=== PATIENT | male | born 1955 | race Caucasian/White ===

== ENCOUNTER 2019-10-06 06:00 | Outpatient (RCR) | payer MEDICARE, SELFPAY | END 2019-11-05 23:59 | disposition home or self-care (01) | LOC: GPT 06:00 | PROVIDERS: Family Provider Nurse Practitioner Family; PCP Nurse Practitioner Family; Visit Provider Orthopaedic Surgery | DX: Z47.1 Aftercare following joint replacement surgery (principal); Z96.652 Presence of left artificial knee joint | CPT/HCPCS: 97110; 97112; 97116; 97161; 97530 ==

== ENCOUNTER → 2019-10-25 14:04 | Outpatient (BNVA) | payer MEDICARE, SELFPAY | PROVIDERS: Family Provider Nurse Practitioner Family; PCP Nurse Practitioner Family; Visit Provider Orthopaedic Surgery | DX: Z48.89 Encounter for other specified surgical aftercare (principal); Z96.652 Presence of left artificial knee joint; M25.462 Effusion, left knee | CPT/HCPCS: 73560; 73565 ==

== ENCOUNTER → 2019-11-05 13:43 | Outpatient (BNVA) | payer MEDICARE, SELFPAY | PROVIDERS: Family Provider Nurse Practitioner Family; PCP Nurse Practitioner Family; Visit Provider Anesthesiology | DX: M54.5 Low back pain (principal); Z79.891 Long term (current) use of opiate analgesic | CPT/HCPCS: 99213; 99214 ==

== ENCOUNTER → 2019-11-15 08:01 | Outpatient (BNVA) | payer MEDICARE, SELFPAY | PROVIDERS: Family Provider Nurse Practitioner Family; PCP Nurse Practitioner Family; Visit Provider Specialist | DX: G25.0 Essential tremor (principal); Z79.891 Long term (current) use of opiate analgesic | CPT/HCPCS: 99214 ==

== ENCOUNTER 2019-11-16 06:00 | Outpatient (RCR) | payer MEDICARE, SELFPAY | END 2019-12-04 23:59 | disposition home or self-care (01) | LOC: GPT 06:00 | PROVIDERS: Family Provider Nurse Practitioner Family; PCP Nurse Practitioner Family; Visit Provider Orthopaedic Surgery | DX: Z47.1 Aftercare following joint replacement surgery (principal); Z96.652 Presence of left artificial knee joint | CPT/HCPCS: 97110; 97112; 97164; 97530 ==

== ENCOUNTER 2019-12-05 06:00 | Outpatient (RCR) | payer MEDICARE, SELFPAY | END 2020-01-04 23:59 | disposition home or self-care (01) | LOC: GPT 06:00 | PROVIDERS: Family Provider Nurse Practitioner Family; PCP Nurse Practitioner Family; Visit Provider Orthopaedic Surgery | DX: Z47.1 Aftercare following joint replacement surgery (principal); Z96.652 Presence of left artificial knee joint | CPT/HCPCS: 97530 ==

== ENCOUNTER → 2019-12-30 14:17 | Outpatient (BNVA) | payer MEDICARE, SELFPAY | PROVIDERS: Family Provider Nurse Practitioner Family; PCP Nurse Practitioner Family; Visit Provider Anesthesiology | DX: Z76.89 Persons encountering health services in other specified circumstances (principal) | CPT/HCPCS: 99213 ==

== ENCOUNTER → 2020-01-10 12:14 | Outpatient (BNVA) | payer MEDICARE, SELFPAY | PROVIDERS: Family Provider Nurse Practitioner Family; PCP Nurse Practitioner Family; Visit Provider Family Medicine | DX: R05 Cough (principal); J43.9 Emphysema, unspecified; I51.7 Cardiomegaly | CPT/HCPCS: 71046; 85025; 87400 ==

== ENCOUNTER → 2020-02-09 09:16 | Outpatient (BNVA) | payer MEDICARE, SELFPAY | PROVIDERS: Family Provider Nurse Practitioner Family; PCP Nurse Practitioner Family; Visit Provider Family Medicine | DX: E11.9 Type 2 diabetes mellitus without complications (principal); R05 Cough; I25.10 Atherosclerotic heart disease of native coronary artery without angina pectoris | CPT/HCPCS: 80053; 83036 ==

== ENCOUNTER → 2020-02-17 11:51 | Outpatient (BNVA) | payer MEDICARE, SELFPAY | PROVIDERS: Family Provider Nurse Practitioner Family; PCP Nurse Practitioner Family; Visit Provider Orthopaedic Surgery | DX: Z48.89 Encounter for other specified surgical aftercare (principal); Z98.890 Other specified postprocedural states; Z96.652 Presence of left artificial knee joint | CPT/HCPCS: 73562 ==

== ENCOUNTER → 2020-03-08 15:07 | Outpatient (BNVA) | payer MEDICARE, SELFPAY | PROVIDERS: Family Provider Nurse Practitioner Family; PCP Nurse Practitioner Family; Visit Provider Anesthesiology | DX: M54.41 Lumbago with sciatica, right side (principal); M54.42 Lumbago with sciatica, left side; M47.22 Other spondylosis with radiculopathy, cervical region; Z79.891 Long term (current) use of opiate analgesic | CPT/HCPCS: 99213; 99214 ==

== ENCOUNTER → 2020-04-21 09:00 | Outpatient (BNVA) | payer MEDICARE, SELFPAY | PROVIDERS: Family Provider Nurse Practitioner Family; PCP Nurse Practitioner Family; Visit Provider Nurse Practitioner Family | DX: R53.83 Other fatigue (principal); E55.9 Vitamin D deficiency, unspecified; R42 Dizziness and giddiness | CPT/HCPCS: 82306; 85025 ==

== ENCOUNTER → 2020-05-09 13:59 | Outpatient (BNVA) | payer MEDICARE, SELFPAY | PROVIDERS: Family Provider Nurse Practitioner Family; PCP Nurse Practitioner Family; Visit Provider Anesthesiology | DX: M54.5 Low back pain (principal); M47.22 Other spondylosis with radiculopathy, cervical region; Z79.891 Long term (current) use of opiate analgesic | CPT/HCPCS: 99213; 99214 ==

== ENCOUNTER → 2020-05-11 13:46 | Outpatient (BNVA) | payer MEDICARE, SELFPAY | PROVIDERS: Family Provider Nurse Practitioner Family; PCP Nurse Practitioner Family; Visit Provider Nurse Practitioner Family | DX: E11.9 Type 2 diabetes mellitus without complications (principal); E78.2 Mixed hyperlipidemia; I10 Essential (primary) hypertension; Z68.30 Body mass index [BMI] 30.0-30.9, adult | CPT/HCPCS: 83036 ==

== ENCOUNTER → 2020-05-18 09:04 | Outpatient (BNVA) | payer MEDICARE, SELFPAY | PROVIDERS: Family Provider Nurse Practitioner Family; PCP Nurse Practitioner Family; Visit Provider Nurse Practitioner Family | DX: E78.2 Mixed hyperlipidemia (principal); I10 Essential (primary) hypertension | CPT/HCPCS: 36415; 80053; 80061; 84439; 84443 ==

== ENCOUNTER → 2020-07-06 12:24 | Outpatient (BNVA) | payer MEDICARE, SELFPAY | PROVIDERS: Family Provider Nurse Practitioner Family; PCP Nurse Practitioner Family; Visit Provider Anesthesiology | DX: M54.42 Lumbago with sciatica, left side (principal); M54.41 Lumbago with sciatica, right side; M47.22 Other spondylosis with radiculopathy, cervical region; Z79.891 Long term (current) use of opiate analgesic | CPT/HCPCS: 99213; 99214 ==

== ENCOUNTER → 2020-09-05 12:31 | Outpatient (BNVA) | payer MEDICARE, SELFPAY | PROVIDERS: Family Provider Nurse Practitioner Family; PCP Nurse Practitioner Family; Visit Provider Anesthesiology | DX: M54.5 Low back pain (principal); M47.22 Other spondylosis with radiculopathy, cervical region; Z79.891 Long term (current) use of opiate analgesic | CPT/HCPCS: 99213; 99214 ==

== ENCOUNTER → 2020-09-13 10:04 | Outpatient (BNVA) | payer MEDICARE, SELFPAY | PROVIDERS: Family Provider Nurse Practitioner Family; PCP Nurse Practitioner Family; Visit Provider Nurse Practitioner Family | DX: R53.83 Other fatigue (principal); Z11.59 Encounter for screening for other viral diseases | CPT/HCPCS: 87635 ==

== ENCOUNTER → 2020-11-02 13:16 | Outpatient (BNVA) | payer MEDICARE, SELFPAY | PROVIDERS: Family Provider Nurse Practitioner Family; PCP Nurse Practitioner Family; Visit Provider Anesthesiology | DX: M54.5 Low back pain (principal); M47.22 Other spondylosis with radiculopathy, cervical region; Z79.891 Long term (current) use of opiate analgesic | CPT/HCPCS: 99213 ==

== ENCOUNTER → 2020-12-05 09:57 | Outpatient (BNVA) | payer MEDICARE, SELFPAY | PROVIDERS: Family Provider Nurse Practitioner Family; PCP Nurse Practitioner Family; Visit Provider Nurse Practitioner Family | DX: B35.1 Tinea unguium (principal) | CPT/HCPCS: 84450; 84460 ==

== ENCOUNTER → 2021-02-26 11:21 | Outpatient (BNVA) | payer MEDICARE, SELFPAY | PROVIDERS: Family Provider Nurse Practitioner Family; PCP Nurse Practitioner Family; Visit Provider Family Medicine | DX: R53.83 Other fatigue (principal); E11.9 Type 2 diabetes mellitus without complications; Z68.32 Body mass index [BMI] 32.0-32.9, adult; G47.00 Insomnia, unspecified | CPT/HCPCS: 83036 ==

== ENCOUNTER 2021-03-14 16:30 | Emergency (ER) | payer MEDICARE, SELFPAY ==
[2021-03-14 16:46] VITALS: BP 152/87; PULSE 72; RESP 16; TEMP 36.3; O2SAT 98; BMI 31.5
[2021-03-14 17:20] VITALS: BP 136/83; PULSE 67; O2SAT 96
--- NOTE | 2021-03-14 17:26 | ED_ITS ---
HPI - Dizziness General: Chief Complaint: Dizziness Stated Complaint: dizzy Time Seen by Provider: 03/14/21 17:20 History of Present Illness: HPI Narrative: This patient presents to the emergency department complaint of dizziness. Patient states he was out working in the heat today and even try to going to cool off because he started getting dizzy. Patient states he still having issues with dizziness. Patient does have a history of Parkinson's disease and does take medications for the same but otherwise denies any neurological symptoms other than his chronic tremor check. Patient states he thinks he got too hot. MD elicited complaint: dizziness Timing: gradual onset Severity: mild Description: lightheadedness Associated symptoms: Denies chest pain, chills, headache(s), nausea, palpitations or vomiting Associated neuro symptoms: Deny numbness in extremities Review of Systems General: Reports: 10 or more systems reviewed and unremarkable except in HPI and below Const: Denies: fever(s), chills, body aches or fatigue Eyes: Denies: change in vision or blurry vision ENMT: Denies: throat pain, hoarseness or mouth pain Card: Denies: chest pain, palpitations, irregular heart rhythm, edema, swelling of feet/ankles or lightheadedness Resp: Denies: dyspnea, productive cough, non-productive cough, wheezing or pain on inspiration GI: Denies: abdominal pain, nausea or vomiting : Denies: flank pain, dysuria, urinary frequency, urinary urgency or urinary hesitancy Musc: Denies: neck pain, back pain, extremity pain, extremity swelling, joint pain, joint swelling, joint redness, joint warmth or limited range of motion Skin/Breast: Denies: rash, pruritus, erythema or skin tenderness Neuro: Reports: dizziness; Denies: headache(s), numbness in extremities or weakness in extremities Psych: Denies: anxiety or depression PFSH ED PFSH: Medical History Accelerated essential hypertension Aortic stenosis CAD (coronary artery disease) Encounter for long-term use of opiate analgesic Enrolled in chronic care management Hyperlipidemia, mixed Low back pain Parkinson disease Type 2 diabetes mellitus Surgical History H/O aortic valve replacement H/O aortic valve replacement History of arthroplasty of knee History of total left hip arthroplasty Status post total left knee replacement Family History Mother Diabetes Hypertension Stroke Father CAD (coronary artery disease) Brother Hypertension Sister Hypertension Social History Smoking and tobacco status: never smoked Second hand smoke exposure: Yes Alcohol intake: former Year of sobriety/quit date alcohol: 30 Substance/Drug Use: current Substance/Drug use frequency: daily Substance/Drug use type: Marijuana History of recent travel: No Physical Exam Const: COMMON NORMALS: no acute distress, average body habitus, patient oriented x3, no limitations, healthy appearing, alert and well nourished HENMT: COMMON NORMALS: normocephalic, atraumatic, hearing grossly normal bilaterally, external ears normal, EAC's normal, TM's normal bilaterally, Normal external nose present, Normal nasal mucous membranes and turbinates present, moist oral mucous membranes, oropharynx normal, dentition normal and gingiva normal HEAD & SCALP: normocephalic and atraumatic NOSE: Normal external nose present and Normal nasal mucous membranes and turbinates present EXTERNAL EAR: Yes external ears normal EXTERNAL AUDITORY CANAL: EAC's normal TYMPANIC MEMBRANE: TM's normal bilaterally Neck/C-Spine: COMMON NORMALS: full ROM, no lymphadenopathy, supple, no meningeal signs, no JVD, Thyroid normal and No carotid bruits THYROID: Thyroid normal Chest: COMMONS NORMALS: normal inspection of the chest, normal palpation of entire chest wall, normal inspection of the breasts and normal palpation of the breasts Breast/axilla inspection: Yes normal inspection of the breasts BREAST/AXILLA PALPATION: Yes normal palpation of the breasts Resp: COMMON NORMALS: normal respiratory effort, No retractions, No use of accessory muscles, clear to auscultation bilaterally and percussion normal AUSCULTATION: clear to auscultation bilaterally PERCUSSION: percussion normal Cardio: COMMON NORMALS: no JVD, regular rate, regular rhythm, S1 normal heart sound present, S2 normal heart sound present, No gallops present (Cardio), No clicks present (Cardio), No murmurs present (Cardio), No rub (Cardio) and Peripheral pulses 2+ throughout RATE: regular rate RHYTHM: regular rhythm HEART SOUNDS: S1 normal heart sound present and S2 normal heart sound present PERIPHERAL PULSES: Peripheral pulses 2+ throughout GI: COMMON NORMALS: Normal to inspection, nondistended, normoactive bowel sounds present, Soft to palpation, non-tender, No hepatosplenomegaly present, no masses and no bruits PALPATION: Yes Soft to palpation and Yes No hepato splenomegaly present : COMMON NORMALS: Yes no CVA tenderness BLADDER/KIDNEY EXAM: Yes no CVA tenderness Back/Pelvis: COMMON NORMALS: no CVA tenderness, thoracic and lumbar spine normal to inspection, no thoracic nor lumbar tenderness, thoraco-lumbar ROM normal and straight leg raise negative bilaterally Extremity: COMMON NORMALS: normal to inspection, full ROM, capillary refill normal, no joint enlargement, no clubbing, cyanosis or edema, no calf tenderness and no pedal edema Neuro: COMMON NORMALS: patient oriented x3 SENSORIUM/ORIENTATION: Yes alert MENINGEAL SIGNS: Yes no meningeal signs Course Reevaluation(s): Reevaluation #1: Dizziness resolved. Patient doing much better. Patient be discharged home. Patient encourage p.o. fluids continue all home medications. Avoid long stretches in the hot sun. Time: 19:11 Vital Signs: Vital signs: Vital Signs Temperature 97.3 F L 03/14/21 16:46 Pulse Rate 79 03/14/21 19:05 Respiratory Rate 16 03/14/21 16:46 Blood Pressure 148/64 03/14/21 19:05 Pulse Oximetry 92 03/14/21 19:05 MDM - Dizziness MDM Narrative: Medical decision making narrative: This patient presents to the emergency department complaint of dizziness. Patient states he was out working in the heat today and even try to going to cool off because he started getting dizzy. Patient states he still having issues with dizziness. Patient does have a history of Parkinson's disease and does take medications for the same but otherwise denies any neurological symptoms other than his chronic tremor check. Patient states he thinks he got too hot. Dizziness resolved. Patient doing much better. Patient be discharged home. Patient encourage p.o. fluids continue all home medications. Avoid long stretches in the hot sun. Lab Data: Labs: Lab Results 03/14/21 03/14/21 03/14/21 Range/Units 17:44 17:44 18:28 WBC 7.1 (4.0-10.0) 10^3/ uL RBC 3.98 L (4.1-5.3) 10^6/u L Hgb 11.6 L (11.7-16.6) g/dL Hct 35.2 L (42.0-52.0) % MCV 88.4 (80-94) fL MCH 29.1 (28.0-34.0) pg MCHC 33.0 (30.0-36.0) g/dL RDW 14.0 (12.1-15.1) % Plt Count 172 (130-400) 10^3/c mm MPV 11.2 H (7.4-10.4) fL Neut % (Auto) 59.6 % Lymph % (Auto) 29.2 % Osborne % (Auto) 10.2 % Eos % (Auto) 0.4 % Baso % (Auto) 0.3 % Neut # (Auto) 4.23 (1.8-7.7) 10^3/u L Lymph # (Auto) 2.1 (0.8-4.8) 10^3/u L Osborne # (Auto) 0.7 (0.2-0.9) 10^3/u L Eos # (Auto) 0.0 (0.0-0.8) 10^3/u L Baso # (Auto) 0.0 (0.0-0.1) 10^3/u L Nucleated RBC % (a uto) 0 % Nucleated RBCs # 0.0 /100WBC Sodium 139 (136-145) mmol/L Potassium 3.9 (3.5-5.1) mmol/L Chloride 104 (98-107) mmol/L Carbon Dioxide 24 (22-29) mmol/L Anion Gap 14.9 (5-19) BUN 15 (8-23) mg/dL Creatinine 0.8 (0.7-1.2) mg/dL GFR Calculation 97.3 (90-130) mL/min Glucose 132 H (65-115) mg/dL Calculated Osmolal ity 291 (285-295) mOsm/k g Calcium 8.6 (8.5-10.5) mg/dL Urine Color Yellow (Yellow) Urine Appearance Clear (CLEAR) Urine pH 6 (5-7) Ur Specific Gravit y 1.005 (1.005-1.030) Urine Protein Neg (Negative) Urine Glucose (UA) Norm (Normal) Urine Ketones Negative (Negative) Urine Blood Neg (Negative) Urine Nitrate Negative (Negative) Urine Bilirubin Neg (Negative) Urine Urobilinogen Norm (Negative) mg/dL Ur Leukocyte Luly ase Negative (Negative) EKG Data^: EKG 1: Attestation: I personally reviewed and interpreted this EKG as follows: EKG interpretation date: 03/14/21 EKG interpretation time: 18:12 Prior EKG tracings: not available for review Interpretation: Sinus rhythm with a heart rate of 65 interventricular conduction delay nondiagnostic EKG Discharge Plan Discharge Patient Disposition: Home Clinical Impression: Dizziness, Parkinson disease Condition: Stable Prescriptions: No Action sildenafil [Viagra] 50 mg tablet 50 mg PO QDAY PRNRF: 0 albuterol sulfate 2.5 mg /3 mL (0.083 %) solution for nebulization 2.5 mg INHALATION Q6H PRNRF: 0 diclofenac sodium [Voltaren] 1 % gel 2 gm TOPICAL QID Qty: 100 RF: 1 zinc 50 mg tablet 50 mg PO DAILY RF: 0 cholecalciferol (vitamin D3) 50 mcg (2,000 unit) capsule 50 mcg PO DAILY RF: 0 carbidopa-levodopa 25-100 mg tablet 1 tab PO TID RF: 0 tramadol 50 mg tablet 100 mg PO TID 30 Days Qty: 180 RF: 1 albuterol sulfate [Ventolin HFA] 90 mcg/actuation HFA aerosol inhaler 1 inh INHALATION ONCE Qty: 8.5 RF: 0 cetirizine [Zyrtec] 10 mg tablet 10 mg PO DAILY Qty: 30 RF: 11 fluticasone propionate [Children's Flonase Allergy Rlf] 50 mcg/actuation spray,suspension 1 spray INTRANASAL QDAY Qty: 16 RF: 11 trazodone 50 mg tablet See Rx Instructions .ROUTE .COMPLEX Qty: 45 RF: 3 magnesium oxide 500 mg capsule 500 mg PO DAILY RF: 0 multivitamin Tablet 1 tab PO DAILY RF: 0 garlic 500 mg capsule 500 mg PO DAILY RF: 0 entacapone 200 mg tablet 200 mg PO TID RF: 0 medical marijuana PO RF: 0 bupivacaine (PF) 0.25 % (2.5 mg/mL) solution 5 ml epidural ONCE Qty: 1 RF: 0 (DME) Accu-Chek SmartView Test Strip Strip See Rx Instructions .ROUTE .MEDSUPPLY Qty: 100 RF: 3 (DME) lancets [Comfort EZ Lancets] 28 gauge misc See Rx Instructions .ROUTE .MEDSUPPLY Qty: 100 RF: 3 amlodipine 5 mg tablet See Rx Instructions .ROUTE .COMPLEX Qty: 90 RF: 3 atorvastatin 20 mg tablet See Rx Instructions .ROUTE .COMPLEX Qty: 90 RF: 3 glipizide 5 mg tablet See Rx Instructions .ROUTE .COMPLEX Qty: 90 RF: 3 propranolol 40 mg tablet See Rx Instructions .ROUTE .COMPLEX Qty: 60 RF: 3 metformin 850 mg tablet See Rx Instructions .ROUTE .COMPLEX Qty: 60 RF: 3 Discharge Orders: Discharge ED (Routine); Ordered 03/14/21 Ordered By: Roverto Escamilla Referrals: Kellie Post, PEDIATRICIAN [Primary Care Provider] - Discharge Diet: Advance as tolerated Discharge Activity: Resume usual activity and Increase activity as tolerated Patient Instructions: Opioid Safety Activity Restrictions/Additional Instructions: Encourage p.o. fluids. Take medications as instructed. Avoid long stretches out of the heat. Follow-up with PCP in 2 to 3 days. Coding Level of Care Code ED Anaesthetic Technician for Fredis Fwd Exam Comprehensive
--- NOTE | 2021-03-14 17:26 | ECG_ITS ---
[facility] Test Date: 2021-03-14 Pat Name: Jose Hairston Department: Room: Gender: Male Jtac: : 1955 Requested By: Roverto Escamilla Order Number: [id number] Recio MD: Sheba Rene M.D. Measurements Intervals Mobile Rate: 65 P: 41 SC: 169 QRS: 72 QRSD: 139 T: 95 QT: 419 QTc: 438 Interpretive Statements SINUS RHYTHM INTRAVENTRICULAR CONDUCTION DELAY [130+ ms QRS DURATION] SEPTAL MYOCARDIAL INFARCTION [40+ ms Q WAVE IN V1/V2], OF INDETERMINATE AGE Compared to ECG 09/03/2019 11:13:05 Intraventricular conduction delay now present T-wave abnormality no longer present Possible ischemia no longer present Myocardial infarct finding still present Electronically Signed On 03-14-2021 22:00:47 CDT by Sheba Rene M.D. [id number]
[2021-03-14 17:56] LABS: Basophils % 0.3 %; Eosinophils % 0.4 %; Hematocrit 35.2 % (42.0-52.0); Hemoglobin 11.6 g/dL (11.7-16.6); Lymphocytes # 2.1 10^3/uL (0.8-4.8); Lymphocytes % 29.2 %; Mean Corpuscular Hemoglobin 29.1 pg (28.0-34.0); Mean Corpuscular Volume 88.4 fL (80-94); Mean Platelet Volume 11.2 fL (7.4-10.4); Monocytes # 0.7 10^3/uL (0.2-0.9); Monocytes % 10.2 %; Neutrophils # 4.23 10^3/uL (1.8-7.7); Neutrophils % 59.6 %; Nucleated Red Blood Cells % 0 %; Platelet Count 172 10^3/cmm (130-400); Red Blood Count 3.98 10^6/uL (4.1-5.3); White Blood Count 7.1 10^3/uL (4.0-10.0)
[2021-03-14 18:19] LABS: Anion Gap 14.9 (5-19); Blood Urea Nitrogen 15 mg/dL (8-23); Calcium 8.6 mg/dL (8.5-10.5); Carbon Dioxide 24 mmol/L (22-29); Chloride 104 mmol/L (98-107); Glomerular Filtration Rate 97.3 mL/min (90-130); Glucose 132 mg/dL (65-115); Osmolality Calculated 291 mOsm/kg (285-295); Potassium 3.9 mmol/L (3.5-5.1); Sodium 139 mmol/L (136-145)
[2021-03-14] MEDS: sodium chloride 0.9% 1,000 ML 999 ML IV (18:35)
[2021-03-14] MEDS: meclizine 25 mg tablet PO (18:35)
[2021-03-14 18:43] LABS: Add Urine Microscopic? NO; Charge for UA Resulting for Rev
[2021-03-14 18:53] LABS: Bilirubin Urine Neg (Negative); Blood Urine Neg (Negative); Glucose Urine UA Norm (Normal); Ketones Urine Negative (Negative); Leukocyte Esterase Urine Negative (Negative); Nitrate Urine Negative (Negative); Protein Urine Neg (Negative); Specific Gravity, Urine 1.005 (1.005-1.030); Urine Appearance Clear (CLEAR); Urine Color Yellow (Yellow); Urobilinogen Urine Norm (Negative); pH Urine 6 (5-7)
[2021-03-14 19:05] VITALS: BP 148/64; PULSE 79; O2SAT 92
[2021-03-14 19:50] VITALS: BP 143/92; PULSE 65; RESP 18; O2SAT 99
== END 2021-03-14 19:53 | disposition home or self-care (01) ==
PROVIDERS: Emergency Provider Emergency Medicine; PCP Nurse Practitioner Family
DX: R42 Dizziness and giddiness (principal); G20 Parkinson's disease; Z79.84 Long term (current) use of oral hypoglycemic drugs; I10 Essential (primary) hypertension; I25.10 Atherosclerotic heart disease of native coronary artery without angina pectoris; E78.2 Mixed hyperlipidemia; E11.9 Type 2 diabetes mellitus without complications; Z77.22 Contact with and (suspected) exposure to environmental tobacco smoke (acute) (chronic)
CPT/HCPCS: 80048; 81003; 85025; 93005; 96360; 99283; J7030; J8597

== ENCOUNTER → 2021-06-07 15:28 | Outpatient (BNVA) | payer MEDICARE, SELFPAY | PROVIDERS: PCP Nurse Practitioner Family; Visit Provider Nurse Practitioner Family | DX: Z20.822 Contact with and (suspected) exposure to COVID-19 (principal) | CPT/HCPCS: 87635 ==

== ENCOUNTER → 2021-06-19 09:11 | Outpatient (BNVA) | payer MEDICARE, SELFPAY | PROVIDERS: PCP Nurse Practitioner Family; Visit Provider Nurse Practitioner Family | DX: E11.9 Type 2 diabetes mellitus without complications (principal); E55.9 Vitamin D deficiency, unspecified; E78.2 Mixed hyperlipidemia; E83.42 Hypomagnesemia | CPT/HCPCS: 80053; 80061; 82043; 82306; 83036; 83735; 84439; 84443; 85025 ==

== ENCOUNTER → 2021-07-04 09:40 | Outpatient (BNVA) | payer MEDICARE, SELFPAY | PROVIDERS: PCP Nurse Practitioner Family; Visit Provider Nurse Practitioner Family | DX: N52.9 Male erectile dysfunction, unspecified (principal); Z68.31 Body mass index [BMI] 31.0-31.9, adult | CPT/HCPCS: 84402; G0103 ==

== ENCOUNTER → 2021-10-08 14:29 | Outpatient (BNVA) | payer MEDICARE, SELFPAY | PROVIDERS: PCP Nurse Practitioner Family; Visit Provider Urology | DX: M54.50 Low back pain, unspecified (principal) | CPT/HCPCS: 81003 ==

== ENCOUNTER → 2021-12-21 10:29 | Outpatient (BNVA) | payer MEDICARE, MEDICAID, SELFPAY | PROVIDERS: PCP Nurse Practitioner Family; Visit Provider Internal Medicine Cardiovascular Disease | DX: I25.10 Atherosclerotic heart disease of native coronary artery without angina pectoris (principal); E11.9 Type 2 diabetes mellitus without complications; E78.2 Mixed hyperlipidemia; I10 Essential (primary) hypertension | CPT/HCPCS: 99214 ==

== ENCOUNTER → 2022-03-20 08:39 | Outpatient (BNVA) | payer MEDICARE, MEDICAID, SELFPAY | PROVIDERS: PCP Nurse Practitioner Family; Visit Provider Nurse Practitioner Family | DX: E55.9 Vitamin D deficiency, unspecified (principal); E11.9 Type 2 diabetes mellitus without complications; E78.2 Mixed hyperlipidemia | CPT/HCPCS: 80053; 80061; 82306; 83036 ==

== ENCOUNTER → 2022-04-22 15:40 | Outpatient (BNVA) | payer MEDICARE, MEDICAID, SELFPAY | PROVIDERS: PCP Nurse Practitioner Family; Visit Provider Urology | DX: R79.89 Other specified abnormal findings of blood chemistry (principal); N52.9 Male erectile dysfunction, unspecified | CPT/HCPCS: 81003; 84403; 99213 ==

== ENCOUNTER → 2022-06-25 09:11 | Outpatient (BNVA) | payer MEDICARE, MEDICAID, SELFPAY | PROVIDERS: PCP Nurse Practitioner Family; Visit Provider Nurse Practitioner Family | DX: E11.9 Type 2 diabetes mellitus without complications (principal) | CPT/HCPCS: 83036 ==

== ENCOUNTER 2022-08-09 11:45 | Outpatient (CLI) | payer MEDICARE, MEDICAID, SELFPAY ==
--- NOTE | 2022-08-09 12:15 | USCV_ITS ---
Jose Hairston Age: 66 Gender: M : 1955 Exam Date: 08/09/2022 12:33 Ordering Phys: Sheba Rene MD ([email or web address]) Technologist: Maryam Arguelles Exam Location: [facility] – [place] Indication: AOV replacement, CAD BP: 128 / 88 HR: 62 Rhythm: Sinus Technical Quality: Fair MEASUREMENTS (Male / Female) Normal Values 2D ECHO LV Diastolic Diameter PLAX 3.1 cm 4.2 - 5.9 / 3.9 - 5.3 cm LV Systolic Diameter PLAX 1.8 cm IVS Diastolic Thickness 2.6 cm 0.6 - 1.0 / 0.6 - 0.9 cm IVS Systolic Thickness 3.2 cm LVPW Diastolic Thickness 2.3 cm 0.6 - 1.0 / 0.6 - 0.9 cm LVPW Systolic Thickness 1.7 cm LVOT Diameter 2.1 cm LV Ejection Fraction 2D Teich 74.0 % LV Ejection Fraction MOD 2C 45.1 % LV Ejection Fraction 2C AL 44.5 % LA Diameter 4.1 cm LA Width 3.4 cm LA Height 5.0 cm RA Width 3.4 cm RA Height 4.6 cm Aorta at Sinotubular Diameter 3.5 cm IVC Diameter 1.9 cm M-MODE MV E Point Septal Separation 0.9 cm DOPPLER AV Peak Velocity 220.0 cm/s LVOT Peak Velocity 91.0 cm/s AV Area Cont Eq vti 1.8 cm squared AV Area Cont Eq pk 1.4 cm squared MV Peak Velocity 141.0 cm/s MV Area PHT 2.2 cm squared Mitral E to A Ratio 0.6 MV E' Velocity 43.5 cm/s Mitral E to MV E' Ratio 9.3 Mitral E to LV E' Lateral Ratio 8.7 Mitral E to LV E' Septal Ratio 10.2 TR Peak Velocity 72.0 cm/s TR Peak Gradient 2.1 mmHg Right Atrial Pressure 3.0 mmHg Pulmonary Artery Systolic Pressu 5.1 mmHg PV Peak Velocity 94.0 cm/s RV Acceleration Time 0.1 s RV Ejection Time 0.3 s RV AcT/ET 0.3 FINDINGS Left Ventricle Normal left ventricular size, systolic function and wall thickness, with no regional wall motion abnormalities. Left ventricular ejection fraction is estimated at 60 %. Grade I diastolic dysfunction (abnormal relaxation filling pattern), normal to mildly elevated filling pressures. Right Ventricle Normal right ventricular size and systolic function. RVSP could not be calculated due to incomplete tricuspid regurgitation velocity profile. Right Atrium Normal right atrial size. Left Atrium Normal left atrial size. Mitral Valve Structurally normal mitral valve. No mitral valve stenosis. No significant mitral valve regurgitation. Aortic Valve Normal bioprosthetic aortic valve well seated and normally functioning. Peak velocity 2.1 m/sec, peak gradient 18 mm Hg and mean gradient 10 mm Hg. No significant valvular or binh-valvular regurgitation. Tricuspid Valve Structurally normal tricuspid valve. Trace tricuspid valve regurgitation. Pulmonic Valve Structurally normal pulmonic valve. No pulmonary valve stenosis. Trace pulmonary valve regurgitation. Pericardium No pericardial effusion. Aorta Normal size aortic root and proximal ascending aorta. IVC Normal sized IVC. CONCLUSIONS 1. Normal left ventricular size, systolic function and wall thickness, with no regional wall motion abnormalities. Left ventricular ejection fraction is estimated at 60 %. Grade I diastolic dysfunction (abnormal relaxation filling pattern), normal to mildly elevated filling pressures. 2. Normal bioprosthetic aortic valve well seated and normally functioning. Peak velocity 2.1 m/sec, peak gradient 18 mm Hg and mean gradient 10 mm Hg. 3. No significant change when compared to study dated 05/27/2016. Sheba Rene MD (Electronically Signed) Final Date: 21 August 2022 21:16 S
== END 2022-08-09 11:46 | disposition home or self-care (01) ==
LOC: RAD 11:45
PROVIDERS: PCP Nurse Practitioner Family; Visit Provider Internal Medicine Cardiovascular Disease
DX: I25.10 Atherosclerotic heart disease of native coronary artery without angina pectoris (principal); I10 Essential (primary) hypertension; Z95.2 Presence of prosthetic heart valve
CPT/HCPCS: 93306

== ENCOUNTER → 2022-10-14 15:10 | Outpatient (BNVA) | payer MEDICARE, MEDICAID, SELFPAY | PROVIDERS: PCP Nurse Practitioner Family; Visit Provider Internal Medicine Cardiovascular Disease | DX: Z95.2 Presence of prosthetic heart valve (principal); I10 Essential (primary) hypertension; E11.9 Type 2 diabetes mellitus without complications; Z79.84 Long term (current) use of oral hypoglycemic drugs; E78.2 Mixed hyperlipidemia | CPT/HCPCS: 93005; 99214 ==

== ENCOUNTER → 2023-02-13 14:56 | Outpatient (BNVA) | payer MEDICARE, MEDICAID, SELFPAY | PROVIDERS: PCP Nurse Practitioner Family; Visit Provider Nurse Practitioner Family | DX: E78.2 Mixed hyperlipidemia (principal); E11.9 Type 2 diabetes mellitus without complications | CPT/HCPCS: 80053; 80061; 83036; 85025 ==

== ENCOUNTER → 2023-04-23 15:18 | Outpatient (BNVA) | payer MEDICARE, MEDICAID, SELFPAY | PROVIDERS: PCP Nurse Practitioner Family; Visit Provider Internal Medicine Cardiovascular Disease | DX: I95.9 Hypotension, unspecified (principal); Z95.2 Presence of prosthetic heart valve; E11.9 Type 2 diabetes mellitus without complications; G25.0 Essential tremor; E78.2 Mixed hyperlipidemia; I25.10 Atherosclerotic heart disease of native coronary artery without angina pectoris; Z79.84 Long term (current) use of oral hypoglycemic drugs | CPT/HCPCS: 99214 ==

== ENCOUNTER → 2023-08-14 10:07 | Outpatient (BNVA) | payer MEDICARE, SELFPAY | PROVIDERS: PCP Nurse Practitioner Family; Visit Provider Nurse Practitioner Family | DX: L57.0 Actinic keratosis (principal); L82.1 Other seborrheic keratosis; D22.62 Melanocytic nevi of left upper limb, including shoulder; L81.4 Other melanin hyperpigmentation; L57.8 Other skin changes due to chronic exposure to nonionizing radiation | CPT/HCPCS: 17000; 99213 ==

== ENCOUNTER → 2023-08-19 09:16 | Outpatient (BNVA) | payer MEDICARE, SELFPAY | PROVIDERS: PCP Nurse Practitioner Family; Visit Provider Nurse Practitioner Family | DX: E11.9 Type 2 diabetes mellitus without complications (principal); I10 Essential (primary) hypertension; N52.9 Male erectile dysfunction, unspecified; E55.9 Vitamin D deficiency, unspecified | CPT/HCPCS: 80053; 80061; 82306; 83036 ==

== ENCOUNTER 2023-09-15 09:00 | Outpatient (CLI) | payer MEDICARE, SELFPAY ==
--- NOTE | 2023-09-15 09:30 | USCV_ITS ---
Jose Hairston Age: 68 Gender: M : 1955 Exam Date: 09/15/2023 09:19 Ordering Phys: Blair Stout MD ([email or web address]) Technologist: Shay Benito Exam Location: [facility] – [place] Indication: AVR BP: 124 / 72 HR: 50 Rhythm: Sinus Technical Quality: Adequate MEASUREMENTS (Male / Female) Normal Values 2D ECHO LV Diastolic Diameter PLAX 5.4 cm 4.2 - 5.9 / 3.9 - 5.3 cm LV Systolic Diameter PLAX 3.4 cm IVS Diastolic Thickness 1.5 cm 0.6 - 1.0 / 0.6 - 0.9 cm IVS Systolic Thickness 2.1 cm LVPW Diastolic Thickness 1.3 cm 0.6 - 1.0 / 0.6 - 0.9 cm LVPW Systolic Thickness 1.8 cm LVOT Diameter 2.0 cm LV Ejection Fraction 2D Teich 66.7 % LV Ejection Fraction MOD 2C 51.2 % LV Ejection Fraction 2C AL 48.5 % LA Diameter 4.5 cm IVC Diameter 1.4 cm M-MODE Aortic Annulus Diameter 4.2 cm LA Ao Ratio MM 1.2 MV E Point Septal Separation 1.1 cm DOPPLER AV Peak Velocity 202.0 cm/s LVOT Peak Velocity 103.0 cm/s AV Area Cont Eq vti 1.8 cm squared AV Area Cont Eq pk 1.7 cm squared MV Area PHT 3.2 cm squared Mitral E to A Ratio 0.9 MV E' Velocity 56.5 cm/s Mitral E to MV E' Ratio 18.3 Mitral E to LV E' Lateral Ratio 19.6 Mitral E to LV E' Septal Ratio 17.4 TR Peak Velocity 202.0 cm/s TR Peak Gradient 16.3 mmHg TV Peak E Velocity 94.0 cm/s Right Atrial Pressure 3.0 mmHg Pulmonary Artery Systolic Pressu 19.3 mmHg RV Acceleration Time 0.1 s FINDINGS Left Ventricle Normal left ventricular size and systolic function, EF 56 %. Moderate left ventricular hypertrophy. No regional wall motion abnormalities. Grade I/IV diastolic dysfunction (abnormal relaxation filling pattern), normal to mildly elevated filling pressures. Right Ventricle The right ventricle is normal in size and function. Right Atrium The right atrium is normal in size. Left Atrium Mildly increased left atrial size. Mitral Valve Thickened mitral valve. Aortic Valve The bioprosthesis at the aortic valve position appears to be well-seated. The peak velocity across the aortic valve was 2.25 m/s with a peak gradient of 20 mmHg Tricuspid Valve Trace tricuspid valve regurgitation. Pulmonic Valve No gross abnormalities noted Pericardium Normal pericardium without effusion. Aorta Normal ascending aorta dimension. IVC Inferior vena cava not visualized. CONCLUSIONS Normal left ventricular size and systolic function, EF 56 %. Moderate left ventricular hypertrophy. No regional wall motion abnormalities. Grade I/IV diastolic dysfunction (abnormal relaxation filling pattern), normal to mildly elevated filling pressures. Mildly increased left atrial size. Thickened mitral valve. The bioprosthesis at the aortic valve position appears to be well-seated. The peak velocity across the aortic valve was 2.25 m/s with a peak gradient of 20 mmHg. Trace tricuspid valve regurgitation. Estimated pulmonary artery peak systolic pressure 19 mmHg There is no pericardial effusion. There are no intracardiac masses. Compared to the previous study from 08/09/2022, there may not be a significant change Dr Blair Stout MD FAC (Electronically Signed) Final Date: 19 September 2023 08:41 S
== END 2023-09-15 09:01 | disposition home or self-care (01) ==
LOC: RAD 09:00
PROVIDERS: PCP Nurse Practitioner Family; Visit Provider Internal Medicine Cardiovascular Disease
DX: R06.09 Other forms of dyspnea (principal); Z95.2 Presence of prosthetic heart valve; I05.9 Rheumatic mitral valve disease, unspecified
CPT/HCPCS: 93306; 99214

== ENCOUNTER → 2023-10-30 14:40 | Outpatient (BNVA) | payer MEDICARE, MEDICAID, SELFPAY | PROVIDERS: PCP Nurse Practitioner Family; Visit Provider Nurse Practitioner Family | DX: J02.9 Acute pharyngitis, unspecified (principal) | CPT/HCPCS: 87880 ==

== ENCOUNTER → 2023-11-03 14:54 | Outpatient (BNVA) | payer MEDICARE, MEDICAID, SELFPAY | PROVIDERS: PCP Nurse Practitioner Family; Visit Provider Internal Medicine Cardiovascular Disease | DX: I25.10 Atherosclerotic heart disease of native coronary artery without angina pectoris (principal); Z95.2 Presence of prosthetic heart valve; E78.2 Mixed hyperlipidemia | CPT/HCPCS: 99214 ==

== ENCOUNTER 2023-12-28 17:10 | Emergency (ER) | payer MEDICARE, MEDICAID, SELFPAY ==
[2023-12-28 17:12] VITALS: BP 106/84; PULSE 65; RESP 18; TEMP 36.8; O2SAT 99; BMI 28.0
[2023-12-28 17:23] VITALS: BP 106/54; BP 118/59; BP 118/84; PULSE 63; PULSE 70; PULSE 72
--- NOTE | 2023-12-28 17:23 | CTR_ITS ---
PROCEDURE INFORMATION: Exam: CT Head Without Contrast Exam date and time: 12/28/2023 5:35 PM Age: 68 years old Clinical indication: Dizziness TECHNIQUE: Imaging protocol: Computed tomography of the head without contrast. Radiation optimization: All CT scans at this facility use at least one of these dose optimization techniques: automated exposure control; mA and/or kV adjustment per patient size (includes targeted exams where dose is matched to clinical indication); or iterative reconstruction. COMPARISON: CT head wo con* [id number] 09/27/2017 12:37 AM RADIATION DOSE METRICS: Total DLP (mGy-cm): 1093.04 FINDINGS: Brain: Normal. No hemorrhage. Unremarkable white matter. No mass effect. Cerebral ventricles: No ventriculomegaly. Paranasal sinuses: Visualized sinuses are unremarkable. No fluid levels. Mastoid air cells: Visualized mastoid air cells are well aerated. Bones/joints: Unremarkable. No acute fracture. Soft tissues: Unremarkable. CT/CT head wo con* [id number] IMPRESSION: No acute intracranial abnormality.
--- NOTE | 2023-12-28 17:24 | ED_ITS ---
HPI - Dizziness 2 General: Chief Complaint: Dizziness Stated Complaint: dizzy Time Seen by Provider: 12/28/23 17:22 History of Present Illness: HPI Narrative: 68-year-old male patient comes in today with dizziness starting about 2 hours prior to arrival to the ER. Patient had reportedly had become upset with his 11-year-old daughter because she was not paying attention and confucianism. Patient had aortic valve replacement in 2013 and history of angina. Patient has Parkinson's disease. Patient has had his left knee replaced, and lumbar and cervical fusion of the spine. Patient is also had his gallbladder and appendix removed. Patient recently had a cervical nerve ablation for recurrent headaches. Patient takes medications for his blood pressure and Parkinson's. Patient endorses the use of Viagra last night. Patient appears nontoxic. Review of Systems 2 General: Reports: 10 or more systems reviewed and unremarkable except in HPI and below Neuro: Reports: dizziness PFSH ED 2 PFSH: Medical History Parkinson disease Aortic stenosis Accelerated essential hypertension CAD (coronary artery disease) Enrolled in chronic care management Hyperlipidemia, mixed Type 2 diabetes mellitus Low back pain Encounter for long-term use of opiate analgesic Surgical History History of back surgery H/O aortic valve replacement H/O aortic valve replacement History of arthroplasty of knee Status post total left knee replacement Family History Mother , at age 80 Diabetes Hypertension Stroke Father , at age 65 CAD (coronary artery disease) Rheumatic fever CHF (congestive heart failure) Brother Hypertension CAD (coronary artery disease) CABG x 4 Diabetes Sister Hypertension CAD (coronary artery disease) stents Brother CAD (coronary artery disease) stents Diabetes Denies family history of Clotting disorder Dementia Chronic kidney disease (CKD) Suicide Anesthesia complication Bleeding disorder Lung disease Cancer Social History Smoking and tobacco/nicotine status: never used tobacco/nicotine Second hand smoke exposure: Yes Alcohol intake: never Substance/Drug Use: current Substance/Drug use frequency: few times a week Marital status: Current occupational status: disabled Physical Exam 2 Const: COMMON NORMALS: alert HENMT: COMMON NORMALS: normocephalic HEAD & SCALP: normocephalic Neck/C-Spine: COMMON NORMALS: full ROM Chest: COMMONS NORMALS: normal inspection of the chest Resp: COMMON NORMALS: normal respiratory effort and clear to auscultation bilaterally AUSCULTATION: clear to auscultation bilaterally Cardio: COMMON NORMALS: regular rate RATE: regular rate GI: COMMON NORMALS: non-tender Back/Pelvis: COMMON NORMALS: thoracic and lumbar spine normal to inspection Extremity: COMMON NORMALS: full ROM Neuro: SENSORIUM/ORIENTATION: Yes alert and Yes other (No focal neurodeficits) Skin: COMMON NORMALS: turgor normal GENERAL SKIN EXAM: turgor normal Course 2 Vital Signs: Vital signs: Vital Signs Temperature 98.3 F 12/28/23 17:12 Pulse Rate 58 L 12/28/23 18:45 Respiratory Rate 18 12/28/23 19:00 Blood Pressure 106/54 12/28/23 17:23 Pulse Oximetry 97 12/28/23 18:45 Oxygen Delivery Me thod Room Air 12/28/23 18:45 [facility] - Dizziness Medical Decision Making Patient presents with dizziness. Patient denies any nausea or vomiting. Patient appears nontoxic. On exam patient has no focal neurodeficits. Patient does have involuntary movements secondary to Parkinson's disease. Patient appears nontoxic. Vital signs are normal. Differential diagnosis includes but not limited to CVA, BPV, Parkinson's disease, orthostatic hypotension, dehydration. 1840, patient continues to complain of dizziness. We will go ahead and order a CTA of the head and neck for further evaluation of occlusive stroke. CT of the head was normal. Orthostatic pressures were normal. Patient reported a history of iodine allergy with hives. Patient was premedicated with 40 mg of methylprednisolone and 50 mg of diphenhydramine. 1943, CT of the head and neck angiogram noted no large vessel stenosis or occlusions. Patient reported some improvement of symptoms after meclizine and medications. Believe patient probably has some positional vertigo. Recommend follow-up with primary care. Lab Data 12/28/23 18:03 12/28/23 18:[address] 12/28/23 17:23 IMPRESSION: No acute intracranial abnormality. Head/Neck CTA 12/28/23 18:33 IMPRESSION: No large vessel stenosis or occlusion. IMPRESSION: No stenosis or occlusion. REFERENCES: NASCET CRITERIA. The degree of stenosis in the cervical segment of the internal carotid artery is based on NASCET criteria. Normal is no stenosis. Mild is less than 50% stenosis. Moderate is 50-69% stenosis. Severe is 70% to 99% stenosis. Total occlusion is no detectable patent lumen. Laboratory Results WBC 8.21 10^3/uL (3.29-11.43) 12/28/23 18:03 RBC 3.97 10^6/uL (3.85-5.65) 12/28/23 18:03 Hgb 12.60 g/dL (11.27-16.99) 12/28/23 18:03 Hct 39.9 % (37-53) 12/28/23 18:03 MCV 100.5 fl (82-101) 12/28/23 18:03 MCH 31.7 pg (27-33) 12/28/23 18:03 MCHC 31.6 g/dL (30-55) 12/28/23 18:03 RDW 14.8 % (12.1-15.1) 12/28/23 18:03 Plt Count 134 10^3/cmm (157-399) L 12/28/23 18:03 MPV 11.4 fL (7.4-10.4) H 12/28/23 18:03 Neut % (Auto) 65.8 % 12/28/23 18:03 Lymph % (Auto) 22.3 % 12/28/23 18:03 Mcpherson % (Auto) 11.3 % 12/28/23 18:03 Eos % (Auto) 0.1 % 12/28/23 18:03 Baso % (Auto) 0.1 % 12/28/23 18:03 Neut # (Auto) 5.40 10^3/uL (1.8-7.7) 12/28/23 18:03 Lymph # (Auto) 1.8 10^3/uL (0.8-4.8) 12/28/23 18:03 Mcpherson # (Auto) 0.9 10^3/uL (0.2-0.9) 12/28/23 18:03 Eos # (Auto) 0.0 10^3/uL (0.0-0.8) 12/28/23 18:03 Baso # (Auto) 0.0 10^3/uL (0.0-0.1) 12/28/23 18:03 Nucleated RBC % (auto) 0 % 12/28/23 18:03 Nucleated RBCs # 0.0 /100WBC 12/28/23 18:03 Sodium 134 mmol/L (136-145) L 12/28/23 18:03 Potassium 4.9 mmol/L (3.5-5.1) 12/28/23 18:03 Chloride 103 mmol/L (98-107) 12/28/23 18:03 Carbon Dioxide 18 mmol/L (22-29) L 12/28/23 18:03 Anion Gap 17.9 (5-19) 12/28/23 18:03 BUN 17 mg/dL (8-23) 12/28/23 18:03 Creatinine 1.0 mg/dL (0.7-1.2) 12/28/23 18:03 GFR Calculation 74.5 mL/min (90-130) L 12/28/23 18:03 Glucose 116 mg/dL (65-115) H 12/28/23 18:03 Calculated Osmolality 281 mOsm/kg (285-295) L 12/28/23 18:03 Calcium 9.7 mg/dL (8.5-10.5) 12/28/23 18:03 Total Bilirubin 0.7 mg/dL (0.15-1.2) 12/28/23 18:03 AST 32 U/L (0-40) 12/28/23 18:03 ALT 6 U/L (0-41) 12/28/23 18:03 Alkaline Phosphatase 76 U/L (40-130) 12/28/23 18:03 Troponin T Baseline 27 ng/L (0-15) H 12/28/23 18:03 Total Protein 6.9 g/dL (6.6-8.7) 12/28/23 18:03 Albumin 4.1 g/dL (3.5-5.2) 12/28/23 18:03 Globulin 2.8 g/dL (1.3-4.6) 12/28/23 18:03 All radiology interpretation(s) finalized by discharge EKG Data EKG 1: EKG interpretation date: 12/28/23 EKG interpretation time: 17:35 Prior EKG tracings: not available for review Interpretation: EKG shows sinus bradycardia with a regular rate at [address] elevation is noted. Wide QRS complex noted. No prior exam was available for comparison. Computer generated interpretation: Sinus bradycardia, left bundle branch block, abnormal EKG, unconfirmed report. Discharge Plan Discharge Patient Disposition: Home Clinical Impression: Dizziness Condition: Stable Prescriptions: New meclizine 25 mg tablet 25 mg PO TID PRN (Reason: dizziness) Qty: 14 0RF No Action albuterol sulfate 2.5 mg /3 mL (0.083 %) solution for nebulization 2.5 mg INHALATION Q6H PRN zinc 50 mg tablet 50 mg PO DAILY cholecalciferol (vitamin D3) 50 mcg (2,000 unit) capsule 50 mcg PO DAILY carbidopa-levodopa 25-250 mg tablet 1 tab PO QID magnesium oxide 500 mg capsule 500 mg PO DAILY multivitamin Tablet 1 tab PO DAILY medical marijuana PO cyanocobalamin (vitamin B-12) 1,000 mcg capsule 1,000 mcg PO DAILY ascorbic acid (vitamin C) 1,000 mg tablet 1 g PO DAILY albuterol sulfate [Ventolin HFA] 90 mcg/actuation HFA aerosol inhaler 1 inh INHALATION ONCE Qty: 8.5 1RF atorvastatin 40 mg tablet 40 mg PO DAILY Qty: 90 3RF sildenafil 100 mg tablet 100 mg PO DAILY PRN (Reason: sexual activity) Qty: 20 6RF Rx Instructions: Take 1 hour before intercourse, on empty stomach, max dose 100 mg, NO NITROGLYCERIN thiamine HCl (vitamin B1) 100 mg tablet 100 mg PO DAILY propranolol 40 mg tablet See Rx Instructions .ROUTE .COMPLEX Qty: 60 5RF Dose Instruction: TAKE ONE TABLET BY MOUTH TWICE A DAY Rx Instructions: TAKE ONE TABLET BY MOUTH TWICE A DAY cyclobenzaprine 10 mg tablet 10 mg PO TID PRN (Reason: muscle spasm) Qty: 20 0RF cetirizine [Zyrtec] 10 mg tablet 10 mg PO DAILY Qty: 90 3RF fluticasone propionate [Flonase Allergy Relief] 50 mcg/actuation spray,suspension 2 spray intranasal DAILY Qty: 16 11RF Rx Instructions: administer into each nostril bupivacaine (PF) 0.25 % (2.5 mg/mL) solution 5 ml epidural ONCE Qty: 1 0RF (DME) lancets [BD Ultra Fine Lancets] 33 gauge misc See Rx Instructions .Route Qty: 300 3RF Rx Instructions: As directed to test blood sugar TID entacapone 200 mg tablet See Rx Instructions .ROUTE .COMPLEX Qty: 90 1RF Dose Instruction: TAKE ONE TABLET BY MOUTH 4 TIMES DAILY AT THE SAME TIME THE CARBIDOPA/LEVODOPA DOSE Rx Instructions: TAKE ONE TABLET BY MOUTH 4 TIMES DAILY AT THE SAME TIME THE CARBIDOPA/LEVODOPA DOSE (DME) blood-glucose meter [Accu-Chek Guide Glucose Meter] [facility] [place] See Rx Instructions .ROUTE .COMPLEX Qty: 1 0RF Dose Instruction: USE DIRECTED 3 TIMES A DAY Rx Instructions: USE DIRECTED 3 TIMES A DAY glipizide 5 mg tablet See Rx Instructions .ROUTE .COMPLEX Qty: 90 3RF Dose Instruction: TAKE 1 TABLET DAILY Rx Instructions: TAKE 1 TABLET DAILY (DME) lancets [Accu-Chek Softclix Lancets] [facility] [place] See Rx Instructions .ROUTE .COMPLEX Qty: 300 3RF Dose Instruction: TEST 3 TIMES A DAY Rx Instructions: TEST 3 TIMES A DAY (DME) Accu-Chek Guide test strips Strip See Rx Instructions .ROUTE .COMPLEX Qty: 300 3RF Dose Instruction: USE DIRECTED TO TEST 3 TIMES A DAY Rx Instructions: USE DIRECTED TO TEST 3 TIMES A DAY trazodone 50 mg tablet See Rx Instructions .ROUTE .COMPLEX Qty: 90 1RF Dose Instruction: TAKE 1 TABLET DAILY NEEDED FOR SLEEP Rx Instructions: TAKE 1 TABLET DAILY NEEDED FOR SLEEP metformin 500 mg tablet See Rx Instructions .ROUTE .COMPLEX Qty: 180 1RF Dose Instruction: TAKE ONE TABLET BY MOUTH TWICE DAILY Rx Instructions: TAKE ONE TABLET BY MOUTH TWICE DAILY diclofenac sodium 1 % gel See Rx Instructions .ROUTE .COMPLEX Qty: 100 1RF Dose Instruction: APPLY TWO GRAMS TOPICALLY TO SINGLE ELBOW, WRIST OR HAND INCLUDES PALM/FINGERS/BACK OF HAND Rx Instructions: APPLY TWO GRAMS TOPICALLY TO SINGLE ELBOW, WRIST OR HAND INCLUDES PALM/FINGERS/BACK OF HAND ibuprofen 800 mg tablet See Rx Instructions .ROUTE .COMPLEX Qty: 30 0RF Dose Instruction: TAKE ONE TABLET BY MOUTH EVERY 8 HOURS NEEDED FOR PAIN Rx Instructions: TAKE ONE TABLET BY MOUTH EVERY 8 HOURS NEEDED FOR PAIN Discharge Orders: Discharge ED (Routine); Ordered 12/28/23 Ordered By: Ramírez Littlejohn Referrals: Kellie Post NP [Primary Care Provider] - Discharge Diet: Usual diet Discharge Activity: Increase activity as tolerated Patient Instructions: Dizziness (ED) Activity Restrictions/Additional Instructions: Change positions slowly. Use a cane or walker to assist with ambulation. Use meclizine as needed for dizziness. Drink plenty of water with medications. Follow-up with primary care for further instructions. Return to ED for worsening symptoms or new concerns. Coding Level of Care Code ED Veneer Jointer for Fredis Canchola
--- NOTE | 2023-12-28 17:24 | ECG_ITS ---
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 Measurements Intervals [place] Rate: 57 P: 24 TN: 181 QRS: -18 QRSD: 153 T: 104 QT: 461 QTc: 449 Interpretive Statements SINUS BRADYCARDIA LEFT BUNDLE BRANCH BLOCK [120+ ms QRS DURATION, 80+ ms Q/S IN V1/V2, 85+ ms R IN I/aVL/V5/V6] Compared to ECG 03/14/2021 18:11:47 Left bundle-branch block now present Sinus rhythm no longer present Intraventricular conduction delay no longer present Myocardial infarct finding no longer present Electronically Signed On 12-28-2023 23:51:58 CDT by Quinn Castanon M.D. [id number]
[2023-12-28 18:14] LABS: Basophils % 0.1 %; Eosinophils % 0.1 %; Hematocrit 39.9 % (37-53); Lymphocytes # 1.8 10^3/uL (0.8-4.8); Lymphocytes % 22.3 %; Mean Corpuscular HGB Conc 31.6 g/dL (30-55); Mean Corpuscular Hemoglobin 31.7 pg (27-33); Mean Corpuscular Volume 100.5 fl (82-101); Mean Platelet Volume 11.4 fL (7.4-10.4); Monocytes # 0.9 10^3/uL (0.2-0.9); Monocytes % 11.3 %; Neutrophils % 65.8 %; Nucleated Red Blood Cells % 0 %; Platelet Count 134 10^3/cmm (157-399); Red Blood Count 3.97 10^6/uL (3.85-5.65); Red Cell Distribution Width 14.8 % (12.1-15.1); White Blood Count 8.21 10^3/uL (3.29-11.43)
[2023-12-28] MEDS: meclizine 25 mg tablet PO (18:17)
--- NOTE | 2023-12-28 18:33 | CTR_ITS ---
PROCEDURE INFORMATION: Exam: CTA Head With Contrast, Arteriography Exam date and time: 12/28/2023 7:02 PM Age: 68 years old Clinical indication: Dizziness and giddiness; Prior surgery; Surgery date: 6+ months; Surgery type: Aortic valve replacement. Cervical fusion. Cervical nerve ablation; Patient HX: C/O dizziness TECHNIQUE: Imaging protocol: Computed tomographic angiography of the head with contrast. Exam focused on the arteries. 3D rendering (Not supervised by radiologist): MIP and/or 3D reconstructed images were created by the technologist. Radiation optimization: All CT scans at this facility use at least one of these dose optimization techniques: automated exposure control; mA and/or kV adjustment per patient size (includes targeted exams where dose is matched to clinical indication); or iterative reconstruction. Contrast material: OMNI 350; Contrast volume: 100 ml; Contrast route: INTRAVENOUS (IV); COMPARISON: CT head wo con* [id number] 12/28/2023 5:35 PM RADIATION DOSE METRICS: Total DLP (mGy-cm): 520.52 FINDINGS: ANTERIOR CIRCULATION: Right internal carotid artery: Intracranial segment is patent with no significant stenosis. No aneurysm. Right middle cerebral artery: No occlusion or significant stenosis. No aneurysm. Right anterior cerebral artery: No occlusion or significant stenosis. No aneurysm. Left internal carotid artery: Intracranial segment is patent with no significant stenosis. No aneurysm. Left middle cerebral artery: No occlusion or significant stenosis. No aneurysm. Left anterior cerebral artery: No occlusion or significant stenosis. No aneurysm. POSTERIOR CIRCULATION: Right vertebral artery: No occlusion or significant stenosis. No aneurysm. Left vertebral artery: No occlusion or significant stenosis. No aneurysm. Basilar artery: No occlusion or significant stenosis. No aneurysm. Right posterior cerebral artery: No occlusion or significant stenosis. No aneurysm. Left posterior cerebral artery: No occlusion or significant stenosis. No aneurysm. Brain: No definite mass, mass effect, or midline shift. Cerebral ventricles: No ventriculomegaly. Bones/joints: Unremarkable. No acute fracture. Soft tissues: Unremarkable. PROCEDURE INFORMATION: Exam: CTA Neck With Contrast Exam date and time: 12/28/2023 7:02 PM Age: 68 years old Clinical indication: Dizziness and giddiness; Prior surgery; Surgery date: 6+ months; Surgery type: Aortic valve replacement. Cervical fusion. Cervical nerve ablation; Patient HX: C/O dizziness TECHNIQUE: Imaging protocol: Computed tomographic angiography of the neck with contrast. Exam focused on the cervical segments of the vasculature. 3D rendering (Not supervised by radiologist): MIP and/or 3D reconstructed images were created by the technologist. Radiation optimization: All CT scans at this facility use at least one of these dose optimization techniques: automated exposure control; mA and/or kV adjustment per patient size (includes targeted exams where dose is matched to clinical indication); or iterative reconstruction. Contrast material: OMNI 350; Contrast volume: 100 ml; Contrast route: INTRAVENOUS (IV); COMPARISON: CT head wo [facility]* [id number] 12/28/2023 5:35 PM RADIATION DOSE METRICS: Total DLP (mGy-cm): 520.52 FINDINGS: Right common carotid artery: No stenosis. No dissection or occlusion. Right internal carotid artery: No stenosis of the extracranial segment. No dissection or occlusion. Right external carotid artery: No occlusion or stenosis of the origin. Left common carotid artery: No stenosis. No dissection or occlusion. Left internal carotid artery: No stenosis of the extracranial segment. No dissection or occlusion. Left external carotid artery: No occlusion or stenosis of the origin. Right vertebral artery: No stenosis. No dissection or occlusion. Left vertebral artery: No stenosis. No dissection or occlusion. Soft tissues: Normal. No significant soft tissue swelling. Bones/joints: No acute fracture. CT/CT angio headneck* [id number] IMPRESSION: No large vessel stenosis or occlusion. IMPRESSION: No stenosis or occlusion. REFERENCES: NASCET CRITERIA. The degree of stenosis in the cervical segment of the internal carotid artery is based on NASCET criteria. Normal is no stenosis. Mild is less than 50% stenosis. Moderate is 50-69% stenosis. Severe is 70% to 99% stenosis. Total occlusion is no detectable patent lumen.
[2023-12-28 18:35] LABS: Troponin(5th) Baseline 27 ng/L (0-15)
[2023-12-28 18:41] LABS: Alanine Aminotransferase 6 U/L (0-41); Albumin Level 4.1 g/dL (3.5-5.2); Alkaline Phosphatase 76 U/L (40-130); Blood Urea Nitrogen 17 mg/dL (8-23); Calcium 9.7 mg/dL (8.5-10.5); Carbon Dioxide 18 mmol/L (22-29); Chloride 103 mmol/L (98-107); Creatinine Clr Calc Pharmacy 82.7828; Globulin 2.8 g/dL (1.3-4.6); Glomerular Filtration Rate 74.5 mL/min (90-130); Glucose 116 mg/dL (65-115); Osmolality Calculated 281 mOsm/kg (285-295); Sodium 134 mmol/L (136-145); Total Bilirubin 0.7 mg/dL (0.15-1.2); Total Protein 6.9 g/dL (6.6-8.7)
[2023-12-28 18:42] LABS: Anion Gap 17.9 (5-19); Aspartate Amino Transferase 32 U/L (0-40); Potassium 4.9 mmol/L (3.5-5.1)
[2023-12-28 18:45] VITALS: PULSE 58; RESP 18; O2SAT 97
--- NOTE | 2023-12-28 18:47 | PC.NURSE ---
assumed care of the pt at this time
[2023-12-28] MEDS: diphenhydrAMINE 50 mg/mL SDV 1mL IVP (18:52)
[2023-12-28] MEDS: methylPREDNISolone sod succ 40 mg/mL INJ IVP (18:52)
[2023-12-28 19:00] VITALS: RESP 18
[2023-12-28] MEDS: iohexol 350 mg/mL 500 mL Btl (per mL) IV (19:07)
[2023-12-28 19:50] VITALS: BP 112/95; PULSE 62; RESP 18; O2SAT 98
== END 2023-12-28 19:55 | disposition home or self-care (01) ==
PROVIDERS: Emergency Provider Nurse Practitioner Family; PCP Nurse Practitioner Family
DX: R42 Dizziness and giddiness (principal); Z79.84 Long term (current) use of oral hypoglycemic drugs; Z77.22 Contact with and (suspected) exposure to environmental tobacco smoke (acute) (chronic); G20.A1 Parkinson's disease without dyskinesia, without mention of fluctuations; I25.10 Atherosclerotic heart disease of native coronary artery without angina pectoris; I10 Essential (primary) hypertension; E78.2 Mixed hyperlipidemia; E11.9 Type 2 diabetes mellitus without complications
CPT/HCPCS: 36415; 70450; 70496; 70498; 80053; 84484; 85025; 93005; 96374; 96375; 99285; J1200; J2920; J8597; Q9967

== ENCOUNTER → 2024-03-05 08:52 | Outpatient (BNVA) | payer MEDICARE, MEDICAID, SELFPAY | PROVIDERS: PCP Nurse Practitioner Family; Visit Provider Physician Assistant | DX: G56.01 Carpal tunnel syndrome, right upper limb (principal); G56.21 Lesion of ulnar nerve, right upper limb | CPT/HCPCS: 73130; 99204 ==

== ENCOUNTER 2024-04-14 08:02 | Day surgery (SDC) | payer MEDICARE, MEDICAID, SELFPAY ==
[2024-04-14] VITALS (10 sets, daily range): BP systolic 117–161; BP diastolic 63–92; PULSE 65–69; RESP 14–19; TEMP 36.1–36.2; O2SAT 94–100; BMI 26.6
[2024-04-14] MEDS: sodium chloride 0.9% 1,000 ML 30 ML IV (08:37)
[2024-04-14] MEDS: acetaminophen 1,000 MG/100 ML PIGGYBACK 400 MG IV (08:38)
[2024-04-14] MEDS: scopolamine 1.5 Patch 1 PATCH TRANSDERMA (08:38)
[2024-04-14 08:39] LABS: Glucose Point of Care 133 mg/dL (70-110)
--- NOTE | 2024-04-14 09:28 | W.PM.OPSFHP ---
Same Day Surgery H&P Indication for Procedure/HPI DATE OF PROCEDURE: April 14, 2024 CHIEF COMPLAINT/INDICATIONFOR SURGICAL PROCEDURE: Right carpal tunnel syndrome, right cubital tunnel syndrome PREOP DIAGNOSIS: Right carpal tunnel syndrome, right cubital tunnel syndrome PLANNED PROCEDURE: Operation Date: 04/14/24 09:50 Proposed Procedures p Carpal Tunnel Release(Right) - Marquez Samayoa, DO s Cubital Tunnel Release(Right) - Marquez Samayoa DO s Possible Ulnar Nerve Transposition(Right) - Marquez Lunaatt, DO Medications/Allergies* Home Medications Medication Instructions Recorded Confirmed Type albuterol sulfate 2.5 mg/3 mL 2.5 mg inhalation Q6H PRN Wheezing 04/10/20 04/14/24 History (0.083 %) solution for nebulization multivitamin 1 tab PO DAILY 04/10/20 04/13/24 History cholecalciferol (vitamin D3) 50 50 mcg PO DAILY 11/02/20 04/13/24 History mcg (2,000 unit) capsule medical marijuana 1 gummy PO PRN PRN Pain 01/09/21 04/14/24 History ascorbic acid (vitamin C) 1,000 mg 1 g PO DAILY 10/08/21 04/14/24 History tablet cyanocobalamin (vitamin B-12) 1,000 mcg PO DAILY 10/08/21 04/13/24 History 1,000 mcg capsule carbidopa 25 mg-levodopa 250 mg 1.5 tab PO QID 12/21/21 04/13/24 History tablet thiamine HCl (vitamin B1) 100 mg 100 mg PO DAILY 04/23/23 04/13/24 History tablet glipizide 5 mg tablet 5 mg PO DAILY 04/13/24 04/13/24 History propranolol 40 mg tablet 40 mg PO BID 04/13/24 04/13/24 History rosuvastatin 40 mg tablet 40 mg PO DAILY 04/13/24 04/13/24 History sitagliptin phosphate 100 mg 100 mg PO DAILY 04/13/24 04/13/24 History tablet (Januvia) Allergies/Adverse Reactions Allergy/AdvReac Type Severity Reaction Status Date / Time Iodinated Contrast Media Allergy hives Verified 04/14/24 08:37 primidone Allergy unknown Verified 04/14/24 08:37 Current Medications: Generic Name Dose Route Start Last Admin Trade Name Freq PRN Reason Stop Dose Admin Sodium Chloride 1,000 mls @ 30 mls/hr 04/14/24 08:15 04/14/24 08:37 Sodium Chloride 0.9% IV 04/15/24 08:14 30 mls/hr .Q24H RUSTY Administration Pertinent History/Comorbid Conditions* Medical History (Updated 03/05/24 @ 09:38 by TRACIE Blanc) Parkinson disease Aortic stenosis Accelerated essential hypertension CAD (coronary artery disease) Enrolled in chronic care management Hyperlipidemia, mixed Type 2 diabetes mellitus Low back pain Encounter for long-term use of opiate analgesic Surgical History (Updated 10/14/22 @ 15:48 by Blair Stout MD) History of back surgery H/O aortic valve replacement H/O aortic valve replacement History of arthroplasty of knee Status post total left knee replacement Family History (Updated 10/14/22 @ 15:25 by Gabriela Spence RN) Father, at age 65 Mother, at age 80 Diabetes Mother Brother Brother CAD (coronary artery disease) Father Rheumatic fever Brother CABG x 4 Sister stents Brother stents Congestive heart failure (CHF) Father Hypertension Mother Brother Sister Stroke Mother Denies family history of Clotting disorder Dementia Chronic kidney disease (CKD) Suicide Anesthesia complication Bleeding disorder Lung disease Cancer Social History Smoking and tobacco/nicotine status: never used tobacco/nicotine Second hand smoke exposure: Yes Alcohol intake: never Substance/Drug Use: current Substance/Drug use frequency: few times a week Marital status: Current occupational status: disabled Pertinent Exam Findings alert, oriented x 3, operative site marked and procedure specific exam findings Please refer to detailed orthopedic examination on 03/05/2024 Right Hand exam-positive Tinel's and positive Phalen's test. He has some thenar atrophy and thenar muscle weakness. Full range of motion in fingers and wrist and fingers are warm and well-perfused with normal cap refill under 2 seconds. Radial pulse 2+, intrinsic muscle weakness noted. Elbow exam-Positive Tinel's test and Positive elbow flexion test. Recommendations Surgery/Procedure today Other Plans: Plan to proceed to the OR today for right carpal tunnel release and right cubital tunnel release with possible nerve transposition. Patient understands incidence procedure the risk benefits complication alternatives of surgery and through shared decision make elects proceed with surgical intervention all questions have been answered at this time. Coding Level of Care Code Acute Code for Chg Fwd
[2024-04-14] MEDS: ceFAZolin 2,000 MG in sodium chloride 0.9% (plus) 50 ML 100 MG IV (10:01)
--- NOTE | 2024-04-14 10:15 | P.ANESASSM_ITS ---
Pre-Anesthetic Assessment Height/Weight: Height 1.8 m Weight 86.636 kg Temp Pulse Resp BP Pulse Ox O2 Del Method 97.0 F L 68 18 161/91 95 Room Air 04/14/24 08:24 04/14/24 08:24 04/14/24 08:24 04/14/24 08:24 04/14/24 08:24 04/14/24 08:25 Preop Diagnosis: Right carpal tunnel syndrome, right cubital tunnel syndrome Operation Date: 04/14/24 09:50 Proposed Procedures p Carpal Tunnel Release(Right) - Marquez [facility] James, DO s Cubital Tunnel Release(Right) - Marquez [facility]. James, DO s Possible Ulnar Nerve Transposition(Right) - Marquez St. James, DO Familial anesthetic complications: None Was Beta Oziel taken within 24 hours: N/A Was Clonidine taken within 24 hours: N/A Last intake: > 8 hrs Social No alcohol and No tobacco Exam alert, oriented x 3, clear to auscultation bilaterally and regular rate & rhythm Airway Mallampati: Class III Dentition: other (no teeth) CV/HEM Coronary Artery Disease and Hypertension AVR - bioprosthetic Metabolic Diabetes Mellitus Neuropsych parkinson's Anesthetic Plan ASA status: 3 Anesthesia: General and Regional (specify below) Risk of > 500 ml blood loss (7ml/kg in children): No Medications/Allergies Home Medications Medication Instructions Recorded Confirmed Last Taken Type albuterol sulfate 2.5 mg/3 mL 2.5 mg inhalation Q6H PRN Wheezing 04/10/20 04/14/24 Unknown History (0.083 %) solution for nebulization multivitamin 1 tab PO DAILY 04/10/20 04/13/24 04/13/24 History cholecalciferol (vitamin D3) 50 50 mcg PO DAILY 11/02/20 04/13/24 04/13/24 History mcg (2,000 unit) capsule medical marijuana 1 gummy PO PRN PRN Pain 01/09/21 04/14/24 04/12/24 History ascorbic acid (vitamin C) 1,000 mg 1 g PO DAILY 10/08/21 04/14/24 Unknown History tablet cyanocobalamin (vitamin B-12) 1,000 mcg PO DAILY 10/08/21 04/13/24 04/11/24 History 1,000 mcg capsule carbidopa 25 mg-levodopa 250 mg 1.5 tab PO QID 12/21/21 04/13/24 04/14/24 History tablet lancets 33 gauge (BD Ultra Fine #300 ea 03/21/22 03/05/24 Unknown Rx Lancets) blood-glucose meter (Accu-Chek #1 kit 08/20/22 03/05/24 Unknown Rx Guide Glucose Meter) lancets (Accu-Chek Softclix ##300 04/04/23 03/05/24 Unknown Rx Lancets) thiamine HCl (vitamin B1) 100 mg 100 mg PO DAILY 04/23/23 04/13/24 04/13/24 History tablet blood sugar diagnostic (Accu-Chek #300 strips 07/16/23 03/05/24 Unknown Rx Guide test strips) sildenafil 100 mg tablet 100 mg PO DAILY PRN sexual 07/25/23 04/14/24 Unknown Rx activity #20 tabs diclofenac sodium 1 % topical gel See Rx Instructions .Route 12/01/23 04/14/24 Unknown Rx .COMPLEX #100 grams glipizide 5 mg tablet 5 mg PO DAILY 04/13/24 04/13/24 04/13/24 History propranolol 40 mg tablet 40 mg PO BID 04/13/24 04/13/24 04/14/24 History rosuvastatin 40 mg tablet 40 mg PO DAILY 04/13/24 04/13/24 04/13/24 History sitagliptin phosphate 100 mg 100 mg PO DAILY 04/13/24 04/13/24 04/13/24 History tablet (Januvia) hydrocodone 5 mg-acetaminophen 325 1 tab PO Q6H PRN pain 5 days #20 04/14/24 Unknown Rx mg tablet tabs Allergies Allergy/AdvReac Type Severity Reaction Status Date / Time Iodinated Contrast Media Allergy hives Verified 04/14/24 08:37 primidone Allergy unknown Verified 04/14/24 08:37 Current Medications Generic Name Dose Route Start Last Admin Trade Name Freq PRN Reason Stop Dose Admin Sodium Chloride 1,000 mls @ 30 mls/hr 04/14/24 08:15 04/14/24 08:37 Sodium Chloride 0.9% IV 04/15/24 08:14 30 mls/hr .Q24H RUSTY Administration PFSH Anesthesia Medical History Parkinson disease Aortic stenosis Accelerated essential hypertension CAD (coronary artery disease) Enrolled in chronic care management Hyperlipidemia, mixed Type 2 diabetes mellitus Low back pain Encounter for long-term use of opiate analgesic Surgical History History of back surgery H/O aortic valve replacement H/O aortic valve replacement History of arthroplasty of knee Status post total left knee replacement Family History Mother , at age 80 Diabetes Hypertension Stroke Father , at age 65 CAD (coronary artery disease) Rheumatic fever Congestive heart failure (CHF) Brother Hypertension CAD (coronary artery disease) CABG x 4 Diabetes Sister Hypertension CAD (coronary artery disease) stents Brother CAD (coronary artery disease) stents Diabetes Denies family history of Clotting disorder Dementia Chronic kidney disease (CKD) Suicide Anesthesia complication Bleeding disorder Lung disease Cancer Social History Smoking and tobacco/nicotine status: never used tobacco/nicotine Second hand smoke exposure: Yes Alcohol intake: never Substance/Drug Use: current Substance/Drug use frequency: few times a week Marital status: Current occupational status: disabled Data Anesthesia Cardiac Studies: Echocardiogram 09/15/23
--- NOTE | 2024-04-14 10:17 | ANES.PROC ---
Anesthesia Procedures Procedure/Date: 04/14/24 Nerve Block ^: Nerve Block 1: Main Anesthesia: general anesthesia Time Out Performed: Yes Consent: requested by attending/covering physician, from patient, from other, risks and benefits reviewed, patient agrees to proceed and emergency procedure Nerve block location: axillary (r) Anesthesia monitors applied: pulse oximetry, EKG, BP cuff and oxygen Nerve block position: supine Anesthetic Used: ropivicaine 0.5% (30 ml) and with decadron (4 mg) Ultrasound used to: recognize landmarks and visualize and ID brachial plexus Nerve Stimulator Used?: No Interscalene/Femoral BLK: 2 stimuplex 22 g needle used for position and inplane approach, visualize local anesthetic spread and no vascular puncture identified Injection: neg aspiration of heme Patient Tolerated Procedure: well and no complications Complications: none
--- NOTE | 2024-04-14 10:52 | P.OP_ITS ---
Operative Report Date of procedure: April 14, 2024 Surgeon: Marquez Samayoa DO Cupola Patcher Helper: Daniel Samayoa PA-C: PA was necessary for assistance in this case with hand positioning to execute the procedure, retraction and protection of neurovascular structures as well as to assist with wound closure and dressing application. Procedure: Preoperative diagnosis: Right carpal tunnel syndrome Right cubital tunnel syndrome Postop Diagnosis: Same Procedure done: Right carpal tunnel release Right?cubital tunnel tunnel release (ulnar nerve decompression at elbow) Surgeon: Marquez Samayoa DO Estimated blood loss: 5 mL Tourniquet? 17 minutes IV fluids: 600 mL Complications: None Findings: See operative report narrative Condition: stable Disposition: same day Brief History: Patient's been seen and worked up in the outpatient setting and findings consistent with preoperative diagnosis.? Patient has right carpal tunnel syndrome as well as right?cubital tunnel syndrome which has been worked up in the outpatient setting has physical exam findings consistent with this as well as confirmatory nerve conduction/EMG nerve conduction study consistent with di agnosis.? Patient's failed conservative treatment.? As result through shared decision making agreed to proceed with? right carpal tunnel and right?cubital tunnel release and possible ulnar nerve transposition. We talked about treatment options as far as nonoperative and operative intervention.? Understands risk benefits complication alternatives surgical nonsurgical treatment options.? Understanding his risks he agrees to proceed with surgical intervention. Understanding these risks he agrees to proceed with surgery.? Consent obtained in office. Procedure: Patient seen evaluate in the preoperative holding area.? Consent was reviewed and signed with patient.? Correct extremity marked.? Patient seen evaluated by anesthesia department once cleared for surgery was then taken back to the operative suite placed in supine position all bony prominences well-padded patient properly secured to bed.? right upper extremity placed onto armboard.? Nonsterile tourniquet applied right upper arm.? Patient then underwent anesthesia per the anesthesia department.? Patient's right upper extremity was then prepped and draped in standard orthopedic fashion.? Final timeout performed.? Patient received appropriate preoperative antibiotics. Esmarch was used exsanguinate the right upper extremity.? Tourniquet was insufflated to 250 mmHg. I started with the carpal tunnel release first.? I made a standard open carpal tunnel release starting with the distal most extent in the palm at the Mercer's cardinal line and the incision line was made in line with the fourth ray and ended just distal to the wrist crease.? Sharp scalpel incision was made through skin and subcutaneous tissue I then utilizing self retainer then began to dissect with dissection scissors split longitudinally the palmar fascia.? Next I then utilizing my account assistant Terence retractors subsequently utilizing scalpel feathered through the palmaris brevis as well as through the transverse carpal ligament distally.? Once I encountered the floor of the transverse carpal ligament and entered into the carpal tunnel I then switched to dissection scissors.? Carefully released the distal extent of the transverse carpal ligamen t to the palmar fat.? Care was to protect the recurrent branch and not injured this during this part of the case.? Next I then placed a Holy Cross underneath the transverse carpal ligament proximally to protect the nerve in the carpal tunnel contents.? And then I subsequently under loupe magnification utilize my dissection scissors to release the transverse carpal ligament into the antebrachial fascia under direct visualization with care to keep my scissors with a curved ulnarly away from the palmar cutaneous branch.? The transverse carpal was then completely decompressed proximally and a Holy Cross was then placed both distally and proximally throughout the carpal tunnel and had complete decompression of the nerve.? The nerve did appear to have hourglass shape as it went through the carpal tunnel.? With significant irritation noted around the nerve.? No masses were noted within the contents of the carpal tunnel.? This completed the carpal tunnel release and then I subsequently irrigated the wound bed and placed a wet Ray-Tram into the incision for later closure. Next marked out the landmarks of the right elbow of the medial epicondyle and olecranon and made a curvilinear incision following the course of the ulnar nerve at the medial aspect of the elbow.? Sharp scalpel incision was made through skin and subcutaneous tissue.? Next I switched to Littler dissection scissors and spread in plane of the medial antebrachial cutaneous nerve branching which was protected throughout this part of the dissection.? Then I directly came down over the fascia and identified the 2 heads of the FCU fascia and split this right in the middle and subsequently identified my ulnar nerve distally.? This was then completely released distally under direct visualization and loupe magnification.? Once the nerve was then identified I then subsequently tracked this proximally and released this through Shah's ligament as well as complete decompression of the nerve proximally all the way past the interm uscular septum.? The nerve was completely released and decompressed both proximally and distally.? Ulnar nerve neurolysis performed and completed both proximally and distally with dissection scissors.? I then took the elbow through range of motion and there was no instability or subluxating of the ulnar nerve.? This completed?cubital tunnel release.? ?Next the wound bed was thoroughly irrigated.? Tourniquet was deflated.? Hemostasis was satisfactory at the?cubital tunnel release surgery site. I then inspected the carpal tunnel incision and this was found to have satisfactory hemostasis and all this was maintained through bipolar electrocautery.? At this point time I sequentially closed?cubital tunnel site with 3-0 Vicryl suture in a running horizontal mattress nylon stitch.? ? The carpal tunnel release surgery was then closed in standard interrupted mattress fashion.? Dressing was Xeroform 4 x 4's ABD Curlex soft roll and an Billy wrap has a bulky soft dressing. Patient was then awakened from anesthesia and taken to PACU in stable condition. Disposition: Patient taken to PACU in stable condition recovering well.? Patient will receive appropriate discharge instructions as well as pain medication postoperatively.? We will follow-up with me in the office in 2 weeks.? Patient understands agrees with current plan.? All questions answered.? He understands if any questions or concerns and contact the office for follow-up appointment..
--- NOTE | 2024-04-14 11:08 | P.BOP_ITS ---
Date of Procedure: [April 14, 2024] Surgeon: [Dr. Samayoa DO] Electric Arc Furnace Operator(s): [Daniel Samayoa PA-C] Procedure(s) performed: [Right carpal tunnel release and right cubital tunnel release] Findings of the procedure(s): [Right carpal tunnel syndrome and right cubital tunnel syndrome] Estimated blood loss: [5 ml] Specimen(s) removed: [N/A] Post-operative diagnosis: [Right carpal tunnel syndrome right cubital tunnel syndrome]
--- NOTE | 2024-04-14 11:14 | PM.PACU ---
PACU note Narrative: Patient is a 68-year-old male with just underwent a right carpal tunnel release right cubital tunnel release. Patient transferred to PACU in stable condition. Pain is well controlled. Dressing on hand is dry and in place. Patient's fingers are warm and well-perfused. Patient can wiggle fingers. normal cap refill under 2 seconds. Patient has normal elbow range of motion. Unable to assess sensation due to residual localized anesthetic. Exam: awake Disposition: discharged
--- NOTE | 2024-04-14 12:10 | ANE.PACU2 ---
Inpatient post-anesthesia follow up: Airway intact: Yes Vital signs: Temperature 97.1 F Pulse Rate 65 Respiratory Rate 18 Blood Pressure 138/76 Pulse Oximetry 96 Oxygen Delivery Me thod Room Air Oxygen Flow Rate Fraction of Inspir ed Oxygen Hydration adequate: Yes Nausea and vomiting: No Pain level: 1 Mental status: Baseline
== END 2024-04-14 12:10 | disposition home or self-care (01) ==
PROVIDERS: PCP Nurse Practitioner; Visit Provider Student in an Organized Health Care Education/Training Program
PROC: (CPT 64721; principal; 2024-04-14 09:50)
PROC: (CPT 64718; 2024-04-14 09:50)
DX: G56.01 Carpal tunnel syndrome, right upper limb (principal); G56.21 Lesion of ulnar nerve, right upper limb; I25.10 Atherosclerotic heart disease of native coronary artery without angina pectoris; I10 Essential (primary) hypertension; E11.9 Type 2 diabetes mellitus without complications; G20.A1 Parkinson's disease without dyskinesia, without mention of fluctuations; E78.2 Mixed hyperlipidemia
CPT/HCPCS: 64719; 64721; 36416; 82962; J0131; J0690; J1100; J2704; J2795; J3010; J7030

== ENCOUNTER 2024-04-14 16:48 | Emergency (ER) | payer MEDICARE, MEDICAID, SELFPAY ==
[2024-04-14 16:56] VITALS: BP 182/94; PULSE 75; RESP 15; TEMP 36.6; O2SAT 95
--- NOTE | 2024-04-14 17:19 | PC.NURSE ---
sling applied per Ramírez guzman.
--- NOTE | 2024-04-14 17:21 | W.ED.EXTPRO ---
HPI - Extremity Problem General: Chief complaint: Extremity Problem,Nontraumatic Stated complaint: right arm numbness, (had a nerve salena for surge Time Seen by Provider: 04/14/24 17:03 History of Present Illness: 68-year-old male patient comes in today for persistent numbness and decreased range of motion of his right arm after a surgical nerve block done for carpal tunnel syndrome. Patient had the surgery today. Patient reports that prior to discharge he was able to move his hand but he had numbness at that time. Patient reports continued numbness but has been unable to move his hand as well for his arm. Patient on arrival to the ER was able to talk with his surgeon who felt that it was most likely due to the peripheral nerve block. Since patient was still here he wished to be evaluated further to make sure nothing else was abnormal. Patient appears nontoxic. Patient appears in no pain. NIH score is 3 due to inability to move the right extremity. Review of Systems General: Reports: 10 or more systems reviewed and unremarkable except in HPI and below Neuro: Denies: headache(s) PFSH ED PFSH: Medical History Parkinson disease Aortic stenosis Accelerated essential hypertension CAD (coronary artery disease) Enrolled in chronic care management Hyperlipidemia, mixed Type 2 diabetes mellitus Low back pain Encounter for long-term use of opiate analgesic Surgical History History of back surgery H/O aortic valve replacement H/O aortic valve replacement History of arthroplasty of knee Status post total left knee replacement Family History Mother , at age 80 Diabetes Hypertension Stroke Father , at age 65 CAD (coronary artery disease) Rheumatic fever Congestive heart failure (CHF) Brother Hypertension CAD (coronary artery disease) CABG x 4 Diabetes Sister Hypertension CAD (coronary artery disease) stents Brother CAD (coronary artery disease) stents Diabetes Denies family history of Clotting disorder Dementia Chronic kidney disease (CKD) Suicide Anesthesia complication Bleeding disorder Lung disease Cancer Social History Smoking and tobacco/nicotine status: never used tobacco/nicotine Second hand smoke exposure: Yes Alcohol intake: never Substance/Drug Use: current Substance/Drug use frequency: few times a week Marital status: Current occupational status: disabled Physical Exam Const: COMMON NORMALS: alert HENMT: COMMON NORMALS: normocephalic HEAD & SCALP: normocephalic Neck/C-Spine: COMMON NORMALS: full ROM Chest: COMMONS NORMALS: normal inspection of the chest Resp: COMMON NORMALS: normal respiratory effort and clear to auscultation bilaterally AUSCULTATION: clear to auscultation bilaterally Cardio: COMMON NORMALS: regular rate and regular rhythm RATE: regular rate RHYTHM: regular rhythm Back/Pelvis: COMMON NORMALS: thoracic and lumbar spine normal to inspection Extremity: NARRATIVE EXTREMITY EXAM: Numbness to the right distal upper extremity, decreased range of motion due to weakness. Neuro: SENSORIUM/ORIENTATION: Yes alert Skin: COMMON NORMALS: turgor normal GENERAL SKIN EXAM: turgor normal Course Vital Signs: Vital signs: Vital Signs Temperature 97.9 F 04/14/24 16:56 Pulse Rate 75 04/14/24 16:56 Respiratory Rate 18 04/14/24 17:25 Blood Pressure 182/94 04/14/24 16:56 Pulse Oximetry 95 04/14/24 16:56 Oxygen Delivery Me thod Room Air 04/14/24 16:56 MDM - Extremity (Nontraumatic) Medical Decision Making 68-year-old male patient comes in today for complaints of numbness and decreased range of motion of the right upper extremity. Patient had a peripheral nerve block done in the arm this morning for a carpal tunnel and cubital release surgery. On exam patient has cap refill and warmth to the fingers. Patient states that he is unable to flex or extend his fingers and has no range of motion at the elbow. The remainder of the exam is unremarkable. No other signs of stroke syndrome is noted. Differential diagnosis adverse drug effect for peripheral nerve block, anxiety, conversion disorder, stroke syndrome unlikely. Most likely patient has had a adverse effect to his peripheral nerve block. Reassured patient that most often he should have return of sensation and movement within 24 to 48 hours. Recommend follow-up with surgeons office tomorrow for persistent symptoms. Recommend elevation of the arm as much as possible. Patient reported understanding and agreed to plan. Recommended return to ER for severe headache, increased difficulty speaking or swallowing, or weakness to the right lower leg. No radiology studies performed this visit Discharge Plan Discharge Patient Disposition: Home Clinical Impression: Adverse effect of peripheral nerve- and plexus-blocking anesthetics Qualifiers: Encounter type: initial encounter Qualified Code(s): T41.3X5A - Adverse effect of local anesthetics, initial encounter Condition: Stable Prescriptions: No Action albuterol sulfate 2.5 mg /3 mL (0.083 %) solution for nebulization 2.5 mg INHALATION Q6H PRN (Reason: Wheezing) cholecalciferol (vitamin D3) 50 mcg (2,000 unit) capsule 50 mcg PO DAILY carbidopa-levodopa 25-250 mg tablet 1.5 tab PO QID multivitamin Tablet 1 tab PO DAILY medical marijuana 1 gummy PO PRN PRN (Reason: Pain) cyanocobalamin (vitamin B-12) 1,000 mcg capsule 1,000 mcg PO DAILY ascorbic acid (vitamin C) 1,000 mg tablet 1 g PO DAILY sildenafil 100 mg tablet 100 mg PO DAILY PRN (Reason: sexual activity) Qty: 20 6RF Rx Instructions: Take 1 hour before intercourse, on empty stomach, max dose 100 mg, NO NITROGLYCERIN thiamine HCl (vitamin B1) 100 mg tablet 100 mg PO DAILY bupivacaine (PF) 0.25 % (2.5 mg/mL) solution 5 ml epidural ONCE Qty: 1 0RF (DME) lancets [BD Ultra Fine Lancets] 33 gauge misc See Rx Instructions .Route Qty: 300 3RF Rx Instructions: As directed to test blood sugar TID (DME) blood-glucose meter [Accu-Chek Guide Glucose Meter] Misc See Rx Instructions .ROUTE .COMPLEX Qty: 1 0RF Dose Instruction: USE DIRECTED 3 TIMES A DAY Rx Instructions: USE DIRECTED 3 TIMES A DAY (DME) lancets [Accu-Chek Softclix Lancets] Misc See Rx Instructions .ROUTE .COMPLEX Qty: 300 3RF Dose Instruction: TEST 3 TIMES A DAY Rx Instructions: TEST 3 TIMES A DAY (DME) Accu-Chek Guide test strips Strip See Rx Instructions .ROUTE .COMPLEX Qty: 300 3RF Dose Instruction: USE DIRECTED TO TEST 3 TIMES A DAY Rx Instructions: USE DIRECTED TO TEST 3 TIMES A DAY diclofenac sodium 1 % gel See Rx Instructions .ROUTE .COMPLEX Qty: 100 1RF Dose Instruction: APPLY TWO GRAMS TOPICALLY TO SINGLE ELBOW, WRIST OR HAND INCLUDES PALM/FINGERS/BACK OF HAND Rx Instructions: APPLY TWO GRAMS TOPICALLY TO SINGLE ELBOW, WRIST OR HAND INCLUDES PALM/FINGERS/BACK OF HAND rosuvastatin 40 mg tablet 40 mg PO DAILY propranolol 40 mg tablet 40 mg PO BID Rx Instructions: TAKE ONE TABLET BY MOUTH TWICE DAILY glipizide 5 mg tablet 5 mg PO DAILY Rx Instructions: TAKE 1 TABLET DAILY Januvia 100 mg tablet 100 mg PO DAILY ondansetron 4 mg tablet,disintegrating 4 mg PO Q8H PRN (Reason: nausea and vomiting) 3 Days Qty: 9 0RF hydrocodone-acetaminophen 5-325 mg tablet 1 tab PO Q6H PRN (Reason: pain) 5 Days Qty: 20 0RF Discharge Orders: Discharge ED (Routine); Ordered 04/14/24 Ordered By: Ramírez Littlejohn Referrals: Thony Bermudez FNP [Primary Care Provider] - Discharge Diet: Usual diet Discharge Activity: Increase activity as tolerated Patient Instructions: Peripheral Nerve Block (DC) Activity Restrictions/Additional Instructions: Follow-up with surgeons's office in the next 24 to 48 hours. Return to ER for weakness in the leg, increased difficulty of talking, severe headache. Coding Level of Care Code ED Change Coordinator for Fredis Canchola
[2024-04-14 17:25] VITALS: RESP 18
== END 2024-04-14 17:27 | disposition home or self-care (01) ==
PROVIDERS: Emergency Provider Nurse Practitioner Family; PCP Nurse Practitioner
DX: T88.59XA Other complications of anesthesia, initial encounter (principal); R20.0 Anesthesia of skin; T41.3X5A Adverse effect of local anesthetics, initial encounter
CPT/HCPCS: 99282

== ENCOUNTER 2024-05-01 12:02 | Emergency (ER) | payer MEDICARE, MEDICAID, SELFPAY ==
[2024-05-01 12:11] VITALS: BP 106/69; PULSE 63; RESP 16; TEMP 36.6; O2SAT 100
--- NOTE | 2024-05-01 14:05 | W.ED.WOUNDLC ---
HPI - Wound/Laceration General: Chief Complaint: Wound/Laceration Stated Complaint: surgery cut had reopened Time Seen by Provider: 05/01/24 13:02 Source: patient and family Mode of arrival: ambulatory Limitations: no limitations History of Present Illness: Patient is a 68-year-old male presents to ED today for evaluation of a surgical wound dehiscence near his right elbow. He is status post carpal tunnel release and decompression of ulnar nerve at elbow by Dr. Samayoa. Date of service was 04/14. He states his sutures were removed by orthoptist on 04/27-evaluated by Daniel Samayoa PA-C during that visit. He states later that evening the wound dehisced. He states he has been dressing at home. He has not noticed any odorous or purulent drainage. No fevers. No redness or warmth. He is having some trigger finger issues involving his fourth and fifth digits. Onset (ago): day(s) Extremity Location: Right: elbow Place: home Patient tetanus UTD: Yes Context: other (surgical incision) Associated symptoms: Reports no associated symptoms; Denies chills or fever(s) Treatments prior to arrival: bandage Review of Systems Const: Denies: fever(s), chills, body aches, fatigue or malaise Musc: Reports: other ( trigger finger like movements to R 4-5 digits); Denies: extremity pain or joint pain Skin/Breast: Reports: other (surgical wound dehiscence) [facility] ED PFSH: Medical History Parkinson disease Aortic stenosis Accelerated essential hypertension CAD (coronary artery disease) Enrolled in chronic care management Hyperlipidemia, mixed Type 2 diabetes mellitus Low back pain Encounter for long-term use of opiate analgesic Surgical History History of back surgery H/O aortic valve replacement H/O aortic valve replacement History of arthroplasty of knee Status post total left knee replacement Family History Mother , at age 80 Diabetes Hypertension Stroke Father , at age 65 CAD (coronary artery disease) Rheumatic fever Congestive heart failure (CHF) Brother Hypertension CAD (coronary artery disease) CABG x 4 Diabetes Sister Hypertension CAD (coronary artery disease) stents Brother CAD (coronary artery disease) stents Diabetes Denies family history of Clotting disorder Dementia Chronic kidney disease (CKD) Suicide Anesthesia complication Bleeding disorder Lung disease Cancer Social History Smoking and tobacco/nicotine status: never used tobacco/nicotine Second hand smoke exposure: Yes Alcohol intake: never Substance/Drug Use: current Substance/Drug use frequency: few times a week Marital status: Current occupational status: disabled Physical Exam Const: COMMON NORMALS: no acute distress, average body habitus, patient oriented x3, no limitations, healthy appearing, alert and well nourished Extremity: COMMON NORMALS: full ROM and capillary refill normal GENERAL: Yes normal exam except as noted RIGHT UPPER EXTREMITY: Yes elbow joint (surgical incision with wound dehiscence; no redness/drainage) Right elbow: Yes ROM (normal) and Yes neurovascular exam (normal), Yes wrist (normal healing surgical incision) Right wrist: Yes neurovascular exam (normal) and Yes hand & digits (jerky flexion like movements of R 4-5 fingers) Neuro: COMMON NORMALS: patient oriented x3, moves all extremities, no focal motor deficits and no sensory deficits noted SENSORIUM/ORIENTATION: Yes alert Course Vital Signs: Vital signs: Vital Signs Temperature 97.8 F 05/01/24 12:11 Pulse Rate 63 05/01/24 12:11 Respiratory Rate 16 05/01/24 12:11 Blood Pressure 106/69 05/01/24 12:11 Pulse Oximetry 100 05/01/24 12:11 Oxygen Delivery Me thod Room Air 05/01/24 12:11 MDM - Wound/Laceration Medical Decision Making Spoke to Daniel Samayoa PA-C who recommended irrigation, steri-strip approximation, antibiotics and he can follow-up with primary care next week as he and Dr. Samayoa are out of the office next week. They would be willing to see him the week they are back in office. Return to ED precautions discussed. No radiology studies performed this visit Discharge Plan Discharge Patient Disposition: Home Clinical Impression: Dehiscence of wound of skin Condition: Stable Prescriptions: New Bactrim DS 800-160 mg tablet 1 tab PO BID 7 Days Qty: 14 0RF No Action albuterol sulfate 2.5 mg /3 mL (0.083 %) solution for nebulization 2.5 mg INHALATION Q6H PRN (Reason: Wheezing) cholecalciferol (vitamin D3) 50 mcg (2,000 unit) capsule 50 mcg PO DAILY carbidopa-levodopa 25-250 mg tablet 1.5 tab PO QID multivitamin Tablet 1 tab PO DAILY medical marijuana 1 gummy PO PRN PRN (Reason: Pain) cyanocobalamin (vitamin B-12) 1,000 mcg capsule 1,000 mcg PO DAILY ascorbic acid (vitamin C) 1,000 mg tablet 1 g PO DAILY sildenafil 100 mg tablet 100 mg PO DAILY PRN (Reason: sexual activity) Qty: 20 6RF Rx Instructions: Take 1 hour before intercourse, on empty stomach, max dose 100 mg, NO NITROGLYCERIN thiamine HCl (vitamin B1) 100 mg tablet 100 mg PO DAILY bupivacaine (PF) 0.25 % (2.5 mg/mL) solution 5 ml epidural ONCE Qty: 1 0RF (DME) lancets [BD Ultra Fine Lancets] 33 gauge misc See Rx Instructions .Route Qty: 300 3RF Rx Instructions: As directed to test blood sugar TID (DME) blood-glucose meter [Accu-Chek Guide Glucose Meter] Misc See Rx Instructions .ROUTE .COMPLEX Qty: 1 0RF Dose Instruction: USE DIRECTED 3 TIMES A DAY Rx Instructions: USE DIRECTED 3 TIMES A DAY (DME) lancets [Accu-Chek Softclix Lancets] [facility] See Rx Instructions .ROUTE .COMPLEX Qty: 300 3RF Dose Instruction: TEST 3 TIMES A DAY Rx Instructions: TEST 3 TIMES A DAY (DME) Accu-Chek Guide test strips Strip See Rx Instructions .ROUTE .COMPLEX Qty: 300 3RF Dose Instruction: USE DIRECTED TO TEST 3 TIMES A DAY Rx Instructions: USE DIRECTED TO TEST 3 TIMES A DAY diclofenac sodium 1 % gel See Rx Instructions .ROUTE .COMPLEX Qty: 100 1RF Dose Instruction: APPLY TWO GRAMS TOPICALLY TO SINGLE ELBOW, WRIST OR HAND INCLUDES PALM/FINGERS/BACK OF HAND Rx Instructions: APPLY TWO GRAMS TOPICALLY TO SINGLE ELBOW, WRIST OR HAND INCLUDES PALM/FINGERS/BACK OF HAND rosuvastatin 40 mg tablet 40 mg PO DAILY propranolol 40 mg tablet 40 mg PO BID Rx Instructions: TAKE ONE TABLET BY MOUTH TWICE DAILY glipizide 5 mg tablet 5 mg PO DAILY Rx Instructions: TAKE 1 TABLET DAILY Januvia 100 mg tablet 100 mg PO DAILY Discharge Orders: Discharge ED (Routine); Ordered 05/01/24 Ordered By: Ree Hicks Referrals: Thony Bermudez FNP [Primary Care Provider] - Activity Restrictions/Additional Instructions: Keep area clean/dry and monitor for signs of infection such as redness, swelling, pus like or odorous drainage. Fill your antibiotics today and start them. You may follow-up with primary care next week to check surgical site and then case management should schedule you a follow-up appointment with orthopedics the following week to discuss any other issues. Coding Level of Care Code ED Service Electrician for Fredis Canchola
[2024-05-01 14:54] VITALS: BP 147/73; PULSE 89; RESP 18; O2SAT 95
--- NOTE | 2024-05-03 07:42 | DCPLANNER ---
messaged ortho for er f/u
== END 2024-05-01 14:51 | disposition home or self-care (01) ==
PROVIDERS: Emergency Provider Physician Assistant; PCP Nurse Practitioner
DX: T81.31XA Disruption of external operation (surgical) wound, not elsewhere classified, initial encounter (principal); Z79.84 Long term (current) use of oral hypoglycemic drugs; Z77.22 Contact with and (suspected) exposure to environmental tobacco smoke (acute) (chronic); G20.A1 Parkinson's disease without dyskinesia, without mention of fluctuations; I25.10 Atherosclerotic heart disease of native coronary artery without angina pectoris; E78.2 Mixed hyperlipidemia; I10 Essential (primary) hypertension; E11.9 Type 2 diabetes mellitus without complications
CPT/HCPCS: 99283

== ENCOUNTER → 2024-05-04 14:12 | Outpatient (BNVA) | payer MEDICARE, MEDICAID, SELFPAY | PROVIDERS: PCP Nurse Practitioner; Visit Provider Internal Medicine Cardiovascular Disease | DX: Z95.2 Presence of prosthetic heart valve (principal); E78.2 Mixed hyperlipidemia; I10 Essential (primary) hypertension; I25.10 Atherosclerotic heart disease of native coronary artery without angina pectoris; Z87.891 Personal history of nicotine dependence | CPT/HCPCS: 99214 ==

== ENCOUNTER → 2024-05-10 09:45 | Outpatient (BNVA) | payer MEDICARE, MEDICAID, SELFPAY | PROVIDERS: PCP Nurse Practitioner; Visit Provider Physician Assistant | DX: T81.31XA Disruption of external operation (surgical) wound, not elsewhere classified, initial encounter (principal); Z98.890 Other specified postprocedural states; Y83.8 Other surgical procedures as the cause of abnormal reaction of the patient, or of later complication, without mention of misadventure at the time of the procedure | CPT/HCPCS: 99024 ==

== ENCOUNTER 2024-05-12 12:19 | Day surgery (SDC) | payer MEDICARE, MEDICAID, SELFPAY ==
[2024-05-12] VITALS (11 sets, daily range): BP systolic 125–167; BP diastolic 74–94; PULSE 67–78; RESP 14–18; TEMP 36.4–37.3; O2SAT 95–100; BMI 26.4
--- NOTE | 2024-05-12 13:13 | P.ANESASSM_ITS ---
Pre-Anesthetic Assessment Height/Weight: Height 1.8 m Temp Pulse Resp BP Pulse Ox O2 Del Method 97.7 F 77 18 126/84 97 Room Air 05/12/24 13:10 05/12/24 13:10 05/12/24 13:10 05/12/24 13:10 05/12/24 13:10 05/12/24 13:10 Operation Date: 05/12/24 14:15 Proposed Procedures p Debridement Upper Extremity and irrigation(Right) - Marquez Yao, DO Familial anesthetic complications: None Was Beta Oziel taken within 24 hours: Yes Was Clonidine taken within 24 hours: N/A Last intake: > 8 hrs Social No alcohol and No tobacco Exam alert, oriented x 3, clear to auscultation bilaterally and regular rate & rhythm Airway Mallampati: Class II Dentition: other (none) CV/HEM bioprosthetic AVR Metabolic Diabetes Mellitus Neuropsych parkinson's Anesthetic Plan ASA status: 3 Anesthesia: MAC Risk of > 500 ml blood loss (7ml/kg in children): No Medications/Allergies Home Medications Medication Instructions Recorded Confirmed Last Taken Type albuterol sulfate 2.5 mg/3 mL 2.5 mg inhalation Q6H PRN Wheezing 04/10/20 05/11/24 Unknown History (0.083 %) solution for nebulization multivitamin 1 tab PO DAILY 04/10/20 05/11/24 04/13/24 History cholecalciferol (vitamin D3) 50 50 mcg PO DAILY 11/02/20 05/11/24 05/09/24 History mcg (2,000 unit) capsule medical marijuana 1 gummy PO PRN PRN Pain 01/09/21 05/10/24 04/12/24 History ascorbic acid (vitamin C) 1,000 mg 1 g PO DAILY 10/08/21 05/11/24 04/11/24 History tablet cyanocobalamin (vitamin B-12) 1,000 mcg PO DAILY 10/08/21 05/11/24 04/11/24 H istory 1,000 mcg capsule carbidopa 25 mg-levodopa 250 mg 1.5 tab PO QID 12/21/21 05/11/24 05/11/24 History tablet lancets 33 gauge (BD Ultra Fine #300 ea 03/21/22 05/11/24 Unknown Rx Lancets) blood-glucose meter (Accu-Chek #1 kit 08/20/22 05/11/24 Unknown Rx Guide Glucose Meter) lancets (Accu-Chek Softclix ##300 04/04/23 05/11/24 Unknown Rx Lancets) thiamine HCl (vitamin B1) 100 mg 100 mg PO DAILY 04/23/23 05/11/24 05/11/24 History tablet blood sugar diagnostic (Accu-Chek #300 strips 07/16/23 05/11/24 Unknown Rx Guide test strips) sildenafil 100 mg tablet 100 mg PO DAILY PRN sexual 07/25/23 05/11/24 Unknown Rx activity #20 tabs glipizide 5 mg tablet 5 mg PO DAILY 04/13/24 05/11/24 05/11/24 History propranolol 40 mg tablet 40 mg PO BID 04/13/24 05/11/24 05/11/24 History rosuvastatin 40 mg tablet 40 mg PO DAILY 04/13/24 05/11/24 05/11/24 History sitagliptin phosphate 100 mg 100 mg PO DAILY 04/13/24 05/11/24 05/10/24 History tablet (Januvia) diclofenac sodium 50 mg 50 mg PO BID 05/04/24 05/11/24 05/10/24 History tablet,delayed release cephalexin 500 mg capsule 500 mg PO TID 7 days #21 caps 05/10/24 05/11/24 Unknown Rx hydrocodone 5 mg-acetaminophen 325 1 tab PO Q6H PRN pain 5 days #20 05/12/24 Unknown Rx mg tablet tabs ondansetron 4 mg disintegrating 4 mg PO Q8H PRN nausea and 05/12/24 Unknown Rx tablet vomiting 3 days #9 tabs Allergies Allergy/AdvReac Type Severity Reaction Status Date / Time Iodinated Contrast Media Allergy hives Verified 05/10/24 10:17 primidone Allergy unknown Verified 05/10/24 10:17 [facility] Anesthesia Medical History Parkinson disease Aortic stenosis Accelerated essential hypertension CAD (coronary artery disease) Enrolled in chronic care management Hyperlipidemia, mixed Type 2 diabetes mellitus Low back pain Encounter for long-term use of opiate analgesic Surgical History History of back surgery H/O aortic valve replacement H/O aortic valve replacement History of arthroplasty of knee Status post total left knee replacement Family History Mother , at age 80 Diabetes Hypertension Stroke Father , at age 65 CAD (coronary artery disease) Rheumatic fever Congestive heart failure (CHF) Brother Hypertension CAD (coronary artery disease) CABG x 4 Diabetes Sister Hypertension CAD (coronary artery disease) stents Brother CAD (coronary artery disease) stents Diabetes Denies family history of Clotting disorder Dementia Chronic kidney disease (CKD) Suicide Anesthesia complication Bleeding disorder Lung disease Cancer Social History Smoking and tobacco/nicotine status: former use of tobacco/nicotine Second hand smoke exposure: Yes Alcohol intake: never Substance/Drug Use: current Substance/Drug use frequency: few times a week Marital status: Current occupational status: disabled Data Anesthesia Cardiac Studies: Echocardiogram 09/15/23
[2024-05-12] MEDS: ketorolac 30 mg/mL INJ IVP (13:33)
[2024-05-12] MEDS: scopolamine 1.5 Patch 1 PATCH TRANSDERMA (13:33)
[2024-05-12] MEDS: acetaminophen 1,000 MG/100 ML PIGGYBACK 400 MG IV (13:33)
[2024-05-12] MEDS: sodium chloride 0.9% 1,000 ML 30 ML IV (13:34)
[2024-05-12 13:35] LABS: Glucose Point of Care 113 mg/dL (70-110)
--- NOTE | 2024-05-12 13:37 | W.PM.OPSUD ---
Surgery/Procedure H&P Update DATE OF PROCEDURE: May 12, 2024 DATE H&P PERFORMED: 05/10/24 H&P UPDATE INFORMATION: I have reviewed H&P completed within last 30 days, I have examined patient prior to procedure and No changes to prior documentation PREOP DIAGNOSIS: Right elbow wound dehiscence PRIMARY INDICATION FOR PROCEDURE: Right elbow wound dehiscence PLANNED PROCEDURE: Operation Date: 05/12/24 14:15 Proposed Procedures p Debridement Upper Extremity and irrigation(Right) - Marquez Samayoa DO
[2024-05-12] MEDS: ceFAZolin 2,000 MG in sodium chloride 0.9% (plus) 50 ML 100 MG IV (13:46)
[2024-05-12] MEDS: ROPivacaine 0.5% SDV 30 mL 25 MG INJECTION (14:25)
[2024-05-12] MEDS: lidocaine 2% INJ 20 mL 5 ML INJECTION (14:25)
--- NOTE | 2024-05-12 16:20 | ANE.PACU2 ---
Inpatient post-anesthesia follow up: Airway intact: Yes Vital signs: Temperature 98.9 F Pulse Rate 67 Respiratory Rate 18 Blood Pressure 125/74 Pulse Oximetry 96 Oxygen Delivery Me thod Room Air Oxygen Flow Rate 6 Fraction of Inspir ed Oxygen Hydration adequate: Yes Nausea and vomiting: No Pain level: 1 Mental status: Baseline
--- NOTE | 2024-05-12 23:11 | P.OP_ITS ---
Operative Report Date of procedure: May 12, 2024 Pre-op diagnosis: Right elbow wound dehiscence Post-op diagnosis: Same Procedure done: Right elbow irrigation and debridement (4 cm x 3 cm x 1 cm) Right elbow primary closure Specimens removed/disposition: None, no purulent drainage noted Surgeon: Marquez Samayoa DO Anesthesia: General (LMA) Estimated blood loss: 5 mL 28 minutes IV fluids: 700 mL Complications: None Findings: See operative report narrative Condition: stable Disposition: same day Brief History: Patient is a pleasant 68-year-old gentleman who had previously undergone a right carpal tunnel release and right cubital tunnel release surgery had been doing well in the postoperative period however unfortunately after his sutures removed on the elbow incision he had some increased activity and the wound opened up. Seen emergency department started on antibiotics sent to our office for outpatient follow-up. Was seen in our office just on Friday was placed with a wet-to-dry dressing and added on for surgery today as he has open wound does not appear to be infected but is put empirically on antibiotics. He is here today for right elbow irrigation debridement and primary wound closure. Patient understands anxiety procedure was benefits complication alternatives to surgery through shared decision-making elected proceed with surgical intervention all questions answered at this time. Procedure: Patient seen evaluated in the preoperative holding area. Consent was reviewed and signed with patient. Correct extremities and subsequently marked. Patient was then seen evaluated by anesthesia once cleared by anesthesia patient was taken back to the operative suite kept in supine position on a hospital gurney and armboard applied to the right upper extremity. Patient then underwent anesthesia per the AC department's prep anesthetized patient's right upper extremities then prepped and draped in standard orthopedic fashion. Prior to prepping and draping a nonsterile tourniquet was applied to the right upper arm. Final timeout performed. Patient received appropriate preoperative antibiotics. Esmarch tourniquet was used exsanguinate the right upper extremity tourniquet insufflated to 250 mmHg. I then subsequently identified the wound which had dehiscence of near entirety of the cubital tunnel release incision. The wound edges were very dormant and rounded off with no signs of the skin edges healing. At this point time I subsequently utilized sharp scalpel excision and ellipticized the entire incision to freshen up the skin edges for edge to edge healing once again. Once this was performed I then thoroughly inspected the floor of the wound there is n o purulence no palpable fluctuance or pockets of abscess noted. This all had normal scar tissue noted at the floor of the incision I was able to dissect and visualize the decompression of the ulnar nerve which was staying within the groove. No evidence of instability noted. This point in time I excised some of the subcutaneous tissue entirety of the wound bed and I&D was performed of 4 cm x 3 cm x 1 cm. This was debrided of skin and subcutaneous tissue and fascia. Once debrided healthy bleeding tissue I then thoroughly irrigated with 2 L of normal saline. At this point in time tourniquet deflated hemostasis satisfactory I then subsequently closed the incision with 3-0 Vicryl suture interrupted as well as then interrupted fashion 3-0 nylon stitch in a horizontal interrupted fashion for satisfactory closure. This point in time the incision was then subsequently cleaned and dried and then placed with Xeroform 4 x 4's ABD Curlex soft roll and a long-arm posterior splint was placed to the right elbow. Patient was then awake from anesthesia and taken to PACU in stable condition. Disposition: Patient taken back in stable condition recovering well. Will place patient on appropriate discharge instruction as well as pain medication and postoperative antibiotics for infection prophylaxis as he is just going to be finishing up his work from the emergency department we will continue the 1 we prescribed in the office just on Friday. We will keep him in the splint until follow-up at 2 weeks. Given his poor wound edges worried of his ability of healing in order to help decrease any stress or tension on the incision site we will keep him in this long-arm posterior arm splint until his follow-up in 2 weeks. Patient family understand agree with current plan. Questions answered.
== END 2024-05-12 16:20 | disposition home or self-care (01) ==
PROVIDERS: PCP Nurse Practitioner; Visit Provider Student in an Organized Health Care Education/Training Program
PROC: (CPT 13160; principal; 2024-05-12 14:15)
DX: T81.30XA Disruption of wound, unspecified, initial encounter (principal); Y84.9 Medical procedure, unspecified as the cause of abnormal reaction of the patient, or of later complication, without mention of misadventure at the time of the procedure; E11.9 Type 2 diabetes mellitus without complications; G20.A1 Parkinson's disease without dyskinesia, without mention of fluctuations; I25.10 Atherosclerotic heart disease of native coronary artery without angina pectoris; E78.2 Mixed hyperlipidemia; Z79.891 Long term (current) use of opiate analgesic; Z87.891 Personal history of nicotine dependence
CPT/HCPCS: 13160; 36416; 82962; J0131; J0690; J1885; J2704; J2795; J3010; J7030

== ENCOUNTER → 2024-05-25 13:31 | Outpatient (BNVA) | payer MEDICARE, MEDICAID, SELFPAY | PROVIDERS: PCP Nurse Practitioner; Visit Provider Physician Assistant | DX: T81.31XA Disruption of external operation (surgical) wound, not elsewhere classified, initial encounter (principal); Z98.890 Other specified postprocedural states; Y83.8 Other surgical procedures as the cause of abnormal reaction of the patient, or of later complication, without mention of misadventure at the time of the procedure | CPT/HCPCS: 99024 ==

== ENCOUNTER → 2024-06-01 13:15 | Outpatient (BNVA) | payer MEDICARE, MEDICAID, SELFPAY | PROVIDERS: PCP Nurse Practitioner; Visit Provider Physician Assistant | DX: T81.31XA Disruption of external operation (surgical) wound, not elsewhere classified, initial encounter (principal); Z98.890 Other specified postprocedural states; Y83.8 Other surgical procedures as the cause of abnormal reaction of the patient, or of later complication, without mention of misadventure at the time of the procedure | CPT/HCPCS: 99024 ==

== ENCOUNTER → 2024-06-22 09:24 | Outpatient (BNVA) | payer MEDICARE, MEDICAID, SELFPAY | PROVIDERS: PCP Nurse Practitioner; Visit Provider Physician Assistant | DX: M65.351 Trigger finger, right little finger (principal); M65.342 Trigger finger, left ring finger; M65.352 Trigger finger, left little finger; Z98.890 Other specified postprocedural states | CPT/HCPCS: 20600; 99213; J3301; J3490 ==

== ENCOUNTER → 2024-06-30 09:20 | Outpatient (BNVA) | payer MEDICARE, MEDICAID, SELFPAY | PROVIDERS: PCP Nurse Practitioner; Referring Provider Family Medicine; Visit Provider Surgery | DX: Z12.11 Encounter for screening for malignant neoplasm of colon (principal) | CPT/HCPCS: 99024; 99204 ==

== ENCOUNTER 2024-07-15 07:43 | Day surgery (SDC) | payer MEDICARE, MEDICAID, SELFPAY ==
[2024-07-15 07:53] VITALS: BP 130/74; PULSE 64; RESP 18; TEMP 36.4; O2SAT 99; BMI 27.3
--- NOTE | 2024-07-15 08:01 | ANES.PREANE2 ---
Pre-Anesthetic Assessment Height/Weight: Height 1.8 m Operation Date: 07/15/24 09:00 Proposed Procedures p Colonoscopy 95250, G0121,z12.11(Not Applicable) - Harjinder Cates MD Familial anesthetic complications: None Was Beta Oziel taken within 24 hours: N/A Was Clonidine taken within 24 hours: N/A Last intake: > 8hrs Social No alcohol and No tobacco Exam alert, oriented x 3, clear to auscultation bilaterally and regular rate & rhythm Airway Mallampati: Class II Dentition: other (no teeth) CV/HEM Coronary Artery Disease and Hypertension bioprosthetic avr Metabolic Diabetes Mellitus Neuropsych parkinsons Anesthetic Plan ASA status: 3 Anesthesia: MAC Risk of > 500 ml blood loss (7ml/kg in children): No Medications/Allergies Home Medications Medication Instructions Recorded Confirmed Last Taken Type albuterol sulfate 2.5 mg/3 mL 2.5 mg inhalation Q6H PRN Wheezing 04/10/20 07/13/24 01/05/24 History (0.083 %) solution for nebulization cholecalciferol (vitamin D3) 50 50 mcg PO DAILY 11/02/20 07/13/24 2 Months Ago History mcg (2,000 unit) capsule ~05/13/24 medical marijuana 1 gummy PO PRN PRN Pain 01/09/21 07/13/24 07/09/24 History ascorbic acid (vitamin C) 1,000 mg 1 g PO DAILY 10/08/21 07/13/24 04/14/24 History tablet cyanocobalamin (vitamin B-12) 1,000 mcg PO DAILY 10/08/21 07/13/24 07/13/24 History 1,000 mcg capsule carbidopa 25 mg-levodopa 250 mg 1.5 tab PO QID 12/21/21 07/13/24 07/13/24 History tablet lancets 33 gauge (BD Ultra Fine #300 ea 03/21/22 06/30/24 Unknown Rx Lancets) blood-glucose meter (Accu-Chek #1 kit 08/20/22 06/30/24 Unknown Rx Guide Glucose Meter) lancets (Accu-Chek Softclix ##300 04/04/23 06/30/24 Unknown Rx Lancets) thiamine HCl (vitamin B1) 100 mg 200 mg PO BID 04/23/23 07/13/24 07/13/24 History tablet sildenafil 100 mg tablet 100 mg PO DAILY PRN sexual 07/25/23 06/30/24 3 Months Ago Rx activity #20 tabs ~04/12/24 glipizide 5 mg tablet 5 mg PO DAILY 04/13/24 07/13/24 07/13/24 History propranolol 40 mg tablet 40 mg PO BID 04/13/24 07/13/24 07/13/24 History rosuvastatin 40 mg tablet 40 mg PO DAILY 04/13/24 07/13/24 07/13/24 History sitagliptin phosphate 100 mg 100 mg PO DAILY 04/13/24 07/13/24 07/13/24 History tablet (Januvia) blood sugar diagnostic (Accu-Chek #300 strips 05/25/24 06/30/24 Unknown Rx Guide test strips) diclofenac sodium 50 mg 50 mg PO BID 07/13/24 07/13/24 07/13/24 History tablet,delayed release Allergies Allergy/AdvReac Type Severity Reaction Status Date / Time Iodinated Contrast Media Allergy hives Verified 07/13/24 13:31 primidone Allergy unknown Verified 07/13/24 13:31 [facility] Anesthesia Medical History Parkinson disease Aortic stenosis Accelerated essential hypertension CAD (coronary artery disease) Enrolled in chronic care management Hyperlipidemia, mixed Type 2 diabetes mellitus Low back pain Encounter for long-term use of opiate analgesic Surgical History History of back surgery H/O aortic valve replacement H/O aortic valve replacement History of arthroplasty of knee Status post total left knee replacement Family History Mother , at age 80 Diabetes Hypertension Stroke Father , at age 65 CAD (coronary artery disease) Rheumatic fever Congestive heart failure (CHF) Brother Hypertension CAD (coronary artery disease) CABG x 4 Diabetes Sister Hypertension CAD (coronary artery disease) stents Brother CAD (coronary artery disease) stents Diabetes Denies family history of Clotting disorder Dementia Chronic kidney disease (CKD) Suicide Anesthesia complication Bleeding disorder Lung disease Cancer Social History Smoking and tobacco/nicotine status: never used tobacco/nicotine Second hand smoke exposure: Yes Alcohol intake: never Substance/Drug Use: current Substance/Drug use frequency: few times a week Marital status: Current occupational status: disabled Data Anesthesia Cardiac Studies: Echocardiogram 09/15/23
--- NOTE | 2024-07-15 08:05 | P.HPUD_ITS ---
Surgery/Procedure H&P Update DATE OF PROCEDURE: July 15, 2024 DATE H&P PERFORMED: 06/30/24 H&P UPDATE INFORMATION: I have reviewed H&P completed within last 30 days, I have examined patient prior to procedure, No changes to prior documentation and H&P is in [facility] EMR on date indicated PLANNED PROCEDURE: Operation Date: 07/15/24 09:00 Proposed Procedures p Colonoscopy 34330, G0121,z12.11(Not Applicable) - Harjinder Cates MD
[2024-07-15 08:21] LABS: Glucose Point of Care 143 mg/dL (70-110)
[2024-07-15] MEDS: sodium chloride 0.9% 1,000 ML 30 ML IV (08:21)
[2024-07-15 08:53] VITALS: BP 109/67; PULSE 61; RESP 12; TEMP 36.1; O2SAT 100
[2024-07-15 09:00] VITALS: BP 106/73; PULSE 60; RESP 16; O2SAT 98
[2024-07-15 09:10] VITALS: BP 128/77; PULSE 54; RESP 18; O2SAT 97
--- NOTE | 2024-07-15 09:30 | ANE.PACU2 ---
Inpatient post-anesthesia follow up: Airway intact: Yes Vital signs: Temperature 97.0 F Pulse Rate 54 Respiratory Rate 18 Blood Pressure 128/77 Pulse Oximetry 97 Oxygen Delivery Me thod Room Air Oxygen Flow Rate Fraction of Inspir ed Oxygen Hydration adequate: Yes Nausea and vomiting: No Pain level: 1 Mental status: Baseline
== END 2024-07-15 09:30 | disposition home or self-care (01) ==
PROVIDERS: PCP Nurse Practitioner; Visit Provider Surgery
PROC: 0DJD8ZZ Inspection of Lower Intestinal Tract, Via Natural or Artificial Opening Endoscopic (ICD-10-PCS; CPT 45378; principal; 2024-07-15 09:00)
DX: Z12.11 Encounter for screening for malignant neoplasm of colon (principal); I10 Essential (primary) hypertension; I25.10 Atherosclerotic heart disease of native coronary artery without angina pectoris; E11.9 Type 2 diabetes mellitus without complications; G20.A1 Parkinson's disease without dyskinesia, without mention of fluctuations; E78.2 Mixed hyperlipidemia
CPT/HCPCS: 36416; 82962; G0121; J2704; J7030

== ENCOUNTER → 2024-08-13 08:50 | Outpatient (BNVA) | payer MEDICARE, MEDICAID, SELFPAY | PROVIDERS: PCP Nurse Practitioner; Visit Provider Physician Assistant | DX: M65.352 Trigger finger, left little finger (principal); M65.342 Trigger finger, left ring finger; M65.351 Trigger finger, right little finger; Z98.890 Other specified postprocedural states | CPT/HCPCS: 99213 ==

== ENCOUNTER → 2024-08-16 10:52 | Outpatient (BNVA) | payer MEDICARE, MEDICAID, SELFPAY | PROVIDERS: PCP Nurse Practitioner; Visit Provider Nurse Practitioner Family | DX: L82.1 Other seborrheic keratosis (principal); D22.62 Melanocytic nevi of left upper limb, including shoulder; L81.4 Other melanin hyperpigmentation; L57.8 Other skin changes due to chronic exposure to nonionizing radiation; F42.4 Excoriation (skin-picking) disorder; L57.0 Actinic keratosis | CPT/HCPCS: 17000; 99214 ==

== ENCOUNTER → 2024-09-15 09:40 | Outpatient (BNVA) | payer MEDICARE, MEDICAID, SELFPAY | PROVIDERS: PCP Nurse Practitioner; Visit Provider Nurse Practitioner Family | DX: Z01.810 Encounter for preprocedural cardiovascular examination (principal); H26.9 Unspecified cataract; I25.10 Atherosclerotic heart disease of native coronary artery without angina pectoris; I10 Essential (primary) hypertension; Z95.2 Presence of prosthetic heart valve; E78.5 Hyperlipidemia, unspecified | CPT/HCPCS: 99214 ==

== ENCOUNTER → 2025-03-17 14:06 | Outpatient (BNVA) | payer MEDICARE, MEDICAID, SELFPAY | PROVIDERS: PCP Family Medicine; Visit Provider Internal Medicine Cardiovascular Disease | DX: I25.10 Atherosclerotic heart disease of native coronary artery without angina pectoris (principal); Z95.2 Presence of prosthetic heart valve; E78.2 Mixed hyperlipidemia; I10 Essential (primary) hypertension; G25.0 Essential tremor | CPT/HCPCS: 99214 ==

== ENCOUNTER 2025-03-31 20:17 | Emergency (ER) | payer OTHER, MEDICARE, MEDICAID, SELFPAY ==
[2025-03-31 20:20] VITALS: BP 175/85; PULSE 69; TEMP 36.4; O2SAT 98
--- OUTSIDE RECORDS SUMMARY | 2025-03-31 20:43 | XMS_ITS | Encounter Summary ---
Author Organization [facility] Address [address] [place] [address] Care Team Providers Care Water Well Driller Name Role Phone Unavailable Primary Care Provider Unavailabl e Encounter Details Date Type Department Care Team (Late st Contact Info) Description 02/04/2025 Refill [facility] Neurology - [place] [address] [place] [address] Abisai Hsieh MD [address] [place] [address] Social History Tobacco Use Types Packs/Day Years Used Date Smoking Tobacco: Never Smokeless Tobacco: Never Alcohol Use Standard Drinks/Week Comments No 0 (1 standard drink = 0.6 oz pur e alcohol) Feeling Safe Answer Date Recorded Are you in a relationship wi th someone who hurts you emotionally and/or physically? 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 Gender Identity Not on file Sexual Orientation Not on file documented as of this encounter Plan of Treatment Upcoming Encounters Date Type Department Care Team (Late st Contact Info) Description 04/29/2025 9:30 AM CDT Office Visit [facility] Neurology - [place] [address] [place] [address] Norma Dhaliwal MD [address] [place] [address] 06/13/2025 1:00 PM CDT Office Visit [facility] Spine Neurosurgery [address] [place] [address] Kina Navarro, TRACIE [address] [place] [address] documented as of this encounter Visit Diagnoses Not on filedocumented in this encounter
--- OUTSIDE RECORDS SUMMARY | 2025-03-31 20:43 | XMS_ITS | Clinical Summary ---
Author Organization [facility] Address [address] [facility] Attn: [place] [address] Care Team Providers Care Index Editor Name Role Phone Unavailable Primary Care Provider Unavailabl e Allergies Active Allergy Reactions Criticality Noted Date Comments Iodinated Contrast Media Hives,Rash High 04/22/2022 Iodine Hives,Rash High 12/18/2018 iodine Primidone Unknown 04/22/2022 Medications metFORMIN (GLUCOPHAGE) 500 mg tablet Take 500 mg by mouth 2 times daily. 09/11/20 22 Active propranoloL (INDERAL) 40 mg tablet Take 40 mg by mouth 2 times daily. 10/04/20 22 Active tiZANidine (ZANAFLEX) 2 mg Tablet TAKE ONE TABLET BY MOUTH ONCE DAILY NEEDED FOR SPASM 30 Tablet 2 10/07/19 24 Active azelastine (ASTELIN) 137 mcg/actuation nasal spray USE 2 SPRAYS IN EACH NOSTRIL TWICE DAILY Active Januvia 100 mg Tablet Take 100 mg by mouth daily. Active rosuvastatin (CRESTOR) 40 mg tablet Take 1 Tablet by mouth daily. Active sildenafiL (VIAGRA) 100 mg tablet Take 1 tablet every day by oral route as needed. Active magnesium oxide 400 mg magnesium Tablet 400mg daily Active ascorbic acid, vitamin C, (Vitamin C) 1,000 mg Tablet daily. Active thiamine HCl (VITAMIN B-1 ORAL) daily. Active cyanocobalamin (Vitamin B-12) 1,000 mcg Tablet daily. Active rOPINIRole (REQUIP) 0.5 mg tablet Take 1 Tablet (0.5 mg) by mouth daily at bedtime. 90 Tablet 3 03/28/20 25 Active carbidopa-levo dopa (SINEMET) 25-250 mg tablet Take 2 Tablets by mouth see administration instructions. 2 tabs 6:00 am, 1 tab 10: 0 am, 1 tab 2:00 pm , 2 tabs 6:00 p.m. 540 Tablet 7 01/01/20 25 Active oxyCODONE (ROXICODONE) 5 mg tabletIndicati ons:Stenosis of cervical spine Take 1 Tablet (5 mg) by mouth every 8 hours as needed for Pain. Max Daily Amount: 15 mg 30 Tablet 03/30/20 25 Active oxyCODONE (ROXICODONE) 5 mg tabletIndicati ons:Stenosis of cervical spine Take 1 Tablet (5 mg) by mouth every 4 hours as needed for Pain. Max Daily Amount: 30 mg 42 Tablet 02/05/20 25 025 Discontin ued(Reord er) oxyCODONE (ROXICODONE) 5 mg tabletIndicati ons:Stenosis of cervical spine Take 1 Tablet (5 mg) by mouth every 4 hours as needed for Pain. Max Daily Amount: 30 mg 42 Tablet 03/02/20 25 025 Discontin ued(Reord er) Active Problems Problem Noted Date Diagnosed Date Stenosis of cervical spine 12/30/2024 Preoperative general physical examination 2024 GERD without esophagitis 12/30/2024 Thrombocytopenia 12/30/2024 Anemia 12/30/2024 Primary hypertension 08/05/2023 Actinic keratosis 08/05/2023 Allergies 08/05/2023 CAD (coronary artery disease) 08/05/2023 Cracked skin on feet 08/05/2023 Skin lesions 08/05/2023 Diabetic foot 08/05/2023 Encounter for long-term use of opiate analgesic 08/05/2023 Enrolled in chronic care management 08/05/2023 Erectile dysfunction 08/05/2023 Essential tremor 08/05/2023 Fatigue 08/05/2023 H/O aortic valve replacement 08/05/2023 History of skin cancer in adulthood 08/05/2023 Hyperlipidemia, mixed 08/05/2023 Insomnia 08/05/2023 Low back pain 08/05/2023 Low testosterone in male 08/05/2023 Nail thickening 08/05/2023 Parkinson disease 08/05/2023 Post-nasal drip 08/05/2023 Shoulder strain 08/05/2023 Onychomycosis 08/05/2023 Toenail fungus 08/05/2023 Type 2 diabetes mellitus wit hout complication, without long-term current use of insulin 08/05/2023 Vitamin D deficiency 08/05/2023 Dental caries 12/26/2018 Resolved Problems Problem Noted Date Diagnosed Date Resolved Date Bronchitis 08/05/2023 12/30/2024 Conjunctivitis 08/05/2023 12/30/2024 Dizziness 08/05/2023 12/30/2024 Viral upper respiratory illness 08/05/2023 12/30/2024 Encounters Date Type Department Care Team Description 03/29/2025 Refill [facility] Spine Neurosurgery [address] [address] [address] [place] [address] Georges Mccord MD Stenosis of cervical spine 03/23/2025 External Device Data STL ABSTRACTION Provider, Abstract 03/23/2025 External Device Data STL ABSTRACTION Provider, Abstract 03/22/2025 External Device Data STL ABSTRACTION Provider, Abstract 03/09/2025 11:40 AM CDT Office Visit [facility] Spine Neurosurgery [address] [address] [place] [phone] Kina Navarro PA Status post cervical spinal fusion (Primary Dx) 03/09/2025 11:35 AM CDT Ancillary Procedure [facility] Spine and Pain Radiology [address] [place] [address] Kina Navarro PA S/P cervical spinal fusion 03/08/2025 External Device Data STL ABSTRACTION Provider, Abstract 03/02/2025 Refill [facility] Spine Neurosurgery [address] [place] [phone] Abisai Hsieh MD Stenosis of cervical spine 03/01/2025 Orders Only [facility] Spine Neurosurgery [address] [place] [phone] Kina Navarro PA S/P cervical spinal fusion (Primary Dx) 02/24/2025 External Device Data STL ABSTRACTION Provider, Abstract 02/24/2025 External Device Data STL ABSTRACTION Provider, Abstract 02/23/2025 External Device Data STL ABSTRACTION Provider, Abstract 02/15/2025 External Device Data STL ABSTRACTION Provider, Abstract 02/15/2025 External Device Data STL ABSTRACTION Provider, Abstract 02/15/2025 External Device Data STL ABSTRACTION Provider, Abstract 02/09/2025 Orders Only [facility] Spine Neurosurgery [address] [place] [phone] Kina Navarro PA Stenosis of cervical spine (Primary Dx); Neck pain; Right arm pain; S/P cervical spinal fusion 02/04/2025 Refill [facility] Spine Neurosurgery [address] [place] [address] Amari Palumbo MD Stenosis of cervical spine 02/04/2025 Refill [facility] Neurology [place] [address] [place] [address] Abisai Hsieh MD 02/03/2025 10:15 AM CDT Ancillary Procedure [facility] Spine and Pain Radiology [address] [place] [address] Kina Navarro PA S/P cervical spinal fusion 02/03/2025 10:00 AM CDT Office Visit [facility] Spine Neurosurgery [address] [place] [phone] Kina Navarro PA Neck pain (Primary Dx); Right arm pain 01/27/2025 Orders Only [facility] Spine Neurosurgery [address] [place] [phone] Kina Navarro PA S/P cervical spinal fusion (Primary Dx) 01/19/2025 Refill [facility] Neurology [facility] [address] [place] [address] Abisai Hsieh MD Stenosis of cervical spine (Primary Dx) 01/18/2025 External Device Data STL ABSTRACTION Provider, Abstract 01/18/2025 External Device Data STL ABSTRACTION Provider, Abstract 01/18/2025 External Device Data STL ABSTRACTION Provider, Abstract 01/14/2025 8:59 AM CDT Anesthesia Event [facility] Operating Room [address] [place] [phone] Tacos Scott MD 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, 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 01/14/2025 8:52 AM CDT - 01/14/2025 2:50 PM CDT Surgery [facility] Operating Room [address] [place] [phone] Abisai Hsieh MD CERVICAL FUSION POSTERIOR - MULTILEVEL 01/14/2025 6:42 AM CDT - 01/18/2025 2:18 PM CDT Hospital Encounter [facility] 3C Ortho Neuro [address] [place] [address] Abisai Hsieh MD Primary hypertension Discharge Disposition: Home or Self Care 01/14/2025 Travel 01/07/2025 Telephone [facility] Spine Neurosurgery [address] [place] [phone] Abisai Hsieh MD Information 12/31/2024 1:00 PM CDT Office Visit [facility] Neurology - [address] [place] [phone] Norma Dhaliwal MD Parkinson's disease without dyskinesia or fluctuating manifestations (CMS/HCC) (Primary Dx); REM sleep behavior disorder 12/30/2024 8:45 AM CDT - 12/30/2024 11:59 PM CDT Hospital Encounter [facility] [address] [place] [phone] Roverto Enciso MD Discharge Disposition: Home or Self Care 12/30/2024 7:36 AM CDT - 12/30/2024 11:59 PM CDT Hospital Encounter [facility] Pre Admission [facility] [address] [place] [phone] Abisai Hsieh MD Discharge Disposition: Home or Self Care 12/30/2024 Travel from Last 3 Months Immunizations Immunization Administration Dates Next Due Influenza Seasonal Unspecified Formulation IM Family History Medical History Relation Name Comments Heart Disease Son Cardiac dysrth ymia Relation Name Status Comments Son Social History Tobacco Use Types Packs/Day Years Used Date Smoking Tobacco: Never Smokeless Tobacco: Never Tobacco Cessation:Counseling Given: Not Answered Alcohol Use Standard Drinks/Week Comments No 0 [...] on file Legal Sex Male 11:58 AM [employer] Gender Identity Not on file Sexual Orientation Not on file Last Filed Vital Signs Vital Sign Reading Time Taken Comments Blood Pressure 136/78 03/09/2025 11:45 AM CDT Pulse 70 02/03/2025 10:23 AM CDT Temperature 36.8 C (98.2 F) 01/18/2025 11:08 AM CDT Respiratory Rate 18 01/18/2025 11:08 AM CDT Oxygen Saturation 96% 02/03/2025 10:23 AM CDT Inhaled Oxygen Concentration - - Weight 97.5 kg (215 lb) 03/09/2025 11:45 AM CDT Height 180.3 cm (5' 11 ) 03/09/2025 11:45 AM CDT Body Mass Index 29.99 03/09/2025 11:45 AM CDT Plan of Treatment Upcoming Encounters Date Type Department Care Team (Late st Contact Info) Description 04/29/2025 9:30 AM CDT Office Visit [facility] Neurology [place] [address] [facility] [address] [place] [address] Norma Dhaliwal MD [address] [place] [address] 06/13/2025 1:00 PM CDT Office Visit [facility] Spine Neurosurgery [address] [address] [place] [address] Kina Navarro, TRACIE [address] [place] [address] Health Maintenance Due Date Last Done Comments DIABETES ANNUAL FOOT EXAM 1974 DIABETES ANNUAL RETINAL EXAM 1974 DIABETES MICROALBUMIN ANNUAL SCREEN 1974 LDL CHOLESTEROL ANNUAL 1974 DTAP/TDAP/TD VACCINES (1 - Tdap) 1975 PNEUMOCOCCAL VACCINE 50+ YEA RS (1 of 2 - PCV) 1975 FIT-DNA Q 3 years 2001 FIT/FOBT Q 1 year 2001 Flex Sig/CT Colonography Q 5 years 2001 ZOSTER VACCINE (1 of 2) 2006 RSV VACCINE (60+ or ) (1 - Risk 60-74 years 1-dose series) 2016 COVID-19 Vaccine (3 - 2023-2 5 season) 2024 02/06/2021, 01/09/2021 DIABETES HBA1C Q 6 MONTHS 07/02/2025 12/30/2024, 02/2024 COLORECTAL SCREENING 07/15/2034 07/15/2024 Colorectal Cancer Screening 07/15/2034 INFLUENZA VACCINE Completed 08/11/2024, , 08/02/2022, Additional history exists Medical Devices Implanted Type Area Bpm Developer Device Identifier Shelf Expiration Date Model / Serial / Lot Putty Mastergraft 9.0ml [id number] - [id number] Implanted:Qty : 1 on 01/14/2025 by Abisai Hsieh MD at [facility] Biological N/A: Spine Cervical Posterior [employer]ANEK 09/04/2028 [id number] / / [id number] Hemostatic Surgiflo 8ml W/ Thrombin 2994 - [id number] Implanted:Qty : 1 on 01/14/2025 by Abisai Hsieh MD at [facility] Hemostatic N/A: Spine Cervical Posterior [employer] [id number] 04/04/2026 2994 / / [id number] Hemostatic Surgiflo 8ml W/ Thrombin 2994 - [id number] Implanted:Qty : 1 on 01/14/2025 by Abisai Hsieh MD at [facility] Hemostatic N/A: Spine Cervical Posterior [employer] [id number] 04/04/2026 2994 / / [id number] Anjel Infinity 3.5x60mm Pre-Cut [id number] - [id number] Implanted:Qty : 1 on 01/14/2025 by Abisai Hsieh MD at [facility] Anjel N/A: Spine Cervical Posterior [employer] 01/14/2030 [id number] / / [id number] Anjel Infinity 3.5x60mm Pre-Cut [id number] - [id number] Implanted:Qty : 1 on 01/14/2025 by Abisai Hsieh MD at [facility] Anjel N/A: Spine Cervical Posterior [employer] 01/14/2030 [id number] / / [id number] Screw Infinity 3.5x14mm Mas [id number] - [id number] Implanted:Qty : 1 on 01/14/2025 by Abisai Hsieh MD at [facility] Screw N/A: Spine Cervical Posterior [employer] 01/14/2030 [id number] / / [id number] Screw Infinity 3.5x14mm Mas [id number] - [id number] Implanted:Qty : 1 on 01/14/2025 by Abisai Hsieh MD at [facility] Screw N/A: Spine Cervical Posterior [employer] 01/14/2030 [id number] / / [id number] Screw Infinity 3.5x14mm Mas [id number] - [id number] Implanted:Qty : 1 on 01/14/2025 by Abisai Hsieh MD at [facility] Screw N/A: Spine Cervical Posterior [employer] 01/14/2030 [id number] / / [id number] Set Screw Infinity Oc M6 [id number] - [id number] Implanted:Qty : 1 on 01/14/2025 by Abisai Hsieh MD at [facility] Screw N/A: Spine Cervical Posterior [employer] 01/14/2030 [id number] / / [id number] Set Screw Infinity Oc M6 [id number] - [id number] Implanted:Qty : 1 on 01/14/2025 by Abisai Hsieh MD at [facility] Screw N/A: Spine Cervical Posterior [employer] 01/14/2030 [id number] / / [id number] Set Screw Infinity Oc M6 3344506 - [id number] Implanted:Qty : 1 on 01/14/2025 by Abisai Hsieh MD at [facility] Screw N/A: Spine Cervical Posterior [employer] 01/14/2030 [id number] / / [id number] Set Screw Infinity Oc M6 [id number] - [id number] Implanted:Qty : 1 on 01/14/2025 by Abisai Hsieh MD at [facility] Screw N/A: Spine Cervical Posterior [employer] 01/14/2030 [id number] / / [id number] Set Screw Infinity Oc M6 [id number] - [id number] Implanted:Qty : 1 on 01/14/2025 by Abisai Hsieh MD at [facility] Screw N/A: Spine Cervical Posterior [employer] 01/14/2030 [id number] / / [id number] Set Screw Infinity Oc M6 [id number] - [id number] Implanted:Qty : 1 on 01/14/2025 by Abisai Hsieh MD at [facility] Screw N/A: Spine Cervical Posterior [employer] 01/14/2030 [id number] / / [id number] Set Screw Infinity Oc M6 [id number] - [id number] Implanted:Qty : 1 on 01/14/2025 by Abisai Hsieh MD at [facility] Screw N/A: Spine Cervical Posterior [employer] 01/14/2030 [id number] / / [id number] Set Screw Infinity Oc M6 [id number] - [id number] Implanted:Qty : 1 on 01/14/2025 by Abisai Hsieh MD at [facility] Screw N/A: Spine Cervical Posterior [employer] 01/14/2030 [id number] / / [id number] Screw Infinity 3.5x14mm Mas [id number] - [id number] Implanted:Qty : 1 on 01/14/2025 by Abisai Hsieh MD at [facility] Screw N/A: Spine Cervical Posterior [employer] 01/14/2030 [id number] / / [id number] Screw Infinity 3.5x14mm Mas [id number] - [id number] Implanted:Qty : 1 on 01/14/2025 by Abisai Hsieh MD at [facility] Screw N/A: Spine Cervical Posterior [employer] 01/14/2030 [id number] / / [id number] Screw Infinity 3.5x14mm Mas [id number] - [id number] Implanted:Qty : 1 on 01/14/2025 by Abisai Hsieh MD at [facility] Screw N/A: Spine Cervical Posterior [employer] 01/14/2030 [id number] / / [id number] Screw Infinity 3.5x14mm Mas [id number] - [id number] Implanted:Qty : 1 on 01/14/2025 by Abisai Hsieh MD at [facility] Screw N/A: Spine Cervical Posterior [employer] 01/14/2030 [id number] / / [id number] Screw Infinity 3.5x14mm Mas [id number] - [id number] Implanted:Qty : 1 on 01/14/2025 by Abisai Hsieh MD at [facility] Screw N/A: Spine Cervical Posterior [employer] 01/14/2030 [id number] / / [id number] Allograft Putty Influx Dbm 10ml Iflx-Pt-10 - [id number] Implanted:Qty : 1 on 01/14/2025 by Abisai Hsieh MD at [facility] Tissue N/A: Spine Cervical Posterior [employer] 10/26/2027 IFLX-PT- 10 / [id number] / Procedures Procedure Name Priority Date/Time Associated Diagnosis Comments XR CERVICAL SPINE 2 OR 3 VIEWS Routine 03/09/2025 11:44 AM CDT S/P cervical spinal fusion XR CERVICAL SPINE 2 OR 3 VIEWS Routine 02/03/2025 10:18 AM CDT S/P cervical spinal fusion TELEMETRY REPORT 01/19/2025 1:12 AM CDT POC GLUCOSE Routine 01/18/2025 11:25 AM CDT POC GLUCOSE Routine 01/18/2025 7:09 AM CDT POC GLUCOSE Routine 01/18/2025 2:00 AM CDT MRI CERVICAL W WO CONTRAST Pending Discharge 01/18/2025 1:13 AM CDT POC GLUCOSE Routine 01/17/2025 9:18 PM CDT BASIC METABOLIC PANEL Stat 01/17/2025 4:52 PM CDT POC GLUCOSE Routine 01/17/2025 11:03 AM CDT POC GLUCOSE Routine 01/17/2025 7:27 AM CDT POC GLUCOSE Routine 01/16/2025 9:25 PM CDT POC GLUCOSE Routine 01/16/2025 4:40 PM CDT POC GLUCOSE Routine 01/16/2025 11:50 AM CDT POC GLUCOSE Routine 01/16/2025 7:46 AM CDT POC GLUCOSE Routine 01/16/2025 5:42 AM CDT CBC WITHOUT DIFFERENTIAL Routine 01/16/2025 5:40 AM CDT POC GLUCOSE Routine 01/16/2025 2:10 AM CDT POC GLUCOSE Routine 01/15/2025 7:19 PM CDT POC GLUCOSE Routine 01/15/2025 6:19 PM CDT POC GLUCOSE Routine 01/15/2025 5:14 PM CDT POC GLUCOSE Routine 01/15/2025 4:10 PM CDT PT CUSTOM ORTHOTICS Routine 01/14/2025 1 :16 PM CDT PT EVAL AND TREAT Routine 01/14/2025 1:1 5 PM CDT POC GLUCOSE Routine 01/14/2025 11:39 AM CDT XR FLUORO LESS THAN 1 HOUR Routine 01/14/2025 11:09 AM CDT Spinal stenosis in cervical region DE ANES INSERT CATH, ART, PERCUT, SHORTTERM Routine 01/14/2025 10:10 AM CDT DE ANES INSERT ENDOTRACHEAL AIRWAY Routine 01/14/2025 9:29 AM CDT DE ARTHRD PST/PSTLAT TQ 1NTRSPC CRV BELW C2 SEGMENT 01/14/2025 8:52 AM CDT Spinal stenosis in cervical region Neck pain POC GLUCOSE Routine 01/14/2025 7:28 AM CDT INTRAOP NEUROPHYSIO MONITORING Routine 01/14/2025 6:49 AM CDT VERIFICATION BLOOD GROUP Stat 12/30/2024 9:11 AM CDT XR CHEST PA OR AP 1 VW Routine 12/30/2024 8:56 AM CDT Preoperative testing TYPE AND SCREEN Routine 12/30/2024 8:48 AM CDT COMPREHENSIVE METABOLIC PANEL Routine 12/30/2024 8:48 AM CDT CBC WITH DIFFERENTIAL Routine 12/30/2024 8:48 AM CDT HEMOGLOBIN A1C Routine 12/30/2024 8:48 AM CDT EKG 12-LEAD Routine 12/30/2024 8:41 AM CDT from Last 3 Months Results * XR CERVICAL SPINE 2 OR 3 VIEWS (03/09/2025 11:44 AM CDT) Only the most recent of2 resultswithin the time period is included. Anatomical Region Laterality Modality Spine Computed Radiogr aphy 03/09/2025 11:4 4 AM CDT Impressions 03/09/2025 1:12 PM CDT IMPRESSION: Please see below. EXAM: XR CERVICAL SPINE 2 OR 3 VIEWS DATE/TIME OF EXAM: 03/09/2025 11:44 AM REASON FOR STUDY: See Diagnosis DIAGNOSIS: S/P cervical spinal fusion COMPARISON: 02/03/2025 FINDINGS: Post-surgical Change: C3-C6 posterior fixation. C5-C7 ACDF. Bones: No evidence of an acute fracture. Mineralization: Demineralization. Alignment: Increased kyphosis C3-C4. Degenerative Changes: Multilevel intervertebral disc space narrowing, uncinate and facet arthropathy. Bulky anterior osteophytes. Soft Tissue: No acute abnormality. IMPRESSION: No acute bony finding. Narrative 03/09/2025 1:12 PM CDT Procedure Note Monse Harrison MD - 03/09/2025 IMPRESSION: Please see below. EXAM: XR CERVICAL SPINE 2 OR 3 VIEWS DATE/TIME OF EXAM: 03/09/2025 11:44 AM REASON FOR STUDY: See Diagnosis DIAGNOSIS: S/P cervical spinal fusion COMPARISON: 02/03/2025 FINDINGS: Post-surgical Change: C3-C6 posterior fixation. C5-C7 ACDF. Bones: No evidence of an acute fracture. Mineralization: Demineralization. Alignment: Increased kyphosis C3-C4. Degenerative Changes: Multilevel intervertebral disc space narrowing, uncinate and facet arthropathy. Bulky anterior osteophytes. Soft Tissue: No acute abnormality. IMPRESSION: No acute bony finding. [facility] ORDERABLES Final Result * TELEMETRY REPORT (01/19/2025 1:12 AM CDT) Provider Scanning ECG ORDERABLES Final Result * (ABNORMAL) POC GLUCOSE (01/18/2025 11:25 AM CDT) Only the most recent of18 resultswithin the time period is included. GLUCOSE POC 166(H) 74 - 99 mg/dL 01/18/2025 11:25 AM CDT [facility] SPECIMEN SOURCE, GLUCOSE POC Capillary 01/18/2025 11:25 AM CDT [facility] Blood, whole 01/18/2025 11:2 5 AM CDT 01/18/2025 11:33 AM CDT Abisai Hsieh MD POINT OF CARE TESTING Final Resu lt [facility] CLIA # [id number] [address] [place] [id number] * MRI CERVICAL W WO CONTRAST (01/18/2025 1:13 AM CDT) Anatomical Region Laterality Modality Spine Magnetic Resonan ce 01/18/2025 1:13 AM CDT Impressions 01/18/2025 9:42 AM CDT IMPRESSION: Please see below. Exam: MRI CERVICAL W WO CONTRAST Date/Time of Exam: 01/18/2025 1:13 AM Reason For Exam: post op weakness. Diagnosis: Stenosis of cervical spine; Spinal stenosis in cervical region. Technique: MRI of the cervical spine was performed prior to and following the administration of intravenous contrast. Contrast: GADOBENATE DIMEGLUMINE 529 MG/ML(0.1 MMOL/0.2 ML) INTRAVENOUS SOLUTION Given:15 mL Findings: Previous C3-C6 posterior fusion and C5-C7 anterior fusion. Posterior decompression at C3-4 and C4-5. There is fluid within the laminectomy space measuring 3.3 x 1.4 x 1.1 cm Moderate edema within the paraspinal musculature. Visualized intracranial structures demonstrate no acute abnormality. The cervical cord demonstrates normal signal intensity. Flow voids are intact. No prevertebral soft tissue swelling. No abnormal signal or enhancement within the cord. Flow voids are intact. No prevertebral soft tissue swelling. C2-3: Bilateral facet arthropathy with patent spinal canal and neural foramen. C3-4: Symmetric disc bulge and facet arthropathy. Mild bilateral neural foraminal narrowing. C4-5: Posterior osteophyte and facet arthropathy. Persistent mild neural foramina narrowing, right worse than left. C5-6: Patent spinal canal and neural foramen. C6-7: Patent spinal canal and neural foramen. C7-T1: Bilateral facet arthropathy with mild left neural foraminal narrowing. IMPRESSION: Status post C3-C6 posterior fusion. Small volume fluid collection at the laminectomy site measuring up to 3.3 cm without significant mass effect on the subjacent dura. Persistent degenerative change with mild neural foraminal narrowing, detailed above. Narrative Procedure Note Jd Han, DO - 01/18/2025 IMPRESSION: Please see below. Exam: MRI CERVICAL W WO CONTRAST Date/Time of Exam: 01/18/2025 1:13 AM Reason For Exam: post op weakness. Diagnosis: Stenosis of cervical spine; Spinal stenosis in cervical region. Technique: MRI of the cervical spine was performed prior to and following the administration of intravenous contrast. Contrast: GADOBENATE DIMEGLUMINE 529 MG/ML(0.1 MMOL/0.2 ML) INTRAVENOUS SOLUTION Given:15 mL Findings: Previous C3-C6 posterior fusion and C5-C7 anterior fusion. Posterior decompression at C3-4 and C4-5. There is fluid within the laminectomy space measuring 3.3 x 1.4 x 1.1 cm Moderate edema within the paraspinal musculature. Visualized intracranial structures demonstrate no acute abnormality. The cervical cord demonstrates normal signal intensity. Flow voids are intact. No prevertebral soft tissue swelling. No abnormal signal or enhancement within the cord. Flow voids are intact. No prevertebral soft tissue swelling. C2-3: Bilateral facet arthropathy with patent spinal canal and neural foramen. C3-4: Symmetric disc bulge and facet arthropathy. Mild bilateral neural foraminal narrowing. C4-5: Posterior osteophyte and facet arthropathy. Persistent mild neural foramina narrowing, right worse than left. C5-6: Patent spinal canal and neural foramen. C6-7: Patent spinal canal and neural foramen. C7-T1: Bilateral facet arthropathy with mild left neural foraminal narrowing. IMPRESSION: Status post C3-C6 posterior fusion. Small volume fluid collection at the laminectomy site measuring up to 3.3 cm without significant mass effect on the subjacent dura. Persistent degenerative change with mild neural foraminal narrowing, detailed above. Kina HODGES MR ORDERABLES Final Result * (ABNORMAL) BASIC METABOLIC PANEL (01/17/2025 4:52 PM CDT) SODIUM 137 136 - 145 mmol/L 01/17/2025 5:56 PM CDT [facility] POTASSIUM 4.4 3.5 - 5.1 mmol/L 01/17/2025 5:56 PM CDT [facility] CHLORIDE 100 98 - 107 mmol/L 01/17/2025 5:56 PM CDT [facility] CO2 23 22 - 29 mmol/L 01/17/2025 5:56 PM CDT [facility] CALCIUM 9.6 8.8 - 10.2 mg/dL 01/17/2025 5:56 PM CDT [facility] BUN 29(H) 8 - 23 mg/dL 01/17/2025 5:56 PM CDT [facility] CREATININE 0.94 0.67 - 1.17 mg/dL 01/17/2025 5:56 PM CDT [facility] GLUCOSE 189(H) 74 - 99 mg/dL 01/17/2025 5:56 PM CDT [facility] GFR >60 >=60 mL/min/1.7 3 sq meter 01/17/2025 5:56 PM CDT [facility] Comment:eGFR calculated with 2020 CKD-EPI equation. Vegetarian diet, extremely high or low muscle mass, and may affect results. Cystatin C with Glomerular Filtration Rate is a suitable alternative for these patients. ANION GAP 14 9 - 20 mmol/L 01/17/2025 5:56 PM CDT [facility] Blood Venipuncture / Unknown 01/17/2025 4:52 PM CDT 01/17/2025 5:21 PM CDT us Kina HODGES CHEMISTRY ORDERABLES Final Res ult [facility] CLIA # [id number] [address] [place] [address] * (ABNORMAL) CBC WITHOUT DIFFERENTIAL (01/16/2025 5:40 AM CDT) WBC 13.3(H) 4.8 - 10.8 K/uL 01/16/2025 6:24 AM CDT [facility] RBC 3.57(L) 4.60 - 6.20 M/uL 01/16/2025 6:24 AM T [facility] HEMOGLOBIN 12.0(L) 14.0 - 18.0 g/dL 01/16/2025 6:24 AM T [facility] HEMATOCRIT 35.4(L) 41.0 - 53.0 % 01/16/2025 6:24 AM CDT [facility] MCV 99.2 84.0 - 103.0 fL 01/16/2025 6:24 AM CDT [facility] MCH 33.6 27.0 - 34.0 pg 01/16/2025 6:24 AM CDT [facility] MCHC 33.9 30.0 - 35.0 g/dL 01/16/2025 6:24 AM CDT [facility] PLATELETS 113(L) 140 - 440 K/uL 01/16/2025 6:24 AM CDT [facility] MPV 11.7 8.9 - 12.8 fL 01/16/2025 6:24 AM CDT [facility] RDW 13.6 11.0 - 14.5 % 01/16/2025 6:24 AM CDT [facility] RDW-STDEV 49.4 37.0 - 54.0 fL 01/16/2025 6:24 AM CDT [facility] Blood Venipuncture / Unknown 01/16/2025 5:40 AM CDT 01/16/2025 6:13 AM CDT Abisai Hsieh MD HEMATOLOGY ORDERABLES Final Resu lt [facility] CLIA # [id number] [address] [place] [id number] * XR FLUORO LESS THAN 1 HOUR (01/14/2025 11:09 AM CDT) Narrative 01/14/2025 11:09 AM CDT Order information only. Exam was auto-finalized. Abisai Hsieh MD DIAGNOSTIC IMAGING ORDERABLES Fi nal Result * DE ANES INSERT CATH, ART, PERCUT, SHORTTERM (01/14/2025 10:10 AM CDT) Narrative Ayaz Lehman (Student), RN - 01/14/2025 10:10 AM CDT Ayaz Lehman (Student), RN 01/14/2025 10:12 AM Arterial Line Insertion Start Time: 01/14/2025 9:40 AM End Time: 01/14/2025 9:48 AM Patient location during procedure: OR Staffing Performed: Student NA/AA Authorized by: Tacos Scott MD Performed by: Ayaz Lehman (Student), RN Patient was prepped and draped in usual sterile fashion Indications: hemodynamic monitoring Sterile Barriers: gloves, cap, mask and sterile towels Preparation: skin prepped with 2% chlorhexidine Location: right radial Catheter type: arterial introducer Catheter size: 20 G Catheter Length (in.): 2Number of attempts: 1 Successful placement: yes Assessment: blood return through port Procedure uneventful Post-procedure: dressing applied and line secured Tacos Scott MD PROCEDURE/MINOR SURGICAL ORDERAB LES Edited Result - Final * DE ANES INSERT ENDOTRACHEAL AIRWAY (01/14/2025 9:29 AM CDT) Narrative Ayaz Lehman (Student), RN - 01/14/2025 9:29 AM CDT Ayaz Lehman (Student), RN 01/14/2025 10:07 AM Airway Date/Time: 01/14/2025 9:29 AM Location: OR Plan: elective intubation Patient Identity Confirmed by: Verbally with patient Airway: not difficult Staffing Performed: Student NA/AA Authorized by: Tacos Scott MD Performed by: Ayaz Lehman (Student), RN Shipwright Apprentice: Reinier Rose CRNA Indications and Patient Condition: Indications for Airway Management: Anesthesia and airway protection Sedation Level: general anesthesia Preoxygenated: yes Patient Position: Sniffing Mask Difficulty Assessment: 2 - vent by mask + OA or adjuvant +/- NMBA Oral Airway: 60mm Plan to extubate at end of case: Yes Final Airway Details: Final Airway Type: Endotracheal airway ETT Cuffed: Yes Technique Used for Successful ETT Placement: Video laryngoscopy Devices/Methods Used in Placement: Intubating stylet Reason for advanced technique: prior history Blade Size: 4 Insertion Site: Oral ETT Size (mm): 7.5 Video Laryngoscopy Devices: Concepcion Measured from: Teeth ETT to Teeth (cm): 21 Tube secured with: Tape Placement Verified by: auscultation, end tidal CO2 and chest rise Cormack-Lehane Classification: Grade I - full view of glottis Number of Attempts at Approach: 1 Additional Procedure Information: atraumatic and dentition unchanged Result [facility] us Tacos Scott MD PROCEDURE/MINOR SURGICAL ORDERAB LES Final Result * VERIFICATION BLOOD GROUP (12/30/2024 9:11 AM CDT) ABO GROUP A 12/30/2024 12:05 PM CDT [facility] [place] RH (D) TYPE Negative 12/30/2024 12:05 PM CDT [facility] Blood Venipuncture / Unknown 12/30/2024 9:11 AM CDT 12/30/2024 9:16 AM CDT us Roverto Enciso MD BLOOD BANK ORDERABLES Final Res ult [facility] [place] CLIA#[id number] [address] [place] [address], [place] [phone] * XR CHEST PA OR AP 1 VW (12/30/2024 8:56 AM CDT) Anatomical Region Laterality Modality Chest Computed Radiogr aphy 12/30/2024 8:56 AM CDT Impressions 12/30/2024 9:22 AM CDT IMPRESSION: No acute pulmonary process. Indeterminate nodular opacity overlying the right upper lung zone; CT could assess further in the absence of prior exams. Narrative 12/30/2024 9:22 AM CDT Exam: XR CHEST PA OR AP 1 VW Date/Time of Exam: 12/30/2024 8:56 AM Reason For Exam: See Diagnosis. Diagnosis: Preoperative testing. Comparison: None. Findings: The cardiac silhouette is on the upper limits of normal in size. There are postsurgical changes of prior valve replacement. There is no focal consolidation, pleural effusion or appreciable pneumothorax. There is a 1.0 cm nodular opacity overlying the peripheral aspect of the right upper lung zone making a pulmonary nodule difficult to exclude. The osseous structures appear grossly intact. Procedure Note Stevenson Toure, DO - 12/30/2024 Exam: XR CHEST PA OR AP 1 VW Date/Time of Exam: 12/30/2024 8:56 AM Reason For Exam: See Diagnosis. Diagnosis: Preoperative testing. Comparison: None. Findings: The cardiac silhouette is on the upper limits of normal in size. There are postsurgical changes of prior valve replacement. There is no focal consolidation, pleural effusion or appreciable pneumothorax. There is a 1.0 cm nodular opacity overlying the peripheral aspect of the right upper lung zone making a pulmonary nodule difficult to exclude. The osseous structures appear grossly intact. IMPRESSION: No acute pulmonary process. Indeterminate nodular opacity overlying the right upper lung zone; CT could assess further in the absence of prior exams. Roverto Enciso MD DIAGNOSTIC IMAGING ORDERABLES F inal Result * (ABNORMAL) CBC WITH DIFFERENTIAL (12/30/2024 8:48 AM CDT) WBC 7.7 4.8 - 10.8 K/uL 12/30/2024 9:01 AM [facility] RBC 3.83(L) 4.60 - 6.20 M/uL 12/30/2024 9:01 AM [facility] HEMOGLOBIN 12.6(L) 14.0 - 18.0 g/dL 12/30/2024 9:01 AM [facility] HEMATOCRIT 39.3(L) 41.0 - 53.0 % 12/30/2024 9:01 AM [facility] MCV 102.6 84.0 - 103.0 fL 12/30/2024 9:01 AM [facility] MCH 32.9 31.0 - 37.0 pg 12/30/2024 9:01 AM [facility] MCHC 32.1 30.0 - 35.0 g/dL 12/30/2024 9:01 AM [facility] RDW 13.6 11.0 - 14.5 % 12/30/2024 9:01 AM [facility] RDW-STDEV 51.3 37.0 - 54.0 fL 12/30/2024 9:01 AM [facility] PLATELETS 120(L) 140 - 440 K/uL 12/30/2024 9:01 AM [facility] MPV 10.7 8.9 - 12.8 fL 12/30/2024 9:01 AM CDT [employer] [facility] NEUTROPHILS 59 42 - 75 % 12/30/2024 9:01 AM T [employer] [facility] LYMPHOCYTES 24 24 - 44 % 12/30/2024 9:01 AM T [facility] MONOCYTES 16(H) 2 - 10 % 12/30/2024 9:01 AM CDT [facility] EOSINOPHILS 0 0 - 7 % 12/30/2024 9:01 AM CDT [facility] BASOPHILS 0 0 - 1 % 12/30/2024 9:01 AM CDT [facility] IMMATURE GRANULOCYTES 1 0 - 2 % 12/30/2024 9:01 AM CDT [facility] NEUTROPHIL ABSOLUTE 4.54 2.00 - 8.00 K/uL 12/30/2024 9:01 AM CDT [facility] LYMPHOCYTE ABSOLUTE 1.83 1.20 - 4.00 K/uL 12/30/2024 9:01 AM CDT [facility] MONOCYTE ABSOLUTE 1.25(H) 0.10 - 0.60 K/uL 12/30/2024 9:01 AM CDT [facility] EOSINOPHIL ABSOLUTE 0.02 0.00 - 0.70 K/uL 12/30/2024 9:01 AM CDT [facility] BASOPHILS ABSOLUTE 0.01 0.00 - 0.20 K/uL 12/30/2024 9:01 AM T [facility] IMMATURE GRANULOCYTES ABSOLUTE 0.05 0.00 - 0.10 K/uL 12/30/2024 9:01 AM [facility] Blood Venipuncture / Unknown 12/30/2024 8:48 AM CDT 12/30/2024 8:54 AM CDT us Roverto Enciso MD HEMATOLOGY ORDERABLES Final Res ult [facility] CLIA #[id number] [address] [address] * TYPE AND SCREEN (12/30/2024 8:48 AM CDT) ABO GROUP A 12/30/2024 1:19 PM CDT [facility] [place] RH (D) TYPE Negative 12/30/2024 1:19 PM CDT [facility] ANTIBODY SCREEN Negative 12/30/2024 1:19 PM CDT [facility] Blood Venipuncture / Unknown 12/30/2024 8:48 AM CDT 12/30/2024 8:54 AM CDT Roverto Enciso MD BLOOD BANK ORDERABLES Edited Re sult - Final Performing Organization Address City/[facility]/ZIP Co de Phone Number [facility] CLIA#[id number] [address] [place] [address], * (ABNORMAL) HEMOGLOBIN A1C (12/30/2024 8:48 AM CDT) HEMOGLOBIN A1C 6.0(H) <=5.6 % 12/30/2024 9:13 AM CDT [facility] EST. AVG GLUCOSE, A1C 126 mg/dL 12/30/2024 9:13 AM CDT [facility] Blood Venipuncture / Unknown 12/30/2024 8:48 AM CDT 12/30/2024 8:54 AM CDT Narrative [facility] - 12/30/2024 9:13 AM CDT HGB A1C INTERPRETATION NORMAL: <5.7% PRE-DIABETES: 5.7 - 6.4% DIABETES: 6.5% OR GREATER Roverto Enciso MD CHEMISTRY ORDERABLES Final Resu lt [facility] CLIA #[id number] [address] [place] [address] * (ABNORMAL) COMPREHENSIVE METABOLIC PANEL (12/30/2024 8:48 AM CDT) SODIUM 140 136 - 145 mmol/L 12/30/2024 9:35 AM T [employer] [facility] POTASSIUM 4.2 3.4 - 4.5 mmol/L 12/30/2024 9:35 AM T [employer] [facility] CHLORIDE 106 98 - 107 mmol/L 12/30/2024 9:35 AM T [employer] [facility] CO2 27 22 - 29 mmol/L 12/30/2024 9:35 AM T [facility] CALCIUM 9.1 8.6 - 10.0 mg/dL 12/30/2024 9:35 AM T [employer] [facility] BUN 18 8 - 23 mg/dL 12/30/2024 9:35 AM T [employer] [facility] CREATININE 0.86 0.67 - 1.17 mg/dL 12/30/2024 9:35 AM [facility] [employer] [facility] GLUCOSE 115(H) 74 - 99 mg/dL 12/30/2024 9:35 AM T [employer] [facility] Comment:Reference range appl ies to fasting patients only. TOTAL PROTEIN 7.2 6.6 - 8.7 g/dL 12/30/2024 9:35 AM T [employer] [facility] ALBUMIN 4.5 4.0 - 4.9 g/dL 12/30/2024 9:35 AM T [employer] [facility] BILIRUBIN TOTAL 0.4 0.0 - 1.0 mg/dL 12/30/2024 9:35 AM T [employer] [facility] ALKALINE PHOSPHATASE 96 40 - 129 U/L 12/30/2024 9:35 AM T [employer] [facility] AST 25 5 - 40 U/L 12/30/2024 9:35 AM T [employer] [facility] ALT <5(L) 5 - 41 U/L 12/30/2024 9:35 AM CDT [facility] GFR >60 >=60 mL/min/1.7 3 sq meter 12/30/2024 9:35 AM CDT [facility] Comment:eGFR calculated with 2020 CKD-EPI equation. Vegetarian diet, extremely high or low muscle mass, and may affect results. Cystatin C with Glomerular Filtration Rate is a suitable alternative for these patients. ANION GAP 7(L) 9 - 20 mmol/L 12/30/2024 9:35 AM CDT [facility] Blood Venipuncture / Unknown 12/30/2024 8:48 AM CDT 12/30/2024 8:54 AM CDT us Roverto Enciso MD CHEMISTRY ORDERABLES Final Resu lt [facility] CLIA #[id number] [facility] [address] [place] [address] * EKG 12-LEAD (12/30/2024 8:41 AM CDT) 12/30/2024 8:41 AM CDT Narrative INTERFACE SYSTEM - 12/30/2024 9:32 PM CDT [address] [place] [address] Test Date: 2024-12-30 Pat Name: [place] Department: Room: Gender: Male Risk Manager: moshe : 1955 Requested By: Order Number: [id number] Reading MD: Diamond Garner Measurements Intervals Kim Rate: 53 P: 26 DE: 194 QRS: -3 QRSD: 128 T: 102 QT: 480 QTc: 450 Interpretive Statements Sinus bradycardia Left bundle branch block Abnormal ECG Electronically Signed On 12-30-2024 21:32:54 CDT by Diamond Garner Procedure Note Diamond Garner MD - 12/30/2024 [address] [address] [place] [address] Test Date: 2024-12-30 Pat Name: [place] Department: 50 Room: Gender: Male Risk Manager: moshe : 1955 Requested By: Order Number: [id number] Hemal MD: Diamond Garner Measurements Intervals Kim Rate: 53 P: 26 DE: 194 QRS: -3 QRSD: 128 T: 102 QT: 480 QTc: 450 Interpretive Statements Sinus bradycardia Left bundle branch block Abnormal ECG Electronically Signed On 12-30-2024 21:32:54 CDT by Diamond Garner us Roverto Enciso MD ECG ORDERABLES Final Result Performing Organization Address City/State/[facility] Co de Phone Number INTERFACE SYSTEM Refer to clinic/hospital department from Last 3 Months Insurance [place]ICA[place] Advance Directives For more information, please contact: [phone] * Full Code (Latest Code Status on File) Date Activated Date Inactivated Comments 01/14/2025 1:15 PM 01/18/2025 4:28 PM * Full Code Date Activated Date Inactivated Comments 01/14/2025 8:17 AM 01/14/2025 1:15 PM
--- OUTSIDE RECORDS SUMMARY | 2025-03-31 20:43 | XMS_ITS | Encounter Summary ---
Author Organization [facility] Address [address] [place] [address] Care Team Providers Care Aquaculturist Name Role Phone Unavailable Primary Care Provider Unavailabl e Reason for Visit * Reason Onset Date Comments Medication Refill 03/29/2025 Encounter Details Date Type Department Care Team (Late st Contact Info) Description 03/29/2025 Refill [facility]ine Neuro[facility] [address] [place] [address] Georges Mccord MD [address] [place] [id number] Stenosis of cervical spine Social History Tobacco Use Types Packs/Day Years [...] on file 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 Gender Identity Not on file Sexual Orientation Not on file documented as of this encounter Plan of Treatment Upcoming Encounters Date Type Department Care Team (Late st Contact Info) Description 04/29/2025 9:30 AM CDT Office Visit [facility] Neurology [place] [address] [place] [address] Norma Dhaliwal MD [address] [place] [address] 06/13/2025 1:00 PM CDT Office Visit [facility] Spine Neurosurgery [address] [place] [address] Kina Navarro, TRACIE [address] [place] [address] documented as of this encounter Visit Diagnoses Diagnosis Stenosis of cervical spine Spinal stenosis in cervical region documented in this encounter
--- OUTSIDE RECORDS SUMMARY | 2025-03-31 20:43 | XMS_ITS | Encounter Summary ---
Author Organization [facility] Address 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 Gender Identity Not on file Sexual Orientation Not on file documented as of this encounter Plan of Treatment Upcoming Encounters Date Type Department Care Team (Late st Contact Info) Description 04/29/2025 9:30 AM CDT Office Visit [facility] Neurology - [place] [address] [place] [address] Norma Dhaliwal MD [address] [place] [address] 06/13/2025 1:00 PM CDT Office Visit [facility] Spine Neurosurgery [address] [place] [address] Kina Navarro, PA [address] [place] [address] documented as of this encounter Visit Diagnoses Not on filedocumented in this encounter
--- OUTSIDE RECORDS SUMMARY | 2025-03-31 20:43 | XMS_ITS | Encounter Summary ---
Author Organization [facility] Address 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 Gender Identity Not on file Sexual Orientation Not on file documented as of this encounter Plan of Treatment Upcoming Encounters Date Type Department Care Team (Late st Contact Info) Description 04/29/2025 9:30 AM CDT Office Visit [facility] Neurology - [place] [address] [place] [address] Norma Dhaliwal MD [address] [place] [address] 06/13/2025 1:00 PM CDT Office Visit [facility] Spine Neurosurgery [address] [place] [address] Kina Navarro, PA [address] [place] [address] documented as of this encounter Visit Diagnoses Not on filedocumented in this encounter
--- OUTSIDE RECORDS SUMMARY | 2025-03-31 20:43 | XMS_ITS | Data Portability ---
Author Organization [facility], [facility] Address [address] [facility] [address] [place] [address] Care Team Providers Care Featheredger And Reducer Machine Name Role Phone EFREN BILLY Primary Care Provider [phone] Assessment No assessment recorded. Plan of Treatment Reminders Order Date Submit Date Provider Last Modified By Organization Details Last Modified Time Details Appointments OFFICE VISIT 15 2024 08:15A M Efren Billy MD Not available Not available Not available Lab TSH, serum or plasma 2024 025 [facility], [address] [facility], [facility], [place], [address], 12/29/2024 10:35:31 vitamin B12, serum 2024 025 [facility], [address] [facility], [facility], [place], [address], 12/29/2024 10:35:31 Referral None recorded. Procedures None recorded. Surgeries None recorded. Imaging None recorded. Medication Orders cefdinir 300 mg capsule 2024 025 [facility], [address], [place], [address], 03/22/2025 10:59:33 amoxicill in 875 mg tablet 2024 025 [facility], [address], [place], [address], 03/30/2025 05:01:18 Kenalog 40 mg/mL suspensio n for injection 2024 025 [email or web address] Not available 02/09/2025 10:36:35 Patient TargetsNo targets recorded. Patient InstructionsNo instructions recorded. Reason for Referral None Reported. Problems Name Problem SNOMED Code Status Onset Date Resolution Date Notes Provider Name and Address Organization Details Recorded Time Parkinson's disease 75577383 Active 2023 TOMMY beal [facility] 4 08:33:39 Type 2 diabetes mellitus 31124661 Active 2023 TOMMY beal [facility] 4 08:33:48 Hypercholes terolemia 85968957 Active 2023 TOMMYSA BRISEIDA beal [facility] 4 09:52:27 Vitamin D deficiency 35799136 Active 2023 Efren Billy MD [address] [place] [address], [phone], [facility] 5 12:22:56 Posterior rhinorrhea 76128236 Active 2023 Efren Billy MD [address] [place] [address], [phone], [facility], L[facility]CD[facility]h 5 12:22:53 Lateral epicondylit is of left humerus 7501493580580 00 Active 2024 Efren Billy MD [address] [place] [address], [phone], [facility] 5 12:22:42 Mild recurrent major depression 52028934 Active 2024 Efren Billy MD [address] [place] [address], [phone], [facility], L.L.CDinesh 12:23:16 Fatigue 26741611 Active 2024 Harjinder beal [facility], Liliam 11:58:36 Trigger finger of left hand 5128226094559 9107 Active 2024 Efren Billy MD [address] [place] [address], [phone], [facility] 09:02:03 Problem Notes None recorded. Procedures Surgical History Date Name Laterality Status Provider Name and Address Organization Details Recorded Time 07/15/20 24 Colonoscopy [facility] 07/26/2024 10:25:49 10/06/19 24 decompression of ulnar nerve at elbow completed [facility]inder Ruff [facility] 12/01/2024 14:59:35 [facility]end[facility] 07/06/2024 09:35:33 [facility] 07/06/2024 09:35:40 Imaging Results None recorded. Procedure Notes None recorded. Medical Equipment None Reported. Allergies Allergen ID Allergen Name Allergen Category Reaction Reaction Severity Criticality Documentation Date Start Date Code Code System Note Provider Name and Address Organization Details Recorded Time 49737 iodine medicatio n Not available Not available Not available 07/06/2024 5933 RxNorm iodin ated contr ast dye Harjinder Ruffpeterson beal [facility] 15:00:29 Medications Name Sig Start Date Stop Date Status Note LastModified by Organization Details LastModified Time promethazin e-DM 6.25 mg-15 mg/5 mL oral syrup TAKE 5 ML BY MOUTH EVERY 4 HOURS NEEDED 12/01 completed Not Available Not Available Not Available doxycycline hyclate 100 mg capsule Take 1 capsule twice a day by oral route. 12/01 completed Not Available Not Available Not Available cetirizine 10 mg tablet TAKE 1 TABLET BY MOUTH EVERY DAY 12/01 completed Not Available Not Available Not Available One Touch Fine Point Lancets active Not Available Not Available Not Available benzonatate 200 mg capsule Take 1 capsule 3 times a day by oral route. 12/01 completed Not Available Not Available Not Available carbidopa 25 mg-levodopa 250 mg tablet TAKE 2 TABLETS BY MOUTH FOUR TIMES DAILY active Not Available Not Available No t Available prednisone 20 mg tablet Take 1 tablet every day by oral route. 12/22 completed Not Available Not Available Not Available sildenafil 100 mg tablet Take 1 tablet every day by oral route as needed. active Not Available Not Available No t Available Kenalog 40 mg/mL suspension for injection Take 20 mg by injection route. 02/09 completed Not Available Not Available Not Available propranolol 40 mg tablet TAKE 1 TABLET BY MOUTH TWICE DAILY active Not Available Not Available No t Available amoxicillin 875 mg tablet Take 1 tablet every 12 hours by oral route for 7 days. 03/30 completed Not Available Not Available Not Available losartan 25 mg tablet TAKE 1 TABLET BY MOUTH ONCE DAILY active Not Available Not Available No t Available One Touch Basic System kit check sugar 3 times a day active Not Available Not Available No t Available diclofenac sodium 50 mg tablet,acosta yed release TAKE 1 TABLET BY MOUTH TWICE DAILY active Not Available Not Available No t Available azelastine 137 mcg (0.1 %) nasal spray USE 2 SPRAYS IN EACH NOSTRIL TWICE DAILY active Not Available Not Available No t Available cefdinir 300 mg capsule TAKE 1 CAPSULE BY MOUTH EVERY 12 HOURS FOR 7 DAYS active Not Available Not Available No t Available fluticasone propionate 50 mcg/actuati on nasal spray,suspe nsion USE 2 SPRAYS IN EACH NOSTRIL ONCE DAILY active Not Available Not Available No t Available glipizide 5 mg tablet TAKE 1 TABLET BY MOUTH DAILY IN THE MORNING active Not Available Not Available No t Available Vitamin D2 25,000 unit capsule Take 2 capsules every week by oral route. 12/01 completed Not Available Not Available Not Available rosuvastati n 40 mg tablet TAKE 1 TABLET BY MOUTH EVERY DAY active Not Available Not Available No t Available magnesium 400mg daily active Not Available Not Available No t Available Vitamin C daily active Not Available Not Janet ilable Not Available oxycodone active Not Available Not Janet ilable Not Available Iron (ferrous sulfate) daily active Not Available Not Available Not Available Vitamin B1 daily active Not Available Not Av ailable Not Available Vitmain B-12 daily active Not Available Not Available Not Available Januvia 100 mg tablet TAKE 1 TABLET BY MOUTH EVERY DAY active Not Available Not Available No t Available diclofenac 1 % topical gel 07/06 completed Not Available Not Available Not Available OneTouch Verio test strips USE TO TEST THREE TIMES DAILY active Not Available Not Available No t Available OneTouch Verio Flex Meter USE TO TEST THREE TIMES DAILY active Not Available Not Available No t Available vitamin B12 2,500 mcg-folic acid 400 mcg disintegrat ing tablet Take every day by oral route. 12/01 completed Not Available Not Available Not Available Vitals Date Recorded Body height Body mass index (BMI) Body weight Body temperature Respiratory rate Oxygen saturation Oxygen saturation in Arterial blood by Pulse oximetry Heart rate Systolic blood pressure Diastolic blood pressure Provider Name and Address Organization Details Last Updated DateTime 5 180.34 cm 30 kg/m2 27221.3 6 g 97.3 [degF] 18 /min 98 % 98 % 66 /min 152 mm[Hg] 78 mm[Hg] Harjinder [facility] 5 15:14:14 Date Recorded Body height Body mass index (BMI) Body weight Body temperature Respiratory rate Oxygen saturation Oxygen saturation in Arterial blood by Pulse oximetry Heart rate Systolic blood pressure Diastolic blood pressure Provider Name and Address Organization Details Last Updated DateTime 5 180.34 cm 30 kg/m2 95078.3 6 g 97.4 [degF] 16 /min 98 % 98 % 65 /min 140 mm[Hg] 78 mm[Hg] Harjinder [facility] 5 10:54:46 Date Recorded Body height Body mass index (BMI) Body weight Oxygen saturation Oxygen saturation in Arterial blood by Pulse oximetry Heart rate Body temperature Systolic blood pressure Diastolic blood pressure Provider Name and Address Organization Details Last Updated DateTime 5 180.34 cm 29.7 kg/m2 85035.1 7 g 99 % 99 % 71 /min 97.8 [degF] 132 mm[Hg] 64 mm[Hg] Day Hernandez [facility] 5 10:41:07 Date Recorded Body height Body mass index (BMI) Body weight Oxygen saturation Oxygen saturation in Arterial blood by Pulse oximetry Heart rate Respiratory rate Body temperature Systolic blood pressure Diastolic blood pressure Provider Name and Address Organization Details Last Updated DateTime 5 180.34 cm 30.8 kg/m2 171416. 91 g 96 % 96 % 71 /min 17 /min 97.9 [degF] 130 mm[Hg] 70 mm[Hg] FLORES HUFFMAN [facility] 5 12:22:58 Date Recorded Body height Body mass index (BMI) Body weight Oxygen saturation Oxygen saturation in Arterial blood by Pulse oximetry Heart rate Respiratory rate Body temperature Systolic blood pressure Diastolic blood pressure Provider Name and Address Organization Details Last Updated DateTime 5 180.34 cm 31.1 kg/m2 130897. 1 g 96 % 96 % 76 /min 16 /min 98.2 [degF] 150 mm[Hg] 80 mm[Hg] Sherri Goodwin [facility] 5 10:52:27 Social History Question Answer Notes LastModified by [employer] Details LastModified Time Tobacco Smoking Status Never Smoker FLORES HUFFMAN [facility] 03/16/2025 12:23:31 What Is Your Level Of Caffeine Consumption? Moderate Information not available 07/06/2024 What Type Of Diet Are You Following? REGULAR Information not available 07/06/2024 What Is The Highest Grade Or Level Of School You Have Completed Or The Highest Degree You Have Received? [id number] Information not available 07/06/2024 What Was The Date Of Your Most Recent Tobacco Screening? 03/22/2025 [email or web address] Information not available 03/22/2025 What Is Your Relationship Status? Information not available 07/06/2024 Do You Have Any Dietary Restrictions? No Information not available 07/06/2024 Sex: Unknown Functional Status Question Answer Note LastModified by [employer] Details LastModified Time Do you use any illicit or recreational drugs? Yes marijuana Information not available 07/06/2024 What is your level of alcohol consumption? None Information not available 07/06/2024 Are you currently employed? No retired Information not available 07/06/2024 Are you able to walk? YESWOREST Information not available 07/06/2024 Are you able to care for yourself? Yes Information not available 07/06/2024 Mental Status None recorded. Family History Relationship Description Onset Age of this Age Resolved Age Notes LastModified by Organization Details LastModified Time Father Myocardial infarction [email or web address] Not available 12/01 15:07:18 Mother Cerebrovascu lar accident [email or web address] Not available 15:07:33 Brother Hypertensive disorder [email or web address] Not available 2024 15:07:41 Brother Heart disease [email or web address] Not available 2024 15:07:51 Medical History No medical history recorded. Immunizations Vaccine Type Date Status Note Provider Nam e and Address Organization Details Recorded Time Influenza, adjuvanted, trivalent, PF 08/11/2024 completed Efren Billy MD [address] [place] [address], [phone], [facility] 08/13/2024 12:33:44 Past Encounters Encounter ID Performer Location Encounter Start Date Encounter Closed Date Diagnosis/Indication Diagnosis SNOMED-CT Code Diagnosis ICD10 Code Diagnosis Note [id number] Efren Billy MD [facility] ([facility]) [address] [place] [address] 07/06/2024 09:21:37 07/06/2024 10:43:20 Parkinson's disease 91268716 G20.A1 Continue to follow with neurology in [facility] dmitri. Type 2 maria alejandra betes mellitus 00453578 E11.9 Patient is not due for A1c today. Patient is due for all lab work and yearly physical next month. Continue current medication s. History of mitral valve replacement 4362817946 109 Z95.2 Continue to follow with cardiology . Hypercholesterolemia 136 52233 E78.00 Tolerating statin without any issue Vitamin D deficiency 347 40501 E55.9 [id number] Efren Billy MD [facility] ([facility]) [address] [place] [address] 08/10/2024 09:12:16 08/12/2024 10:35:39 Hypercholesterolemia 43165739 E78.00 Tolerating statin without any issue Parkinson's disease 4904 9000 G20.A1 Continue to follow with neurology in [facility]. Type 2 maria alejandra betes mellitus 38779018 E11.9 Check A1c and urine microalbum in today. Continue current medication at this time. [id number] Efren Billy MD [facility] ([facility]) [address] [place] [phone] 08/11/2024 14:36:41 08/11/2024 16:10:17 Posterior rhinorrhea 14998448 R09.82 Ear drainage is likely causing the sore throat. Exam is more consistent with allergies than infection. Will start as the duloxetine and cetirizine . Active or passive immunization 419220691 Z23 Type 2 maria alejandra betes mellitus 14313095 E11.9 A1c was 5.7. Discussed medication s and we will stop the glipizide. A1c in 3 months. [id number] Efren Billy MD [facility] ([facility]) [address] [place] [phone] 08/31/2024 15:39:46 08/31/2024 16:14:18 Bronchitis 98475200 J40 Will treat the patient with antibiotic s and steroids similar to his . Will provide Tessalon Perles to help with cough. Continue over-the-c ounter medication to help with symptoms. Follow-up if symptoms do not improve after 7 to 10 days. [id number] Efren Billy MD [facility] ([facility]) [address] [place] [phone] 12/01/2024 14:51:16 12/01/2024 16:19:11 Lateral epicondylitis of left humerus 9159040971 73746 M77.12 Exam is consistent with lateral epicondyli tis. Discussed tennis elbow strap. The patient is going to physical therapy for his back so prescripti on was provided for them to work with his tennis elbow as well. [id number] Efren Billy MD [facility] ([facility]) [address] [place] [id number] 12/22/2024 10:37:40 12/22/2024 11:25:27 Fatigue 00162320 R53.83 Will check labs today to evaluate fatigue. Trigger fi nger of left hand 0259937094 8004705 M65.342 M65.332 The patient has trigger fingers of multiple fingers. Discussed options and the patient opted to go ahead and proceed with tendon sheath injections today. Discussed the risk and benefits of the procedures and the patient agreed to proceed. Trigger finger injection: Tendon was identified and the tendon sheath was injected with 10 mg of Kenalog and half cc of lidocaine 1% without epi. Same procedure was performed on left middle finger. [id number] KIM CARVER [facility] ([facility]) [address] [place] [phone] 02/09/2025 10:27:50 02/15/2025 08:14:46 Dyspnea 264649195 R06.02 VSS. No signs of PE or post op complicati on. Breath sounds clear; not diminished . Will send order for a incentive spirometer . Discussed how to use this every 4 hours while awake. If you develop fever, worsening sob, cough productive of sputum then return for re-evaluat ion. [id number] CHRIS CHO [employer] WORK[employer] [facility] ([facility]) [address] [place] [phone] 03/16/2025 12:13:45 03/16/2025 14:24:07 Acute right otitis media 850760922 H66.91 Patient to take antibiotic as prescribed . Did not see any perforatio n of ear drum but encouraged patient to call with any drainage or increased pain. Return to clinic with any new or worsening symptoms. [id number] KIM CARVER [employer] [facility] ([facility]) [address] [place] [phone] 03/22/2025 10:45:50 03/22/2025 11:05:38 Acute right otitis media 535674195 H66.91 stop amox. will start the cefdinir. f/u in 1 week for re-evaluat ion. Health Concerns Section Related Observation LastModified by Organization Detai ls LastModified Time None Recorded Concern Status LastModified by Organization Details LastModified Time None Recorded Advance Directives Directive None Recorded Payers Insurance Date Sequence Insurance Name Policy Number Policy Arana Covered Member ID Arana Member ID Guarantor Name 03/16/2025 2 [place] Jose Hairston [id number] Jose Hairston 09/26/2024 1 [employer] - DUAL COMPLETE (MEDICARE REPLACEMENT/ ADVANTAGE - HMO) [id number] Jose Hairston [id number] Jose Hairston 03/16/2025 [place] [facility] ([place]IT[place]) Jose Hairston [id number] Jose Hairston 03/22/2025 1 [employer] (MEDICARE REPLACEMENT/ ADVANTAGE - PPO) [id number] Jose Hairston [id number] Jose Hairston Notes Date Note Type Note Provider Name and Address Organization Details Recorded Time 12/01/2024 text/html Pt here today wi th c/o Right posterior elbow pain since Friday, (11/27/24). Pt denies any injury to this arm, and is not c/o any swelling. Efren Billy MD [address] [place] [address], [phone], [facility] 12/02/2024 15:08:23 12/22/2024 text/html Musculoskeletal PainReported bypatient.Location:bi lateral hand Quality:sharp Severity:interferes with sleep Duration:present for >12 months Timing:intermittent; pain at night Alleviating Factors:he states, working his hands seems to alleviate some of the pain Here today for b/l hand pain. Left > Right. Patient states that his 3rd and 4th digits of his Left hand are catching and triggering. This has bothered him > 1 year. He says that Diclofenac seems to help some with the pain. Patient is also concerned of significant fatigue and would like this evaluated further. Efren Billy MD [address] [place] [address], [phone], [facility] 12/26/2024 09:14:50 02/09/2025 text/html Walk ionx3 days with lying flat on back or left side since cervical fusion 01/14. States he feels a little sob at times. denies wheezing cough sputum leg swelling or fever.no weight gain. surgery f/u last week and was told he's healing as expected; no complications. KIM CARVER, [facility] [address] [place], [address], [facility], Jhon. 02/14/2025 09:17:00 03/16/2025 text/html Patient c/o righ t ear being clogged. He states that some wax fell out of it the other day but he still feels like it's clogged. Decreased hearing. Patient states that he has had increased ear pain as well. States that he had a lot of of pain and then drainage noted afterwards which he states was recent, but unable to remember if in the last week or 2. CHRIS CHO [facility] [address] [place], [phone], [facility], LShira. 03/16/2025 13:24:19 03/22/2025 text/html walk in patientpatient was here on 03/16/25 and was started on amoxicillin for his ear infection, but now he is coughing, and very congested that started 3 days ago. Still cannot hear out of his right ear. KIM CARVER, [facility] [address] [place], [phone], [facility], Jhon. 03/22/2025 11:05:16
--- NOTE | 2025-03-31 23:37 | W.ED.EXTPRO ---
HPI - Extremity Problem General: Chief complaint: Extremity Injury, Lower Stated complaint: Lower back Pain going down L leg Time Seen by Provider: 03/31/25 23:20 History of Present Illness: Patient is 69-year-old gentleman with history of DM, PVD, recent cervical fusion, previous discectomy lumbar, presents to the ED with awakening left posterior distal pain that radiated down his hip. Denies fevers. He awoke with this pain. No saddle anesthesia or inability to void. Associated symptoms: Deny chest pain, fever(s) or rash Related Data Home Medications ?Medication ?Instructions ?Recorded ?Confirmed albuterol sulfate 2.5 mg/3 mL 2.5 mg inhalation Q6H PRN Wheezing 04/10/20 09/21/24 (0.083 %) solution for nebulization medical marijuana 1 gummy PO PRN PRN Pain 01/09/21 09/21/24 ascorbic acid (vitamin C) 1,000 mg 1 g PO DAILY 10/08/21 09/21/24 tablet carbidopa 25 mg-levodopa 250 mg 1.5 tab PO QID 12/21/21 09/21/24 tablet thiamine HCl (vitamin B1) 100 mg 200 mg PO BID 04/23/23 09/21/24 tablet rosuvastatin 40 mg tablet 40 mg PO DAILY 04/13/24 09/21/24 sitagliptin phosphate 100 mg 100 mg PO DAILY 04/13/24 09/21/24 tablet (Januvia) diclofenac sodium 50 mg 50 mg PO BID 07/13/24 09/21/24 tablet,delayed release glipizide 5 mg tablet 5 mg PO DAILY 03/17/25 Previous Rx's ?Medication ?Instructions ?Recorded lancets 33 gauge (BD Ultra Fine #300 ea 03/21/22 Lancets) blood-glucose meter (Accu-Chek #1 kit 08/20/22 Guide Glucose Meter) lancets (Accu-Chek Softclix ##300 04/04/23 Lancets) sildenafil 100 mg tablet 100 mg PO DAILY PRN sexual 07/25/23 activity #20 tabs blood sugar diagnostic (Accu-Chek #300 strips 05/25/24 Guide test strips) propranolol 40 mg tablet 40 mg PO BID #180 tabs 12/20/24 losartan 25 mg tablet 25 mg PO DAILY 30 days #30 tabs 03/17/25 methylprednisolone 4 mg tablets in See Rx Instructions PO .COMPLEX 03/31/25 a dose pack (Medrol (Thomas)) #21 ea tizanidine 2 mg capsule 2 mg PO Q8H PRN muscle spasticity 03/31/25 #20 caps Allergies Allergy/AdvReac Type Severity Reaction Status Date / Time Iodinated Contrast Media Allergy hives Verified 03/31/25 20:30 primidone Allergy unknown Verified 03/31/25 20:30 Review of Systems General: Reports: 10 or more systems reviewed and unremarkable except in HPI and below Const: Denies: fever(s) or chills Eyes: Denies: change in vision ENMT: Denies: throat pain or mouth pain Card: Denies: chest pain or palpitations Resp: Denies: dyspnea or productive cough GI: Denies: abdominal pain, nausea or vomiting : Denies: flank pain or difficulty urinating Musc: Reports: back pain and joint pain; Denies: neck pain Skin/Breast: Denies: rash or pruritus Neuro: Reports: numbness in extremities (laterally left); Denies: headache(s), weakness in extremities, sensory changes, lack of coordination or difficulty walking Psych: Denies: anxiety PFSH ED PFSH: Medical History Parkinson disease Aortic stenosis Accelerated essential hypertension CAD (coronary artery disease) Enrolled in chronic care management Hyperlipidemia, mixed Type 2 diabetes mellitus Low back pain Encounter for long-term use of opiate analgesic Surgical History History of cholecystectomy History of back surgery H/O aortic valve replacement H/O aortic valve replacement History of arthroplasty of knee Status post total left knee replacement Family History Mother , at age 80 Diabetes Hypertension Stroke Father , at age 65 CAD (coronary artery disease) Rheumatic fever Congestive heart failure (CHF) Brother Hypertension CAD (coronary artery disease) CABG x 4 Diabetes Sister Hypertension CAD (coronary artery disease) stents Brother CAD (coronary artery disease) stents Diabetes Denies family history of Clotting disorder Dementia Chronic kidney disease (CKD) Suicide Anesthesia complication Bleeding disorder Lung disease Cancer Social History Smoking and tobacco/nicotine status: never used tobacco/nicotine Second hand smoke exposure: Yes Alcohol intake: never Substance/Drug Use: current Substance/Drug use frequency: few times a week Marital status: Current occupational status: disabled Physical Exam Const: COMMON NORMALS: no acute distress, average body habitus, patient oriented x3, no limitations and healthy appearing HENMT: COMMON NORMALS: normocephalic and atraumatic HEAD & SCALP: normocephalic and atraumatic Neck/C-Spine: COMMON NORMALS: full ROM Chest: COMMONS NORMALS: normal inspection of the chest and normal palpation of the breasts BREAST/AXILLA PALPATION: Yes normal palpation of the breasts Resp: COMMON NORMALS: normal respiratory effort and clear to auscultation bilaterally AUSCULTATION: clear to auscultation bilaterally Cardio: COMMON NORMALS: regular rate and regular rhythm RATE: regular rate RHYTHM: regular rhythm GI: COMMON NORMALS: Normal to inspection, nondistended, normoactive bowel sounds present and Soft to palpation PALPATION: Yes Soft to palpation : COMMON NORMALS: Yes no CVA tenderness BLADDER/KIDNEY EXAM: Yes no CVA tenderness Back/Pelvis: COMMON NORMALS: no CVA tenderness LUMBAR SPINE/LOWER BACK: Yes straight leg raise positive right Straight leg raise positive details right: at 50 degrees SACROILIAC JOINTS: Yes SI joint(s) abnormal SI joint details: tender to palpation (left) COCCYX: no swelling and no tenderness Extremity: COMMON NORMALS: normal to inspection, full ROM and capillary refill normal Neuro: COMMON NORMALS: patient oriented x3 Psych: COMMON NORMALS: mental status grossly normal, Normal thought process present, cooperative and normal affect THOUGHT PROCESS: Normal thought process present Course Vital Signs: Vital signs: Vital Signs Temperature 97.6 F 03/31/25 20:20 Pulse Rate 69 03/31/25 20:20 Blood Pressure 175/85 03/31/25 20:20 Pulse Oximetry 98 03/31/25 20:20 Oxygen Delivery Me thod Room Air 03/31/25 20:20 MDM - Extremity (Nontraumatic) Medical Decision Making Patient is a 69-year-old gentleman with straight leg positive on right, with left sacroiliitis pain. He awoke with this pain. He does not have any other symptoms other than as noted, in his recovery with physical therapy due to his cervical decompression. Will treat him with analgesics/anti-inflammatories here, and send Medrol Dosepak/muscle relaxer to the pharmacy. Patient has an appointment to follow-up with his neurologist next week and will address this issue as well. Medical Records I reviewed the patient's medical records. No radiology studies performed this visit Discharge Plan Discharge Patient Disposition: Home Clinical Impression: Sciatica of left side Condition: Stable Prescriptions: New methylprednisolone [Medrol (Thomas)] 4 mg tablets,dose pack See Rx Instructions .ROUTE .COMPLEX Qty: 21 0RF Rx Instructions: for 6 days tizanidine 2 mg capsule 2 mg PO Q8H PRN (Reason: muscle spasticity) Qty: 20 0RF No Action albuterol sulfate 2.5 mg /3 mL (0.083 %) solution for nebulization 2.5 mg INHALATION Q6H PRN (Reason: Wheezing) carbidopa-levodopa 25-250 mg tablet 1.5 tab PO QID medical marijuana 1 gummy PO PRN PRN (Reason: Pain) ascorbic acid (vitamin C) 1,000 mg tablet 1 g PO DAILY sildenafil 100 mg tablet 100 mg PO DAILY PRN (Reason: sexual activity) Qty: 20 6RF Rx Instructions: Take 1 hour before intercourse, on empty stomach, max dose 100 mg, NO NITROGLYCERIN glipizide 5 mg tablet 5 mg PO DAILY losartan 25 mg tablet 25 mg PO DAILY 30 Days Qty: 30 5RF thiamine HCl (vitamin B1) 100 mg tablet 200 mg PO BID (DME) lancets [BD Ultra Fine Lancets] 33 gauge misc See Rx Instructions .Route Qty: 300 3RF Rx Instructions: As directed to test blood sugar TID (DME) blood-glucose meter [Accu-Chek Guide Glucose Meter] Misc See Rx Instructions .ROUTE .COMPLEX Qty: 1 0RF Dose Instruction: USE DIRECTED 3 TIMES A DAY Rx Instructions: USE DIRECTED 3 TIMES A DAY (DME) lancets [Accu-Chek Softclix Lancets] Misc See Rx Instructions .ROUTE .COMPLEX Qty: 300 3RF Dose Instruction: TEST 3 TIMES A DAY Rx Instructions: TEST 3 TIMES A DAY (DME) Accu-Chek Guide test strips Strip See Rx Instructions .ROUTE .COMPLEX Qty: 300 2RF Dose Instruction: USE DIRECTED TO TEST 3 TIMES A DAY Rx Instructions: USE DIRECTED TO TEST 3 TIMES A DAY propranolol 40 mg tablet 40 mg PO BID Qty: 180 3RF rosuvastatin 40 mg tablet 40 mg PO DAILY Januvia 100 mg tablet 100 mg PO DAILY diclofenac sodium 50 mg tablet,delayed release (DR/EC) 50 mg PO BID Discharge Orders: Discharge ED (Routine); Ordered 03/31/25 Ordered By: Patricia Bush Referrals: Delgado Billy MD [Primary Care Provider, Family Practice] Discharge Diet: Usual diet Discharge Activity: Resume usual activity Patient Instructions: Sciatica (ED), Patient Portal & Ivan Instructions Activity Restrictions/Additional Instructions: Caution with sedation effects with the tizanidine. You may utilize a Lidoderm patch to this area. You may ice this area. Return to ED if you have numbness in your groin, incontinence of urine. Follow-up with your doctor as we discussed. Take medication as scheduled. Print Language: Sri Lankan Coding Level of Care Code ED Cover Stripper for Fredis Canchola
[2025-04-01] MEDS: dexamethasone 10 mg/mL INJ IM (00:02)
[2025-04-01] MEDS: ketorolac 30 mg/mL INJ IM (00:03)
[2025-04-01] MEDS: orphenadrine 30 mg/mL Inj 2 mL 60 MG IM (00:03)
[2025-04-01 00:38] VITALS: BP 138/83; PULSE 65; RESP 18; O2SAT 98
== END 2025-04-01 00:40 | disposition home or self-care (01) ==
PROVIDERS: Emergency Provider Physician Assistant; PCP Family Medicine
DX: M54.32 Sciatica, left side (principal); I25.10 Atherosclerotic heart disease of native coronary artery without angina pectoris; E78.2 Mixed hyperlipidemia; E11.9 Type 2 diabetes mellitus without complications; I10 Essential (primary) hypertension
CPT/HCPCS: 96372; 99284; J1100; J1885; J2360

== ENCOUNTER 2025-04-03 12:55 | Emergency (ER) | payer OTHER, MEDICARE, MEDICAID, SELFPAY ==
--- OUTSIDE RECORDS SUMMARY | 2025-04-03 13:02 | XMS_ITS | Encounter Summary ---
Author Organization [facility] Address 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 Gender Identity Not on file Sexual Orientation Not on file documented as of this encounter Plan of Treatment Upcoming Encounters Date Type Department Care Team (Late st Contact Info) Description 04/29/2025 9:30 AM CDT Office Visit [facility] [place] [address] [place] [address] Norma Dhaliwal MD [address] [place] [address] 06/13/2025 1:00 PM CDT Office Visit [facility] [address] [place] [address] Kina Navarro, TRACIE [address] [place] [address] documented as of this encounter Visit Diagnoses Diagnosis Stenosis of cervical spine Spinal stenosis in cervical region documented in this encounter
--- OUTSIDE RECORDS SUMMARY | 2025-04-03 13:02 | XMS_ITS | Clinical Summary ---
Author Organization [facility] Address [address] [facility] Attn: [place] [address] Care Team Providers Care Php Architect Name Role Phone Unavailable Primary Care Provider [...] Type Department Care Team Description 03/29/2025 Refill [facility] [address] [place] [address] Georges Mccord MD Stenosis of cervical spine 03/23/2025 External Device Data STL ABSTRACTION Provider, Abstract 03/23/2025 External Device Data STL ABSTRACTION Provider, Abstract 03/22/2025 External Device Data STL ABSTRACTION Provider, Abstract 03/09/2025 11:40 AM CDT Office Visit [facility] [address] [place] [phone] Kina Navarro PA Status post cervical spinal fusion (Primary Dx) 03/09/2025 11:35 AM CDT Ancillary Procedure [facility] Radiology [address] [place] [address] Kina Navarro PA S/P cervical spinal fusion 03/08/2025 External Device Data STL ABSTRACTION Provider, Abstract 03/02/2025 Refill [facility] [address] [place] [address] Abisai Hsieh MD Stenosis of cervical spine 03/01/2025 Orders Only [facility] [address] [place] [address] Kina Navarro PA S/P cervical spinal fusion (Primary Dx) 02/24/2025 External Device Data STL ABSTRACTION Provider, Abstract 02/24/2025 External Device Data STL ABSTRACTION Provider, Abstract 02/23/2025 External Device Data STL ABSTRACTION Provider, Abstract 02/15/2025 External Device Data STL ABSTRACTION Provider, Abstract 02/15/2025 External Device Data STL ABSTRACTION Provider, Abstract 02/15/2025 External Device Data STL ABSTRACTION Provider, Abstract 02/09/2025 Orders Only [facility] [address] [place] [address] Kina Navarro PA Stenosis of cervical spine (Primary Dx); Neck pain; Right arm pain; S/P cervical spinal fusion 02/04/2025 Refill [facility] [address] [place] [address] Amari Palumbo MD Stenosis of cervical spine 02/04/2025 Refill [facility] Neu[facility] [place] [address] [place] [address] Abisai Hsieh MD 02/03/2025 10:15 AM CDT Ancillary Procedure [facility] [address] [place] [address] Kina Navarro PA S/P cervical spinal fusion 02/03/2025 10:00 AM CDT Office Visit [facility] [address] [place] [address] Kina Navarro PA Neck pain (Primary Dx); Right arm pain 01/27/2025 Orders Only [facility] [address] [place] [address] Kina Navarro PA S/P cervical spinal fusion (Primary Dx) 01/19/2025 Refill [facility] [place] [address] [place] [address] Abisai Hsieh MD Stenosis of cervical spine (Primary Dx) 01/18/2025 External Device Data STL ABSTRACTION Provider, Abstract 01/18/2025 External Device Data STL ABSTRACTION Provider, Abstract 01/18/2025 External Device Data STL ABSTRACTION Provider, Abstract 01/14/2025 8:59 AM CDT Anesthesia Event [facility] Operating Room [address] [place] [address] Tacos Scott MD [place] CRNA 01/14/2025 8:52 AM CDT - 01/14/2025 2:50 PM CDT Surgery [facility] Operating Room [address] 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 Gender Identity Not on file Sexual Orientation [...] Description 04/29/2025 9:30 AM CDT Office Visit [facility] - [place] [address] [place] [address] Norma Dhaliwal MD [address] [place] [address] 06/13/2025 1:00 PM CDT Office Visit [facility] [address] [place] [address] Kina Navarro, PA [address] [place] [address] Health Maintenance Due Date Last [...] 60-74 years 1-dose series) 2016 COVID-19 Vaccine (2023-2 5 season) 2024 02/06/2021, 01/09/2021 DIABETES HBA1C Q 6 MONTHS 07/02/2025 12/30/2024, 02/2024 COLORECTAL SCREENING 07/15/2034 07/15/2024 Colorectal Cancer Screening 07/15/2034 INFLUENZA VACCINE Completed 08/11/2024, , 08/02/2022, Additional history exists Medical Devices Implanted Type Area Assembly Room Supervisor Device Identifier Shelf Expiration Date Model / Serial / Lot Putty Mastergraft 9.0ml [id number] - [id number] Implanted:Qty : 1 on 01/14/2025 by Abisai Hsieh MD at [facility] Biological N/A: Spine Cervical Posterior [employer] 09/04/2028 [id number] / / [id number] Hemostatic Surgiflo 8ml W/ Thrombin 2994 - [id number] Implanted:Qty : 1 on 01/14/2025 by Abisai Hsieh MD at [facility] Hemostatic N/A: Spine Cervical Posterior [employer] [id number] 04/04/2026 2994 / / [id number] Hemostatic Surgiflo 8ml W/ Thrombin 2994 - [id number] Implanted:Qty : 1 on 01/14/2025 by Abisai Hsieh MD at [facility] Hemostatic N/A: Spine Cervical Posterior [employer] [id number] 04/04/2026 2994 / / [id number] Anjel Infinity 3.5x60mm Pre-Cut [id number] - [id number] Implanted:Qty : 1 on 01/14/2025 by Abisai Hsieh MD at [facility] Anjel N/A: Spine Cervical Posterior [employer] 01/14/2030 [id number] / / [id number] Anjel Infinity 3.5x60mm Pre-Cut [id number] - [id number] Implanted:Qty : 1 on 01/14/2025 by Abisai Hsieh MD at [facility] Anjel N/A: Spine Cervical Posterior [employer] 01/14/2030 [id number] / / [id number] Screw Infinity 3.5x14mm Mas [id number] - [id number] Implanted:Qty : 1 on 01/14/2025 by Abisai Hsieh MD at [facility] Screw N/A: Spine Cervical Posterior [employer] 01/14/2030 [id number] / / [id number] Screw Infinity 3.5x14mm Mas [id number] - [id number] Implanted:Qty : 1 on 01/14/2025 by Abisai Hsieh MD at [facility] Screw N/A: Spine Cervical Posterior [employer] 01/14/2030 [id number] / / [id number] Screw Infinity 3.5x14mm Mas [id number] - [id number] Implanted:Qty : 1 on 01/14/2025 by Abisai Hsieh MD at [facility] Screw N/A: Spine Cervical Posterior [employer] 01/14/2030 [id number] / / [id number] Set Screw Infinity Oc M6 [id number] - [id number] Implanted:Qty : 1 on 01/14/2025 by Abisai Hsieh MD at [facility] Screw N/A: Spine Cervical Posterior [employer] 01/14/2030 [id number] / / [id number] Set Screw Infinity Oc M6 [id number] - [id number] Implanted:Qty : 1 on 01/14/2025 by Abisai Hsieh MD at [facility] Screw N/A: Spine Cervical Posterior [employer] 01/14/2030 [id number] / / [id number] Set Screw Infinity Oc M6 8395046 - [id number] Implanted:Qty : 1 on 01/14/2025 by Abisai Hsieh MD at [facility] Screw N/A: Spine Cervical Posterior [employer] 01/14/2030 [id number] / / [id number] Set Screw Infinity Oc M6 0516251 - [id number] Implanted:Qty : 1 on 01/14/2025 by Abisai Hsieh MD at [facility] Screw N/A: Spine Cervical Posterior [employer] 01/14/2030 [id number] / / [id number] Set Screw Infinity Oc M6 7515500 - [id number] Implanted:Qty : 1 on 01/14/2025 by Abisai Hsieh MD at [facility] Screw N/A: Spine Cervical Posterior [employer] 01/14/2030 [id number] / / [id number] Set Screw Infinity Oc M6 2566705 - [id number] Implanted:Qty : 1 on 01/14/2025 by Abisai Hsieh MD at [facility] Screw N/A: Spine Cervical Posterior [employer] 01/14/2030 [id number] / / [id number] Set Screw Infinity Oc M6 6914610 - [id number] Implanted:Qty : 1 on 01/14/2025 by Abisai Hsieh MD at [facility] Screw N/A: Spine Cervical Posterior [employer] 01/14/2030 [id number] / / [id number] Set Screw Infinity Oc M6 5159685 - [id number] Implanted:Qty : 1 on 01/14/2025 by Abisai Hsieh MD at [facility] Screw N/A: Spine Cervical Posterior [employer] 01/14/2030 [id number] / / [id number] Screw Infinity 3.5x14mm Mas [id number] - [id number] Implanted:Qty : 1 on 01/14/2025 by Abisai Hsieh MD at [facility] Screw N/A: Spine Cervical Posterior [employer] 01/14/2030 [id number] / / [id number] Screw Infinity 3.5x14mm Mas 3989035 - [id number] Implanted:Qty : 1 on 01/14/2025 by Abisai Hsieh MD at [facility] Screw N/A: Spine Cervical Posterior [employer] 01/14/2030 [id number] / / [id number] Screw Infinity 3.5x14mm Mas [id number] - [id number] Implanted:Qty : 1 on 01/14/2025 by Abisai Hsieh MD at [facility] Screw N/A: Spine Cervical Posterior [employer] 01/14/2030 [id number] / / [id number] Screw Infinity 3.5x14mm Mas 5996934 - [id number] Implanted:Qty : 1 on 01/14/2025 by Abisai Hsieh MD at [facility] Screw N/A: Spine Cervical Posterior [employer] 01/14/2030 [id number] / / [id number] Screw Infinity 3.5x14mm Mas [id number] - [id number] Implanted:Qty : 1 on 01/14/2025 by Abisai Hsieh MD at [facility] Screw N/A: Spine Cervical Posterior [employer] 01/14/2030 [id number] / / [id number] Allograft Putty Influx Dbm 10ml Iflx-Pt-10 - [id number] Implanted:Qty : 1 on 01/14/2025 by Abisai Hsieh MD at [facility] Tissue N/A: Spine Cervical Posterior [employer] 10/26/2027 IFLX-PT- 10 / [id number] / Procedures Procedure Name Priority Date/Time [...] AM CDT Spinal stenosis in cervical region UT ANES INSERT CATH, ART, PERCUT, SHORTTERM Routine 01/14/2025 10:10 AM CDT UT ANES INSERT ENDOTRACHEAL AIRWAY Routine 01/14/2025 9:29 AM CDT UT ARTHRD PST/PSTLAT TQ 1NTRSPC CRV BELW C2 SEGMENT 01/14/2025 8:52 AM CDT Spinal stenosis in cervical region Neck pain POC GLUCOSE Routine 01/14/2025 7:28 AM CDT INTRAOP NEUROPHYSIO MONITORING Routine 01/14/2025 6:49 AM CDT HEMOGLOBIN A1C Routine 12/30/2024 8:48 AM CDT from Last 3 Months or Most Recently Relevant to Health Maintenance Results * XR CERVICAL SPINE 2 OR [...] - 99 mg/dL 01/18/2025 11:25 AM CDT [facility] SPECIMEN SOURCE, GLUCOSE POC Capillary 01/18/2025 11:25 AM CDT [facility] Blood, whole 01/18/2025 11:2 5 AM CDT 01/18/2025 11:33 AM CDT Abisai Hsieh MD POINT OF CARE TESTING Final Resu lt [facility] CLIA # [id number] [address] [place] [id number] * MRI CERVICAL W WO CONTRAST (01/18/2025 [...] - 145 mmol/L 01/17/2025 5:56 PM CDT [facility] POTASSIUM 4.4 3.5 - 5.1 mmol/L 01/17/2025 5:56 PM CDT [facility] CHLORIDE 100 98 - 107 mmol/L 01/17/2025 5:56 PM CDT [facility] CO2 23 22 - 29 mmol/L 01/17/2025 5:56 PM CDT [facility] CALCIUM 9.6 8.8 - 10.2 mg/dL 01/17/2025 5:56 PM CDT [facility] BUN 29(H) 8 - 23 mg/dL 01/17/2025 5:56 PM CDT [facility] CREATININE 0.94 0.67 - 1.17 mg/dL 01/17/2025 5:56 PM CDT [facility] GLUCOSE 189(H) 74 - 99 mg/dL 01/17/2025 5:56 PM CDT [facility] GFR >60 >=60 mL/min/1.7 3 sq meter 01/17/2025 5:56 PM CDT [facility] Comment:eGFR calculated with 2020 CKD-EPI equation. Vegetarian diet, extremely high or low muscle mass, and may affect results. Cystatin C with Glomerular Filtration Rate is a suitable alternative for these patients. ANION GAP 14 9 - 20 mmol/L 01/17/2025 5:56 PM CDT [facility] Blood Venipuncture / Unknown 01/17/2025 4:52 PM CDT 01/17/2025 5:21 PM CDT Kina HODGES CHEMISTRY ORDERABLES Final Res ult [facility] CLIA # [id number] [address] [place] [address] * (ABNORMAL) CBC WITHOUT DIFFERENTIAL (01/16/2025 5:40 AM CDT) WBC 13.3(H) 4.8 - 10.8 K/uL 01/16/2025 6:24 AM CDT [facility] RBC 3.57(L) 4.60 - 6.20 M/uL 01/16/2025 6:24 AM T [facility] HEMOGLOBIN 12.0(L) 14.0 - 18.0 g/dL 01/16/2025 6:24 AM T [facility] HEMATOCRIT 35.4(L) 41.0 - 53.0 % 01/16/2025 6:24 AM T [facility] MCV 99.2 84.0 - 103.0 fL 01/16/2025 6:24 AM CDT [facility] MCH 33.6 27.0 - 34.0 pg 01/16/2025 6:24 AM CDT [facility] MCHC 33.9 30.0 - 35.0 g/dL 01/16/2025 6:24 AM CDT [facility] PLATELETS 113(L) 140 - 440 K/uL 01/16/2025 6:24 AM CDT [facility] MPV 11.7 8.9 - 12.8 fL 01/16/2025 6:24 AM CDT [facility] RDW 13.6 11.0 - 14.5 % 01/16/2025 6:24 AM CDT [facility] RDW-STDEV 49.4 37.0 - 54.0 fL 01/16/2025 6:24 AM CDT [facility] Blood Venipuncture / Unknown 01/16/2025 5:40 AM CDT 01/16/2025 6:13 AM CDT Abisai Hsieh MD HEMATOLOGY ORDERABLES Final Resu lt Performing Organization Address City/State/[facility] Co de Phone Number [facility] CLIA # [id number] [address] [place] [address] [place] [address] * XR FLUORO LESS THAN 1 HOUR (01/14/2025 11:09 AM CDT) Narrative 01/14/2025 11:09 AM CDT Order information only. Exam was auto-finalized. Abisai Hiseh MD DIAGNOSTIC IMAGING ORDERABLES Fi nal Result * UT ANES INSERT CATH, ART, PERCUT, SHORTTERM (01/14/2025 [...] ORDERAB LES Edited Result - Final * UT ANES INSERT ENDOTRACHEAL AIRWAY (01/14/2025 9:29 AM CDT) Narrative Ayaz Lemhan (Student), RN - 01/14/2025 9:29 AM CDT Ayaz Lehman (Student), RN 01/14/2025 10:07 AM Airway Date/Time: 01/14/2025 9:29 AM Location: OR Plan: elective intubation Patient Identity Confirmed by: Verbally with patient Airway: not difficult Staffing Performed: Student NA/AA Authorized by: Tacos Scott MD Performed by: Ayaz Lehman (Student) RN Machine Helper: Reinier Rose CRNA Indications and Patient Condition: [...] Additional Procedure Information: atraumatic and dentition unchanged us Tacos Scott MD PROCEDURE/MINOR SURGICAL ORDERAB LES Final Result * (ABNORMAL) HEMOGLOBIN A1C (12/30/2024 8:48 AM CDT) HEMOGLOBIN A1C 6.0(H) <=5.6 % 12/30/2024 9:13 AM CDT [facility] EST. AVG GLUCOSE, A1C 126 mg/dL 12/30/2024 9:13 AM CDT [facility] Blood Venipuncture / Unknown 12/30/2024 8:48 AM CDT 12/30/2024 8:54 AM CDT Narrative [facility] - 12/30/2024 9:13 AM CDT HGB A1C INTERPRETATION NORMAL: <5.7% PRE-DIABETES: 5.7 - 6.4% DIABETES: 6.5% OR GREATER Roverto Enciso MD CHEMISTRY ORDERABLES Final Resu lt [facility] CLIA #[id number] [facility] [address]indaDines[address] [place] [address] from Last 3 Months or Most Recently Relevant to Health Maintenance Insurance [place] [facility] Advance Directives For more information, please contact: [phone] * Full Code (Latest Code Status on File) Date Activated Date Inactivated Comments 01/14/2025 1:15 PM 01/18/2025 4:28 PM * Full Code Date Activated Date Inactivated Comments 01/14/2025 8:17 AM 01/14/2025 1:15 PM
--- OUTSIDE RECORDS SUMMARY | 2025-04-03 13:02 | XMS_ITS | Data Portability ---
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 Plan of Treatment Reminders Order Date Submit Date Provider Last Modified By Organization Details Last Modified Time Details Appointments OFFICE VISIT 15 2024 08:15A M Efren Billy MD Not available Not available Not available Lab TSH, serum or plasma 2024 025 [facility], [address] [facility], [facility] [address], [place], [address], 12/29/2024 10:35:31 vitamin B12, serum 2024 025 [facility], [address] [facility], [facility], [place], [address], 12/29/2024 10:35:31 Referral None recorded. Procedures None recorded. Surgeries None recorded. Imaging None recorded. Medication Orders cefdinir 300 mg capsule 2024 025 [facility], [address], [place], [address], 03/22/2025 10:59:33 amoxicill in 875 mg tablet 2024 025 [facility], [address], [place], [address], 03/30/2025 05:01:18 Kenalog 40 mg/mL suspensio n for injection 2024 025 [email or web address] Not available 02/09/2025 10:36:35 Patient TargetsNo targets recorded. Patient InstructionsNo instructions recorded. Reason for Referral None Reported. Problems Name Problem SNOMED Code Status Onset Date Resolution Date Notes Provider Name and Address Organization Details Recorded Time Parkinson's disease 32485697 Active 2023 TOMMY beal [facility] 4 08:33:39 Type 2 diabetes mellitus 45310016 Active 2023 TOMMY beal [facility] 4 08:33:48 Hypercholes terolemia 99311158 Active 2023 TOMMYSA BRISEIDA beal [facility] 4 09:52:27 Vitamin D deficiency 88645246 Active 2023 Efren Billy MD [address] [place] [address], [phone], [facility] 5 12:22:56 Posterior rhinorrhea 83653758 Active 2023 Efren Billy MD [address] [place] [address], [phone] 5, [facility]h 5 12:22:53 Lateral epicondylit is of left humerus 8255478981084 00 Active 2024 Efren Billy MD [address] [place] [address], [address] 5, [facility] 5 12:22:42 Mild recurrent major depression 06421875 Active 2024 Efren Billy MD [address] [place] [address], [phone] 5, [facility]CD[facility]h 12:23:16 Fatigue 46249267 Active 2024 Harjinder beal [facility], Liliam 11:58:36 Trigger finger of left hand 0184350526861 9107 Active 2024 Efren Billy MD [address] [place] [address], [address] 5, [facility] 09:02:03 Problem Notes None recorded. Procedures Surgical History Date Name Laterality Status Provider Name and Address Organization Details Recorded Time 07/15/20 24 [facility] 07/26/2024 10:25:49 10/06/19 24 decompression of ulnar nerve at elbow completed [facility] 12/01/2024 14:59:35 [facility] 09:35:33 [facility] 09:35:40 Imaging Results None recorded. Procedure Notes None recorded. Medical Equipment None Reported. Allergies Allergen ID Allergen Name Allergen Category Reaction Reaction Severity Criticality Documentation Date Start Date Code Code System Note Provider Name and Address Organization Details Recorded Time 55501 iodine medicatio n Not available Not available Not available 07/06/2024 5933 RxNorm iodin ated contr ast dye Harjinder Ruffpeterson [facility]al [facility] 15:00:29 Medications Name Sig Start Date Stop [...] completed Not Available Not Available Not Available ropinirole 0.5 mg tablet TAKE 1 TABLET BY MOUTH ONCE DAILY AT BEDTIME active Not Available Not Available No t Available losartan 25 mg tablet TAKE 1 [...] USE 2 SPRAYS IN EACH NOSTRIL TWICE A DAY active Not Available Not Available No t Available methylpredn isolone 4 mg tablets in a dose pack TAKE DIRECTED active Not Available Not Available No t [...] Not Available Not Available No t Available oxycodone 5 mg tablet TAKE 1 TABLET BY MOUTH EVERY 8 HOURS NEEDED FOR PAIN MAX DAILY AMOUNT 15MG active Not Available Not Available No t Available Vitamin D2 25,000 unit capsule Take 2 capsules every week by oral route. 12/01 completed Not Available Not Available Not Available rosuvastati n 40 mg tablet TAKE 1 TABLET BY MOUTH EVERY DAY active Not Available Not Available No t Available tizanidine 2 mg capsule TAKE 1 CAPSULE BY MOUTH EVERY 8 HOURS NEEDED FOR MUSCLE SPASTICIT Y active Not Available Not Available No t [...] Not Available OneTouch Verio test strips USE DIRECTED TO TEST 3 TIMES DAILY active Not Available Not Available [...] Updated DateTime 5 180.34 cm 30 kg/m2 66866.3 6 g 97.3 [degF] 18 /min 98 % 98 % 66 /min 152 mm[Hg] 78 mm[Hg] [facility] 5 15:14:14 Date Recorded Body height Body mass index (BMI) Body weight Body temperature Respiratory rate Oxygen saturation Oxygen saturation in Arterial blood by Pulse oximetry Heart rate Systolic blood pressure Diastolic blood pressure Provider Name and Address Organization Details Last Updated DateTime 5 180.34 cm 30 kg/m2 74434.3 6 g 97.4 [degF] 16 /min 98 % 98 % 65 /min 140 mm[Hg] 78 mm[Hg] [facility] 5 10:54:46 Date Recorded Body height Body mass index (BMI) Body weight Oxygen saturation Oxygen saturation in Arterial blood by Pulse oximetry Heart rate Body temperature Systolic blood pressure Diastolic blood pressure Provider Name and Address Organization Details Last Updated DateTime 5 180.34 cm 29.7 kg/m2 80073.1 7 g 99 % 99 % 71 /min 97.8 [degF] 132 mm[Hg] 64 mm[Hg] Day Hernandez [facility] 5 10:41:07 Date Recorded Body height Body mass index (BMI) Body weight Oxygen saturation Oxygen saturation in Arterial blood by Pulse oximetry Heart rate Respiratory rate Body temperature Systolic blood pressure Diastolic blood pressure Provider Name and Address Organization Details Last Updated DateTime 5 180.34 cm 30.8 kg/m2 529877. 91 g 96 % 96 % 71 /min 17 /min 97.9 [degF] 130 mm[Hg] 70 mm[Hg] FLORES HUFFMAN [facility] 5 12:22:58 Date Recorded Body height Body mass index (BMI) Body weight Oxygen saturation Oxygen saturation in Arterial blood by Pulse oximetry Heart rate Respiratory rate Body temperature Systolic blood pressure Diastolic blood pressure Provider Name and Address Organization Details Last Updated DateTime 5 180.34 cm 31.1 kg/m2 709791. 1 g 96 % 96 % 76 /min 16 /min 98.2 [degF] 150 mm[Hg] 80 mm[Hg] Sherri Goodwin [facility] 5 10:52:27 Social History Question Answer Notes LastModified by Organizat ion Details LastModified Time Tobacco Smoking Status Never Smoker FLORES beal [facility] 03/16/2025 12:23:31 What Is Your Level Of Caffeine Consumption? Moderate Information not available 07/06/2024 What Type Of Diet Are You Following? REGULAR Information not available 07/06/2024 What Is The Highest Grade Or Level Of School You Have Completed Or The Highest Degree You Have Received? CD31832-7 Information not available 07/06/2024 What Was The Date Of Your Most Recent Tobacco Screening? 03/22/2025 [email or web address] Information not available 03/22/2025 What Is Your Relationship Status? Information not available 07/06/2024 Do You Have Any Dietary Restrictions? No Information not available 07/06/2024 Sex: Unknown Functional Status Question Answer Note LastModified by Organizat ion Details LastModified Time Do you use any [...] Organization Details LastModified Time Father Myocardial infarction [email or web address] Not available 12/01 15:07:18 Mother Cerebrovascu lar accident [email or web address] Not available 15:07:33 Brother Hypertensive disorder Not available 2024 15:07:41 Brother Heart disease [email or web address] Not available 2024 15:07:51 Medical History No medical history recorded. Immunizations Vaccine Type Date Status Note Provider Nam e and Address Organization Details Recorded Time Influenza, adjuvanted, trivalent, PF 08/11/2024 completed Efren Billy MD [address] [place] [address], [phone], [facility] 08/13/2024 12:33:44 Past Encounters Encounter ID Performer Location Encounter Start Date Encounter Closed Date Diagnosis/Indication Diagnosis SNOMED-CT Code Diagnosis ICD10 Code Diagnosis Note [id number] Efren Billy MD [facility] ([facility]) [address] [place] [address] 07/06/2024 09:21:37 07/06/2024 10:43:20 Parkinson's disease 40250991 G20.A1 Continue to follow with neurology in [facility] Type 2 maria alejandra betes mellitus 93419701 E11.9 Patient is not due for A1c today. Patient is due for all lab work and yearly physical next month. Continue current medication s. History of mitral valve replacement 2208685961 109 Z95.2 Continue to follow with cardiology . Hypercholesterolemia 136 86662 E78.00 Tolerating statin without any issue Vitamin D deficiency 347 88157 E55.9 [id number] Efren Billy MD [facility] ([facility]) [address] [place] [phone] 08/10/2024 09:12:16 08/12/2024 10:35:39 Hypercholesterolemia 29835552 E78.00 Tolerating statin without any issue Parkinson's disease 4904 9000 G20.A1 Continue to follow with neurology in [facility] Type 2 maria alejandra betes mellitus 96540434 E11.9 Check A1c and urine microalbum in today. Continue current medication at this time. [id number] Efren Billy MD [facility] ([facility]) [address] [place] [phone] 08/11/2024 14:36:41 08/11/2024 16:10:17 Posterior rhinorrhea 01201463 R09.82 Ear drainage is likely causing the sore throat. Exam is more consistent with allergies than infection. Will start as the duloxetine and cetirizine . Active or passive immunization 286208621 Z23 Type 2 maria alejandra betes mellitus 12599891 E11.9 A1c was 5.7. Discussed medication s and we will stop the glipizide. A1c in 3 months. [id number] Efren Billy MD [facility] ([facility]) [address] [place] [phone] 08/31/2024 15:39:46 08/31/2024 16:14:18 Bronchitis 66095487 J40 Will treat the patient with antibiotic s and steroids similar to his . Will provide Tessalon Perles to help with cough. Continue over-the-c ounter medication to help with symptoms. Follow-up if symptoms do not improve after 7 to 10 days. [id number] Efren Billy MD [facility] ([facility]) [address] [place] [phone] 12/01/2024 14:51:16 12/01/2024 16:19:11 Lateral epicondylitis of left humerus 7829526443 40953 M77.12 Exam is consistent with lateral epicondyli tis. Discussed tennis elbow strap. The patient is going to physical therapy for his back so prescripti on was provided for them to work with his tennis elbow as well. [id number] Efren Billy MD [facility] ([facility]) [address] [place] [address] 12/22/2024 10:37:40 12/22/2024 11:25:27 Fatigue 26404589 R53.83 Will check labs today to evaluate fatigue. Trigger fi nger of left hand 1154423459 4854528 M65.342 M65.332 The patient has trigger fingers [...] procedure was performed on left middle finger. [id number] CECY GONZALES [facility] ([facility]) [address] [place] [phone] 02/09/2025 10:27:50 02/15/2025 08:14:46 Dyspnea 408896993 R06.02 VSS. No signs of PE or post op complicati on. Breath sounds clear; not diminished . Will send order for a incentive spirometer . Discussed how to use this every 4 hours while awake. If you develop fever, worsening sob, cough productive of sputum then return for re-evaluat ion. [id number] CECY GEORGE [facility] ([facility]) [address] [place] [address] 03/16/2025 12:13:45 03/16/2025 14:24:07 Acute right otitis media 021136159 H66.91 Patient to take antibiotic as prescribed . Did not see any perforatio n of ear drum but encouraged patient to call with any drainage or increased pain. Return to clinic with any new or worsening symptoms. [id number] CECY GONZALES [facility] ([facility]) [address] [place] [address] 03/22/2025 10:45:50 03/22/2025 11:05:38 Acute right otitis media 095297348 H66.91 stop amox. will start the cefdinir. [...] Name 03/16/2025 2 [place] Jose Hairston [id number] Jose Hairston 09/26/2024 1 [employer] - DUAL COMPLETE (MEDICARE REPLACEMENT/ ADVANTAGE - HMO) [id number] Jose Hairston [id number] Jose Hairston 03/16/2025 [place] [facility] [place] [facility] [place] Jose Hairston [id number] Jose Hairston 04/01/2025 1 [employer] (MEDICARE REPLACEMENT/ ADVANTAGE - PPO) [id number] Jose Hairston [id number] Jose Hairston Notes Date Note Type Note Provider Name and Address Organization Details Recorded Time 12/01/2024 text/html Pt here today wi th c/o Right posterior elbow pain since Friday, (11/27/24). Pt denies any injury to this arm, and is not c/o any swelling. Efren Billy MD [address] [place] [address], [phone], [facility] 12/02/2024 15:08:23 12/22/2024 text/html Musculoskeletal PainReported bypatient.Location:bi [...] like this evaluated further. Efren Billy MD [address] [place], [address], [facility], Jhon. 12/26/2024 09:14:50 02/09/2025 text/html Walk ionx3 days with lying flat on back or left side since cervical fusion 01/14. States he feels a little sob at times. denies wheezing cough sputum leg swelling or fever.no weight gain. surgery f/u last week and was told he's healing as expected; no complications. KIM CARVER [address], [address], [facility]. 02/14/2025 09:17:00 03/16/2025 text/html Patient c/o [...] the last week or 2. CHRIS CHO [address], [address], [facility], [facility]. 03/16/2025 13:24:19 03/22/2025 text/html walk in patientpatient was here on 03/16/25 and was started on amoxicillin for his ear infection, but now he is coughing, and very congested that started 3 days ago. Still cannot hear out of his right ear. CECY GONZALES [address] [place] [address], [phone], [facility] J[facility]. 03/22/2025 11:05:16
--- OUTSIDE RECORDS SUMMARY | 2025-04-03 13:02 | XMS_ITS | Encounter Summary ---
Author Organization [facility] Address 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 Gender Identity Not on file Sexual Orientation Not on file documented as of this encounter Plan of Treatment Upcoming Encounters Date Type Department Care Team (Late st Contact Info) Description 04/29/2025 9:30 AM CDT Office Visit [facility] Neurology - [place] [address] [place] [address] Norma Dhaliwal MD [address] [place] [address] 06/13/2025 1:00 PM CDT Office Visit [facility] Spine Neurosurgery [address] [place] [address] Kina Navarro, TRACIE [address] [place] [address] documented as of this encounter Visit Diagnoses Not on filedocumented in this encounter
[2025-04-03 13:04] VITALS: BP 144/80; PULSE 68; TEMP 36.5; O2SAT 96
--- NOTE | 2025-04-03 13:50 | W.ED.BACK ---
HPI - Back Pain/Injury General: Chief Complaint: Back Pain/Injury Stated Complaint: low back pain Time Seen by Provider: 04/03/25 13:44 History of Present Illness: Patient is a 69-year-old male that was here on 04/01 for left sacroiliac joint pain with radiation to his hip and down his left leg to his knee. He has utilizes tizanidine that he was given on 04/01 and gets some relief, however has continued pain. He has been compliant to his Medrol Dosepak. He stated he did get relief when he was here from Norflex and Toradol, however the next day continue to have pain. No fevers, no redness, no edema Associated symptoms: Deny abdominal pain, chills, fever(s), nausea or vomiting Related Data Home Medications ?Medication ?Instructions ?Recorded ?Confirmed albuterol sulfate 2.5 mg/3 mL 2.5 mg inhalation Q6H PRN Wheezing 04/10/20 09/21/24 (0.083 %) solution for nebulization medical marijuana 1 gummy PO PRN PRN Pain 01/09/21 09/21/24 ascorbic acid (vitamin C) 1,000 mg 1 g PO DAILY 10/08/21 09/21/24 tablet carbidopa 25 mg-levodopa 250 mg 1.5 tab PO QID 12/21/21 09/21/24 tablet thiamine HCl (vitamin B1) 100 mg 200 mg PO BID 04/23/23 09/21/24 tablet rosuvastatin 40 mg tablet 40 mg PO DAILY 04/13/24 09/21/24 sitagliptin phosphate 100 mg 100 mg PO DAILY 04/13/24 09/21/24 tablet (Januvia) diclofenac sodium 50 mg 50 mg PO BID 07/13/24 09/21/24 tablet,delayed release glipizide 5 mg tablet 5 mg PO DAILY 03/17/25 Previous Rx's ?Medication ?Instructions ?Recorded lancets 33 gauge (BD Ultra Fine #300 ea 03/21/22 Lancets) blood-glucose meter (Accu-Chek #1 kit 08/20/22 Guide Glucose Meter) lancets (Accu-Chek Softclix ##300 04/04/23 Lancets) sildenafil 100 mg tablet 100 mg PO DAILY PRN sexual 07/25/23 activity #20 tabs blood sugar diagnostic (Accu-Chek #300 strips 05/25/24 Guide test strips) propranolol 40 mg tablet 40 mg PO BID #180 tabs 12/20/24 losartan 25 mg tablet 25 mg PO DAILY 30 days #30 tabs 03/17/25 methylprednisolone 4 mg tablets in See Rx Instructions PO .COMPLEX 03/31/25 a dose pack (Medrol (Thomas)) #21 ea tizanidine 2 mg capsule 2 mg PO Q8H PRN muscle spasticity 03/31/25 #20 caps Allergies Allergy/AdvReac Type Severity Reaction Status Date / Time Iodinated Contrast Media Allergy hives Verified 04/03/25 13:09 primidone Allergy unknown Verified 04/03/25 13:09 Review of Systems Const: Denies: fever(s) or chills Eyes: Denies: change in vision or blurry vision Card: Denies: chest pain or palpitations Resp: Denies: dyspnea or non-productive cough GI: Denies: abdominal pain, nausea or vomiting Musc: Reports: back pain, extremity pain and joint pain; Denies: neck pain or joint swelling Skin/Breast: Denies: rash or pruritus Neuro: Denies: headache(s) or numbness in extremities Psych: Denies: anxiety or depression PFSH ED PFSH: Medical History Parkinson disease Aortic stenosis Accelerated essential hypertension CAD (coronary artery disease) Enrolled in chronic care management Hyperlipidemia, mixed Type 2 diabetes mellitus Low back pain Encounter for long-term use of opiate analgesic Surgical History History of cholecystectomy History of back surgery H/O aortic valve replacement H/O aortic valve replacement History of arthroplasty of knee Status post total left knee replacement Family History Mother , at age 80 Diabetes Hypertension Stroke Father , at age 65 CAD (coronary artery disease) Rheumatic fever Congestive heart failure (CHF) Brother Hypertension CAD (coronary artery disease) CABG x 4 Diabetes Sister Hypertension CAD (coronary artery disease) stents Brother CAD (coronary artery disease) stents Diabetes Denies family history of Clotting disorder Dementia Chronic kidney disease (CKD) Suicide Anesthesia complication Bleeding disorder Lung disease Cancer Social History Smoking and tobacco/nicotine status: never used tobacco/nicotine Second hand smoke exposure: Yes Alcohol intake: never Substance/Drug Use: current Substance/Drug use frequency: few times a week Marital status: Current occupational status: disabled Physical Exam Const: COMMON NORMALS: no acute distress, average body habitus and patient oriented x3 HENMT: COMMON NORMALS: normocephalic and atraumatic HEAD & SCALP: normocephalic and atraumatic FACE & SINUS: normal facial exam Lymph: LYMPHATIC: no lymphadenopathy noted Chest: COMMONS NORMALS: normal inspection of the chest and normal palpation of entire chest wall Resp: COMMON NORMALS: normal respiratory effort, No retractions and clear to auscultation bilaterally AUSCULTATION: clear to auscultation bilaterally Cardio: COMMON NORMALS: regular rate and regular rhythm RATE: regular rate RHYTHM: regular rhythm : COMMON NORMALS: Yes no CVA tenderness BLADDER/KIDNEY EXAM: Yes no CVA tenderness Back/Pelvis: COMMON NORMALS: no CVA tenderness LUMBAR SPINE/LOWER BACK: Yes lumbar ROM normal, Yes ROM limited (due to pain), Yes pain with ROM and Yes straight leg raise positive left Straight leg raise positive details left: at 60 degrees PELVIS: Yes sciatic notch tenderness on the left SACROILIAC JOINTS: Yes SI joint(s) abnormal SI joint details: pain elicited by passive hyperextension of lower extremity Neuro: COMMON NORMALS: patient oriented x3 Psych: COMMON NORMALS: mental status grossly normal and Normal thought process present THOUGHT PROCESS: Normal thought process present Course Vital Signs: Vital signs: Vital Signs Temperature 97.7 F 04/03/25 13:04 Pulse Rate 59 L 04/03/25 15:50 Blood Pressure 170/93 04/03/25 15:50 Pulse Oximetry 96 04/03/25 15:50 Oxygen Delivery Me thod Room Air 04/03/25 13:04 MDM - Back Pain/Injury Medical Decision Making Patient is 69-year-old gentleman with history of previous lumbar decompression, and recent cervical neck surgery that presents with symptoms consistent with sacroiliitis. Patient was here 2 days ago. X-ray was obtained, patient's request. X-ray showed no acute findings. Exam is consistent with sacroiliitis. He did have minimal improvement with tizanidine, which he will continue. Will also repeat his Norflex and Toradol at low dose today to help with some relief. He will continue Medrol Dosepak, and call primary care for possible follow-up/referral. He does have a follow-up with his neurosurgeon tomorrow and will further discuss with neurosurgeon. All of his questions answered to his satisfaction Labs Radiology Impressions Lumbar Spine X-Ray 04/03/25 13:54 IMPRESSION: Nonacute findings. All radiology interpretation(s) finalized by discharge Discharge Plan Discharge Patient Disposition: Home Clinical Impression: Sacral back pain Condition: Stable Prescriptions: No Action albuterol sulfate 2.5 mg /3 mL (0.083 %) solution for nebulization 2.5 mg INHALATION Q6H PRN (Reason: Wheezing) carbidopa-levodopa 25-250 mg tablet 1.5 tab PO QID medical marijuana 1 gummy PO PRN PRN (Reason: Pain) ascorbic acid (vitamin C) 1,000 mg tablet 1 g PO DAILY sildenafil 100 mg tablet 100 mg PO DAILY PRN (Reason: sexual activity) Qty: 20 6RF Rx Instructions: Take 1 hour before intercourse, on empty stomach, max dose 100 mg, NO NITROGLYCERIN glipizide 5 mg tablet 5 mg PO DAILY losartan 25 mg tablet 25 mg PO DAILY 30 Days Qty: 30 5RF thiamine HCl (vitamin B1) 100 mg tablet 200 mg PO BID (DME) lancets [BD Ultra Fine Lancets] 33 gauge misc See Rx Instructions .Route Qty: 300 3RF Rx Instructions: As directed to test blood sugar TID (DME) blood-glucose meter [Accu-Chek Guide Glucose Meter] Misc See Rx Instructions .ROUTE .COMPLEX Qty: 1 0RF Dose Instruction: USE DIRECTED 3 TIMES A DAY Rx Instructions: USE DIRECTED 3 TIMES A DAY (DME) lancets [Accu-Chek Softclix Lancets] Misc See Rx Instructions .ROUTE .COMPLEX Qty: 300 3RF Dose Instruction: TEST 3 TIMES A DAY Rx Instructions: TEST 3 TIMES A DAY (DME) Accu-Chek Guide test strips Strip See Rx Instructions .ROUTE .COMPLEX Qty: 300 2RF Dose Instruction: USE DIRECTED TO TEST 3 TIMES A DAY Rx Instructions: USE DIRECTED TO TEST 3 TIMES A DAY propranolol 40 mg tablet 40 mg PO BID Qty: 180 3RF methylprednisolone [Medrol (Thomas)] 4 mg tablets,dose pack See Rx Instructions .ROUTE .COMPLEX Qty: 21 0RF Rx Instructions: for 6 days tizanidine 2 mg capsule 2 mg PO Q8H PRN (Reason: muscle spasticity) Qty: 20 0RF rosuvastatin 40 mg tablet 40 mg PO DAILY Januvia 100 mg tablet 100 mg PO DAILY diclofenac sodium 50 mg tablet,delayed release (DR/EC) 50 mg PO BID Discharge Orders: Discharge ED (Routine); Ordered 04/03/25 Ordered By: Patricia Bush Referrals: Delgado Billy MD [Primary Care Provider, Family Practice] Discharge Diet: Usual diet Discharge Activity: Use walker/crutches as instructed Patient Instructions: Patient Portal & Ivan Instructions Activity Restrictions/Additional Instructions: Utilize cane for support. Keep your doctors appointment tomorrow to evaluate this. Utilize Lidoderm patch to left back area. Return to ED for worsening pain. Print Language: Nepali Coding Level of Care Code ED Housekeeping Cleaner for Fredis Canchola
--- NOTE | 2025-04-03 13:54 | XRR_ITS ---
PROCEDURE INFORMATION: Exam: XR Lumbosacral Spine Exam date and time: 04/03/2025 2:14 PM Age: 69 years old Clinical indication: Lumbago with sciatica; Left; Prior surgery; Surgery date: 6+ months; Surgery type: Lumbar discectomy; Lower back pain with lt sciatica; No known injury TECHNIQUE: Imaging protocol: Radiologic exam of the lumbosacral spine. Views: 2 or 3 views. COMPARISON: No relevant prior studies available. FINDINGS: Bones/joints: No fracture or other acute abnormality. There is straightening of the lumbar lordosis but otherwise normal sagittal alignment. There is a mild levocurvature. Multilevel mild disc space narrowing is seen with associated multilevel anterolateral osteophytes most prominent at L2 and L4. Soft tissues: Unremarkable. XR/XR lumbar spine 2-3V* [id number] IMPRESSION: Nonacute findings.
[2025-04-03] MEDS: ketorolac 30 mg/mL INJ IM (15:05)
[2025-04-03] MEDS: orphenadrine 30 mg/mL Inj 2 mL 60 MG IM (15:06)
[2025-04-03] MEDS: dexamethasone 10 mg/mL INJ 8 MG PO (15:38)
[2025-04-03 15:50] VITALS: BP 170/93; PULSE 59; O2SAT 96
== END 2025-04-03 15:52 | disposition home or self-care (01) ==
PROVIDERS: Emergency Provider Physician Assistant; PCP Family Medicine
DX: M53.3 Sacrococcygeal disorders, not elsewhere classified (principal); I25.10 Atherosclerotic heart disease of native coronary artery without angina pectoris; E11.9 Type 2 diabetes mellitus without complications; E78.2 Mixed hyperlipidemia
CPT/HCPCS: 72100; 96372; 99284; J1100; J1885; J2360

== ENCOUNTER 2025-05-04 06:04 | Outpatient (CLI) | payer MEDICARE, MEDICAID, SELFPAY ==
--- NOTE | 2025-05-04 06:10 | USCV_ITS ---
Jose Hairston Age: 69 Gender: M : 1955 Exam Date: 05/04/2025 06:24 Ordering Phys: Delgado Billy MD Technologist: Exam Location: [facility] [place] Indication: ao pros BP: 130 / 80 HR: 75 Rhythm: Sinus Technical Quality: Adequate MEASUREMENTS (Male / Female) Normal Values 2D ECHO LV Diastolic Diameter PLAX 4.7 cm 4.2 - 5.9 / 3.9 - 5.3 cm IVS Diastolic Thickness 1.8 cm 0.6 - 1.0 / 0.6 - 0.9 cm IVS Systolic Thickness 1.9 cm LVPW Diastolic Thickness 1.8 cm 0.6 - 1.0 / 0.6 - 0.9 cm LVPW Systolic Thickness 1.9 cm LVOT Diameter 2.0 cm LV Ejection Fraction 2D Teich 50.5 % LV Ejection Fraction MOD 4C 64.3 % LV Ejection Fraction MOD 2C 54.8 % LV Ejection Fraction 2C AL 55.5 % LA Diameter 4.4 cm RA Systolic Volume 4C AL 36.1 ml RA Systolic Volume 4C MOD 32.6 ml Aorta at Sinotubular Diameter 3.7 cm M-MODE LA Ao Ratio MM 1.3 AV Cusp Separation MM 2.3 cm DOPPLER AV Peak Velocity 206.5 cm/s LVOT Peak Velocity 92.0 cm/s AV Area Cont Eq vti 1.7 cm squared AV Area Cont Eq pk 1.5 cm squared MV Peak Velocity 130.0 cm/s MV Area PHT 4.4 cm squared Mitral E to A Ratio 0.9 TV Peak Velocity 186.5 cm/s TR Peak Velocity 207.0 cm/s TR Peak Gradient 17.1 mmHg TV Peak E Velocity 87.0 cm/s PV Peak Velocity 104.0 cm/s FINDINGS Left Ventricle Normal left ventricular size. Normal left ventricular systolic function. Ejection fraction 64%. Moderate concentric left ventricular hypertrophy. Grade 2 left ventricular diastolic dysfunction consistent with increased left ventricular filling pressure. Right Ventricle Normal right ventricular size and systolic function Right Atrium Normal right atrial size Left Atrium Mild enlargement of the left atrium Mitral Valve Trace mitral valve regurgitation. Aortic Valve Mild aortic valve stenosis. No aortic valve regurgitation Tricuspid Valve Trace tricuspid valve regurgitation. Normal pulmonary pressure Pulmonic Valve Normal pulmonic valve function Pericardium No pericardial effusion Aorta Normal diameter of the ascending aorta and aortic root IVC Normal IVC diameter. CONCLUSIONS 1. Normal left ventricular systolic function, EF 64% 2. Grade 2 left ventricular diastolic dysfunction 3. Moderate concentric left ventricular hypertrophy 4. Mild aortic valve stenosis Thierno Earl MD, FACC (Electronically Signed) Final Date: 04 May 2025 23:13 S
== END 2025-05-04 06:05 | disposition home or self-care (01) ==
LOC: RAD 06:05
PROVIDERS: PCP Family Medicine; Visit Provider Family Medicine
DX: R06.09 Other forms of dyspnea (principal); I51.7 Cardiomegaly; I35.0 Nonrheumatic aortic (valve) stenosis
CPT/HCPCS: 93306

== ENCOUNTER 2025-05-14 22:57 | Emergency (ER) | payer MEDICARE, MEDICAID, SELFPAY ==
--- NOTE | 2025-05-14 23:11 | XRR_ITS ---
PROCEDURE INFORMATION: Exam: XR Chest Exam date and time: 05/14/2025 11:47 PM Age: 69 years old Clinical indication: Shortness of breath; Prior surgery; Surgery date: 6+ months; Surgery type: Aortic valve replacement. Gb; C/O SOB TECHNIQUE: Imaging protocol: Radiologic exam of the chest. Views: 1 view. COMPARISON: CR XR chest 2V* [id number] 01/10/2020 12:26 PM FINDINGS: Single view. Lungs: Few nonspecific although chronic appearing strands at the lung bases. Low lung volumes. Pleural spaces: Unremarkable. No pleural effusion. No pneumothorax. Heart/Mediastinum: Post cardiac surgery residuals. Vasculature: Aortic atherosclerosis. Bones/joints: Postsurgical changes of lower cervical spine. Mild degenerative changes of the AC joints. XR/XR chest 1V portable [id number] IMPRESSION: No acute infiltrate or effusion.
--- NOTE | 2025-05-14 23:19 | ECG_ITS ---
[facility] Date: 2025-05-14 Pat Name: Jose Hairston Department: Room: Gender: Male Healthcare Recruiter: : 1955 Requested By: Karri Sanchez Order Number: [id number] Recio MD: Blair Stout M.D. Measurements Intervals [place] Rate: 73 P: 38 ND: 193 QRS: -22 QRSD: 153 T: 86 QT: 414 QTc: 458 Interpretive Statements SINUS RHYTHM LEFT BUNDLE BRANCH BLOCK [120+ ms QRS DURATION, 80+ ms Q/S IN V1/V2, 85+ ms R IN I/aVL/V5/V6] Compared to ECG 12/28/2023 17:26:19 Sinus bradycardia no longer present Electronically Signed On 05-17-2025 08:17:54 CDT by Blair Stout M.D. [email or web address]
[2025-05-14 23:21] VITALS: BP 166/84; PULSE 72; RESP 26; TEMP 36.3; O2SAT 97
--- OUTSIDE RECORDS SUMMARY | 2025-05-14 23:22 | XMS_ITS | Clinical Summary ---
Author Organization [facility] Address [address] [facility] Attn: [place] [address] Care Team Providers Care Operations Research Analyst Name Role Phone Unavailable Primary Care Provider [...] C, (Vitamin C) 1,000 mg Tablet daily. Acti ve thiamine HCl (VITAMIN B-1 ORAL) daily. Active cyanocobalamin (Vitamin B-12) 1,000 mcg Tablet daily. Active oxyCODONE (ROXICODONE) 5 mg tabletIndicatio ns:Stenosis of cervical spine Take 1 Tablet (5 mg) by mouth every 8 hours as needed for Pain. Max Daily Amount: 15 mg 30 Tablet 03/30/20 25 Active losartan (COZAAR) 25 mg tablet Take 25 mg by mouth daily. Active dapagliflozin propanediol (FARXIGA) 10 mg Tablet Take by mouth daily. Active rOPINIRole (REQUIP) 1 mg tablet Take 1 Tablet (1 mg) by mouth daily at bedtime. 30 Tablet 5 04/29/20 25 Active carbidopa-levod opa (SINEMET) 25-250 mg tablet Take 2 Tablets by mouth see administration instructions. 2 tabs 6:00 am, 1 tab 10: 0 am, 1 tab 2:00 pm , 2 tabs 6:00 p.m. 540 Tablet 7 04/29/20 25 Active rOPINIRole (REQUIP) 0.5 mg tablet Take 1 Tablet (0.5 mg) by mouth daily at bedtime. 90 Tablet 3 01/01/20 25 025 Discontin ued(Reord er) carbidopa-levod opa (SINEMET) 25-250 mg tablet Take 2 Tablets by mouth see administration instructions. 2 tabs 6:00 am, 1 tab 10: 0 am, 1 tab 2:00 pm , 2 tabs 6:00 p.m. 540 Tablet 7 01/01/20 25 025 Discontin ued(Reord er) Active Problems [...] Encounters Date Type Department Care Team Description 04/29/2025 10:30 AM CDT Office Visit [facility] Neurology - [address] [place] [id number] Norma Dhaliwal MD Parkinson's disease without dyskinesia or fluctuating manifestations (CMS/HCC) (Primary Dx); REM sleep behavior disorder 04/20/2025 External Device Data STL ABSTRACTION Provider, Abstract 04/20/2025 External Device Data STL ABSTRACTION Provider, Abstract 03/29/2025 Refill [facility] Sp[facility] Neuro[facility] [address] [place] [phone] Georges Mccord MD Stenosis of cervical spine 03/23/2025 External Device Data STL ABSTRACTION Provider, Abstract 03/23/2025 External Device Data STL ABSTRACTION Provider, Abstract 03/22/2025 External Device Data STL ABSTRACTION Provider, Abstract 03/09/2025 11:40 AM CDT Office Visit [facility] Sp[facility] [address] [place] [address] Kina Navarro PA Status post cervical spinal fusion (Primary Dx) 03/09/2025 11:35 AM CDT Ancillary Procedure [facility] Rad[facility] [address] [place] [phone] Kina Navarro PA S/P cervical spinal fusion 03/08/2025 External Device Data STL ABSTRACTION Provider, Abstract 03/02/2025 Refill [facility] [address] [place] [phone] Abisai Hsieh MD Stenosis of cervical spine 03/01/2025 Orders Only [facility] [address] [place] [phone] Kina Navarro PA S/P cervical spinal fusion (Primary Dx) 02/24/2025 External Device Data STL ABSTRACTION Provider, Abstract 02/24/2025 External Device Data STL ABSTRACTION Provider, Abstract 02/23/2025 External Device Data STL ABSTRACTION Provider, Abstract 02/15/2025 External Device Data STL ABSTRACTION Provider, Abstract 02/15/2025 External Device Data STL ABSTRACTION Provider, Abstract 02/15/2025 External Device Data STL ABSTRACTION Provider, Abstract from Last 3 Months Immunizations Immunization Administration [...] drink = 0.6 oz pur e alcohol) Sex and Gender Information Value Date Recorded Sex Assigned at Not on file Legal 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 Gender Identity Not on file Sexual Orientation Not on file Last Filed Vital Signs Vital Sign Reading Time Taken Comments Blood Pressure 130/72 04/29/2025 10:10 AM CDT Pulse 64 04/29/2025 10:10 AM CDT Temperature 36.8 C (98.2 F) 01/18/2025 11:08 AM CDT Respiratory Rate 18 01/18/2025 11:08 AM CDT Oxygen Saturation 96% 02/03/2025 10:23 AM CDT Inhaled Oxygen Concentration - - Weight 98.2 kg (216 lb 9.6 oz) 04/29/2025 10:10 AM CDT Height 180.3 cm (5' 11 ) 04/29/2025 10:10 AM CDT Body Mass Index 30.21 04/29/2025 10:10 AM CDT Plan of Treatment Upcoming Encounters Date Type Department Care Team (Late st Contact Info) Description 05/18/2025 11:00 AM CDT Office Visit [facility] Spine [facility]surgery [address] [place] [address] Kina Navarro PA [address] [place] [address] 11/25/2025 11:15 AM DROSS PULLER Office Visit [facility] - [place] [address] [place] [address] Norma Dhaliwal MD [address] [place] [address] Health Maintenance Due Date Last Done Comments [...] - 2023-2 5 season) 2024 02/06/2021, 01/09/2021 INFLUENZA VACCINE (#1) 2025 , 07/25/2023, 08/02/2022, Additional history exists DIABETES HBA1C Q 6 MONTHS 10/07/20252024, 12/30/2024, 08/10/2024 COLORECTAL SCREENING 07/15/2034 07/15/2024 Colorectal Cancer Screening 07/15/2034 Medical Devices Implanted Type Area Elevator Dispatcher Device Identifier Shelf Expiration Date Model / Serial / Lot Putty Mastergraft 9.0ml [id number] - [id number] Implanted:Qty : 1 on 01/14/2025 by Abisai Hsieh MD at [facility] Biological N/A: Spine Cervical Posterior [employer] 09/04/2028 [id number] / / [id number] Hemostatic Surgiflo 8ml W/ Thrombin 2994 - [id number] Implanted:Qty : 1 on 01/14/2025 by Abisai Hsieh MD at [facility] Hemostatic N/A: Spine Cervical Posterior [employer] [id number] 04/04/2026 2994 / / [id number] Hemostatic Surgiflo 8ml W/ Thrombin 2994 - [id number] Implanted:Qty : 1 on 01/14/2025 by Abisai Hsieh MD at [facility] Hemostatic N/A: Spine Cervical Posterior [employer] [id number] 04/04/2026 2994 / / [id number] Anjel Infinity 3.5x60mm Pre-Cut [id number] - [id number] Implanted:Qty : 1 on 01/14/2025 by Abisai Hsieh MD at [facility] Anjel N/A: Spine Cervical Posterior [employer] 01/14/2030 [id number] / / [id number] Anjel Infinity 3.5x60mm Pre-Cut [id number] - [id number] Implanted:Qty : 1 on 01/14/2025 by Abisai Hsieh MD at [facility] Anjel N/A: Spine Cervical Posterior [employer] 01/14/2030 [id number] / / [id number] Screw Infinity 3.5x14mm Mas [id number] - [id number] Implanted:Qty : 1 on 01/14/2025 by Abisai Hsieh MD at [facility] Screw N/A: Spine Cervical Posterior [employer] 01/14/2030 [id number] / / [id number] Screw Infinity 3.5x14mm Mas [id number] - [id number] Implanted:Qty : 1 on 01/14/2025 by Abisai Hsieh MD at [facility] Screw N/A: Spine Cervical Posterior [employer] 01/14/2030 [id number] / / [id number] Screw Infinity 3.5x14mm Mas [id number] - [id number] Implanted:Qty : 1 on 01/14/2025 by Abisai Hsieh MD at [facility] Screw N/A: Spine Cervical Posterior [employer] 01/14/2030 [id number] / / [id number] Set Screw Infinity Oc M6 [id number] - [id number] Implanted:Qty : 1 on 01/14/2025 by Abisai Hsieh MD at [facility] Screw N/A: Spine Cervical Posterior [employer] 01/14/2030 [id number] / / [id number] Set Screw Infinity Oc M6 [id number] - [id number] Implanted:Qty : 1 on 01/14/2025 by Abisai Hsieh MD at [facility] Screw N/A: Spine Cervical Posterior [employer] 01/14/2030 [id number] / / [id number] Set Screw Infinity Oc M6 [id number] - [id number] Implanted:Qty : 1 on 01/14/2025 by Abisai Hsieh MD at [facility] Screw N/A: Spine Cervical Posterior [employer] 01/14/2030 [id number] / / [id number] Set Screw Infinity Oc M6 [id number] - [id number] Implanted:Qty : 1 on 01/14/2025 by Abisai Hsieh MD at [facility] Screw N/A: Spine Cervical Posterior [employer] 01/14/2030 [id number] / / [id number] Set Screw Infinity Oc M6 3481588 - [id number] Implanted:Qty : 1 on 01/14/2025 by Abisai Hsieh MD at [facility] Screw N/A: Spine Cervical Posterior [employer] 01/14/2030 [id number] / / [id number] Set Screw Infinity Oc M6 [id number] - [id number] Implanted:Qty : 1 on 01/14/2025 by Abisai Hsieh MD at [facility] Screw N/A: Spine Cervical Posterior [employer] 01/14/2030 [id number] / / [id number] Set Screw Infinity Oc M6 [id number] - [id number] Implanted:Qty : 1 on 01/14/2025 by Abisai Hsieh MD at [facility] Screw N/A: Spine Cervical Posterior [employer] 01/14/2030 [id number] / / [id number] [id number] Set Screw Infinity Oc M6 [id number] - [id number] Implanted:Qty : 1 on 01/14/2025 by Abisai Hsieh MD at [facility] Screw N/A: Spine Cervical Posterior [employer] 01/14/2030 [id number] / / [id number] Screw Infinity 3.5x14mm Mas [id number] - [id number] Implanted:Qty : 1 on 01/14/2025 by Abisai Hsieh MD at [facility] Screw N/A: Spine Cervical Posterior [employer] 01/14/2030 [id number] / / [id number] Screw Infinity 3.5x14mm Mas [id number] - [id number] Implanted:Qty : 1 on 01/14/2025 by Abisai Hsieh MD at [facility] Screw N/A: Spine Cervical Posterior [employer] 01/14/2030 [id number] / / [id number] Screw Infinity 3.5x14mm Mas [id number] - [id number] Implanted:Qty : 1 on 01/14/2025 by Abisai Hsieh MD at [facility] Screw N/A: Spine Cervical Posterior [employer] 01/14/2030 [id number] / / [id number] Screw Infinity 3.5x14mm Mas [id number] - [id number] Implanted:Qty : 1 on 01/14/2025 by Abisai Hsieh MD at [facility] Screw N/A: Spine Cervical Posterior [employer] 01/14/2030 [id number] / / [id number] Screw Infinity 3.5x14mm [facility] [id number] - [id number] Implanted:Qty : 1 on 01/14/2025 by Abisai Hsieh MD at [facility] Screw N/A: Spine Cervical Posterior [employer] 01/14/2030 [id number] / / [id number] Allograft Putty Influx Dbm 10ml Iflx-Pt-10 - [id number] Implanted:Qty : 1 on 01/14/2025 by Abisai Hsieh MD at [facility] Tissue N/A: Spine Cervical Posterior [employer] 10/26/2027 IFLX-PT- 10 / [id number] / Procedures Procedure Name Priority Date/Time Associated Diagnosis Comments XR CERVICAL SPINE 2 OR 3 VIEWS Routine 03/09/2025 11:44 AM CDT S/P cervical spinal fusion HEMOGLOBIN A1C Routine 12/30/2024 8:48 AM CDT from Last 3 Months or Most Recently Relevant to Health Maintenance Results * XR CERVICAL SPINE 2 OR 3 VIEWS (03/09/2025 11:44 AM CDT) Anatomical Region Laterality Modality Spine Computed Radiogr [...] acute abnormality. IMPRESSION: No acute bony finding. us [facility] ORDERABLES Final Result * (ABNORMAL) HEMOGLOBIN A1C (12/30/2024 8:48 AM CDT) HEMOGLOBIN A1C 6.0(H) <=5.6 % 12/30/2024 9:13 AM CDT [facility] EST. AVG GLUCOSE, A1C 126 mg/dL 12/30/2024 9:13 AM CDT [facility] Blood Venipuncture / Unknown 12/30/2024 8:48 AM CDT 12/30/2024 8:54 AM CDT Narrative [facility] - 12/30/2024 9:13 AM CDT HGB A1C INTERPRETATION NORMAL: <5.7% PRE-DIABETES: 5.7 - 6.4% DIABETES: 6.5% OR GREATER us Roverto Enciso MD CHEMISTRY ORDERABLES Final Resu lt [facility] CLIA #[id number] [id number] from Last 3 Months or Most Recently Relevant to Health Maintenance Insurance MEDICAID [facility] Advance Directives For more information, please contact: [phone] * Full Code (Latest Code Status on File) Date Activated Date Inactivated Comments 01/14/2025 1:15 PM 01/18/2025 4:28 PM * Full Code Date Activated Date Inactivated Comments 01/14/2025 8:17 AM 01/14/2025 1:15 PM
--- OUTSIDE RECORDS SUMMARY | 2025-05-14 23:22 | XMS_ITS | Encounter Summary ---
Author Organization [facility] Address [address] [place] [address] Care Team Providers Care Gusset Edger Name Role Phone Unavailable Primary Care Provider Unavailabl e Encounter Details Date Type Department Care Team (Late st Contact Info) Description 02/04/2025 Refill [facility] Neurology - [place] [address] [place] [address] Abisai Hsieh MD [address] [place] [address] Social History Tobacco Use Types Packs/Day Years Used Date Smoking Tobacco: Never Smokeless Tobacco: Never Alcohol Use Standard Drinks/Week Comments No 0 (1 standard drink = 0.6 oz pur e alcohol) Sex and Gender Information Value Date Recorded Sex Assigned at Not on file 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 Gender Identity Not on file Sexual Orientation Not on file documented as of this encounter Plan of Treatment Upcoming Encounters Date Type Department Care Team (Late st Contact Info) Description 05/18/2025 11:00 AM CDT Office Visit [facility] Spine Neurosurgery [address] [place] [address] Kina Navarro PA [address] [place] [address] 11/25/2025 11:15 AM HOSPICE SUPERINTENDENT Office Visit [facility] Neurology [place] [address] [address] Norma Dhaliwal MD [address] [address] documented as of this encounter Visit Diagnoses Not on filedocumented in this encounter
[2025-05-14 23:55] LABS: Hematocrit 36.9 % (37-53); Hemoglobin 11.80 g/dL (11.27-16.99); Mean Corpuscular HGB Conc 32.0 g/dL (30-55); Mean Corpuscular Hemoglobin 31.2 pg (27-33); Mean Corpuscular Volume 97.6 fl (82-101); Nucleated Red Blood Cells % 0 %; Platelet Count 106 10^3/cmm (157-399); Red Blood Count 3.78 10^6/uL (3.85-5.65); White Blood Count 6.21 10^3/uL (3.29-11.43)
[2025-05-15] VITALS (8 sets, daily range): BP systolic 136–158; BP diastolic 77–90; PULSE 59–72; RESP 16–18; O2SAT 95–98
[2025-05-15 00:14] LABS: Troponin(5th) Baseline 34 ng/L (0-15)
[2025-05-15 00:33] LABS: Alanine Aminotransferase 12 U/L (0-41); Albumin Level 4.4 g/dL (3.5-5.2); Alkaline Phosphatase 95 U/L (40-130); Anion Gap 16.3 (5-19); Aspartate Amino Transferase 22 U/L (0-40); Blood Urea Nitrogen 20 mg/dL (8-23); Calcium 9.9 mg/dL (8.5-10.5); Carbon Dioxide 25 mmol/L (22-29); Chloride 100 mmol/L (98-107); Creatinine Clr Calc Pharmacy 78.8447; Globulin 2.6 g/dL (1.3-4.6); Glucose 201 mg/dL (65-115); NT Pro B Type Natriuretic Pept 457 pg/mL (0-125); Osmolality Calculated 292 mOsm/kg (285-295); Potassium 4.3 mmol/L (3.5-5.1); Sodium 137 mmol/L (136-145); Total Protein 7.0 g/dL (6.6-8.7)
--- NOTE | 2025-05-15 01:11 | ECG_ITS ---
[facility] Test Date: 2025-05-15 Pat Name: Jose Hairston Department: Room: Gender: Male Clinical Coordinator: : 1955 Requested By: Karri Sanchez Order Number: [id number] Hemal MD: JOHNATHAN JEFFERSON Measurements Intervals [place] Rate: 61 P: 65 NE: 193 QRS: -22 QRSD: 163 T: 92 QT: 447 QTc: 454 Interpretive Statements SINUS RHYTHM WITH OCCASIONAL VENTRICULAR PREMATURE COMPLEXES LEFT BUNDLE BRANCH BLOCK [120+ ms QRS DURATION, 80+ ms Q/S IN V1/V2, 85+ ms R IN I/aVL/V5/V6] Compared to ECG 05/14/2025 23:19:17 Ventricular premature complex(es) now present Electronically Signed On 05-17-2025 20:08:58 CDT by JOHNATHAN JEFFERSON [email or web address]
[2025-05-15 01:57] LABS: Troponin 5 2HR 29.49 ng/L (0-15)
[2025-05-15 01:58] LABS: Troponin 5 2HR Delta -4.51 ABS# (0-10)
--- NOTE | 2025-05-15 02:54 | W.ED.SOB ---
HPI - SOB/Dyspnea General: Chief Complaint: Shortness of Breath/Dyspnea Stated Complaint: SOB suffocates when lay down Time Seen by Provider: 05/14/25 23:45 History of Present Illness: HPI Narrative: 69-year-old male with a 4-week history of cough, white sputum production, and shortness of breath. Shortness of breath is worse lying flat or on his left side. He has been treated for this in the past with inhalers which helped to some degree. There is an outpatient, he has had an echocardiogram that did not show significant heart failure. He denies significant chest discomfort. Related Data Home Medications ?Medication ?Instructions ?Recorded ?Confirmed albuterol sulfate 2.5 mg/3 mL 2.5 mg inhalation Q6H PRN Wheezing 04/10/20 09/21/24 (0.083 %) solution for nebulization medical marijuana 1 gummy PO PRN PRN Pain 01/09/21 09/21/24 ascorbic acid (vitamin C) 1,000 mg 1 g PO DAILY 10/08/21 09/21/24 tablet carbidopa 25 mg-levodopa 250 mg 1.5 tab PO QID 12/21/21 09/21/24 tablet thiamine HCl (vitamin B1) 100 mg 200 mg PO BID 04/23/23 09/21/24 tablet rosuvastatin 40 mg tablet 40 mg PO DAILY 04/13/24 09/21/24 sitagliptin phosphate 100 mg 100 mg PO DAILY 04/13/24 09/21/24 tablet (Januvia) diclofenac sodium 50 mg 50 mg PO BID 07/13/24 09/21/24 tablet,delayed release glipizide 5 mg tablet 5 mg PO DAILY 03/17/25 Previous Rx's ?Medication ?Instructions ?Recorded lancets 33 gauge (BD Ultra Fine #300 ea 03/21/22 Lancets) blood-glucose meter (Accu-Chek #1 kit 08/20/22 Guide Glucose Meter) lancets (Accu-Chek Softclix ##300 04/04/23 Lancets) sildenafil 100 mg tablet 100 mg PO DAILY PRN sexual 07/25/23 activity #20 tabs blood sugar diagnostic (Accu-Chek #300 strips 05/25/24 Guide test strips) propranolol 40 mg tablet 40 mg PO BID #180 tabs 12/20/24 losartan 25 mg tablet 25 mg PO DAILY 30 days #30 tabs 06/12/25 methylprednisolone 4 mg tablets in See Rx Instructions PO .COMPLEX 03/31/25 a dose pack (Medrol (Thomas)) #21 ea tizanidine 2 mg capsule 2 mg PO Q8H PRN muscle spasticity 03/31/25 #20 caps albuterol sulfate 90 mcg/actuation 2 inh inhalation Q4H PRN shortness 05/15/25 aerosol inhaler of breath or wheezing #6.7 grams fluticasone 250 mcg-salmeterol 50 1 inh inhalation BID #60 ea 05/15/25 mcg/dose blistr powdr for inhalation (Advair Diskus) Allergies Allergy/AdvReac Type Severity Reaction Status Date / Time Iodinated Contrast Media Allergy hives Verified 05/14/25 23:23 primidone Allergy unknown Verified 05/14/25 23:23 [facility] ED PFSH: Medical History (Updated 05/15/25 @ 02:55 by Karri Tenorio DO) Parkinson disease Aortic stenosis Accelerated essential hypertension CAD (coronary artery disease) Enrolled in chronic care management Hyperlipidemia, mixed Type 2 diabetes mellitus Low back pain Encounter for long-term use of opiate analgesic Surgical History History of cholecystectomy History of back surgery H/O aortic valve replacement H/O aortic valve replacement History of arthroplasty of knee Status post total left knee replacement Family History Mother , at age 80 Diabetes Hypertension Stroke Father , at age 65 CAD (coronary artery disease) Rheumatic fever Congestive heart failure (CHF) Brother Hypertension CAD (coronary artery disease) CABG x 4 Diabetes Sister Hypertension CAD (coronary artery disease) stents Brother CAD (coronary artery disease) stents Diabetes Denies family history of Clotting disorder Dementia Chronic kidney disease (CKD) Suicide Anesthesia complication Bleeding disorder Lung disease Cancer Social History Smoking and tobacco/nicotine status: never used tobacco/nicotine Second hand smoke exposure: Yes Alcohol intake: never Substance/Drug Use: current Substance/Drug use frequency: few times a week Marital status: Current occupational status: disabled Physical Exam Const: COMMON NORMALS: no acute distress GENERAL APPEARANCE: cooperative; not ill appearing and not frail appearing HENMT: COMMON NORMALS: normocephalic, atraumatic and Normal external nose present HEAD & SCALP: normocephalic and atraumatic FACE & SINUS: normal facial exam and face symmetric NOSE: Normal external nose present Eye: COMMON NORMALS: Equal, round and reactive pupils present and EOMs intact bilaterally PUPIL: Yes Equal, round and reactive pupils present Neck/C-Spine: GENERAL: Yes trachea midline Chest: CHEST: Yes Symmetrical chest wall rise Resp: COMMON NORMALS: normal respiratory effort, No retractions, No use of accessory muscles and clear to auscultation bilaterally AUSCULTATION: clear to auscultation bilaterally Cardio: COMMON NORMALS: regular rate and regular rhythm RATE: regular rate RHYTHM: regular rhythm GI: COMMON NORMALS: Normal to inspection, nondistended, normoactive bowel sounds present Extremity: COMMON NORMALS: no pedal edema Neuro: ESTELLA COMA SCALE: document GCS findings Estella coma scale eye opening: Spontaneous Estella coma scale verbal response: Orientated [place] coma scale motor response: Obey commands Estella coma scale total score: 15 SENSORY EXAM: Yes extremities (intact) Psych: COMMON NORMALS: speech normal SPEECH: Yes normal speech Skin: COMMON NORMALS: no rashes or lesions noted GENERAL SKIN EXAM: no rashes or lesions noted Course Vital Signs: Vital signs: Vital Signs Temperature 97.3 F L 05/14/25 23:21 Pulse Rate 59 L 05/15/25 03:04 Respiratory Rate 16 05/15/25 03:04 Blood Pressure 148/81 05/15/25 03:04 Pulse Oximetry 96 05/15/25 03:04 Oxygen Delivery Me thod Room Air 05/15/25 01:56 MDM - SOB/Dyspnea Medical Decision Making This patient is breathing room air. Saturations are 97%. He is nontachycardic. Vitals are normal. He is afebrile. His blood sugar is 201. His platelet count is 106. Other laboratory is not remarkable in terms of CBC and BMP. His troponin level was 34 with a delta of -4.5 at [address]-T wave changes on EKG. Chest x-ray is negative. His BNP is only 457. He will be treated for chronic bronchitis. We will not give him systemic steroids, due to history of diabetes. He will be placed on Advair discus, with albuterol as a rescue. Close outpatient follow-up. Return for any worsening symptoms. Lab Data 05/14/25 23:48 05/14/25 23:48 Labs/Radiology: Radiology Impressions Chest X-Ray 05/14/25 23:11 IMPRESSION: No acute infiltrate or effusion. Laboratory Results WBC 6.21 10^3/uL (3.29-11.43) 05/14/25 23:48 RBC 3.78 10^6/uL (3.85-5.65) L 05/14/25 23:48 Hgb 11.80 g/dL (11.27-16.99) 05/14/25 23:48 Hct 36.9 % (37-53) L 05/14/25 23:48 MCV 97.6 fl (82-101) 05/14/25 23:48 MCH 31.2 pg (27-33) 05/14/25 23:48 MCHC 32.0 g/dL (30-55) 05/14/25 23:48 RDW 14.4 % (12.1-15.1) 05/14/25 23:48 Plt Count 106 10^3/cmm (157-399) L 05/14/25 23:48 MPV 11.2 fL (7.4-10.4) H 05/14/25 23:48 Neut % (Auto) 48.5 % 05/14/25 23:48 Lymph % (Auto) 29.0 % 05/14/25 23:48 [place] % (Auto) 20.3 % 05/14/25 23:48 Eos % (Auto) 0.2 % 05/14/25 23:48 Baso % (Auto) 0.2 % 05/14/25 23:48 Neut # (Auto) 3.02 10^3/uL (1.8-7.7) 05/14/25 23:48 Lymph # (Auto) 1.8 10^3/uL (0.8-4.8) 05/14/25 23:48 [place] # (Auto) 1.3 10^3/uL (0.2-0.9) H 05/14/25 23:48 Eos # (Auto) 0.0 10^3/uL (0.0-0.8) 05/14/25 23:48 Baso # (Auto) 0.0 10^3/uL (0.0-0.1) 05/14/25 23:48 Nucleated RBC % (auto) 0 % 05/14/25 23:48 Nucleated RBCs # 0.0 /100WBC 05/14/25 23:48 Sodium 137 mmol/L (136-145) 05/14/25 23:48 Potassium 4.3 mmol/L (3.5-5.1) 05/14/25 23:48 Chloride 100 mmol/L (98-107) 05/14/25 23:48 Carbon Dioxide 25 mmol/L (22-29) 05/14/25 23:48 Anion Gap 16.3 (5-19) 05/14/25 23:48 BUN 20 mg/dL (8-23) 05/14/25 23:48 Creatinine 1.1 mg/dL (0.7-1.2) 05/14/25 23:48 GFR Calculation 66.6 mL/min (90-130) L 05/14/25 23:48 Glucose 201 mg/dL (65-115) H 05/14/25 23:48 Calculated Osmolality 292 mOsm/kg (285-295) 05/14/25 23:48 Calcium 9.9 mg/dL (8.5-10.5) 05/14/25 23:48 Total Bilirubin 0.4 mg/dL (0.15-1.2) 05/14/25 23:48 AST 22 U/L (0-40) 05/14/25 23:48 ALT 12 U/L (0-41) 05/14/25 23:48 Alkaline Phosphatase 95 U/L (40-130) 05/14/25 23:48 Troponin T Baseline 34 ng/L (0-15) H 05/14/25 23:48 Troponin T 120 Minute 29.49 ng/L (0-15) H 05/15/25 01:26 Delta Troponin T -4.51 ABS# (0-10) L 05/15/25 01:26 NT-Pro-B Natriuret Pep 457 pg/mL (0-125) H 05/14/25 23:48 Total Protein 7.0 g/dL (6.6-8.7) 05/14/25 23:48 Albumin 4.4 g/dL (3.5-5.2) 05/14/25 23:48 Globulin 2.6 g/dL (1.3-4.6) 05/14/25 23:48 All radiology interpretation(s) finalized by discharge Discharge Plan Discharge Patient Disposition: Home Clinical Impression: Chronic bronchitis Condition: Stable Prescriptions: New fluticasone propion-salmeterol [Advair Diskus] 250-50 mcg/dose blister with device 1 inh inhalation BID Qty: 60 0RF albuterol sulfate 90 mcg/actuation HFA aerosol inhaler 2 inh INHALATION Q4H PRN (Reason: shortness of breath or wheezing) Qty: 6.7 1RF No Action albuterol sulfate 2.5 mg /3 mL (0.083 %) solution for nebulization 2.5 mg INHALATION Q6H PRN (Reason: Wheezing) carbidopa-levodopa 25-250 mg tablet 1.5 tab PO QID medical marijuana 1 gummy PO PRN PRN (Reason: Pain) ascorbic acid (vitamin C) 1,000 mg tablet 1 g PO DAILY sildenafil 100 mg tablet 100 mg PO DAILY PRN (Reason: sexual activity) Qty: 20 6RF Rx Instructions: Take 1 hour before intercourse, on empty stomach, max dose 100 mg, NO NITROGLYCERIN glipizide 5 mg tablet 5 mg PO DAILY losartan 25 mg tablet 25 mg PO DAILY 30 Days Qty: 30 5RF thiamine HCl (vitamin B1) 100 mg tablet 200 mg PO BID (DME) lancets [BD Ultra Fine Lancets] 33 gauge misc See Rx Instructions .Route Qty: 300 3RF Rx Instructions: As directed to test blood sugar TID (DME) blood-glucose meter [Accu-Chek Guide Glucose Meter] Misc See Rx Instructions .ROUTE .COMPLEX Qty: 1 0RF Dose Instruction: USE DIRECTED 3 TIMES A DAY Rx Instructions: USE DIRECTED 3 TIMES A DAY (DME) lancets [Accu-Chek Softclix Lancets] Misc See Rx Instructions .ROUTE .COMPLEX Qty: 300 3RF Dose Instruction: TEST 3 TIMES A DAY Rx Instructions: TEST 3 TIMES A DAY (DME) Accu-Chek Guide test strips Strip See Rx Instructions .ROUTE .COMPLEX Qty: 300 2RF Dose Instruction: USE DIRECTED TO TEST 3 TIMES A DAY Rx Instructions: USE DIRECTED TO TEST 3 TIMES A DAY propranolol 40 mg tablet 40 mg PO BID Qty: 180 3RF methylprednisolone [Medrol (Thomas)] 4 mg tablets,dose pack See Rx Instructions .ROUTE .COMPLEX Qty: 21 0RF Rx Instructions: for 6 days tizanidine 2 mg capsule 2 mg PO Q8H PRN (Reason: muscle spasticity) Qty: 20 0RF rosuvastatin 40 mg tablet 40 mg PO DAILY Januvia 100 mg tablet 100 mg PO DAILY diclofenac sodium 50 mg tablet,delayed release (DR/EC) 50 mg PO BID Discharge Orders: Discharge ED (Routine); Ordered 05/15/25 Ordered By: Karri Tenorio Referrals: Delgado Billy MD [Primary Care Provider, [facility]] - 1-3 days Patient Instructions: Chronic Bronchitis (ED), Opioid Safety, Pain Management, Patient Portal & Ivan Instructions Activity Restrictions/Additional Instructions: Use the Advair medication twice daily whether you feel you needed or not. If you are still short of breath, you may use the albuterol inhaler intermittently as a rescue. Call your doctor on Friday for follow-up appointment. Return for development of chest discomfort, worsening shortness of breath despite treatment fever, other concerning symptoms. Print Language: [place] Coding Level of Care Code ED Upper [place] Lacer Hand for Fredis Canchola
== END 2025-05-15 03:12 | disposition home or self-care (01) ==
PROVIDERS: Emergency Provider Emergency Medicine; PCP Family Medicine
DX: J42 Unspecified chronic bronchitis (principal); I10 Essential (primary) hypertension; I25.10 Atherosclerotic heart disease of native coronary artery without angina pectoris; E78.2 Mixed hyperlipidemia; E11.9 Type 2 diabetes mellitus without complications; Z79.899 Other long term (current) drug therapy; Z79.84 Long term (current) use of oral hypoglycemic drugs; Z91.041 Radiographic dye allergy status
CPT/HCPCS: 71045; 80053; 83880; 84484; 85025; 93005; 94640; 99285; J9999

== ENCOUNTER 2025-06-01 07:10 | Outpatient (CLI) | payer MEDICARE, MEDICAID, SELFPAY ==
[2025-06-01 07:31] VITALS: PULSE 71; RESP 18; O2SAT 96
== END 2025-06-01 07:11 | disposition home or self-care (01) ==
LOC: RT 07:15
PROVIDERS: PCP Family Medicine; Visit Provider Family Medicine
DX: R06.09 Other forms of dyspnea (principal); R94.2 Abnormal results of pulmonary function studies
CPT/HCPCS: 94060; 94726; 94729; J7613

== ENCOUNTER 2025-06-27 19:57 | Outpatient (CLI) | payer MEDICARE, MEDICAID, SELFPAY | END 2025-06-27 19:58 | disposition home or self-care (01) | LOC: SLEEP 20:00 | PROVIDERS: PCP Family Medicine; Referring Provider Family Medicine; Visit Provider Internal Medicine Pulmonary Disease | DX: G47.33 Obstructive sleep apnea (adult) (pediatric) (principal) | CPT/HCPCS: 95811 ==

== ENCOUNTER 2025-07-28 21:02 | Emergency (ER) | payer MEDICARE, MEDICAID, SELFPAY ==
--- OUTSIDE RECORDS SUMMARY | 2025-07-28 21:09 | XMS_ITS | Data Portability ---
Author Organization SAMUEL [facility] Liliam Nuñez [facility] Address [address] [facility] [address] [place] [address] Care Team Providers Care Handbag Operator Name Role Phone EFREN BILLY Primary Care Provider Assessment Encounter Date Assessment Date Assessment LastModified by Organization Details LastModified Time 07/04/2025 07/04/2025 69-year-old male with a history of trigger finger presenting with worsening symptoms affecting the left ring and middle fingers. Previous injection treatment was not sufficiently effective. Further evaluation by a hand specialist is warranted. The patient also consents to the influenza vaccine. [email or web address] Not available 07/04/2025 09:55:42 Plan of Treatment Reminders Order Date Submit Date Provider Last Modified By Organization Details Last Modified Time Details Appointments None recorded. Lab microalbumi n/creatinin e, mass ratio, urine 2024 025 [facility], [address] [place] [address], [facility] [address] [place], [address], 10:51:02 hemoglobin A1C/hemoglo bin total, QN, blood 2024 025 [facility], [address], [facility] [address], [place], [address], 10:13:51 CMP, serum or plasma 2024 025 [facility], [address], [facility], [place], [address], 5 10:59:07 Referral hand surgeon referral 2024 025 [email or web address] 4 [facility], [address] [place], [address], 5 15:06:11 physical therapist referral 2024 025 [facility], [address] [place] [address], [address], 5 12:34:23 bath house attendant referral 2024 025 [facility] Alfonso Motley MD, [address] , [place], [address], 09:15:38 Procedures None recorded. Surgeries None recorded. Imaging polysomnogr am - Titration ([id number]) 2024 025 [facility] (Scheduling Orders), [address] [place], [address], 5 13:53:06 PFT, complete 2024 025 [facility] (Scheduling Orders), [address] [place], [address], 5 09:33:39 home sleep study 2024 025 [facility], [address] [place], [address], 14:47:32 US, echocardiog haley 2024 025 [facility] Orders, [address] [place], [address], 5 08:58:05 Medication Orders cefdinir 300 mg capsule 2024 025 [facility], [address], [place], [address], 09:17:11 Patient TargetsNo targets recorded. Patient Instructions Encounter Date Encounter Id Patient Instructions Last Modified By Organization Details Last Modified Time 07/04/2025 [id number] - You will recei ve an influenza vaccine today. - Await referral appointment with a hand specialist for your trigger finger. - Continue to monitor your fingers for any changes in symptoms or function. - I will contact you once your pulmonary function test results are available. [email or web address] Not available 07/04/2025 09:55:43 During the visit , I discussed with the patient the current progress and recurrence of symptoms related to trigger finger affecting his left hand. Given the limited efficacy of the prior injection, I recommended a referral to a hand specialist to explore surgical options or alternative therapies. I explained the next steps and answered all questions regarding these options. We also agreed to proceed with the influenza vaccine administration. The patient expressed understanding of the treatment options and agreed with the proposed plan. We also discussed the pending pulmonary function test results, which will require follow-up once available. I will call the patient once results are received. [email or web address] Not available 07/04/2025 09:55:44 Reason for Referral Physical Therapist Referral for Acute back pain with sciatica Referring Physician: [facility], Encounter Date: 04/04/2025 Putty Tinter Maker Referral for Hea ring loss of right ear Referring Physician: [facility], Encounter Date: 04/04/2025 Hand Surgeon Referral for Tr igger finger of left hand Referring Physician: [facility], Encounter Date: 07/04/2025 Results Created Date Observation Date Name Description Value Unit Range Abnormal Flag Note LastModifiedBy Organization Detail LastModifiedTime 04/04/2004/04/2025 HBA1C hemaglobin A1C 6.2 4.2-6. 5 Not Available [facility] [address] [facility] [address], [place], [address], 04/04/2025 10:13:51 04/04/2004/04/2025 CMP (MALE ) glucose 246.0 mg/dL 60.0-9 9.0 high Not Available [facility] [address] [facility], [place], [address], 04/04/2025 10:59:06 04/04/20 25 04/04/2025 CMP (MALE ) BUN (blood urea nitrogen) 30.0 mg/dL 10.0-2 6.0 high Not Available [facility] [address] [facility], [place], [address], 04/04/2025 10:59:06 04/04/20 25 04/04/2025 CMP (MALE ) creatinine (serum) 0.8 mg/dL 0.4-1. 5 Not Available [facility] [address] [facility], [place], [address], 04/04/2025 10:59:06 04/04/20 25 04/04/2025 CMP (MALE ) BUN/creatini ne ratio 37.50 ratio Not Available [facility] [address] [facility], [place], [address], 04/04/2025 10:59:06 04/04/20 25 04/04/2025 CMP (MALE ) eGFR calculated 102.2 Not Available [facility] [address] [facility] [address], [place], [address], 04/04/2025 10:59:06 04/04/20 25 04/04/2025 CMP (MALE ) total protein 7.6 g/dL 6.0-8. 5 Not Available [facility] [address] [facility] [address], [place], [address], 04/04/2025 10:59:06 04/04/20 25 04/04/2025 CMP (MALE ) total bilirubin 0.7 mg/dL 0.2-1. 3 Not Available [facility] [address] [facility] [address] [address], [place], [address], 04/04/2025 10:59:06 04/04/20 25 04/04/2025 CMP (MALE ) albumin 4.6 g/dL 3.5-5. 5 Not Available [facility] [address] [facility] [address], [place], [address], 04/04/2025 10:59:06 04/04/20 25 04/04/2025 CMP (MALE ) globulin 3.0 calc Not Available [facility] [address] [facility] [address], [place], [address], 04/04/2025 10:59:06 04/04/20 25 04/04/2025 CMP (MALE ) AST (SGOT) 25.0 U/L 0.0-46 .0 Not Available [facility] [address] [address], [place], [address], 04/04/2025 10:59:06 04/04/20 25 04/04/2025 CMP (MALE ) altv (SGPT) 12.0 U/L 13.0-6 9.0 abnormal Not Available [facility] [address] [facility] [address], [place], [address], 04/04/2025 10:59:06 04/04/20 25 04/04/2025 CMP (MALE ) A/G ratio 1.5 ratio Not Available [facility] [address] [facility] [address], [place], [address], 04/04/2025 10:59:06 04/04/20 25 04/04/2025 CMP (MALE ) ALP phos 79.0 U/L 30.0-1 40.0 normal Not Available [facility] [address] [facility] [address], [place], [address], 04/04/2025 10:59:06 04/04/20 25 04/04/2025 CMP (MALE ) calcium 9.7 mg/dL 8.4-10 .5 Not Available [facility] [address] [facility], [place], [address], 04/04/2025 10:59:06 04/04/20 25 04/04/2025 CMP (MALE ) sodium 138.0 mmol/ L 136.0- 145.0 Not Available [facility] [address] [facility] [facility] [address], [place], [address], 04/04/2025 10:59:06 04/04/20 25 04/04/2025 CMP (MALE ) potassium 4.6 mmol/ L 3.5-5. 1 Not Available [facility] [address] [facility] [facility] [address], [place], [address], 04/04/2025 10:59:06 04/04/20 25 04/04/2025 CMP (MALE ) chloride 102.0 mmol/ L 98.0-1 10.0 normal Not Available [facility] [address] [facility] [facility], [place], [address], 04/04/2025 10:59:06 04/04/20 25 04/04/2025 CMP (MALE ) C02 28.0 mmol/ L 22.0-3 1.0 Not Available [facility] [address] [facility] [facility] [address], [place], [address], 04/04/2025 10:59:06 04/04/20 25 04/04/2025 CMP (MALE ) anion gap 8.0 calc Not Available [facility] [address] [facility] [address], [place], [address], 04/04/2025 10:59:06 04/04/20 25 04/04/2025 CMP (MALE ) osmolality 298.3 calc Not Available [facility] [address] [facility], [place], [address], 04/04/2025 10:59:06 04/04/20 25 04/05/2025 ALBUM IN, RANDO M URINE W/CRE ATINI NE creatinine, random urine 65 mg/dL 20-320 normal Not Available [facility] [address] [place], [address], 04/05/2025 10:51:02 04/04/20 25 04/05/2025 ALBUM IN, RANDO M URINE W/CRE ATINI NE albumin, urine 2.6 mg/dL see note: normal Refer ence Range : Refer ence Range Not estab lishe d Not Available [facility] [address] [place], [address], 04/05/2025 10:51:02 04/04/20 25 04/05/2025 ALBUM IN, RANDO M URINE W/CRE ATINI NE albumin/crea tinine ratio, random urine 40 mg/g_ creat <30 high The ADA defin es abnor malit ies in album in excre tion as follo ws: Album inuri a Categ ory Resul t (mg/g creat inine ) Hailey l to Mildl y incre ased <30 Moder ately incre ased 30-29 9 Sever tye incre ased > OR = 300 The ADA recom mends that at least two of three speci mens colle cted withi n a 3-6 month perio d be abnor mal befor e consi nancy g a patie nt to be withi n a diagn ostic categ ory. Not Available [facility] [address] [place], [address], 04/05/2025 10:51:02 05/01/20 home sleep study No observ ation record ed. [email or web address] [facility] [address] [place], [address], 05/09/2025 09:48:31 05/05/20 25 05/04/2025 , echoc ardio gram No observ ation record ed. [email or web address] [facility] [address] [place], [address], 05/09/2025 09:48:32 07/13/2006/27/2025 home sleep study No observ ation record ed. [facility] [address] [facility], [place], [address], 07/14/2025 17:14:48 Result Notes None recorded. Problems Name Problem SNOMED Code Status Onset Date Resolution Date Notes Provider Name and Address Organization Details Recorded Time Parkinson's disease 15990807 Active [address] [facility] 4 08:33:39 Type 2 diabetes mellitus 12007275 Active [address] [facility] 4 08:33:48 Hypercholes terolemia 68787505 Active [address] [facility] 4 09:52:27 Vitamin D deficiency 33387030 Active 2023 Efren Billy MD [address] [place] [address], [phone], [facility] 5 12:22:56 Posterior rhinorrhea 13526542 Active 2023 Efren Billy MD [address] [place] [address], [phone], [facility] 5 12:22:53 Left lateral elbow tendinopath y 6850258222507 00 Active 2024 Efren Billy MD [address] [place] [address], [phone], [facility] 5 12:22:42 Mild recurrent major depression 78167146 Active 2024 Efren Billy MD [address] [place] [address], [phone], [facility] 5 12:23:16 Fatigue 42284445 Active 2024 Harjinder beal, [facility] 5 11:58:36 Trigger finger of left hand 9116111536916 9107 Active 2024 Efren Billy MD [address] [place] [address], [phone], [facility] 5 09:44:31 Orthopnea 50269904 Active 2024 Efren Billy MD [address] [place] [address], [phone], [facility] 5 09:28:33 Dyspnea on exertion 90489427 Active 2024 Efren Billy MD [address] [place] [address], [phone], [facility] 5 09:29:00 Daytime somnolence 014574100822 Active 2024 Efren Billy MD [address] [place] [address], [address], [facility] 5 09:31:04 Acute back pain with sciatica 252077947 Active 2024 Efren Billy MD [address] [place] [address], [phone], [facility] 5 09:31:41 Hearing loss of right ear 263027792 Active 2024 Efren Billy MD [address] [place] [address], [address], [facility] 5 09:32:53 Diastolic dysfunction 3597807 Active [address] [facility] 09:52:12 Inflammatio n of sacroiliac joint 43777988 Active 2024 Efren Billy MD [address] [place], [address], [facility] 5 12:05:00 Bronchitis 14302987 Active 2024 Efren Billy MD [address] [place], [address], [facility] 5 09:21:17 Sleep apnea 34821395 Active [address] [facility] 16:46:23 Problem Notes None recorded. Procedures Surgical History Date Name Laterality Status Provider Name and Address Organization Details Recorded Time 07/15/20 24 Colonoscopy [address]OMMY GOINS [facility] 07/26/2024 10:25:49 10/06/19 24 decompression of ulnar nerve at elbow completed Harjinder Ruff [facility] 12/01/2024 14:59:35 Appendectomy completed MARIE DYER [facility] 07/06/2024 09:35:33 Cholecystectomy completed MARIE DYER [facility] 07/06/2024 09:35:40 Imaging Results None recorded. Procedure Notes None recorded. Medical Equipment None Reported. Allergies Allergen ID Allergen Name Allergen Category Reaction Reaction Severity Criticality Documentation Date Start Date Code Code System Note Provider Name and Address Organization Details Recorded Time 50278 iodine medicatio n Not available Not available Not available 07/06/2024 5933 RxNorm iodin ated contr ast dye Harjinder beal [facility] 15:00:29 80658 primidone medicatio n dizziness mild low 05/11/2025 8691 RxNorm Saumya Clark [facility] 5 12:35:34 Medications Name Sig Start Date Stop Date Status Note LastModified by Organization Details LastModified Time promethazin e-DM 6.25 mg-15 mg/5 mL oral syrup TAKE 5 ML BY MOUTH EVERY 4 HOURS NEEDED 12/01 completed Not Available Not Available Not Available fluticasone 250 mcg-salmete rol 50 mcg/dose blistr powdr for inhalation INHALE 1 PUFF BY MOUTH TWICE A DAY active Not Available Not Available No t Available doxycycline hyclate 100 mg capsule Take 1 capsule twice a day by oral route. 12/01 completed Not Available Not Available Not Available ropinirole 1 mg tablet TAKE 1 TABLET BY MOUTH ONCE DAILY AT BEDTIME active Not Available Not Available No t Available cetirizine 10 mg tablet TAKE 1 [...] mg tablet TAKE 2 TABLETS BY MOUTH AT 6:00 AM, 1 TAB AT 10:00 AM, 1 TAB AT 2:00 PM, AND 2 TABS AT 6:00 PM active Not Available Not Available No t Available prednisone 20 mg tablet Take 1 tablet every day by oral route. 12/22 completed Not Available Not Available Not Available tramadol 50 mg tablet TAKE 1 TABLET BY MOUTH EVERY 6 HOURS NEEDED FOR PAIN active Not Available Not Available No t Available sildenafil 100 mg tablet Take 1 [...] No t Available amoxicillin 875 mg tablet TAKE 1 TABLET BY MOUTH EVERY 12 HOURS FOR 7 DAYS 05/11 completed Not Available Not Available Not Available ropinirole 0.5 mg tablet TAKE 1 TABLET BY MOUTH ONCE DAILY AT BEDTIME 05/11 completed Not Available Not Available Not Available losartan 25 mg tablet TAKE 1 TABLET BY MOUTH ONCE DAILY active Not Available Not Available No t Available One Touch Basic System kit check sugar 3 times a day active Not Available Not Available No t Available diclofenac sodium 50 mg tablet,acosta yed release Take 1 tablet by mouth twice daily 2024 active Not Available Not Available Not Avai lable metoprolol succinate ER 25 mg tablet,exte nded release 24 hr TAKE 1 TABLET BY MOUTH ONCE DAILY active Not Available Not Available No t Available azelastine 137 mcg (0.1 %) nasal spray USE 2 SPRAYS IN EACH NOSTRIL TWICE A DAY active Not Available Not Available No t Available methylpredn isolone 4 mg tablets in a dose pack TAKE DIRECTED 05/11 completed Not Available Not Available Not Available albuterol sulfate HFA 90 mcg/actuati on aerosol inhaler INHALE 2 PUFFS BY MOUTH EVERY 4 HOURS NEEDED FOR SHORTNESS OF BREATH OR WHEEZING active Not Available Not Available No t Available cefdinir 300 mg capsule TAKE 1 CAPSULE BY MOUTH EVERY 12 HOURS FOR 7 DAYS 04/04 completed Not Available Not Available Not Available fluticasone propionate 50 mcg/actuati on nasal spray,suspe nsion USE 2 SPRAYS IN EACH NOSTRIL ONCE DAILY active Not Available Not Available No t Available glipizide 5 mg tablet TAKE 1 TABLET BY MOUTH ONCE DAILY IN THE MORNING active Not Available Not Available No t Available oxycodone 5 mg tablet TAKE 1 TABLET BY MOUTH EVERY 8 HOURS NEEDED FOR PAIN MAX DAILY AMOUNT 15MG 05/11 completed Not Available Not Available Not Available Vitamin D2 25,000 unit capsule Take 2 capsules every week by oral route. 12/01 completed Not Available Not Available Not Available rosuvastati n 40 mg tablet TAKE 1 TABLET BY MOUTH ONCE DAILY active Not Available Not Available No t Available tizanidine 2 mg capsule TAKE 1 CAPSULE BY MOUTH EVERY 8 HOURS NEEDED FOR MUSCLE SPASTICIT Y 04/04 completed Not Available Not Available Not Available magnesium 400mg daily active Not Available Not Available No t Available Vitamin C daily 04/04 completed Not Available Not Available Not Available oxycodone 04/04 completed Not Available Not Available Not Available Iron (ferrous sulfate) daily active Not Available Not Available Not Available Vitamin B1 daily 04/04 completed Not Available Not Available Not Available Vitmain B-12 daily 04/04 completed Not Available Not Available Not Available Januvia 100 mg tablet TAKE 1 TABLET BY MOUTH ONCE DAILY active Not Available Not Available No t Available diclofenac 1 % topical gel 07/06 completed Not Available Not Available Not Available OneTouch Verio test strips USE DIRECTED TO TEST 3 TIMES DAILY active Not Available Not Available No t Available Farxiga 10 mg tablet TAKE 1 TABLET BY [...] Heart rate Respiratory rate Body temperature Systolic And Diastolic Provider Name and Address Organization Details Last Updated DateTime 5 180.34 cm 31.1 kg/m2 058870. 1 g 96 % 96 % 76 /min 16 /min 98.2 [degF] 150/80 mm[Hg] Sherri Goodwin [facility] 5 10:52:27 Date Recorded Body height Body mass index (BMI) Body weight Body temperature Heart rate Oxygen saturation Oxygen saturation in Arterial blood by Pulse oximetry Systolic And Diastolic Provider Name and Address Organization Details Last Updated DateTime 5 180.34 cm 30.7 kg/m2 16982.3 2 g 98.7 [degF] 60 /min 98 % 98 % 158/88 mm[Hg] Lorena Alex [facility] 5 09:10:59 Date Recorded Body height Body mass index (BMI) Body weight Oxygen saturation Oxygen saturation in Arterial blood by Pulse oximetry Heart rate Systolic And Diastolic Provider Name and Address Organization Details Last Updated DateTime 5 180.34 cm 31.9 kg/m2 928472. 65 g 97 % 97 % 71 /min 141/81 mm[Hg] Saumya Clark [facility] 08/06/202 5 12:34:32 Date Recorded Body height Body mass index (BMI) Body weight Oxygen saturation Oxygen saturation in Arterial blood by Pulse oximetry Heart rate Respiratory rate Body temperature Systolic And Diastolic Provider Name and Address Organization Details Last Updated DateTime 5 180.34 cm 31.8 kg/m2 956148. 06 g 96 % 96 % 83 /min 20 /min 97.3 [degF] 134/80 mm[Hg] Mary Krishna [facility] 5 11:16:44 Date Recorded Body height Body mass index (BMI) Body weight Oxygen saturation Oxygen saturation in Arterial blood by Pulse oximetry Heart rate Systolic And Diastolic Provider Name and Address Organization Details Last Updated DateTime 5 180.34 cm 32.5 kg/m2 620311. 02 g 95 % 95 % 66 /min 120/68 mm[Hg] Saumya Clark [facility] 5 09:38:21 Social History Question Answer Notes LastModified by [employer] Details LastModified Time Tobacco Smoking Status [facility] 03/16/2025 12:23:31 What Is Your Level Of Caffeine Consumption? Moderate Information not available 07/06/2024 What Type Of Diet Are You Following? REGULAR Information not available 07/06/2024 What Is The Highest Grade Or Level Of School You Have Completed Or The Highest Degree You Have Received? [id number] Information not available 07/06/2024 What Was The Date Of Your Most Recent Tobacco Screening? 07/04/2025 [email or web address] Information not available 07/04/2025 What Is Your Relationship Status? Information not available 07/06/2024 Do You Have Any Dietary Restrictions? No Information not available 07/06/2024 Sex: Unknown Functional Status Question Answer Note LastModified by [employer] Details LastModified Time Do you use any illicit or recreational drugs? Yes marijuana Information not available 07/06/2024 What is your level of alcohol consumption? None Information not available 07/06/2024 Are you currently employed? No retired Information not available 07/06/2024 Are you able to walk independently without assistance or assistive devices? YESWOREST Information not available 07/06/2024 Are you able to care for yourself independently? Yes Information not available 07/06/2024 Mental Status None recorded. Family History Relationship Description Onset Age of this Age Resolved Age Notes LastModified by Organization Details LastModified Time Father Myocardial infarction Not available 12/01 15:07:18 Mother Cerebrovascu lar accident [email or web address] Not available 15:07:33 Brother Hypertensive disorder [email or web address] Not available 2024 15:07:41 Brother Heart disease [email or web address] Not available 2024 15:07:51 Medical History No medical history recorded. Immunizations Vaccine Type Date Status Note Provider Nam e and Address Organization Details Recorded Time Influenza, adjuvanted, trivalent, PF 5 completed [facility] 07/04/2025 11:30:56 influenza, split (incl. purified surface antigen) 0 completed Not Available [facility] 07/04/2025 09:32:30 Influenza, split virus, trivalent, preservative 1 completed Not Available [facility] 07/04/2025 09:32:30 COVID-19, mRNA, LNP-S, PF, 100 mcg/0.5mL dose or 50 mcg/0.25mL dose 1 completed Not Available [facility] 07/04/2025 09:32:30 COVID-19, mRNA, LNP-S, PF, 100 mcg/0.5mL dose or 50 mcg/0.25mL dose 1 completed Not Available [facility] 07/04/2025 09:32:30 Influenza, split virus, quadrivalent, PF 2 completed Not Available [facility] 07/04/2025 09:32:30 Influenza, high-dose, quadrivalent, PF 3 completed Not Available [facility] 07/04/2025 09:32:30 zoster recombinant 5 completed Not Available [facility] 07/04/2025 09:32:30 zoster recombinant 5 completed Not Available [facility] 07/04/2025 09:32:30 Influenza, adjuvanted, trivalent, PF 4 completed Efren Billy MD [address] [place] [address], [phone], [facility], [place] 08/13/2024 12:33:44 Past Encounters Encounter ID Performer Location Encounter Start Date Encounter Closed Date Diagnosis/Indication Diagnosis SNOMED-CT Code Diagnosis ICD10 Code Diagnosis IMO Codes Diagnosis Note [id number] Efren Billy MD [facility] ([facility]) [address] [place] [phone] 07/06/2024 09:21:37 07/06/2024 10:43:20 Parkinson's disease 84026929 G20.A1 Continue to follow with neurology in [facility]. Type 2 maria alejandra betes mellitus 19989696 E11.9 Patient is not due for A1c today. Patient is due for all lab work and yearly physical next month. Continue current medication s. History of mitral valve replacement [id number] 109 Z95.2 Continue to follow with cardiology . Hypercholesterolemia 136 24750 E78.00 Tolerating statin without any issue Vitamin D deficiency 347 43439 E55.9 [id number] Efren Billy MD [facility] ([facility]) [address] [place] [address] [phone] 5 08/10/2024 09:12:16 08/12/2024 10:35:39 Hypercholesterolemia 28391423 E78.00 Tolerating statin without any issue Parkinson's disease 4904 9000 G20.A1 Continue to follow with neurology in [facility]. Type 2 maria alejandra betes mellitus 32534825 E11.9 Check A1c and urine microalbum in today. Continue current medication at this time. [id number] Efren Billy MD [facility] ([facility]) [address] [place] [address] [phone] 5 08/11/2024 14:36:41 08/11/2024 16:10:17 Posterior rhinorrhea 26680632 R09.82 Ear drainage is likely causing the sore throat. Exam is more consistent with allergies than infection. Will start as the duloxetine and cetirizine . Active or passive immunization 824895366 Z23 Type 2 maria alejandra betes mellitus 54952484 E11.9 A1c was 5.7. Discussed medication s and we will stop the glipizide. A1c in 3 months. [id number] Efren Billy MD [facility] ([facility]) [address] [place] [address] [phone] 5 08/31/2024 15:39:46 08/31/2024 16:14:18 Bronchitis 26791924 J40 Will treat the patient with antibiotic s and steroids similar to his . Will provide Tessalon Perles to help with cough. Continue over-the-c ounter medication to help with symptoms. Follow-up if symptoms do not improve after 7 to 10 days. [id number] Efren Billy MD [facility] ([facility]) [address] [place] [address] [phone] 5 12/01/2024 14:51:16 12/01/2024 16:19:11 Left lateral elbow tendinopathy [id number] 44972 M77.12 Exam is consistent with lateral epicondyli tis. Discussed tennis elbow strap. The patient is going to physical therapy for his back so prescripti on was provided for them to work with his tennis elbow as well. [id number] Efren Billy MD [facility] ([facility]) [address] [place] [address] [phone] 5 12/22/2024 10:37:40 12/22/2024 11:25:27 Fatigue 82301086 R53.83 Will check labs today to evaluate fatigue. Trigger fi nger of left hand [id number] 8391342 M65.342 M65.332 The patient has trigger fingers [...] procedure was performed on left middle finger. [id number] CECY GONZALES [facility] ([facility]) [address] [place] [address] [phone] 5 02/09/2025 10:27:50 02/15/2025 08:14:46 Dyspnea 744963529 R06.02 77354 VSS. No signs of PE or post op complicati on. Breath sounds clear; not diminished . Will send order for a incentive spirometer . Discussed how to use this every 4 hours while awake. If you develop fever, worsening sob, cough productive of sputum then return for re-evaluat ion. [id number] CECY GEORGE [facility] ([facility]) [address] [place] [address] [phone] 5 03/16/2025 12:13:45 03/16/2025 14:24:07 Acute right otitis media 999260447 H66.91 [id number] Patient to take antibiotic as prescribed . Did not see any perforatio n of ear drum but encouraged patient to call with any drainage or increased pain. Return to clinic with any new or worsening symptoms. [id number] KIM CARVER SOCIAL WORK SPECIALIST [facility] ([facility]) [address] [place] [address] [phone] 5 03/22/2025 10:45:50 03/22/2025 11:05:38 Acute right otitis media 745644596 H66.91 [id number] stop amox. will start the cefdinir. f/u in 1 week for re-evaluat ion. [id number] Efren Billy MD [facility] ([facility]) [address] [place] [address] [phone] 5 04/04/2025 09:03:12 04/04/2025 09:35:57 Orthopnea 24388021 R06.01 79865 Dyspnea on exertion 6084 5006 R06.09 556773 The patient is having orthopnea and dyspnea on exertion. Concerned about the patient's heart. Will order an echo. Daytime somnolence 84247 13607 00 G47.19 121286 Patient does have significan t risk factors suggestive of sleep apnea. Recommend home sleep study. Acute back pain with sciatica 727988087 M54.42 [id number] Patient is having persistent low back issues and has gone to the ER several times for this. Continue medication therapy but also start physical therapy for treatment. Type 2 maria alejandra betes mellitus 97796498 E11.9 Check labs today. Continue current interventi ons. Hearing lo ss of right ear 899703083 H91.91 [id number] Will send referral to audiologis t for hearing testing. [id number] Efren Billy MD [facility] ([facility]) [address] [place] [address] [phone] 5 05/11/2025 12:17:07 05/11/2025 13:12:15 Daytime somnolence 1623706672 00 G47.19 801196 The patient needs to be tested appropriat tye for sleep apnea. The patient has tried multiple home sleep studies but they come back nondiagnos tic and likely secondary to his tremor. Recommend monitored in the lab sleep study for evaluation for his possible sleep apnea Dyspnea on exertion 6084 5006 R06.09 970461 The patient continues to have dyspnea on exertion. Reviewed echo results with the patient. We will proceed with pulmonary function testing at this time. Prefer this to be done at the [facility]. Inflammati on of sacroiliac joint 99363257 M46.1 87673 Patient's back pain is related to cigarette that is and not his kidney. Patient was reassured. Patient will continue with home stretches and exercises. [id number] Efren Billy MD [facility] ([facility]) [address] [place] [address] [phone] 5 05/24/2025 11:08:58 05/24/2025 12:59:44 Bronchitis 79817827 J40 33597 Patient is doing better and is recovering from his recent illness. Type 2 maria alejandra betes mellitus 30224972 E11.9 Patient is doing well on current medication s. A1c 7.2%. [id number] Efren Billy MD [facility] ([facility]) [address] [place] [address] [phone] 5 07/04/2025 09:32:07 07/04/2025 10:03:59 Trigger finger of left hand 5308307983 4436983 M65.342 - Referral to hand specialist for further evaluation and possible surgical options. Administra tion of influenza vaccine 53554085 Z23 - Administer influenza vaccinatio n today. Triggering of digit 2399 24315 M65.341 Health Concerns Section Related Observation LastModified by Organization Detai ls LastModified Time None Recorded Concern Status LastModified by Organization Details LastModified Time None Recorded Advance Directives Directive None Recorded Payers Insurance Date Sequence Insurance Name Policy Number Policy Arana Covered Member ID Arana Member ID Guarantor Name 07/02/2025 2 [place] Jose Hairston [id number] Jose Hairston 09/26/2024 1 [employer] - DUAL COMPLETE (MEDICARE REPLACEMENT/ ADVANTAGE - HMO) [id number] Jose Hairston [id number] Jose Hairston 07/07/2025 [place] [facility] Jose Hairston [id number] Jose Hairston 07/07/2025 1 [employer] (MEDICARE REPLACEMENT/ ADVANTAGE - PPO) [id number] Jose Hairston [id number] Jose Hairston Notes Date Note Type Note Provider Name and Address Organization Details Recorded Time 03/22/2025 text/html CoughReported by PatientROS as noted in the HPI walk in patientpatient was here on 03/16/25 and was started on amoxicillin for his ear infection, but now he is coughing, and very congested that started 3 days ago. Still cannot hear out of his right ear. KIM CARVER, [address], [phone], [facility], Liliam 03/22/2025 11:05:16 04/04/2025 text/html This is a 69 year old male being seen today for having breathing problems when he lays on his back or left side. He states his chest feels like it is being compressed. She states that he does snore at night and often times will wake up gasping for air. The patient is tired throughout the day and never feels rested. He would like to discuss his sciatica inflammation causing pain on left side that radiates down his leg causing pain of 9-10/10 constant from buttock to the knee. Pain increases with ambulation. This began last morning. He has had 2 ER visits for this problem. They started him on Methylpred pack, tizanidine, and 3 injections. He stated it only helped him sleep. Patient states that his diabetes is doing fairly well on current medications. Patient also has hearing loss in his right ear and he would like it evaluated further Efren Billy MD [address] [place] [address], [phone], [facility] 04/05/2025 11:06:59 05/11/2025 text/html ROS as noted in the HPI Patient is here today c/o of SOB going on since JanuaryPt feels SOB, coughs, wheezes and has episodes of sleep apnea at nightHe also c/o of Back Pain on the right side he thinks maybe kidney related Efren Billy MD [address] [place] [address], [phone], [facility] 05/14/2025 12:06:41 05/24/2025 text/html patient here to f/u on an ER visit for difficulty breathing. they gave him an albuterol inhaler and he has PTF's set up for 06/01 he is feeling better nowhis [facility] 7.2 A1C. Patient has no other concerns today. Efren Billy MD [address] [place] [address], [phone], [facility] 05/29/2025 09:21:51 07/04/2025 text/html ROS as noted in the HPI The patient is a 69-year-old male presenting with management of trigger finger and influenza immunization. He reports a recurrence of symptoms related to trigger finger in his left hand, which he previously received an injection for six months ago. While there was initial relief, the symptoms returned, affecting his left and right ring fingers, necessitating a referral to a hand specialist for further evaluation. During this visit, he also consented to receive an influenza vaccine. - Tests and diagnostics: Pulmonary function test results pending from the hospital. Efren Billy MD [address] [place] [address], [phone], [facility] 07/04/2025 10:02:16
--- OUTSIDE RECORDS SUMMARY | 2025-07-28 21:09 | XMS_ITS | Encounter Summary ---
Author Organization [facility] Address [address] [place] [address] Care Team Providers Care Abrasive Mixer Helper Name Role Phone Unavailable Primary Care Provider Unavailabl e Encounter Details Date Type Department Care Team (Late st Contact Info) Description 07/27/2025 External Device Data [facility] ABSTRACTION Provider, Abstract NO ADDRESS ON FILE Social History Tobacco Use Types Packs/Day Years Used Date Smoking Tobacco: Never Smokeless Tobacco: Never Alcohol Use Standard Drinks/Week Comments No 0 (1 standard drink = 0.6 oz pur e alcohol) Feeling Safe Answer Date Recorded Are you in a relationship wi th someone who hurts you emotionally and/or physically? 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 ASSEMBLER Gender Identity Not on file Sexual Orientation Not on file documented as of this encounter Plan of Treatment Upcoming Encounters Date Type Department Care Team (Late st Contact Info) Description 08/18/2025 10:20 AM ATOMIZER ASSEMBLER Office Visit [facility] [address] [place] [phone] Isabell Garcia PA [address] [place] [address] 09/06/2025 11:00 AM ATOMIZER ASSEMBLER Office Visit [facility] Orthopedics - Orthopedic [facility] [address] [place] [address] Vida Osborn MD [address] [place] [address] 11/25/2025 11:15 AM ATOMIZER ASSEMBLER Office Visit [facility] Neurology - [place] [address] [place] [address] Norma Dhaliwal MD [address] [place] [address] documented as of this encounter Visit Diagnoses Not on filedocumented in this encounter
--- OUTSIDE RECORDS SUMMARY | 2025-07-28 21:09 | XMS_ITS | Encounter Summary ---
Author Organization [facility] Address 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:58 AM GUN STRIPER Gender Identity Not on file Sexual Orientation Not on file documented as of this encounter Plan of Treatment Upcoming Encounters Date Type Department Care Team (Late st Contact Info) Description 08/18/2025 10:20 AM GUN STRIPER Office Visit [facility] Pain [facility] [address] [place] [address] Isabell Garcai PA [address] [place] [address] 09/06/2025 11:00 AM GUN STRIPER Office Visit [facility] Orthopedics - Orthopedic [facility] [address] [place] [address] Vida Osborn MD [address] [place] [address] 11/25/2025 11:15 AM GUN STRIPER Office Visit [facility] Neurology - [place] [address] [place] [address] Norma Dhaliwal MD [address] [place] [address] documented as of this encounter Visit Diagnoses Not on filedocumented in this encounter
--- OUTSIDE RECORDS SUMMARY | 2025-07-28 21:09 | XMS_ITS | Clinical Summary ---
Author Organization [facility] Address [address] [facility] Attn: [place] [address] Care Team Providers Care Systems Admin Name Role Phone Unavailable Primary Care Provider Unavailabl e Allergies Active Allergy Reactions Criticality Noted Date Comments Iodinated Contrast Media Hives,Rash High 04/22/2022 Iodine Hives,Rash High 12/18/2018 iodine Primidone Unknown 04/22/2022 Medications propranoloL (INDERAL) 40 mg tablet Take 40 mg by mouth 2 times daily. 10/04/20 22 Active azelastine (ASTELIN) 137 mcg/actuation nasal spray [...] (Vitamin B-12) 1,000 mcg Tablet daily. Active losartan (COZAAR) 25 mg tablet Take [...] p.m. 540 Tablet 7 04/29/20 25 Active traMADol (ULTRAM) 50 mg tabletIndicatio ns:Status post cervical spinal fusion Take 1 Tablet (50 mg) by mouth every 6 hours as needed for Pain. 40 Tablet 05/18/20 25 Active glipiZIDE (GLUCOTROL) 5 mg tablet Take 5 mg by mouth daily in the morning. Active diclofenac potassium (CATAFLAM) 50 mg Tablet Take 1 Tablet (50 mg) by mouth 2 times daily. 06/22/20 25 Active Active Problems Problem Noted Date Diagnosed Date [...] Encounters Date Type Department Care Team Description 07/27/2025 External Device Data [facility] ABSTRACTION Provider, Abstract 07/26/2025 External Device Data [facility] ABSTRACTION Provider, Abstract 07/19/2025 External Device Data [facility] ABSTRACTION Provider, Abstract 07/19/2025 External Device Data [facility] ABSTRACTION Provider, Abstract 07/14/2025 Telephone [facility] [address] [place] [phone] Isabell Garcia PA Question 07/11/2025 9:16 AM CDT - 07/11/2025 11:59 PM CDT Hospital Encounter [facility] Procedures [place] [address] [place] [phone] Isabell Garcia PA Discharge Disposition: Home or Self Care 07/11/2025 8:57 AM CDT - 07/11/2025 11:59 PM CDT Hospital Encounter [facility] Procedures [place] [address] [place] [phone] Omi Henderson MD Discharge Disposition: Home or Self Care 07/05/2025 Telephone [facility] [address] [place] [address] Vida Osborn MD General 06/30/2025 10:20 AM CDT Office Visit [facility] [address] [place] [phone] Kina Navarro PA Status post lumbar surgery (Primary Dx); Lumbar radiculopathy 06/22/2025 12:40 PM CDT Office Visit [facility] [address] [place] [phone] Isabell Garcia PA Lumbar postlaminectomy syndrome (Primary Dx); Lumbar radicular pain; Degeneration of intervertebral disc of lumbar region with discogenic back pain; Chronic pain syndrome; Failed neck syndrome 06/21/2025 External Device Data [facility] ABSTRACTION Provider, Abstract 06/02/2025 7:38 AM CDT - 06/02/2025 11:59 PM CDT Hospital Encounter [facility] [address] [place] [phone] Kina Navarro PA Discharge Disposition: Home or Self Care 05/18/2025 11:00 AM CDT Office Visit [facility] [address] [place] [phone] Kina Navarro PA Status post cervical spinal fusion (Primary Dx); Chronic bilateral low back pain with left-sided sciatica; Status post lumbar surgery; Lumbar radiculopathy 05/18/2025 Refill [facility] [address] [place] [phone] Doug Lo MD Status post cervical spinal fusion (Primary Dx) 04/29/2025 10:30 AM CDT Office Visit [facility] - [address] [place] [phone] Norma Dhaliwal MD Parkinson's disease without dyskinesia or fluctuating manifestations (CMS/HCC) (Primary Dx); REM sleep behavior disorder from Last 3 Months Immunizations Immunization Administration [...] on file Legal 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 Gender Identity Not on file Sexual Orientation Not on file Last Filed Vital Signs Vital Sign Reading Time Taken Comments Blood Pressure 160/83 07/11/2025 9:33 AM CDT Pulse 63 07/11/2025 9:33 AM CDT Temperature 36.8 C (98.2 F) 01/18/2025 11:08 AM CDT Respiratory Rate 16 07/11/2025 9:33 AM CDT Oxygen Saturation 95% 07/11/2025 9:33 AM CDT Inhaled Oxygen Concentration - - Weight 102.5 kg (226 lb) 06/30/2025 10:19 AM CDT Height 180.3 cm (5' 11 ) 06/30/2025 10:19 AM CDT Body Mass Index 31.52 06/30/2025 10:19 AM CDT Plan of Treatment Upcoming Encounters Date Type Department Care Team (Late st Contact Info) Description 08/18/2025 10:[address] MAINTENANCE SUPERVISOR Office Visit [facility] [address] [place] [address] Isabell Garcia PA [address] [place] [address] 09/06/2025 11:[address] MAINTENANCE SUPERVISOR Office Visit [facility] - [facility]opedic [facility] [address] [place] [address] Vida Osborn MD [address] [place] [address] 11/25/2025 11:[address] MAINTENANCE SUPERVIS[address] Office Visit [facility] [place] [address] [place] [address] Norma Dhaliwal MD [address] [place] [address] Health Maintenance Due Date Last Done Comments DIABETES ANNUAL FOOT EXAM 1974 DIABETES ANNUAL RETINAL EXAM 1974 DIABETES MICROALBUMIN ANNUAL SCREEN 1974 LDL CHOLESTEROL ANNUAL 1974 DTAP/TDAP/TD VACCINES (1 - Tdap) 1975 PNEUMOCOCCAL VACCINE 50+ YEA RS (1 of 2 - PCV) 1975 FIT-DNA Q 3 years 2001 FIT/FOBT Q 1 year 2001 Flex Sig/CT Colonography Q 5 years 2001 RSV VACCINE (60+ or ) (1 - Risk 50-74 years 1-dose series) 2006 Medicare Advantage (CT) Preventative Visit/Annual Wellness Visit 10/06/2024 COVID-19 Vaccine (3 - 2024-2 6 season) 2025 02/06/2021, 01/09/2021 DIABETES HBA1C Q 6 MONTHS 10/07/20252024, 12/30/2024, 08/10/2024 COLORECTAL SCREENING 07/15/2034 07/15/2024 Colorectal Cancer Screening 07/15/2034 ZOSTER VACCINE Completed 06/16/2025, 04/06/2025 INFLUENZA VACCINE Completed 07/04/2025, , 07/25/2023, Additional history exists Medical Devices Implanted Type Area Final Inspector Shuttle Device Identifier Shelf Expiration Date Model / Serial / Lot Celso Mastergraft 9.0ml [id number] - [id number] Implanted:Qty : 1 on 01/14/2025 by Abisai Hsieh MD at [facility] Biological N/A: Spine Cervical Posterior [employer]AMOR [employer]ANEK 09/04/2028 [id number] / / [id number] Hemostatic Surgiflo 8ml W/ Thrombin 2994 - [id number] Implanted:Qty : 1 on 01/14/2025 by Abisai Hsieh MD at [facility] Hemostatic N/A: Spine Cervical Posterior [employer] [id number] 04/04/2026 2994 / / [id number] Hemostatic Surgiflo 8ml W/ Thrombin 2994 - [id number] Implanted:Qty : 1 on 01/14/2025 by Abisai Hsieh MD at [facility] Hemostatic N/A: Spine Cervical Posterior [employer] [id number] 04/04/2026 2994 / / [id number] Anjel Infinity 3.5x60mm Pre-Cut [id number] - [id number] Implanted:Qty : 1 on 01/14/2025 by Abisai Hsieh MD at [facility] Anjel N/A: Spine Cervical Posterior [employer] 01/14/2030 [id number] / / [id number] Anjel Infinity 3.5x60mm Pre-Cut [id number] - [id number] Implanted:Qty : 1 on 01/14/2025 by Abisai Hsieh MD at [facility] Anjel N/A: Spine Cervical Posterior [employer] 01/14/2030 [id number] / / [id number] Screw Infinity 3.5x14mm Mas [id number] - [id number] Implanted:Qty : 1 on 01/14/2025 by Abisai Hsieh MD at [facility] Screw N/A: Spine Cervical Posterior [employer] 01/14/2030 [id number] / / [id number] Screw Infinity 3.5x14mm Mas [id number] - [id number] Implanted:Qty : 1 on 01/14/2025 by Abisai Hsieh MD at [facility] Screw N/A: Spine Cervical Posterior [employer] 01/14/2030 [id number] / / [id number] Screw Infinity 3.5x14mm Mas [id number] - [id number] Implanted:Qty : 1 on 01/14/2025 by Abisai Hsieh MD at [facility] Screw N/A: Spine Cervical Posterior [employer] 01/14/2030 [id number] / / [id number] Set Screw Infinity Oc M6 [id number] - [id number] Implanted:Qty : 1 on 01/14/2025 by Abisai Hsieh MD at [facility] Screw N/A: Spine Cervical Posterior [employer] 01/14/2030 [id number] / / [id number] Set Screw Infinity Oc M6 [id number] - [id number] Implanted:Qty : 1 on 01/14/2025 by Abisai Hsieh MD at [facility] Screw N/A: Spine Cervical Posterior [employer] 01/14/2030 [id number] / / [id number] Set Screw Infinity Oc M6 [id number] - [id number] Implanted:Qty : 1 on 01/14/2025 by Abisai Hsieh MD at [facility] Screw N/A: Spine Cervical Posterior [employer] 01/14/2030 [id number] / / [id number] Set Screw Infinity Oc M6 6111757 - [id number] Implanted:Qty : 1 on 01/14/2025 by Abisai Hsieh MD at [facility] Screw N/A: Spine Cervical Posterior [employer] 01/14/2030 [id number] / / [id number] Set Screw Infinity Oc M6 [id number] - [id number] Implanted:Qty : 1 on 01/14/2025 by Abisai Hsieh MD at [facility] Screw N/A: Spine Cervical Posterior [employer] 01/14/2030 [id number] / / [id number] Set Screw Infinity Oc M6 1366254 - [id number] Implanted:Qty : 1 on 01/14/2025 by Abisai Hsieh MD at [facility] Screw N/A: Spine Cervical Posterior [employer] 01/14/2030 [id number] / / [id number] Set Screw Infinity Oc M6 6381876 - [id number] Implanted:Qty : 1 on 01/14/2025 by Abisai Hsieh MD at [facility] Screw N/A: Spine Cervical Posterior [employer] 01/14/2030 [id number] / / [id number] Set Screw Infinity Oc M6 [id number] - [id number] Implanted:Qty : 1 on 01/14/2025 by Abisai Hsieh MD at [facility] Screw N/A: Spine Cervical Posterior [employer] 01/14/2030 [id number] / / [id number] Screw Infinity 3.5x14mm Mas [id number] - [id number] Implanted:Qty : 1 on 01/14/2025 by Abisai Hsieh MD at [facility] Screw N/A: Spine Cervical Posterior [employer] 01/14/2030 [id number] / / [id number] Screw Infinity 3.5x14mm Mas [id number] - [id number] Implanted:Qty : 1 on 01/14/2025 by Abisai Hsieh MD at [facility] Screw N/A: Spine Cervical Posterior [employer] 01/14/2030 [id number] / / [id number] Screw Infinity 3.5x14mm Mas [id number] - [id number] Implanted:Qty : 1 on 01/14/2025 by Abisai Hsieh MD at [facility] Screw N/A: Spine Cervical Posterior [employer] 01/14/2030 [id number] / / [id number] Screw Infinity 3.5x14mm Mas [id number] - [id number] Implanted:Qty : 1 on 01/14/2025 by Abisai Hsieh MD at [facility] Screw N/A: Spine Cervical Posterior [employer] 01/14/2030 [id number] / / [id number] Screw Infinity 3.5x14mm Mas [id number] - [id number] Implanted:Qty : 1 on 01/14/2025 by Abisai Hsieh MD at [facility] Screw N/A: Spine Cervical Posterior [employer] 01/14/2030 [id number] / / [id number] Allograft Putty Influx Dbm 10ml Iflx-Pt-10 - [id number] Implanted:Qty : 1 on 01/14/2025 by Abisai Hsieh MD at [facility] Tissue N/A: Spine Cervical Posterior [employer] 10/26/2027 IFLX-PT- 10 / [id number] / Procedures Procedure Name Priority Date/Time Associated Diagnosis Comments XR FLUORO NEEDLE GUIDANCE SPINE Routine 07/11/2025 9:29 AM CDT MRI LUMBAR W WO CONTRAST Routine 06/02/2025 8:30 AM CDT Lumbar radiculopathy HEMOGLOBIN A1C Routine 12/30/2024 8:48 AM CDT from Last 3 Months or Most Recently Relevant to Health Maintenance Results * XR FLUORO NEEDLE GUIDANCE SPINE (07/11/2025 9:29 AM CDT) Narrative 07/11/2025 9:29 AM CDT Order information only. Exam was auto-finalized. Isabell HODGES DIAGNOST[facility] IMAGING ORDERABLES Final Result * MRI LUMBAR W WO CONTRAST (06/02/2025 8:30 AM CDT) Anatomical Region Laterality Modality Spine Magnetic Resonan ce 06/02/2025 8:36 AM CDT Impressions 06/02/2025 4:55 PM CDT IMPRESSION: 1. Multilevel degenerative changes. No high-grade canal stenosis. Varying degrees of subarticular and foraminal stenosis. Possible multilevel nerve root involvement, refer to body of the report for description. Correlate with physical examination. 2. No abnormal intraspinal enhancement. 3. Additional details as above. Narrative 06/02/2025 4:55 PM CDT EXAM: MRI LUMBAR W WO CONTRAST DATE/TIME OF EXAM: 06/02/2025 8:30 AM REASON FOR STUDY: Low back pain, spondyloarthropathy suspected, xray done DIAGNOSIS: Lumbar radiculopathy COMPARISON: None INTRAVENOUS CONTRAST: GADOBENATE DIMEGLUMINE 529 MG/ML(0.1 MMOL/0.2 ML) INTRAVENOUS SOLUTION Given:20 mL TECHNIQUE: MR Lumbar spine performed before and after the administration of intravenous contrast. FINDINGS: Motion degraded study. For the purposes of this dictation, the last well formed intervertebral disc space will be labeled L5-S1. Artifact overlying multiple spinous processes possibly related to prior intervention. This is not well assessed by MR. No prior imaging of the spine available for comparison. Clinical correlation is needed. Bones: No evidence of an acute fracture. Diffuse bone demineralization. Endplate marrow (Modic) changes: Mild edematous and fibrofatty endplate marrow change at L4-L5 and L5-S1. Mild fibrofatty endplate marrow change at L3-L4. Alignment: Within normal limits. Conus: Normal conus termination. Soft Tissue: No acute abnormality. Paraspinal muscular atrophy. Mild interspinous edema and mild edema along the facet joints. Enhancement: No abnormal intraspinal enhancement. T12-L1: Moderate intervertebral disc space narrowing. Left subarticular protrusion. Facet arthropathy. No significant canal or foraminal stenosis. L1-L2: Mild intervertebral disc space narrowing. Left subarticular protrusion. Facet arthropathy. No significant canal or foraminal stenosis. L2-L3: Mild intervertebral disc space narrowing. Broad-based disc bulge with superimposed central disc extrusion. Facet arthropathy. Right subarticular stenosis. Mild bilateral foraminal stenosis. Mild canal stenosis. L3-L4: No significant intervertebral disc space narrowing. Broad-based disc bulge with superimposed central and left subarticular disc extrusion. Left intraforaminal disc component. Annular fissure may be pain generating. Facet arthropathy. Left subarticular stenosis may affect the traversing left L4 nerve root. Mild left foraminal stenosis. Mild canal stenosis. L4-L5: Moderate intervertebral disc space narrowing. Broad-based disc bulge. Facet arthropathy. Bilateral subarticular stenosis. Mild bilateral foraminal stenosis. Mild canal stenosis. L5-S1: Mild intervertebral disc space narrowing. Broad-based disc bulge eccentric to left subarticular disc extrusion. Left subarticular stenosis may affect the traversing left S1 nerve root. Left intraforaminal protrusion. Moderate left and mild right foraminal stenosis. Mild canal stenosis. Procedure Note Monse Harrison MD - 06/02/2025 EXAM: MRI LUMBAR W WO CONTRAST DATE/TIME OF EXAM: 06/02/2025 8:30 AM REASON FOR STUDY: Low back pain, spondyloarthropathy suspected, xray done DIAGNOSIS: Lumbar radiculopathy COMPARISON: None INTRAVENOUS CONTRAST: GADOBENATE DIMEGLUMINE 529 MG/ML(0.1 MMOL/0.2 ML) INTRAVENOUS SOLUTION Given:20 mL TECHNIQUE: MR Lumbar spine performed before and after the administration of intravenous contrast. FINDINGS: Motion degraded study. For the purposes of this dictation, the last well formed intervertebral disc space will be labeled L5-S1. Artifact overlying multiple spinous processes possibly related to prior intervention. This is not well assessed by MR. No prior imaging of the spine available for comparison. Clinical correlation is needed. Bones: No evidence of an acute fracture. Diffuse bone demineralization. Endplate marrow (Modic) changes: Mild edematous and fibrofatty endplate marrow change at L4-L5 and L5-S1. Mild fibrofatty endplate marrow change at L3-L4. Alignment: Within normal limits. Conus: Normal conus termination. Soft Tissue: No acute abnormality. Paraspinal muscular atrophy. Mild interspinous edema and mild edema along the facet joints. Enhancement: No abnormal intraspinal enhancement. T12-L1: Moderate intervertebral disc space narrowing. Left subarticular protrusion. Facet arthropathy. No significant canal or foraminal stenosis. L1-L2: Mild intervertebral disc space narrowing. Left subarticular protrusion. Facet arthropathy. No significant canal or foraminal stenosis. L2-L3: Mild intervertebral disc space narrowing. Broad-based disc bulge with superimposed central disc extrusion. Facet arthropathy. Right subarticular stenosis. Mild bilateral foraminal stenosis. Mild canal stenosis. L3-L4: No significant intervertebral disc space narrowing. Broad-based disc bulge with superimposed central and left subarticular disc extrusion. Left intraforaminal disc component. Annular fissure may be pain generating. Facet arthropathy. Left subarticular stenosis may affect the traversing left L4 nerve root. Mild left foraminal stenosis. Mild canal stenosis. L4-L5: Moderate intervertebral disc space narrowing. Broad-based disc bulge. Facet arthropathy. Bilateral subarticular stenosis. Mild bilateral foraminal stenosis. Mild canal stenosis. L5-S1: Mild intervertebral disc space narrowing. Broad-based disc bulge eccentric to left subarticular disc extrusion. Left subarticular stenosis may affect the traversing left S1 nerve root. Left intraforaminal protrusion. Moderate left and mild right foraminal stenosis. Mild canal stenosis. IMPRESSION: 1. Multilevel degenerative changes. No high-grade canal stenosis. Varying degrees of subarticular and foraminal stenosis. Possible multilevel nerve root involvement, refer to body of the report for description. Correlate with physical examination. 2. No abnormal intraspinal enhancement. 3. Additional details as above. us Kina HODGES MR ORDERABLES Final Result * (ABNORMAL) HEMOGLOBIN A1C (12/30/2024 8:48 AM CDT) HEMOGLOBIN A1C 6.0(H) <=5.6 % 12/30/2024 9:13 AM CDT [facility] EST. AVG GLUCOSE, A1C 126 mg/dL 12/30/2024 9:[address] [facility] Blood Venipuncture / Unknown 12/30/2024 8:48 AM CDT 12/30/2024 8:54 AM CDT Narrative [facility] - 12/30/2024 9:13 AM CDT HGB A1C INTERPRETATION NORMAL: <5.7% PRE-DIABETES: 5.7 - 6.4% DIABETES: 6.5% OR GREATER us Roverto Enciso MD CHEMISTRY ORDERABLES Final Resu lt [facility] CLIA #[id number] [address] [place] [address] from Last 3 Months or Most Recently Relevant to Health Maintenance Insurance [place]ICAID [place] [facility] Advance Directives For more information, please contact: [phone] * Full Code (Latest Code Status on File) Date Activated Date Inactivated Comments 01/14/2025 1:15 PM 01/18/2025 4:28 PM * Full Code Date Activated Date Inactivated Comments 01/14/2025 8:17 AM 01/14/2025 1:15 PM
--- OUTSIDE RECORDS SUMMARY | 2025-07-28 21:09 | XMS_ITS | Encounter Summary ---
Author Organization [facility] Address 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 Gender Identity Not on file Sexual Orientation Not on file documented as of this encounter Plan of Treatment Upcoming Encounters Date Type Department Care Team (Late st Contact Info) Description 08/18/2025 10:20 AM MECHANIC DRIVER Office Visit [facility] [address] [place] [phone] Isabell Garcia PA [address] [place] [address] 09/06/2025 11:00 AM MECHANIC DRIVER Office Visit [facility] Orthopedics - Orthopedic [facility] [address] [place] [address] Vida Osborn MD [address] [place] [address] 11/25/2025 11:15 AM MECHANIC DRIVER Office Visit [facility] Neurology - [place] [address] [place] [address] Norma Dhaliwal MD [address] [place] [address] documented as of this encounter Visit Diagnoses Not on filedocumented in this encounter
[2025-07-28 21:28] VITALS: BP 147/106; PULSE 94; RESP 20; TEMP 36.6; O2SAT 94; BMI 32.9
--- NOTE | 2025-07-28 22:09 | XRR_ITS ---
PROCEDURE INFORMATION: Exam: XR Chest Exam date and time: 07/28/2025 10:32 PM Age: 69 years old Clinical indication: Shortness of breath TECHNIQUE: Imaging protocol: Radiologic exam of the chest. Views: 1 view. COMPARISON: CR XR chest 1V portable [id number] 05/14/2025 11:47 PM FINDINGS: Tubes, catheters and devices: An aortic valve prosthesis is present. Lungs: Mild bibasilar atelectasis is present. Airspace disease is not completely excluded. No confluent consolidation. Pleural spaces: Unremarkable. No pleural effusion. No pneumothorax. Heart/Mediastinum: Unremarkable. No cardiomegaly. Vasculature: Atherosclerotic changes of the aorta are noted. Bones/joints: Partially imaged cervical fusion hardware is noted. Postoperative changes from median sternotomy are noted. Sternotomy wires are well aligned. XR/XR chest 1V portable [id number] IMPRESSION: 1. Mild bibasilar atelectasis is present. Airspace disease is not completely excluded. 2. Otherwise, no acute pulmonary process.
[2025-07-28 22:35] LABS: Hematocrit 41.4 % (37-53); Hemoglobin 13.50 g/dL (11.27-16.99); Mean Corpuscular HGB Conc 32.6 g/dL (30-55); Mean Corpuscular Hemoglobin 31.6 pg (27-33); Mean Corpuscular Volume 97.0 fl (82-101); Nucleated Red Blood Cells % 0 %; Platelet Count 64 10^3/cmm (157-399); Red Blood Count 4.27 10^6/uL (3.85-5.65); White Blood Count 6.20 10^3/uL (3.29-11.43)
[2025-07-28 22:57] LABS: Alanine Aminotransferase 20 U/L (0-41); Albumin Level 4.4 g/dL (3.5-5.2); Alkaline Phosphatase 98 U/L (40-130); Anion Gap 16.6 (5-19); Aspartate Amino Transferase 22 U/L (0-40); Blood Urea Nitrogen 20 mg/dL (8-23); Calcium 9.6 mg/dL (8.5-10.5); Carbon Dioxide 25 mmol/L (22-29); Chloride 99 mmol/L (98-107); Creatinine Clr Calc Pharmacy 87.9992; Globulin 2.7 g/dL (1.3-4.6); Glucose 226 mg/dL (65-115); Osmolality Calculated 292 mOsm/kg (285-295); Potassium 4.6 mmol/L (3.5-5.1); Sodium 136 mmol/L (136-145); Total Protein 7.1 g/dL (6.6-8.7)
--- NOTE | 2025-07-29 00:39 | W.ED.GENADLT ---
HPI - General Adult General: Chief complaint: Upper Respiratory Infection Stated complaint: symptoms of upper respiratory infaction Time Seen by Provider: 07/29/25 00:35 History of Present Illness: 69yo M w/pmhx of high blood pressure, diabetes, high cholesterol, CAD, s/p aortic valve replacement (biologic), COPD w/cc of worsening dyspnea in the past couple of days. Patient is chronically short of breath and states that in the past few days it has worsened. He states he has been out of his nebulizer medication for some time. He does not use oxygen at home. He states he has been experiencing some symptoms of an upper respiratory infection such as runny nose, sore throat, worsening shortness of breath and production of white sputum. Patient states his daughter has had similar symptoms. He denies chest pain though he states his chest feels tight. He denies hemoptysis, syncope, lower extremity swelling or edema. He does not have a known history of heart failure. He denies any abdominal pain, nausea, vomiting. Patient has not had any diaphoresis. He denies diarrhea, blood in stool, dysuria or hematuria. Related Data Home Medications ?Medication ?Instructions ?Recorded ?Confirmed albuterol sulfate 2.5 mg/3 mL 2.5 mg inhalation Q6H PRN Wheezing 04/10/20 09/21/24 (0.083 %) solution for nebulization medical marijuana 1 gummy PO PRN PRN Pain 01/09/21 09/21/24 ascorbic acid (vitamin C) 1,000 mg 1 g PO DAILY 10/08/21 09/21/24 tablet carbidopa 25 mg-levodopa 250 mg 1.5 tab PO QID 12/21/21 09/21/24 tablet thiamine HCl (vitamin B1) 100 mg 200 mg PO BID 04/23/23 09/21/24 tablet rosuvastatin 40 mg tablet 40 mg PO DAILY 04/13/24 09/21/24 sitagliptin phosphate 100 mg 100 mg PO DAILY 04/13/24 09/21/24 tablet (Januvia) diclofenac sodium 50 mg 50 mg PO BID 07/13/24 09/21/24 tablet,delayed release glipizide 5 mg tablet 5 mg PO DAILY 03/17/25 Previous Rx's ?Medication ?Instructions ?Recorded lancets 33 gauge (BD Ultra Fine #300 ea 03/21/22 Lancets) blood-glucose meter (Accu-Chek #1 kit 08/20/22 Guide Glucose Meter) lancets (Accu-Chek Softclix ##300 04/04/23 Lancets) sildenafil 100 mg tablet 100 mg PO DAILY PRN sexual 07/25/23 activity #20 tabs blood sugar diagnostic (Accu-Chek #300 strips 05/25/24 Guide test strips) propranolol 40 mg tablet 40 mg PO BID #180 tabs 12/20/24 losartan 25 mg tablet 25 mg PO DAILY 30 days #30 tabs 03/17/25 methylprednisolone 4 mg tablets in See Rx Instructions PO .COMPLEX 03/31/25 a dose pack (Medrol (Thomas)) #21 ea tizanidine 2 mg capsule 2 mg PO Q8H PRN muscle spasticity 03/31/25 #20 caps albuterol sulfate 90 mcg/actuation 2 inh inhalation Q4H PRN shortness 05/15/25 aerosol inhaler of breath or wheezing #6.7 grams fluticasone 250 mcg-salmeterol 50 1 inh inhalation BID #60 ea 05/15/25 mcg/dose blistr powdr for inhalation (Advair Diskus) doxycycline hyclate 100 mg capsule 100 mg PO BID 3 days #6 caps 07/29/25 ipratropium 0.5 mg-albuterol 3 mg 3 ml inhalation Q4H shortness of 07/29/25 (2.5 mg base)/3 mL nebulization breath 1 month #180 mL soln prednisone 20 mg tablet 20 mg PO ONCE 4 days #4 tabs 07/29/25 Allergies Allergy/AdvReac Type Severity Reaction Status Date / Time Iodinated Contrast Media Allergy hives Verified 05/14/25 23:23 primidone Allergy unknown Verified 05/14/25 23:23 [facility] ED PFS: Medical History (Updated 07/29/25 @ 03:56 by Rufina Matos MD) Parkinson disease Aortic stenosis Accelerated essential hypertension CAD (coronary artery disease) Enrolled in chronic care management Hyperlipidemia, mixed Type 2 diabetes mellitus Low back pain Encounter for long-term use of opiate analgesic Surgical History History of cholecystectomy History of back surgery H/O aortic valve replacement H/O aortic valve replacement History of arthroplasty of knee Status post total left knee replacement Family History Mother , at age 80 Diabetes Hypertension Stroke Father , at age 65 CAD (coronary artery disease) Rheumatic fever Congestive heart failure (CHF) Brother Hypertension CAD (coronary artery disease) CABG x 4 Diabetes Sister Hypertension CAD (coronary artery disease) stents Brother CAD (coronary artery disease) stents Diabetes Denies family history of Clotting disorder Dementia Chronic kidney disease (CKD) Suicide Anesthesia complication Bleeding disorder Lung disease Cancer Social History Smoking and tobacco/nicotine status: never used tobacco/nicotine Second hand smoke exposure: Yes Alcohol intake: never Substance/Drug Use: current Substance/Drug use frequency: few times a week Marital status: Current occupational status: disabled Physical Exam Narrative: EXAM NARRATIVE: Vital signs were reviewed. Patient is alert and oriented. Patient does not have an increased work of breathing but he does have coarse wheezing diffusely. No rhonchi or crackles. SpO2 is 94% on room air. No hypotension or tachycardia. Abdomen is soft, nondistended and nontender. Patient is moving all extremities, no deformity or gross injury. No lower extremity edema or asymmetry. Course Vital Signs: Vital signs: Vital Signs Temperature 97.8 F 07/28/25 21:28 Pulse Rate 79 07/29/25 02:59 Respiratory Rate 22 H 07/29/25 02:47 Blood Pressure 143/82 07/29/25 01:48 Pulse Oximetry 93 07/29/25 02:47 Oxygen Delivery Me thod Room Air 07/29/25 02:47 MDM - General Adult Medical Decision Making 61-year-old male with a history of COPD presents with a chief complaint of worsening shortness of breath and upper respiratory symptoms in the past few days, sick daughter with similar symptoms. Differential diagnosis includes, but is not limited to, viral upper respiratory infection, pneumonia, pleural effusion, CHF, COPD/asthma exacerbation, DVT/PE, ACS. Patient was evaluated lab work including CBC, CMP, troponin, BNP, COVID and flu screen, EKG and chest x-ray. Patient was treated with prednisone and DuoNeb x 3. On reassessment, patient had significant improvement in shortness of breath and symptoms though he still has diffuse wheezing. For this reason, he was given additional albuterol treatments and IM terbutaline. He has a normal white blood cell count and is not anemic. Patient does not have any actionable electrolyte abnormalities. He has normal kidney function and liver function. BNP is only minimally elevated and clinically, patient does not have evidence of decompensated congestive heart failure. UA is not consistent with infection. Patient is negative for COVID and flu. Troponin is mildly elevated but this is comparable to previous and is patient's likely baseline. Repeat EKG is stable, no change or evolution and patient continues to denies chest pain. Patient is feeling significantly improved, states his shortness of breath has significantly improved. His presentation is most consistent with a viral upper respiratory infection, COPD exacerbation. At this time, patient is comfortable and wishes to go home. Patient was counseled on supportive care at home, given return precautions and discharged in stable condition with recommendation for outpatient follow-up with primary care nurse or doctor. Lab Data 07/28/25 22:20 07/28/25 22:20 Radiology Impressions Chest X-Ray 07/28/25 22:09 IMPRESSION: 1. Mild bibasilar atelectasis is present. Airspace disease is not completely excluded. 2. Otherwise, no acute pulmonary process. Laboratory Results WBC 6.20 10^3/uL (3.29-11.43) 07/28/25 22:20 RBC 4.27 10^6/uL (3.85-5.65) 07/28/25 22:20 Hgb 13.50 g/dL (11.27-16.99) 07/28/25 22:20 Hct 41.4 % (37-53) 07/28/25 22:20 MCV 97.0 fl (82-101) 07/28/25 22:20 MCH 31.6 pg (27-33) 07/28/25 22:20 MCHC 32.6 g/dL (30-55) 07/28/25 22:20 RDW 14.5 % (12.1-15.1) 07/28/25 22:20 Plt Count 64 10^3/cmm (157-399) L 07/28/25 22:20 MPV 11.7 fL (7.4-10.4) H 07/28/25 22:20 Neut % (Auto) 50.2 % 07/28/25 22:20 Lymph % (Auto) 13.9 % 07/28/25 22:20 [place] % (Auto) 34.2 % 07/28/25 22:20 Eos % (Auto) 0.2 % 07/28/25 22:20 Baso % (Auto) 0.2 % 07/28/25 22:20 Neut # (Auto) 3.12 10^3/uL (1.8-7.7) 07/28/25 22:20 Lymph # (Auto) 0.9 10^3/uL (0.8-4.8) 07/28/25 22:20 [place] # (Auto) 2.1 10^3/uL (0.2-0.9) H 07/28/25 22:20 Eos # (Auto) 0.0 10^3/uL (0.0-0.8) 07/28/25 22:20 Baso # (Auto) 0.0 10^3/uL (0.0-0.1) 07/28/25 22:20 Nucleated RBC % (auto) 0 % 07/28/25 22:20 Nucleated RBCs # 0.0 /100WBC 07/28/25 22:20 Sodium 136 mmol/L (136-145) 07/28/25 22:20 Potassium 4.6 mmol/L (3.5-5.1) 07/28/25 22:20 Chloride 99 mmol/L (98-107) 07/28/25 22:20 Carbon Dioxide 25 mmol/L (22-29) 07/28/25 22:20 Anion Gap 16.6 (5-19) 07/28/25 22:20 BUN 20 mg/dL (8-23) 07/28/25 22:20 Creatinine 1.0 mg/dL (0.7-1.2) 07/28/25 22:20 GFR Calculation 74.3 mL/min (90-130) L 07/28/25 22:20 Glucose 226 mg/dL (65-115) H 07/28/25 22:20 Calculated Osmolality 292 mOsm/kg (285-295) 07/28/25 22:20 Calcium 9.6 mg/dL (8.5-10.5) 07/28/25 22:20 Total Bilirubin 0.4 mg/dL (0.15-1.2) 07/28/25 22:20 AST 22 U/L (0-40) 07/28/25 22:20 ALT 20 U/L (0-41) 07/28/25 22:20 Alkaline Phosphatase 98 U/L (40-130) 07/28/25 22:20 Troponin T Baseline 36 ng/L (0-15) H 07/29/25 02:12 NT-Pro-B Natriuret Pep 249 pg/mL (0-125) H 07/28/25 22:20 Total Protein 7.1 g/dL (6.6-8.7) 07/28/25 22:20 Albumin 4.4 g/dL (3.5-5.2) 07/28/25 22:20 Globulin 2.7 g/dL (1.3-4.6) 07/28/25 22:20 Urine Color Yellow (Yellow) 07/29/25 01:20 Urine Appearance Clear (CLEAR) 07/29/25 01:20 Urine pH 5.5 (5-7) 07/29/25 01:20 Ur Specific [place] 1.028 (1.005-1.030) 07/29/25 01:20 Urine Protein Negative (Negative) 07/29/25 01:20 Urine Glucose (UA) 3+ (Normal) H 07/29/25 01:20 Urine Ketones Trace (Negative) 07/29/25 01:20 Urine Blood Negative (Negative) 07/29/25 01:20 Urine Nitrate Negative (Negative) 07/29/25 01:20 Urine Bilirubin Negative (Negative) 07/29/25 01:20 Urine Urobilinogen 1.0 mg/dL (Negative) 07/29/25 01:20 Ur Leukocyte Esterase Negative (Negative) 07/29/25 01:20 Urine RBC 0-2 /hpf (0-2) 07/29/25 01:20 Urine WBC 0-5 /hpf (0-5) 07/29/25 01:20 Ur Squamous Epith Cells 0-5 /hpf (0-5) 07/29/25 01:20 Amorphous Sediment Not Reportable 07/29/25 01:20 Urine Bacteria None seen /hpf (NONE) 07/29/25 01:20 Hyaline Casts 0-4 /lpf H 07/29/25 01:20 Influenza A (PCR) Negative (Negative) 07/29/25 00:15 Influenza Type B (PCR) Negative (Negative) 07/29/25 00:15 RSV (PCR) Negative (Negative) 07/29/25 00:15 SARS-CoV-2 (PCR) Negative (Negative) 07/29/25 00:15 All radiology interpretation(s) finalized by discharge EKG Data EKG 1: Computer generated interpretation: Chest X-Ray 07/28/25 22:09 IMPRESSION: 1. Mild bibasilar atelectasis is present. Airspace disease is not completely excluded. 2. Otherwise, no acute pulmonary process. EKG shows sinus rhythm with a heart rate of 77, left axis deviation, left bundle branch block, normal QT/QTc, no STEMI per Sgarbossa criteria. EKG comparable to previous. EKG 2: Interpretation: EKG shows sinus rhythm, heart rate of 80, left axis deviation, left bundle branch block, normal QT/QTc, no STEMI per Sgarbossa criteria. EKG stable from previous. Computer generated interpretation: Chest X-Ray 07/28/25 22:09 IMPRESSION: 1. Mild bibasilar atelectasis is present. Airspace disease is not completely excluded. 2. Otherwise, no acute pulmonary process. Discharge Plan Discharge Patient Disposition: Home Clinical Impression: Viral URI with cough, COPD with exacerbation Condition: Stable Prescriptions: New prednisone 20 mg tablet 20 mg PO ONCE 4 Days Qty: 4 0RF doxycycline hyclate 100 mg capsule 100 mg PO BID 3 Days Qty: 6 0RF ipratropium-albuterol 0.5 mg-3 mg(2.5 mg base)/3 mL solution for nebulization 3 ml inhalation Q4H 30 Days Qty: 180 2RF No Action albuterol sulfate 2.5 mg /3 mL (0.083 %) solution for nebulization 2.5 mg INHALATION Q6H PRN (Reason: Wheezing) carbidopa-levodopa 25-250 mg tablet 1.5 tab PO QID medical marijuana 1 gummy PO PRN PRN (Reason: Pain) ascorbic acid (vitamin C) 1,000 mg tablet 1 g PO DAILY sildenafil 100 mg tablet 100 mg PO DAILY PRN (Reason: sexual activity) Qty: 20 6RF Rx Instructions: Take 1 hour before intercourse, on empty stomach, max dose 100 mg, NO NITROGLYCERIN glipizide 5 mg tablet 5 mg PO DAILY losartan 25 mg tablet 25 mg PO DAILY 30 Days Qty: 30 5RF thiamine HCl (vitamin B1) 100 mg tablet 200 mg PO BID (DME) lancets [BD Ultra Fine Lancets] 33 gauge misc See Rx Instructions .Route Qty: 300 3RF Rx Instructions: As directed to test blood sugar TID (DME) blood-glucose meter [Accu-Chek Guide Glucose Meter] Misc See Rx Instructions .ROUTE .COMPLEX Qty: 1 0RF Dose Instruction: USE DIRECTED 3 TIMES A DAY Rx Instructions: USE DIRECTED 3 TIMES A DAY (DME) lancets [Accu-Chek Softclix Lancets] Misc See Rx Instructions .ROUTE .COMPLEX Qty: 300 3RF Dose Instruction: TEST 3 TIMES A DAY Rx Instructions: TEST 3 TIMES A DAY (DME) Accu-Chek Guide test strips Strip See Rx Instructions .ROUTE .COMPLEX Qty: 300 2RF Dose Instruction: USE DIRECTED TO TEST 3 TIMES A DAY Rx Instructions: USE DIRECTED TO TEST 3 TIMES A DAY propranolol 40 mg tablet 40 mg PO BID Qty: 180 3RF methylprednisolone [Medrol (Thomas)] 4 mg tablets,dose pack See Rx Instructions .ROUTE .COMPLEX Qty: 21 0RF Rx Instructions: for 6 days tizanidine 2 mg capsule 2 mg PO Q8H PRN (Reason: muscle spasticity) Qty: 20 0RF rosuvastatin 40 mg tablet 40 mg PO DAILY Januvia 100 mg tablet 100 mg PO DAILY diclofenac sodium 50 mg tablet,delayed release (DR/EC) 50 mg PO BID fluticasone propion-salmeterol [Advair Diskus] 250-50 mcg/dose blister with device 1 inh inhalation BID Qty: 60 0RF albuterol sulfate 90 mcg/actuation HFA aerosol inhaler 2 inh INHALATION Q4H PRN (Reason: shortness of breath or wheezing) Qty: 6.7 1RF Discharge Orders: Discharge ED (Routine); Ordered 07/29/25 Ordered By: Rufina Matos Referrals: Delgado Billy MD [Primary Care Provider, Family Practice] Patient Instructions: Opioid Safety, Pain Management, Patient Portal & Ivan Instructions, COPD (Chronic Obstructive Pulmonary Disease) (ED), Upper Respiratory Infection - Adult Activity Restrictions/Additional Instructions: Please take your steroids for the next 4 days as prescribed. You have also been given a refill for your nebulizer machine, you may use the treatment every 4 hours for shortness of breath and wheezing. Please also take your antibiotics for the next 3 days as prescribed. Continue to monitor your condition closely. If your condition worsens or additional concerns arise, please return to the emergency department for reassessment. Please follow-up with your primary care physician by Friday at the latest. Print Language: Syriac Coding Level of Care Code ED Stone Engraver for Fredis Canchola
[2025-07-29 01:07] LABS: Respiratory Syncytial Virus Ce NEGATIVE (Negative); SARS-CoV-2 PCR NEGATIVE (Negative)
--- NOTE | 2025-07-29 01:25 | ECG_ITS ---
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 Measurements Intervals [place] Rate: 77 P: 71 HI: 185 QRS: -19 QRSD: 150 T: 86 QT: 401 QTc: 456 Interpretive Statements SINUS RHYTHM LEFT BUNDLE BRANCH BLOCK [120+ ms QRS DURATION, 80+ ms Q/S IN V1/V2, 85+ ms R IN I/aVL/V5/V6] Compared to ECG 05/15/2025 01:22:03 Ventricular premature complex(es) no longer present Electronically Signed On 07-29-2025 15:24:01 CDT by Blair Stout M.D. [id number]
[2025-07-29 01:31] VITALS: PULSE 76; RESP 22; O2SAT 95
[2025-07-29 01:46] LABS: NT Pro B Type Natriuretic Pept 249 pg/mL (0-125)
[2025-07-29 01:47] VITALS: PULSE 78
[2025-07-29 01:48] VITALS: BP 143/82; PULSE 77; O2SAT 99
[2025-07-29 01:59] LABS: Glucose Urine UA 3+ (Normal); Nitrate Urine Negative (Negative); Specific Gravity, Urine 1.028 (1.005-1.030)
[2025-07-29 02:04] LABS: Add Urine Microscopic? YES
[2025-07-29 02:45] LABS: Troponin(5th) Baseline 36 ng/L (0-15)
[2025-07-29 02:47] VITALS: PULSE 77; RESP 22; O2SAT 93
[2025-07-29 02:59] VITALS: PULSE 79
--- NOTE | 2025-07-29 03:09 | ECG_ITS ---
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 Measurements Intervals [place] Rate: 80 P: 82 AR: 194 QRS: -17 QRSD: 142 T: 67 QT: 411 QTc: 474 Interpretive Statements SINUS RHYTHM LEFT BUNDLE BRANCH BLOCK [120+ ms QRS DURATION, 80+ ms Q/S IN V1/V2, 85+ ms R IN I/aVL/V5/V6] Compared to ECG 07/29/2025 01:25:54 No significant changes Electronically Signed On 07-29-2025 15:27:47 CDT by Blair Stout M.D. [email or web address]
[2025-07-29 04:24] LABS: Troponin 5 2HR 31.50 ng/L (0-15)
[2025-07-29 04:30] LABS: Troponin 5 2HR Delta -4.50 ABS# (0-10)
== END 2025-07-29 04:47 | disposition home or self-care (01) ==
PROVIDERS: Emergency Provider Emergency Medicine; PCP Family Medicine
DX: J06.9 Acute upper respiratory infection, unspecified (principal); R05.9 Cough, unspecified; J44.1 Chronic obstructive pulmonary disease with (acute) exacerbation; Z11.52 Encounter for screening for COVID-19; I25.10 Atherosclerotic heart disease of native coronary artery without angina pectoris; I10 Essential (primary) hypertension; E78.2 Mixed hyperlipidemia; E11.9 Type 2 diabetes mellitus without complications
CPT/HCPCS: 36415; 71045; 80053; 81001; 83880; 84484; 85025; 87637; 93005; 94640; 96372; 99285; J3105; J7512; J7613; J9999

== ENCOUNTER 2025-08-04 12:06 | Emergency (ER) | payer OTHER, SELFPAY ==
[2025-08-04 12:08] VITALS: BP 155/77; PULSE 75; TEMP 36.4; O2SAT 95; BMI 32.1
--- OUTSIDE RECORDS SUMMARY | 2025-08-04 12:13 | XMS_ITS | Encounter Summary ---
Author Organization [facility] Address 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 Gender Identity Not on file Sexual Orientation Not on file documented as of this encounter Plan of Treatment Upcoming Encounters Date Type Department Care Team (Late st Contact Info) Description 08/18/2025 10:20 AM AGENCY SERVICE COORDINATOR Office Visit [facility] [address] [place] [address] Isabell Garcia PA [address] [place] [address] 09/06/2025 11:00 AM AGENCY SERVICE COORDINATOR Office Visit [facility] - [facility] [address] [place] [address] Vida Osborn MD [address] [place] [address] 11/25/2025 11:15 AM AGENCY SERVICE COORDINATOR Office Visit [facility] - [place] [address] [place] [address] Norma Dhaliwal MD [address] [place] [address] documented as of this encounter Visit Diagnoses Not on filedocumented in this encounter
--- OUTSIDE RECORDS SUMMARY | 2025-08-04 12:13 | XMS_ITS | Continuity of Care Document ---
Author Organization [facility], [place], [facility] ([facility]) Address [address] [place] [address] Care Team Providers Care Sports Broadcaster Name Role Phone [email or web address] Primary Care Provider [phone] Assessment Encounter Date Assessment Date Assessment LastModified by Organization Details LastModified Time 08/02/2025 08/02/2025 69-year-old male with a history of chronic obstructive pulmonary disease presenting with worsening respiratory symptoms and new onset oropharyngeal dysphagia. The current respiratory status, unrelieved by initial treatment, suggests potential chronicity of COPD and the need for enhanced inhalation therapy, including steroids and bronchodilators. Clinical intentions focus on adjusting therapeutic interventions while planning a modified barium swallow study to evaluate observed swallowing impairments. [email or web address] Not available 08/02/2025 10:36:02 Plan of Treatment Reminders Order Date Submit Date Provider Last Modified By Organization Details Last Modified Time Details Appointments None recorded. Lab None recorded. Referral None recorded. Procedures None recorded. Surgeries None recorded. Imaging [place], [facility] [address] [place], [address], 11:44:52 Medication Orders prednisone 20 mg tablet 2024 [facility], [address], [place], [address], 10:32:11 doxycycline hyclate 100 mg capsule 2024 [facility], [address], [place], [address], 10:32:08 budesonide- formoterol HFA 160 mcg-4.5 mcg/actuati on aerosol inhaler 2024 025 [facility], [address], [place], [address], 10:32:52 Patient TargetsNo targets recorded. Patient Instructions Encounter Date Encounter Id Patient Instructions Last Modified By Organization Details Last Modified Time 08/02/2025 [id number] - Use the Symbicort inhaler as directed, 2 puffs twice daily. - Continue using the nebulizer if you experience difficulty breathing. - Follow the prednisone course as prescribed. - Sit in an upright position while sleeping to breathe better. - Avoid lying flat to prevent choking. - Attend the scheduled modified barium swallow study. - Avoid foods that are hard to swallow or might cause choking. [email or web address] Not available 08/02/2025 10:36:06 I reviewed with the patient the ongoing management for COPD, explaining the need for a combination inhaler (Symbicort) and continuation of nebulizer therapy for optimal control of his symptoms. I discussed inhaler usage, potential side effects, and the importance of adherence. Additional prednisone was prescribed to ensure adequate corticosteroid exposure. I elaborated on the swallowing difficulty concerns, advising a modified barium swallow study to evaluate these symptoms further. We discussed the possibility of speech therapy to enhance swallowing technique and mitigate aspiration risk. I advised against sleeping flat to alleviate breathing difficulty. I ensured patient comprehension of the treatment-related information and emphasized the importance of maintaining elevation during rest for better respiratory management. [email or web address] Not available 08/02/2025 10:36:06 Reason for Referral None Reported. Results Created Date Observation Date Name Description Value Unit Range Abnormal Flag Note LastModifiedBy Organization Detail LastModifiedTime 07/13/2006/27/2025 home sleep study No observ ation record ed. [place] [id number] [facility], [address], [place], [address], 07/14/2025 17:14:48 Result Notes None recorded. Problems Name Problem SNOMED Code Status Onset Date Resolution Date Notes Provider Name and Address Organization Details Recorded Time Parkinson's disease 29339184 Active 2023 TOMMY beal [facility] 4 08:33:39 Type 2 diabetes mellitus 25468290 Active 2023 TOMMY beal [facility] 4 08:33:48 Hypercholes terolemia 02512182 Active 2023 TOMMY beal [facility] 4 09:52:27 Vitamin D deficiency 95546138 Active 2023 Efren Billy MD [address] [place] [address], [address] 5, [facility] 5 12:22:56 Posterior rhinorrhea 51248672 Active 2023 Efren Billy MD [address] [place] [address], [address] 5, [facility] 5 12:22:53 Left lateral elbow tendinopath y 4985625019609 00 Active 2024 Efren Billy MD [address] [place] [address], [address] 5, [facility] 5 12:22:42 Mild recurrent major depression 32846536 Active 2024 Efren Billy MD [address] [place] [address], [address] 5, [facility] 5 12:23:16 Fatigue 51370479 Active 2024 Harjinder beal [facility] 5 11:58:36 Trigger finger of left hand 2086635131626 9107 Active 2024 Efren Billy MD [address] [place] [address], [address] 5, [facility] 09:44:31 Orthopnea 39527486 Active 2024 Efren Billy MD [address] [place] [address], 25[address]-545 5, [facility] 09:28:33 Dyspnea on exertion 56280495 Active 2024 Efren Billy MD [address] [place] [address], [address] [place] [address] 5, [facility] 09:29:00 Daytime somnolence 153208186847 Active 2024 Efren Billy MD [address] [place] [address] 5, [facility] 09:31:04 Acute back pain with sciatica 650616408 Active 2024 Efren Billy MD [address] [place] [address], 088[address] 5, [facility] 09:31:41 Hearing loss of right ear 935513391 Active 2024 Efren Billy MD [address] [place] [address], 19[address] 5, [facility] 09:32:53 Diastolic dysfunction 6878604 [facility] 2024 [facility] 09:52:12 Inflammatio n of sacroiliac joint 58137863 Active 2024 Efren Billy MD [address] [place] [address] 5, [facility] 12:05:00 Bronchitis 30590106 Active 2024 Efren Billy MD [address] [place] [address], [address] 5, [facility] 09:21:17 Sleep apnea 53356002 Active [address] [facility] 16:46:23 Acute exacerbatio n of chronic obstructive pulmonary disease 515656293 Active 2024 Efren Billy MD [address] [place] [address], 65[address]-163 5, [facility] 10:31:14 Oropharynge al dysphagia 70152016 Active 2024 Efren Billy MD [address] [place] [address], 674[address]-372 5, [facility] 10:33:19 Problem Notes None recorded. Procedures Surgical History Date Name Laterality Status Provider Name and Address Organization Details Recorded Time 07/15/20 24 Colonoscopy completed TOMMY GOINS [facility] 07/26/2024 10:25:49 10/06/19 24 decompression of ulnar nerve at elbow completed Harjinder Ruff [facility] 12/01/2024 14:59:35 Appendectomy completed [facility] GOME[facility] 07/06/2024 09:35:33 [facility] 07/06/2024 09:35:40 Imaging Results None recorded. Procedure Notes None recorded. Medical Equipment None Reported. Allergies Allergen ID Allergen Name Allergen Category Reaction Reaction Severity Criticality Documentation Date Start Date Code Code System Note Provider Name and Address Organization Details Recorded Time 65476 iodine medicatio n Not available Not available Not available 07/06/2024 5933 RxNorm iodin ated contr ast dye Harjinder Ruff emigdio, [facility] 5 15:00:29 98090 primidone medicatio n dizziness mild low 05/11/2025 8691 RxNorm Saumya Clark emigdio, [facility] 5 12:35:34 Medications Name Sig Start Date [...] capsule twice a day by oral route. 2024 active Not Available Not Available Not Avai lable ropinirole 1 mg tablet TAKE 1 TABLET BY MOUTH ONCE DAILY AT BEDTIME active Not Available Not Available No t Available ipratropium 0.5 mg-albutero l 3 mg (2.5 mg base)/3 mL nebulizatio n soln USE 3 ML IN NEBULIZER EVERY 4 HOURS FOR SHORTNESS OF BREATH active Not Available Not Available No t [...] 1 tablet every day by oral route. 2024 active Not Available Not Available Not Avai lable tramadol 50 mg tablet TAKE 1 TABLET [...] Not Available No t Available One Touch [employer] System kit check sugar 3 times a day active Not Available Not Available No t Available diclofenac sodium 50 mg tablet,acosta yed release TAKE 1 TABLET BY MOUTH TWICE DAILY active Not Available Not Available No t Available metoprolol succinate ER 25 mg tablet,exte nded [...] Not Available Not Available No t Available budesonide- formoterol HFA 160 mcg-4.5 mcg/actuati on aerosol inhaler Inhale 2 puffs twice a day by inhalatio n route. 2024 active Not Available Not Available Not Avai lable diclofenac 1 % topical gel 07/06 completed [...] mass index (BMI) Body weight Body temperature Oxygen saturation Oxygen saturation in Arterial blood by Pulse oximetry Heart rate Systolic And Diastolic Provider Name and Address Organization Details Last Updated DateTime 180.34 cm 32.2 kg/m2 749092. 84 g 97.3 [degF] 95 % 95 % 69 /min 136/82 mm[Hg] Lorena Johnson [facility] 10:09:01 Social History Question Answer Notes LastModified by Organizat ion Details LastModified Time Tobacco Smoking Status Never Smoker FLORES beal [facility] 03/16/2025 12:23:31 What Is Your Level Of Caffeine Consumption? Moderate Information not available 07/06/2024 What Type Of Diet Are You Following? REGULAR Information not available 07/06/2024 What Is The Highest Grade Or Level Of School You Have Completed Or The Highest Degree You Have Received? [id number] Information not available 07/06/2024 What Was The Date Of Your Most Recent Tobacco Screening? 08/02/2025 [email or web address] Information not available 08/02/2025 What Is Your Relationship Status? Information not available 07/06/2024 Do You Have Any Dietary Restrictions? No Information not available 07/06/2024 Sex: Unknown Functional Status Question Answer Note LastModified by Organizat ion Details LastModified Time Do you use any illicit or recreational drugs? Yes marijuana gummies Information not available 08/02/2025 What is your level of alcohol consumption? [...] Organization Details LastModified Time Father Myocardial infarction [email or web address] Not available 12/01 15:07:18 Mother Cerebrovascu lar accident [email or web address] Not available 15:07:33 Brother Hypertensive disorder [email or web address] Not available 2024 15:07:41 Brother Heart disease [email or web address] Not available 2024 15:07:51 Medical History No medical history recorded. Immunizations Vaccine Type Date Status Note Provider Nam e and Address Organization Details Recorded Time Influenza, adjuvanted, trivalent, PF 5 completed [facility] 07/04/2025 11:30:56 influenza, split (incl. purified surface antigen) 0 completed Not Available [facility] 08/02/2025 10:05:03 Influenza, split virus, trivalent, preservative 1 completed Not Available [facility] 08/02/2025 10:05:03 COVID-19, mRNA, LNP-S, PF, 100 mcg/0.5mL dose or 50 mcg/0.25mL dose 1 completed Not Available [facility] 08/02/2025 10:05:03 COVID-19, mRNA, LNP-S, PF, 100 mcg/0.5mL dose or 50 mcg/0.25mL dose 1 completed Not Available [facility] 08/02/2025 10:05:03 Influenza, split virus, quadrivalent, PF 2 completed Not Available [facility] 08/02/2025 10:05:03 Influenza, high-dose, quadrivalent, PF 3 completed Not Available [facility] 08/02/2025 10:05:03 zoster recombinant 5 completed Not Available [facility] 08/02/2025 10:05:03 zoster recombinant 5 completed Not Available [facility] 08/02/2025 10:05:03 Influenza, adjuvanted, trivalent, PF 4 completed Efren Billy MD [address] [place] [address], [address], [facility] 08/13/2024 12:33:44 Past Encounters Encounter ID Performer Location Encounter Start Date Encounter Closed Date Diagnosis/Indication Diagnosis SNOMED-CT Code Diagnosis ICD10 Code Diagnosis IMO Codes Diagnosis Note [id number] Efren Billy MD [facility] ([facility]) [address] [place] [address] 07/04/2025 09:32:07 07/04/2025 10:03:59 Trigger finger of left hand 5791100830 8192996 M65.342 - Referral to hand specialist for further evaluation and possible surgical options. Administra tion of influenza vaccine 70835722 Z23 - Administer influenza vaccinatio n today. Triggering of digit 2399 66156 M65.360 [id number] Efren Billy MD [facility] ([facility]) [address] [place] [address] 08/02/2025 10:01:26 08/02/2025 11:05:58 Acute exacerbation of chronic obstructive pulmonary disease 852036753 J44.1 009113 - Symbicort inhaler prescribed , 2 puffs twice daily. - Nebulizer therapy to continue as needed. - Extend prednisone therapy beyond initial three-day course. Oropharyng eal dysphagia 19528319 R13.12 8208 - Schedule modified barium swallow study.- Speech therapy referred as necessary post-evalu ation. Health Concerns Section Related Observation LastModified by Organization Detai ls LastModified Time None Recorded Concern Status LastModified by Organization Details LastModified Time None Recorded Payers Encounter Date Sequence Insurance Name Policy Number Policy Arana Covered Member ID Arana Member ID Guarantor Name 08/02/2025 2 [place] Jose Hairston [id number] Joseelda Hairston 08/02/2025 1 [employer] (MEDICARE REPLACEMENT/ ADVANTAGE - PPO) [id number] Jose Hairston [id number] Jose Hairston Notes Date Note Type Note Provider Name and Address Organization Details Recorded Time 5 text/html Upper Respiratory SymptomsReported by PatientUpper Respiratory SymptomsFor quality, patient reportsproductive cough,congested,hacking cough, andwheezy cough. For associated symptoms, patient reportschest pain,yellow-green sputum,green sputum,difficulty breathing at night,sleep apnea,fatigue,sweats,morni ng cough, andsore throatbut reportsno fever,no vomiting,no diarrhea,no rash,no nausea,no headache,no chills,no malaise, andno conjunctivitis. For location, patient reportschestandthroat. For severity, patient reportsmildandpain level __/10. For duration, patient reportssymptoms lasting less than 2 weeks. For onset/timing, patient reportsgradual. For context, patient reportsno sick contacts,no foreign travel, andnon-smoker. The patient is a 69-year-old male presenting with shortness of breath and swallowing difficulties. He reported visiting the emergency room on 07/28 because of chest pain, shortness of breath, cough, and wheezing. He was diagnosed with an upper respiratory infection, receiving antibiotics, steroids, and a nebulizer. Despite this treatment, he indicates ongoing difficulties with breathing, continues to produce green phlegm, and has a wet cough. He notably finds that he must sleep upright. He adds he has had trouble swallowing food in recent times and experienced choking episodes, specifically after ingesting corn, though he denies accompanying pain. His medical history includes previous assessments with normal pulmonary function tests. Efren Billy MD [address] [place] [address], [address], [facility], [place]iliam 08/02/2025 11:14:23
--- OUTSIDE RECORDS SUMMARY | 2025-08-04 12:14 | XMS_ITS | Data Portability ---
Author Organization SAMUEL Carpio [facility] Liliam Nuñez [facility] Address [address] [place] [address] Care Team Providers Care Airport Driver Name Role Phone EFREN BILLY Primary Care Provider [phone] Assessment Encounter Date Assessment Date Assessment LastModified by Organization Details LastModified Time 07/04/2025 07/04/2025 69-year-old male with a history of trigger finger presenting with worsening symptoms affecting the left ring and middle fingers. Previous injection treatment was not sufficiently effective. Further evaluation by a hand specialist is warranted. The patient also consents to the influenza vaccine. [email or web address] Not available 07/04/2025 09:55:42 08/02/2025 08/02/2025 69-year-old male with a history [...] n/creatinin e, mass ratio, urine 2024 025 [facility], [address], [address] [place], [address], 10:51:02 hemoglobin A1C/hemoglo bin total, QN, blood 2024 025 [facility], [address], [address], [place], [address], 5 10:13:51 CMP, serum or plasma 2024 025 [facility], [address], [address], [place], [address], 5 10:59:07 Referral hand surgeon referral 2024 025 [facility], [address] [place], [address], 15:06:11 physical therapist referral 2024 025 [facility], [address], [place], [address], 12:34:23 bridge repairer referral 2024 025 [facility] Alfon[facility] Motley MD, [address] , [place], [address], 09:15:38 Procedures None recorded. Surgeries None recorded. Imaging [place], modified barium swallow study [address] [facility], [address] [place], [address], 5 11:44:52 polysomnogr am - Titration ([id number]) 2024 025 [facility] (Scheduling Orders), [address] [place], [address], 5 13:53:06 PFT, complete 2024 025 [facility] (Scheduling Orders), [address] [place], [address], 09:33:39 home sleep study 2024 [facility], [address] [place], [address], 14:47:32 US, echocardiog haley 2024 [facility], [address] [place], [address], 08:58:05 Medication Orders prednisone [address] [facility], [address], [place], [address], 10:32:11 doxycycline hyclate [address] [facility], [address], [place], [address], 10:32:08 budesonide- formoterol HFA 160 mcg-4.5 mcg/actuati on aerosol inhaler 2024 [facility], [address], [place], [address], 10:32:52 Patient TargetsNo targets recorded. Patient Instructions Encounter Date Encounter Id Patient Instructions Last Modified By Organization Details Last Modified Time 07/04/2025 [id number] - You will recei ve an influenza [...] are received. [email or web address] Not available 07/04/2025 09:55:44 08/02/2025 [id number] - Use the Symbicort inhaler as directed, [...] Not available 08/02/2025 10:36:06 Reason for Referral Physical Therapist Referral for Acute back pain with sciatica Referring Physician: [facility], Encounter Date: 04/04/2025 [employer] Project Manager Referral for Hea ring loss of right ear Referring Physician: Efren Billy [facility], Encounter Date: 04/04/2025 Hand Surgeon Referral for Tr igger finger of left hand Referring Physician: Efren Billy [facility], Encounter Date: 07/04/2025 Results Created Date Observation Date Name Description Value Unit Range Abnormal Flag Note LastModifiedBy Organization Detail LastModifiedTime 04/04/20 25 04/04/2025 HBA1C hemaglobin A1C 6.2 4.2-6. 5 Not Available [facility] [address] [facility], [place], [address], 04/04/2025 10:13:51 04/04/20 25 04/04/2025 CMP (MALE ) glucose 246.0 mg/dL 60.0-9 9.0 high Not Available [facility] [address] [facility], [place], [address], 04/04/2025 10:59:06 04/04/20 25 04/04/2025 CMP (MALE ) BUN (blood urea nitrogen) 30.0 mg/dL 10.0-2 6.0 high Not Available [facility] [address] [facility], [place], [address], 04/04/2025 10:59:06 04/04/20 25 04/04/2025 CMP (MALE ) creatinine (serum) 0.8 mg/dL 0.4-1. 5 Not Available [facility] [address] [facility], [place], [address], 04/04/2025 10:59:06 04/04/20 25 04/04/2025 CMP (MALE ) BUN/creatini ne ratio 37.50 ratio Not Available [facility] [address] [facility], [place], [address], 04/04/2025 10:59:06 04/04/20 25 04/04/2025 CMP (MALE ) eGFR calculated 102.[address] [address] [facility], [place], [address], 04/04/2025 10:59:06 04/04/20 25 04/04/2025 CMP (MALE ) total protein 7.6 g/dL 6.0-8. 5 Not Available [facility] [address] [facility], [place], [address], 04/04/2025 10:59:06 04/04/20 25 04/04/2025 CMP (MALE ) total bilirubin 0.7 mg/dL 0.2-1. 3 Not Available [facility] [address] [facility] [address], [place], [address], 04/04/2025 10:59:06 04/04/20 25 04/04/2025 CMP (MALE ) albumin 4.6 g/dL 3.5-5. 5 Not Available [facility] [address] [facility] [address], [place], [address], 04/04/2025 10:59:06 04/04/20 25 04/04/2025 CMP (MALE ) globulin 3.0 calc Not Available [facility] [address] [address], [place], [address], 04/04/2025 10:59:06 04/04/20 25 04/04/2025 CMP (MALE ) AST (SGOT) 25.0 U/L 0.0-46 .0 Not Available [facility] [address] [address], [place], [address], 04/04/2025 10:59:06 04/04/20 25 04/04/2025 CMP (MALE ) altv (SGPT) 12.0 U/L 13.0-6 9.0 abnormal Not Available [facility] [address] [facility] [address], [place], [address], 04/04/2025 10:59:06 04/04/20 25 04/04/2025 CMP (MALE ) A/G ratio 1.5 ratio Not Available [facility] [address] [facility] [address], [place], [address], 04/04/2025 10:59:06 04/04/20 25 04/04/2025 CMP (MALE ) ALP phos 79.0 U/L 30.0-1 40.0 normal Not Available [facility] [address] [facility] [address], [place], [address], 04/04/2025 10:59:06 04/04/20 25 04/04/2025 CMP (MALE ) calcium 9.7 mg/dL 8.4-10 .5 Not Available [facility] [address] [facility] [address], [place], [address], 04/04/2025 10:59:06 04/04/20 25 04/04/2025 CMP (MALE ) sodium 138.0 mmol/ L 136.0- 145.0 Not Available [facility] [address] [facility] [address], [place], [address], 04/04/2025 10:59:06 04/04/20 25 04/04/2025 CMP (MALE ) potassium 4.6 mmol/ L 3.5-5. 1 Not Available [facility] [address] [facility] [address], [place], [address], 04/04/2025 10:59:06 04/04/20 25 04/04/2025 CMP (MALE ) chloride 102.0 mmol/ L 98.0-1 10.0 normal Not Available [facility] [address] [facility] [address], [place], [address], 04/04/2025 10:59:06 04/04/20 25 04/04/2025 CMP (MALE ) C02 28.0 mmol/ L 22.0-3 1.0 Not Available [facility] [address] [facility] [address], [place], [address], 04/04/2025 10:59:06 04/04/20 25 04/04/2025 CMP (MALE ) anion gap 8.0 calc Not Available [facility] [address] [facility] [address], [place], [address], 04/04/2025 10:59:06 04/04/20 25 04/04/2025 CMP (MALE ) osmolality 298.3 calc Not Available [facility] [address] [facility] [address], [place], [address], 04/04/2025 10:59:06 04/04/20 25 04/05/2025 ALBUM IN, RANDO M URINE W/CRE ATINI NE creatinine, random urine 65 mg/dL 20-320 normal Not Available [facility] [address] [place], [address], 04/05/2025 10:51:02 04/04/20 25 04/05/2025 ALBUM IN, RANDO M URINE W/CRE ATINI NE albumin, urine 2.6 mg/dL see note: normal Refer ence Range : Refer ence Range Not estab lishe d Not Available [address] [address] [place], [address], 04/05/2025 10:51:02 04/04/20 25 04/05/2025 ALBUM IN, [...] a diagn ostic categ ory. Not Available [facility] [address] [place], [address], 04/05/2025 10:51:02 05/01/20 home sleep study No observ ation record ed. [email or web address] [facility] [address] [place], [address], 05/09/2025 09:48:31 05/05/20 25 05/04/2025 , echo ardio gram No observ ation record ed. [email or web address] [facility] [address] [place], [address], 05/09/2025 09:48:32 07/13/20 25 06/27/2025 home sleep study No observ ation record ed. [facility] [address] [facility] [facility] [address], [place], [address], 07/14/2025 17:14:48 Result Notes None recorded. Problems Name Problem SNOMED Code Status Onset Date Resolution Date Notes Provider Name and Address Organization Details Recorded Time Parkinson's disease 48250550 Active 2023 TOMMY beal [facility] 4 08:33:39 Type 2 diabetes mellitus 47000165 Active 2023 TOMMY beal [facility] 4 08:33:48 Hypercholes terolemia 05314450 Active 2023 TOMMY beal [facility] 4 09:52:27 Vitamin D deficiency 67227738 Active 2023 Efren Billy MD [address] [place] [address], [phone], [place] [facility] 5 12:22:56 Posterior rhinorrhea 81153472 Active 2023 Efren Billy MD [address] [place] [address], [phone] [address], [facility] 5 12:22:53 Left lateral elbow tendinopath y 2151161751154 00 Active 2024 Efren Billy MD [address] [place] [address], [address] [address], [facility] 5 12:22:42 Mild recurrent major depression 86379774 Active 2024 Efren Billy MD [address] [place] [address], [address] [address], [facility] 5 12:23:16 Fatigue 94174443 Active 2024 Harjinder Ruff null, [facility] 5 11:58:36 Trigger finger of left hand 8535837401896 9107 Active 2024 Efren Billy MD [address] [place] [address], [address] [address], [facility] 5 09:44:31 Orthopnea 98296901 Active 2024 Efren Billy MD [address] [place] [address], [address] [address], [facility] 09:28:33 Dyspnea on exertion 09711198 Active 2024 Efren Billy MD [address] [place] [address], [address] [address], [facility] 5 09:29:00 Daytime somnolence 485079647103 Active 2024 Efren Billy MD [address] [place] [address], [address] [address], [facility] 09:31:04 Acute back pain with sciatica 714086284 Active 2024 Efren Billy MD [address] [place] [address], [address] [address], [facility] 09:31:41 Hearing loss of right ear 222065848 Active 2024 Efren Billy MD [address] [place] [address], [address] [address], [facility] 09:32:53 Diastolic dysfunction 4485318 Active 2024 Mary Tomi beal [facility] LDineshLDineshCDinesh 09:52:12 Inflammatio n of sacroiliac joint 50398995 Active 2024 Efren Billy MD [address] [place] [address], [address] [address], [facility], FroylanCDinesh 12:05:00 Bronchitis 22766176 Active 2024 Efren Billy MD [address] [place] [address], [address] 5, [facility] 09:21:17 Sleep apnea 65915506 Active 2024 Lorena Alex beal [facility] 16:46:23 Acute exacerbatio n of chronic obstructive pulmonary disease 606215331 Active 2024 Efren Billy MD [address] [place] [address], [address] [address], [facility] 10:31:14 Oropharynge al dysphagia 04361627 Active 2024 Efren Billy MD [address] [place] [address], [address] [address], [facility] 10:33:19 Problem Notes None recorded. Procedures Surgical History Date Name Laterality Status Provider Name and Address Organization Details Recorded Time 07/15/20 24 Colonoscopy completed TOMMY GOINS [facility] 07/26/2024 10:25:49 10/06/19 24 decompression of ulnar nerve at elbow completed Harjinder Ruff [facility] 12/01/2024 14:59:35 Appendectomy completed SHANEKA GOElda BAKER [facility] 07/06/2024 09:35:33 Cholecystectomy completed [facility] 07/06/2024 09:35:40 Imaging Results None recorded. Procedure Notes None recorded. Medical Equipment None Reported. Allergies Allergen ID Allergen Name Allergen Category Reaction Reaction Severity Criticality Documentation Date Start Date Code Code System Note Provider Name and Address Organization Details Recorded Time 75309 iodine medicatio n Not available Not available Not available 07/06/2024 5933 RxNorm iodin ated contr ast dye Harjinder Ruff emigdio [facility] 15:00:29 56600 primidone medicatio n dizziness mild low 05/11/2025 8691 RxNorm Saumya Amber beal [facility] 12:35:34 Medications Name Sig Start Date Stop [...] Updated DateTime 5 180.34 cm 30.7 kg/m2 28885.3 2 g 98.7 [degF] 60 /min 98 % 98 % 158/88 mm[Hg] Lorena Johnson [facility] 5 09:10:59 Date Recorded Body height Body mass index (BMI) Body weight Oxygen saturation Oxygen saturation in Arterial blood by Pulse oximetry Heart rate Systolic And Diastolic Provider Name and Address Organization Details Last Updated DateTime 5 180.34 cm 31.9 kg/m2 116100. 65 g 97 % 97 % 71 /min 141/81 mm[Hg] [facility] 5 12:34:32 Date Recorded Body height Body mass index (BMI) Body weight Oxygen saturation Oxygen saturation in Arterial blood by Pulse oximetry Heart rate Respiratory rate Body temperature Systolic And Diastolic Provider Name and Address Organization Details Last Updated DateTime 5 180.34 cm 31.8 kg/m2 097300. 06 g 96 % 96 % 83 /min 20 /min 97.3 [degF] 134/80 mm[Hg] Mary Krishna [facility] 5 11:16:44 Date Recorded Body height Body mass index (BMI) Body weight Oxygen saturation Oxygen saturation in Arterial blood by Pulse oximetry Heart rate Systolic And Diastolic Provider Name and Address Organization Details Last Updated DateTime 5 180.34 cm 32.5 kg/m2 609161. 02 g 95 % 95 % 66 /min 120/68 mm[Hg] [facility] 5 09:38:21 Date Recorded Body height Body mass index (BMI) Body weight Body temperature Oxygen saturation Oxygen saturation in Arterial blood by Pulse oximetry Heart rate Systolic And Diastolic Provider Name and Address Organization Details Last Updated DateTime 5 180.34 cm 32.2 kg/m2 513617. 84 g 97.3 [degF] 95 % 95 % 69 /min 136/82 mm[Hg] Lorena Johnson [facility] 10:09:01 Social History Question Answer Notes LastModified by Organizat ion Details LastModified Time Tobacco Smoking Status Never Smoker [facility] 03/16/2025 12:23:31 What Is Your Level Of Caffeine Consumption? Moderate Information not available 07/06/2024 What Type Of Diet Are You Following? REGULAR Information not available 07/06/2024 What Is The Highest Grade Or Level Of School You Have Completed Or The Highest Degree You Have Received? [id number] Information not available 07/06/2024 What Was The Date Of Your Most Recent Tobacco Screening? 08/02/2025 [email or web address] Information not available 08/02/2025 What Is Your [...] available 12/01 15:07:18 Mother Cerebrovascu lar accident [email or web address] Not available 15:07:33 Brother Hypertensive disorder Not available 2024 15:07:41 Brother Heart disease [email or web address] Not available 2024 15:07:51 Medical History No medical history recorded. Immunizations Vaccine Type Date Status Note Provider Nam e and Address Organization Details Recorded Time Influenza, adjuvanted, trivalent, PF 5 completed Lorena beal [facility] 07/04/2025 11:30:56 influenza, split (incl. purified surface antigen) 0 completed Not Available [facility] 08/02/2025 10:05:03 Influenza, split virus, trivalent, preservative 1 completed Not Available [facility] 08/02/2025 10:05:03 COVID-19, mRNA, LNP-S, PF, 100 mcg/0.5mL dose or 50 mcg/0.25mL dose 1 completed Not Available [facility] 08/02/2025 10:05:03 COVID-19, mRNA, LNP-S, PF, 100 mcg/0.5mL dose or 50 mcg/0.25mL dose 1 completed Not Available [facility] 08/02/2025 10:05:03 Influenza, split virus, quadrivalent, PF 2 completed Not Available [facility] 08/02/2025 10:05:03 Influenza, high-dose, quadrivalent, PF 3 completed Not Available [facility] 08/02/2025 10:05:03 zoster recombinant 5 completed Not Available [facility] 08/02/2025 10:05:03 zoster recombinant 5 completed Not Available [facility] 08/02/2025 10:05:03 Influenza, adjuvanted, trivalent, PF 4 completed Efren Billy MD [address] [place] [address], [address], [facility] 08/13/2024 12:33:44 Past Encounters Encounter ID Performer Location Encounter Start Date Encounter Closed Date Diagnosis/Indication Diagnosis SNOMED-CT Code Diagnosis ICD10 Code Diagnosis IMO Codes Diagnosis Note [id number] Efren Billy MD [facility] ([facility]) [address] [place] [id number] 5 07/06/2024 09:21:37 07/06/2024 10:43:20 Parkinson's disease 29542690 G20.A1 Continue to follow with neurology in [facility] Type 2 maria alejandra betes mellitus 72334609 E11.9 Patient is not due for A1c today. Patient is due for all lab work and yearly physical next month. Continue current medication s. History of mitral valve replacement 3210414931 109 Z95.2 Continue to follow with cardiology . Hypercholesterolemia 136 07109 E78.00 Tolerating statin without any issue Vitamin D deficiency 347 37898 E55.9 [id number] Efren Billy MD [facility] ([facility]) [address] [place] [id number] 5 08/10/2024 09:12:16 08/12/2024 10:35:39 Hypercholesterolemia 88773303 E78.00 Tolerating statin without any issue Parkinson's disease 4904 9000 G20.A1 Continue to follow with neurology in [facility] Type 2 maria alejandra betes mellitus 08782985 E11.9 Check A1c and urine microalbum in today. Continue current medication at this time. [id number] Efren Billy MD [facility] ([facility]) [address] [place] [id number] 5 08/11/2024 14:36:41 08/11/2024 16:10:17 Posterior rhinorrhea 47255235 R09.82 Ear drainage is likely causing the sore throat. Exam is more consistent with allergies than infection. Will start as the duloxetine and cetirizine . Active or passive immunization 321915956 Z23 Type 2 maria alejandra betes mellitus 99548450 E11.9 A1c was 5.7. Discussed medication s and we will stop the glipizide. A1c in 3 months. [id number] Efren Billy MD [facility] ([facility]) [address] [place] [id number] 5 08/31/2024 15:39:46 08/31/2024 16:14:18 Bronchitis 55905193 J40 Will treat the patient with antibiotic s and steroids similar to his . Will provide Tessalon Perles to help with cough. Continue over-the-c ounter medication to help with symptoms. Follow-up if symptoms do not improve after 7 to 10 days. [id number] Efren Billy MD [facility] ([facility]) [address] [place] [id number] 5 12/01/2024 14:51:16 12/01/2024 16:19:11 Left lateral elbow tendinopathy 9303596397 15522 M77.12 Exam is consistent with lateral epicondyli tis. Discussed tennis elbow strap. The patient is going to physical therapy for his back so prescripti on was provided for them to work with his tennis elbow as well. [id number] Efren Billy MD [facility] ([facility]) [address] [place] [id number] 5 12/22/2024 10:37:40 12/22/2024 11:25:27 Fatigue 31401878 R53.83 Will check labs today to evaluate fatigue. Trigger fi nger of left hand 7102627099 7413928 M65.342 M65.332 The patient has trigger fingers [...] procedure was performed on left middle finger. [id number] CECY GONZALES [facility] ([facility]) [address] [place] [id number] 5 02/09/2025 10:27:50 02/15/2025 08:14:46 Dyspnea 904699697 R06.02 89840 VSS. No signs of PE or post op complicati on. Breath sounds clear; not diminished . Will send order for a incentive spirometer . Discussed how to use this every 4 hours while awake. If you develop fever, worsening sob, cough productive of sputum then return for re-evaluat ion. [id number] CECY GEORGE [facility] ([facility]) [address] [place] [id number] 5 03/16/2025 12:13:45 03/16/2025 14:24:07 Acute right otitis media 715071062 H66.91 [id number] Patient to take antibiotic as prescribed . Did not see any perforatio n of ear drum but encouraged patient to call with any drainage or increased pain. Return to clinic with any new or worsening symptoms. [id number] CECY GONZALES [facility] ([facility]) [address] [place] [address] [id number] 5 03/22/2025 10:45:50 03/22/2025 11:05:38 Acute right otitis media 474452353 H66.91 0580630 stop amox. will start the cefdinir. f/u in 1 week for re-evaluat ion. [id number] Efren Billy MD [facility] ([facility]) [address] [place] [id number] 5 04/04/2025 09:03:12 04/04/2025 09:35:57 Orthopnea 08422840 R06.01 23457 Dyspnea on exertion 6084 5006 R06.09 458093 The patient is having orthopnea and dyspnea on exertion. Concerned about the patient's heart. Will order an echo. Daytime somnolence 26915 91180 00 G47.19 961226 Patient does have significan t risk factors suggestive of sleep apnea. Recommend home sleep study. Acute back pain with sciatica 664888637 M54.42 [id number] Patient is having persistent low back issues and has gone to the ER several times for this. Continue medication therapy but also start physical therapy for treatment. Type 2 maria alejandra betes mellitus 52975736 E11.9 Check labs today. Continue current interventi ons. Hearing lo ss of right ear 884124149 H91.91 [id number] Will send referral to audiologis t for hearing testing. [id number] Efren Billy MD [facility] ([facility]) [address] [place] [id number] 5 05/11/2025 12:17:07 05/11/2025 13:12:15 Daytime somnolence 7017288651 00 G47.19 [id number] The patient needs to be tested appropriat tye for sleep apnea. The patient has tried multiple home sleep studies but they come back nondiagnos tic and likely secondary to his tremor. Recommend monitored in the lab sleep study for evaluation for his possible sleep apnea Dyspnea on exertion 6084 5006 R06.09 632726 The patient continues to have dyspnea on exertion. Reviewed echo results with the patient. We will proceed with pulmonary function testing at this time. [facility] Inflammati on of sacroiliac joint 06297689 M46.1 20254 Patient's back pain is related to cigarette that is and not his kidney. Patient was reassured. Patient will continue with home stretches and exercises. [id number] Efren Billy MD [facility] ([facility]) [address] [place] [id number] 5 05/24/2025 11:08:58 05/24/2025 12:59:44 Bronchitis 63663478 J40 71516 Patient is doing better and is recovering from his recent illness. Type 2 maria alejandra betes mellitus 62357267 E11.9 Patient is doing well on current medication s. A1c 7.2%. [id number] Efren Billy MD [facility] ([facility]) [address] [place] [id number] 5 07/04/2025 09:32:07 07/04/2025 10:03:59 Trigger finger of left hand [id number] M65.342 - Referral to hand specialist for further evaluation and possible surgical options. Administra tion of influenza vaccine [id number] Z23 - Administer influenza vaccinatio n today. Triggering of digit [id number] M65.515 [id number] Efren Billy MD [facility] ([facility]) [address] [place] [phone] 08/02/2025 10:01:26 08/02/2025 11:05:58 Acute exacerbation of chronic obstructive pulmonary disease [id number] J44.1 [id number] - Symbicort inhaler prescribed , 2 puffs twice daily. - Nebulizer therapy to continue as needed. - Extend prednisone therapy beyond initial three-day course. Oropharyng eal dysphagia [id number] R13.12 8208 - Schedule modified barium swallow study.- Speech therapy referred as necessary post-evalu ation. Health Concerns Section Related Observation LastModified by Organization Detai ls LastModified Time None Recorded Concern Status LastModified by Organization Details LastModified Time None Recorded Advance Directives Directive None Recorded Payers Insurance Date Sequence Insurance Name Policy Number Policy Arana Covered Member ID Arana Member ID Guarantor Name 08/01/2025 2 [place] Jose Hairston [id number] Jose Hairston 09/26/2024 1 [employer] - DUAL COMPLETE (MEDICARE REPLACEMENT/ ADVANTAGE - HMO) [id number] Jose Hairston [id number] Jose Hairston 08/01/2025 [place] [facility] Jose Hairston [id number] Jose Hairston 08/01/2025 1 [employer] (MEDICARE REPLACEMENT/ ADVANTAGE - PPO) [id number] Jose Hairston [id number] Jose Hairston Notes Date Note Type Note Provider Name and Address Organization Details Recorded Time 5 text/html This is a 69 year old [...] like it evaluated further Efren Billy MD [address] [place] [address], [phone], [facility] 04/05/2025 11:06:59 5 text/html ROS as noted in the HPI Patient is here today c/o of SOB going on since JanuaryPt feels SOB, coughs, wheezes and has episodes of sleep apnea at nightHe also c/o of Back Pain on the right side he thinks maybe kidney related Efren Billy MD [address] [place] [address], [phone], [facility] 05/14/2025 12:06:41 5 text/html patient here to f/u on an ER visit for difficulty breathing. they gave him an albuterol inhaler and he has PTF's set up for 06/01 he is feeling better nowhis [facility] 7.2 A1C. Patient has no other concerns today. Efren Billy MD [address] [place] [address], [phone], [facility] 05/29/2025 09:21:51 5 text/html ROS as noted in the HPI [...] pending from the hospital. Efren Billy MD [address] [place] [address], [phone], [facility] 07/04/2025 10:02:16 5 text/html Upper Respiratory SymptomsReported by PatientUpper [...] normal pulmonary function tests. Efren Billy MD [address] [place] [address], [phone], [facility] 08/02/2025 11:14:23
--- OUTSIDE RECORDS SUMMARY | 2025-08-04 12:14 | XMS_ITS | Encounter Summary ---
Author Organization [facility] Address [address] [place] [address] Care Team Providers Care Manager Document Name Role Phone Unavailable Primary Care Provider [...] on file Legal Sex Male 11:58 AM ENGINE BOSS Gender Identity Not on file Sexual Orientation Not on file documented as of this encounter Plan of Treatment Upcoming Encounters Date Type Department Care Team (Late st Contact Info) Description 08/18/2025 10:20 AM ENGINE BOSS Office Visit [facility] Pain Management [address] [place] [address] [place] [phone] Isabell Garcia PA [address] [place] [address] 09/06/2025 11:00 AM ENGINE BOSS Office Visit [facility] Orthopedics - Orthopedic [facility] [address] [place] [address] Vida Osborn MD [address] [place] [address] 11/25/2025 11:15 AM ENGINE B[place] Office Visit [facility] Neurology - [place] [address] [place] [address] Norma Dhaliwal MD [address] [place] [address] documented as of this encounter Visit Diagnoses Not on filedocumented in this encounter
--- OUTSIDE RECORDS SUMMARY | 2025-08-04 12:14 | XMS_ITS | Encounter Summary ---
Author Organization [facility] Address [address] [place] [address] Care Team Providers Care Sheeter Machine Operator Name Role Phone Unavailable Primary [...] on file Legal Sex Male 11:58 AM AWNING SPREADER Gender Identity Not on file Sexual Orientation Not on file documented as of this encounter Plan of Treatment Upcoming Encounters Date Type Department Care Team (Late st Contact Info) Description 08/18/2025 10:20 AM AWNING SPREADER Office Visit [facility] Pain Management [address] [place] [phone] Isabell Garcia PA [address] [place] [address] 09/06/2025 11:00 AM AWNING SPREADER Office Visit [facility] Orthopedics - Orthopedic [facility] [address] [place] [address] Vida Osborn MD [address] [place] [address] 11/25/2025 11:15 AM AWNING SPREADER Office Visit [facility] Neurology - [place] [address] [place] [address] Norma Dhaliwal MD [address] [place] [address] documented as of this encounter Visit Diagnoses Not on filedocumented in this encounter
--- OUTSIDE RECORDS SUMMARY | 2025-08-04 12:14 | XMS_ITS | Clinical Summary ---
Author Organization [facility] Address [address] [facility] Attn: [place] [address] Care Team Providers Care Dairy Products Maker Name Role Phone Unavailable Primary Care Provider [...] Data STL ABSTRACTION Provider, Abstract 07/14/2025 Telephone [facility] Pain Management [address] [place] [phone] Isabell Garcia PA Question 07/11/2025 9:16 AM CDT - 07/11/2025 11:59 PM CDT Hospital Encounter [facility] Pain Management Procedures [place] [address] [place] [phone] Isabell Garcia PA Discharge Disposition: Home or Self Care 07/11/2025 8:57 AM CDT - 07/11/2025 11:59 PM CDT Hospital Encounter [facility] Pain Management Procedures [place] [address] [place] [phone] Omi Henderson MD Discharge Disposition: Home or Self Care 07/05/2025 Telephone [facility] Orthopedics - Orth[facility] [address] [place] [address] Vida Osborn MD General 06/30/2025 10:20 AM CDT Office Visit [facility] Spine Neurosurgery [address] [place] [phone] Kina Navarro PA Status post lumbar surgery (Primary Dx); Lumbar radiculopathy 06/22/2025 12:40 PM CDT Office Visit [facility] Pain Management [address] [place] [phone] Isabell Garcai PA Lumbar postlaminectomy syndrome (Primary Dx); Lumbar radicular pain; Degeneration of intervertebral disc of lumbar region with discogenic back pain; Chronic pain syndrome; Failed neck syndrome 06/21/2025 External Device Data STL ABSTRACTION Provider, Abstract 06/02/2025 7:38 AM CDT - 06/02/2025 11:59 PM CDT Hospital Encounter [facility] [address] [place] [phone] Kina Navarro PA Discharge Disposition: Home or Self Care 05/18/2025 11:00 AM CDT Office Visit [facility] Spine Neurosurgery [address] [place] [phone] Kina Navarro PA Status post cervical spinal fusion (Primary Dx); Chronic bilateral low back pain with left-sided sciatica; Status post lumbar surgery; Lumbar radiculopathy 05/18/2025 Refill [facility] Spine Neurosurgery [address] [place] [phone] Doug Lo MD Status post cervical spinal fusion (Primary Dx) from Last 3 Months Immunizations Immunization Administration [...] on file Legal Sex Male 11:58 AM TRAM INSPECTOR Gender Identity Not on file Sexual Orientation [...] st Contact Info) Description 08/18/2025 10:20 AM TRAM INSPECTOR Office Visit [facility] Pain Management [address] [place] [address] Isabell Garcia PA [address] [place] [address] 09/06/2025 11:00 AM TRAM INSPECTOR Office Visit [facility] Orthopedics - [facility] [address] [place] [address] Vida Osborn MD [address] [place] [address] 11/25/2025 11:15 AM TRAM INSPECTOR Office Visit [facility] Neurology - [place] [address] [place] [address] Norma Dhaliwal MD [address] [place] [address] Health Maintenance Due Date Last [...] 50-74 years 1-dose series) 2006 Medicare [place]vantage ([place]) Preventative Visit/Annual Wellness Visit 10/06/2024 COVID-19 Vaccine (3 - 2024-2 6 season) 2025 02/06/2021, 01/09/2021 DIABETES HBA1C Q 6 MONTHS 10/07/20252024, 12/30/2024, 08/10/2024 COLORECTAL SCREENING 07/15/2034 07/15/2024 Colorectal Cancer Screening 07/15/2034 ZOSTER VACCINE Completed 06/16/2025, 04/06/2025 INFLUENZA VACCINE Completed 07/04/2025, , 07/25/2023, Additional history exists Medical Devices Implanted Type Area Smoke Eater Device Identifier Shelf Expiration Date Model / Serial / Lot Putty Mastergraft 9.0ml [id number] - [id number] Implanted:Qty : 1 on 01/14/2025 by Abisai Hsieh MD at [facility] Biological N/A: Spine Cervical Posterior [employer]AMOR [employer]ANEK 09/04/2028 [id number] / / [id number] Hemostatic Surgiflo 8ml W/ Thrombin 2994 - [id number] Implanted:Qty : 1 on 01/14/2025 by Abisai Hsieh MD at [facility] Hemostatic N/A: Spine Cervical Posterior [employer] [id number] 04/04/2026 2994 / / [id number] Hemostatic Surgiflo 8ml W/ Thrombin 2994 - [id number] Implanted:Qty : 1 on 01/14/2025 by Abisai Hsieh MD at [facility] Hemostatic N/A: Spine Cervical Posterior [employer] [id number] 04/04/2026 2994 / / [id number] Anjel Infinity 3.5x60mm Pre-Cut [id number] - [id number] Implanted:Qty : 1 on 01/14/2025 by Abisai Hsieh MD at [facility] Anejl N/A: Spine Cervical Posterior [employer] 01/14/2030 [id number] / / [id number] Anjel Infinity 3.5x60mm Pre-Cut 2566936 - [id number] Implanted:Qty : 1 on 01/14/2025 by Abisai Hsieh MD at [facility] Anjel N/A: Spine Cervical Posterior [employer] 01/14/2030 [id number] / / [id number] Screw Infinity 3.5x14mm Mas [id number] - [id number] Implanted:Qty : 1 on 01/14/2025 by Abisai Hsieh MD at [facility] Screw N/A: Spine Cervical Posterior [employer] 01/14/2030 [id number] / / [id number] Screw Infinity 3.5x14mm Mas [id number] - [id number] Implanted:Qty : 1 on 01/14/2025 by Abisai Hsieh MD at [facility] Screw N/A: Spine Cervical Posterior [employer] 01/14/2030 [id number] / / [id number] Screw Infinity 3.5x14mm Mas [id number] - [id number] Implanted:Qty : 1 on 01/14/2025 by Abisai Hsieh MD at [facility] Screw N/A: Spine Cervical Posterior [employer] 01/14/2030 [id number] / / [id number] [id number] Set Screw Infinity Oc M6 [id number] - [id number] Implanted:Qty : 1 on 01/14/2025 by Abisai Hsieh MD at [facility] Screw N/A: Spine Cervical Posterior [employer] 01/14/2030 [id number] / / [id number] Set Screw Infinity Oc M6 [id number] - [id number] Implanted:Qty : 1 on 01/14/2025 by Abisai Hsieh MD at [facility] Screw N/A: Spine Cervical Posterior [employer] 01/14/2030 [id number] / / [id number] 4904 Set Screw Infinity Oc M6 4183263 - [id number] Implanted:Qty : 1 on 01/14/2025 by Abisai Hsieh MD at [facility] Screw N/A: Spine Cervical Posterior [employer] 01/14/2030 [id number] / / [id number] 4904 Set Screw Infinity Oc M6 2437981 - [id number] Implanted:Qty : 1 on 01/14/2025 by Abisai Hsieh MD at [facility] Screw N/A: Spine Cervical Posterior [employer] 01/14/2030 [id number] / / [id number] Set Screw Infinity Oc M6 3504276 - [id number] Implanted:Qty : 1 on 01/14/2025 by Abisai Hsieh MD at [facility] Screw N/A: Spine Cervical Posterior [employer] 01/14/2030 [id number] / / [id number] 4904 Set Screw Infinity Oc M6 8008831 - [id number] Implanted:Qty : 1 on 01/14/2025 by Abisai Hsieh MD at [facility] Screw N/A: Spine Cervical Posterior [employer] 01/14/2030 [id number] / / [id number] 4904 Set Screw Infinity Oc M6 4442368 - [id number] Implanted:Qty : 1 on 01/14/2025 by Abisai Hsieh MD at [facility] Screw N/A: Spine Cervical Posterior [employer] 01/14/2030 [id number] / / [id number] 4904 Set Screw Infinity Oc M6 8941251 - [id number] Implanted:Qty : 1 on 01/14/2025 by Abisai Hsieh MD at [facility] Screw N/A: Spine Cervical Posterior [employer] 01/14/2030 [id number] / / [id number] Screw Infinity 3.5x14mm Mas [id number] - [id number] Implanted:Qty : 1 on 01/14/2025 by Abisai Hsieh MD at [facility] Screw N/A: Spine Cervical Posterior [employer] 01/14/2030 [id number] / / [id number] 4904 Screw Infinity 3.5x14mm Mas 5172980 - [id number] Implanted:Qty : 1 on 01/14/2025 by Abisai Hsieh MD at [facility] Screw N/A: Spine Cervical Posterior [employer] 01/14/2030 [id number] / / [id number] Screw Infinity 3.5x14mm Mas [id number] - [id number] Implanted:Qty : 1 on 01/14/2025 by Abisai Hsieh MD at [facility] Screw N/A: Spine Cervical Posterior [employer] 01/14/2030 [id number] / / [id number] Screw Infinity 3.5x14mm Mas [id number] - [id number] Implanted:Qty : 1 on 01/14/2025 by Abisai Hsieh MD at [facility] Screw N/A: Spine Cervical Posterior [employer] 01/14/2030 [id number] / / [id number] Screw Infinity 3.5x14mm Mas [id number] - [id number] Implanted:Qty : 1 on 01/14/2025 by Abisai Hsieh MD at [facility] Screw N/A: Spine Cervical Posterior [employer] 01/14/2030 [id number] / / [id number] 4904 Allograft Putty Influx Dbm 10ml Iflx-Pt-10 - [id number] Implanted:Qty : 1 on 01/14/2025 by Abisai Hsieh MD at [facility] Tissue N/A: Spine Cervical Posterior [employer] 10/26/2027 IFLX-PT- 10 / [id number] / Procedures Procedure Name Priority Date/Time [...] intraspinal enhancement. 3. Additional details as above. Kina HODGES MR ORDERABLES Final Result * (ABNORMAL) HEMOGLOBIN A1C (12/30/2024 8:48 AM CDT) HEMOGLOBIN A1C 6.0(H) <=5.6 % 12/30/2024 9:13 AM CDT [facility] EST. AVG GLUCOSE, A1C 126 mg/dL 12/30/2024 9:[address] [facility] Blood Venipuncture / Unknown 12/30/2024 8:48 AM CDT 12/30/2024 8:54 AM CDT Narrative [facility] - 12/30/2024 9:13 AM CDT HGB A1C INTERPRETATION NORMAL: <5.7% PRE-DIABETES: 5.7 - 6.4% DIABETES: 6.5% OR GREATER us Roverto Enciso MD CHEMISTRY ORDERABLES Final Resu lt [facility] CLIA #[id number] [address] [place] [address] from Last 3 Months or Most Recently Relevant to Health Maintenance Insurance [facility] Advance Directives For more information, please contact: [phone] * Full Code (Latest Code Status on File) Date Activated Date Inactivated Comments 01/14/2025 1:15 PM 01/18/2025 4:28 PM * Full Code Date Activated Date Inactivated Comments 01/14/2025 8:17 AM 01/14/2025 1:15 PM
[2025-08-04 13:59] LABS: Hematocrit 39.9 % (37-53); Hemoglobin 12.50 g/dL (11.27-16.99); Mean Corpuscular HGB Conc 31.3 g/dL (30-55); Mean Corpuscular Hemoglobin 30.4 pg (27-33); Mean Corpuscular Volume 97.1 fl (82-101); Nucleated Red Blood Cells % 0 %; Platelet Count 154 10^3/cmm (157-399); Red Blood Count 4.11 10^6/uL (3.85-5.65); White Blood Count 14.93 10^3/uL (3.29-11.43)
[2025-08-04 14:04] LABS: Add Urine Microscopic? NO; Glucose Urine UA 3+ (Normal); Nitrate Urine Negative (Negative)
[2025-08-04 14:14] LABS: Alanine Aminotransferase 8 U/L (0-41); Albumin Level 4.1 g/dL (3.5-5.2); Alkaline Phosphatase 93 U/L (40-130); Anion Gap 20.2 (5-19); Aspartate Amino Transferase 32 U/L (0-40); Blood Urea Nitrogen 19 mg/dL (8-23); Calcium 8.9 mg/dL (8.5-10.5); Carbon Dioxide 23 mmol/L (22-29); Chloride 98 mmol/L (98-107); Creatinine Clr Calc Pharmacy 96.5671; Globulin 3.2 g/dL (1.3-4.6); Glucose 253 mg/dL (65-115); Lipase 39 U/L (13-60); Osmolality Calculated 293 mOsm/kg (285-295); Potassium 5.2 mmol/L (3.5-5.1); Sodium 136 mmol/L (136-145); Total Protein 7.3 g/dL (6.6-8.7)
[2025-08-04 14:15] LABS: Slide Review Slide Review Perform
[2025-08-04 14:18] LABS: Specific Gravity, Urine 1.034 (1.005-1.030)
[2025-08-04 14:19] LABS: Charge for UA Resulting for Rev
[2025-08-04 16:35] VITALS: BP 169/98; PULSE 68; TEMP 36.5; O2SAT 95
--- NOTE | 2025-08-04 16:35 | CTR_ITS ---
PROCEDURE INFORMATION: Exam: CT Abdomen And Pelvis With Contrast Exam date and time: 08/04/2025 5:38 PM Age: 69 years old Clinical indication: Other: Large hematoma right lateral without injury; Abdominal pain; Localized; Right lower quadrant (rlq); PT arrives pov C/O rlq abd pain for the past few days. PT has large bruise to rlq and denies any recent falls or trauma. TECHNIQUE: Imaging protocol: Computed tomography of the abdomen and pelvis with contrast. Radiation optimization: All CT scans at this facility use at least one of these dose optimization techniques: automated exposure control; mA and/or kV adjustment per patient size (includes targeted exams where dose is matched to clinical indication); or iterative reconstruction. Contrast material: [id number]; Contrast volume: 100 ml; Contrast route: INTRAVENOUS (IV); COMPARISON: CR XR lumbar spine 2-3V* [id number] 04/03/2025 2:14 PM RADIATION DOSE METRICS: Total DLP (mGy-cm): 1038.44 FINDINGS: Lungs: Infiltrate in the right lung base concerning for pneumonia. Liver: Normal. No mass. Gallbladder and biliary ducts: Cholecystectomy clips. Pancreas: Normal. No ductal dilation. Spleen: Normal. No splenomegaly. Adrenal glands: Normal. No mass. Kidneys and ureters: Nonspecific although commonly benign renal cysts. Nonobstructing left renal calculi. Left pelvicaliectasis without obstructing calculus, unknown clinical significance. Stomach and bowel: Duodenal diverticulum. Appendix: No evidence of appendicitis. Intraperitoneal space: Unremarkable. No free air. No significant fluid collection. Vasculature: Aortic atherosclerosis. Lymph nodes: Unremarkable. No enlarged lymph nodes. Urinary bladder: Unremarkable as visualized. Reproductive: Unremarkable as visualized. Bones/joints: Moderate degenerative changes of the lumbar vertebral bodies. Soft tissues: Skin thickening and subcutaneous stranding in the tissues overlying the right lateral abdominal wall/right flank, doubtful clinical significance, could be related to prior trauma. CT/CT abdomen pelvis w con* [id number] IMPRESSION: 1. Infiltrate in the right lung base concerning for pneumonia. 2. Skin thickening and subcutaneous stranding in the tissues overlying the right lateral abdominal wall/right flank, doubtful clinical significance, could be related to prior trauma. COMMENTS: Consistent with the [employer]'s Incidental Findings Committee white paper (J Am Tutu Radiol 2018): Any incidental renal lesion less than 1 cm or classified as too small to characterize, or any incidental cystic renal lesion characterized as simple-appearing, is likely benign. No follow-up imaging is recommended for these lesions per consensus recommendations based on imaging criteria.
--- NOTE | 2025-08-04 16:36 | W.ED.ABDPA2 ---
HPI - Abdominal Pain General: Chief Complaint: Abdominal Pain Stated Complaint: large bruise low rt abd / SOB Time Seen by Provider: 08/04/25 16:19 History of Present Illness: Patient is a 69-year-old male with Parkinson's disease, recent bronchitis, presents to the ED with right lateral/flank hematoma. Content: Patient has not had any injury. He is recovering from bronchitis, and taking aerosol therapy every 4 hours. He has occasional nonproductive loose cough. He then noted some right lateral and flank discomfort approximately 2 days ago, however no change in his abdominal appearance. Today, with increasing pain, he noted a black/purple large hematoma to his right lateral abdomen that extends anterior and posterior. He is not on anticoagulation. Associated Symptoms: Denies chills, fever(s), nausea and vomiting Related Data Home Medications ?Medication ?Instructions ?Recorded ?Confirmed albuterol sulfate 2.5 mg/3 mL 2.5 mg inhalation Q6H PRN Wheezing 04/10/20 09/21/24 (0.083 %) solution for nebulization medical marijuana 1 gummy PO PRN PRN Pain 01/09/21 09/21/24 ascorbic acid (vitamin C) 1,000 mg 1 g PO DAILY 10/08/21 09/21/24 tablet carbidopa 25 mg-levodopa 250 mg 1.5 tab PO QID 12/21/21 09/21/24 tablet thiamine HCl (vitamin B1) 100 mg 200 mg PO BID 04/23/23 09/21/24 tablet rosuvastatin 40 mg tablet 40 mg PO DAILY 04/13/24 09/21/24 sitagliptin phosphate 100 mg 100 mg PO DAILY 04/13/24 09/21/24 tablet (Januvia) diclofenac sodium 50 mg 50 mg PO BID 07/13/24 09/21/24 tablet,delayed release glipizide 5 mg tablet 5 mg PO DAILY 03/17/25 Previous Rx's ?Medication ?Instructions ?Recorded lancets 33 gauge (BD Ultra Fine #300 ea 03/21/22 Lancets) blood-glucose meter (Accu-Chek #1 kit 08/20/22 Guide Glucose Meter) lancets (Accu-Chek Softclix ##300 04/04/23 Lancets) sildenafil 100 mg tablet 100 mg PO DAILY PRN sexual 07/25/23 activity #20 tabs blood sugar diagnostic (Accu-Chek #300 strips 05/25/24 Guide test strips) propranolol 40 mg tablet 40 mg PO BID #180 tabs 12/20/24 losartan 25 mg tablet 25 mg PO DAILY 30 days #30 tabs 03/17/25 methylprednisolone 4 mg tablets in See Rx Instructions PO .COMPLEX 03/31/25 a dose pack (Medrol (Thomas)) #21 ea tizanidine 2 mg capsule 2 mg PO Q8H PRN muscle spasticity 03/31/25 #20 caps albuterol sulfate 90 mcg/actuation 2 inh inhalation Q4H PRN shortness 05/15/25 aerosol inhaler of breath or wheezing #6.7 grams fluticasone 250 mcg-salmeterol 50 1 inh inhalation BID #60 ea 05/15/25 mcg/dose blistr powdr for inhalation (Advair Diskus) ipratropium 0.5 mg-albuterol 3 mg 3 ml inhalation Q4H shortness of 07/29/25 (2.5 mg base)/3 mL nebulization breath 1 month #180 mL soln doxycycline hyclate 100 mg capsule 100 mg PO BID 10 days #20 caps 08/04/25 Allergies Allergy/AdvReac Type Severity Reaction Status Date / Time Iodinated Contrast Media Allergy hives Verified 08/04/25 12:14 primidone Allergy unknown Verified 08/04/25 12:14 Review of Systems Const: Denies: fever(s) or chills Eyes: Denies: change in vision or blurry vision Card: Denies: chest pain or palpitations Resp: Denies: dyspnea or non-productive cough GI: Reports: abdominal pain; Denies: nausea or vomiting Musc: Denies: neck pain, back pain, extremity pain, joint pain or joint swelling Skin/Breast: Denies: rash or pruritus Neuro: Denies: headache(s) or numbness in extremities Psych: Denies: anxiety or depression PFSH ED PFSH: Medical History (Updated 08/04/25 @ 18:09 by TRACIE Copeland) Parkinson disease Aortic stenosis Accelerated essential hypertension CAD (coronary artery disease) Enrolled in chronic care management Hyperlipidemia, mixed Type 2 diabetes mellitus Low back pain Encounter for long-term use of opiate analgesic Surgical History History of cholecystectomy History of back surgery H/O aortic valve replacement H/O aortic valve replacement History of arthroplasty of knee Status post total left knee replacement Family History Mother , at age 80 Diabetes Hypertension Stroke Father , at age 65 CAD (coronary artery disease) Rheumatic fever Congestive heart failure (CHF) Brother Hypertension CAD (coronary artery disease) CABG x 4 Diabetes Sister Hypertension CAD (coronary artery disease) stents Brother CAD (coronary artery disease) stents Diabetes Denies family history of Clotting disorder Dementia Chronic kidney disease (CKD) Suicide Anesthesia complication Bleeding disorder Lung disease Cancer Social History Smoking and tobacco/nicotine status: never used tobacco/nicotine Second hand smoke exposure: Yes Alcohol intake: never Substance/Drug Use: current Substance/Drug use frequency: few times a week Marital status: Current occupational status: disabled Physical Exam Const: COMMON NORMALS: no acute distress, average body habitus and patient oriented x3 GENERAL APPEARANCE: cooperative HENMT: COMMON NORMALS: normocephalic and atraumatic HEAD & SCALP: normocephalic and atraumatic Neck/C-Spine: COMMON NORMALS: full ROM, no lymphadenopathy and supple Lymph: LYMPHATIC: no lymphadenopathy noted Chest: COMMONS NORMALS: normal inspection of the chest and normal palpation of entire chest wall Resp: COMMON NORMALS: normal respiratory effort and No retractions AUSCULTATION: rales on the right in the lower lung hernandez Cardio: COMMON NORMALS: regular rate and regular rhythm RATE: regular rate RHYTHM: regular rhythm GI: COMMON NORMALS: Normal to inspection, nondistended, normoactive bowel sounds present, Soft to palpation, non-tender and No hepatosplenomegaly present PALPATION: Yes Soft to palpation and Yes No hepatosplenomegaly present : COMMON NORMALS: Yes no CVA tenderness BLADDER/KIDNEY EXAM: Yes no CVA tenderness Back/Pelvis: COMMON NORMALS: no CVA tenderness BACK IMAGE (MALE):  1. Part of the ecchymosis Extremity: EXTREMITY IMAGE (FRONT):  1. Part of the ecchymosis Neuro: COMMON NORMALS: patient oriented x3 Psych: COMMON NORMALS: mental status grossly normal, Normal thought process present and cooperative THOUGHT PROCESS: Normal thought process present Course Vital Signs: Vital signs: Vital Signs Temperature 97.7 F 10/30/25 16:35 Pulse Rate 84 08/04/25 18:26 Respiratory Rate 18 08/04/25 17:58 Blood Pressure 170/91 08/04/25 18:26 Pulse Oximetry 96 08/04/25 18:26 Oxygen Delivery Me thod Room Air 08/04/25 18:00 MDM - Abdominal Pain Medical Decision Making Premedication for IV CT done. Patient is 69-year-old gentleman that presented to the emergency room today with a large ecchymotic area to his right lateral mid abdomen that extended from the anterior to the posterior. On CT he did not have any concern for arterial bleed in need of coiling/interventional radiology. Suspect this is secondary to unknown trauma. He is not on anticoagulation. Patient given instructions on this as well. He is to return if he has further issues. Patient was also hydrated given his elevation [place] gravity in his urine. He will be treated for community-acquired pneumonia as well. All their questions answered to their satisfaction. Medical Records I reviewed the patient's medical records. Lab Data I reviewed the patient's lab results. 08/04/25 13:45 08/04/25 13:45 Labs/Radiology: Radiology Impressions Abdomen/Pelvis CT 08/04/25 16:35 IMPRESSION: 1. Infiltrate in the right lung base concerning for pneumonia. 2. Skin thickening and subcutaneous stranding in the tissues overlying the right lateral abdominal wall/right flank, doubtful clinical significance, could be related to prior trauma. COMMENTS: Consistent with the [employer]'s Incidental Findings Committee white paper (J Am Tut[employer]iol 2018): Any incidental renal lesion less than 1 cm or classified as too small to characterize, or any incidental cystic renal lesion characterized as simple-appearing, is likely benign. No follow-up imaging is recommended for these lesions per consensus recommendations based on imaging criteria. Laboratory Results WBC 14.93 10^3/uL (3.29-11.43) H 08/04/25 13:45 RBC 4.11 10^6/uL (3.85-5.65) 08/04/25 13:45 Hgb 12.50 g/dL (11.27-16.99) 08/04/25 13:45 Hct 39.9 % (37-53) 08/04/25 13:45 MCV 97.1 fl (82-101) 08/04/25 13:45 MCH 30.4 pg (27-33) 08/04/25 13:45 MCHC 31.3 g/dL (30-55) 08/04/25 13:45 RDW 14.5 % (12.1-15.1) 08/04/25 13:45 Plt Count 154 10^3/cmm (157-399) L 08/04/25 13:45 MPV 10.8 fL (7.4-10.4) H 08/04/25 13:45 Neut % (Auto) 76.3 % 08/04/25 13:45 Lymph % (Auto) 9.0 % 08/04/25 13:45 [place] % (Auto) 6.4 % 08/04/25 13:45 Eos % (Auto) 0.0 % 08/04/25 13:45 Baso % (Auto) 0.3 % 08/04/25 13:45 Neut # (Auto) 11.39 10^3/uL (1.8-7.7) H 08/04/25 13:45 Lymph # (Auto) 1.3 10^3/uL (0.8-4.8) 08/04/25 13:45 [place] # (Auto) 1.0 10^3/uL (0.2-0.9) H 08/04/25 13:45 Eos # (Auto) 0.0 10^3/uL (0.0-0.8) 08/04/25 13:45 Baso # (Auto) 0.1 10^3/uL (0.0-0.1) 08/04/25 13:45 Nucleated RBC % (auto) 0 % 08/04/25 13:45 Nucleated RBCs # 0.0 /100WBC 08/04/25 13:45 Sodium 136 mmol/L (136-145) 08/04/25 13:45 Potassium 5.2 mmol/L (3.5-5.1) H 08/04/25 13:45 Chloride 98 mmol/L (98-107) 08/04/25 13:45 Carbon Dioxide 23 mmol/L (22-29) 08/04/25 13:45 Anion Gap 20.2 (5-19) H 08/04/25 13:45 BUN 19 mg/dL (8-23) 08/04/25 13:45 Creatinine 0.9 mg/dL (0.7-1.2) 08/04/25 13:45 GFR Calculation 83.9 mL/min (90-130) L 08/04/25 13:45 Glucose 253 mg/dL (65-115) H 08/04/25 13:45 Calculated Osmolality 293 mOsm/kg (285-295) 08/04/25 13:45 Calcium 8.9 mg/dL (8.5-10.5) 08/04/25 13:45 Total Bilirubin 0.5 mg/dL (0.15-1.2) 08/04/25 13:45 AST 32 U/L (0-40) 08/04/25 13:45 ALT 8 U/L (0-41) 08/04/25 13:45 Alkaline Phosphatase 93 U/L (40-130) 08/04/25 13:45 Total Protein 7.3 g/dL (6.6-8.7) 08/04/25 13:45 Albumin 4.1 g/dL (3.5-5.2) 08/04/25 13:45 Globulin 3.2 g/dL (1.3-4.6) 08/04/25 13:45 Lipase 39 U/L (13-60) 08/04/25 13:45 Urine Color Yellow (Yellow) 08/04/25 13:44 Urine Appearance Clear (CLEAR) 08/04/25 13:44 Urine pH 6.5 (5-7) 08/04/25 13:44 Ur Specific [place] 1.034 (1.005-1.030) H 08/04/25 13:44 Urine Protein Negative (Negative) 08/04/25 13:44 Urine Glucose (UA) 3+ (Normal) H 08/04/25 13:44 Urine Ketones Negative (Negative) 08/04/25 13:44 Urine Blood Negative (Negative) 08/04/25 13:44 Urine Nitrate Negative (Negative) 08/04/25 13:44 Urine Bilirubin Negative (Negative) 08/04/25 13:44 Urine Urobilinogen 1.0 mg/dL (Negative) 08/04/25 13:44 Ur Leukocyte Esterase Negative (Negative) 08/04/25 13:44 All radiology interpretation(s) finalized by discharge Discharge Plan Discharge Patient Disposition: Home Clinical Impression: Hematoma of skin, Pneumonia Condition: Stable Prescriptions: New doxycycline hyclate 100 mg capsule 100 mg PO BID 10 Days Qty: 20 0RF No Action albuterol sulfate 2.5 mg /3 mL (0.083 %) solution for nebulization 2.5 mg INHALATION Q6H PRN (Reason: Wheezing) carbidopa-levodopa 25-250 mg tablet 1.5 tab PO QID medical marijuana 1 gummy PO PRN PRN (Reason: Pain) ascorbic acid (vitamin C) 1,000 mg tablet 1 g PO DAILY sildenafil 100 mg tablet 100 mg PO DAILY PRN (Reason: sexual activity) Qty: 20 6RF Rx Instructions: Take 1 hour before intercourse, on empty stomach, max dose 100 mg, NO NITROGLYCERIN glipizide 5 mg tablet 5 mg PO DAILY losartan 25 mg tablet 25 mg PO DAILY 30 Days Qty: 30 5RF thiamine HCl (vitamin B1) 100 mg tablet 200 mg PO BID (DME) lancets [BD Ultra Fine Lancets] 33 gauge misc See Rx Instructions .Route Qty: 300 3RF Rx Instructions: As directed to test blood sugar TID (DME) blood-glucose meter [Accu-Chek Guide Glucose Meter] Misc See Rx Instructions .ROUTE .COMPLEX Qty: 1 0RF Dose Instruction: USE DIRECTED 3 TIMES A DAY Rx Instructions: USE DIRECTED 3 TIMES A DAY (DME) lancets [Accu-Chek Softclix Lancets] Misc See Rx Instructions .ROUTE .COMPLEX Qty: 300 3RF Dose Instruction: TEST 3 TIMES A DAY Rx Instructions: TEST 3 TIMES A DAY (DME) Accu-Chek Guide test strips Strip See Rx Instructions .ROUTE .COMPLEX Qty: 300 2RF Dose Instruction: USE DIRECTED TO TEST 3 TIMES A DAY Rx Instructions: USE DIRECTED TO TEST 3 TIMES A DAY propranolol 40 mg tablet 40 mg PO BID Qty: 180 3RF methylprednisolone [Medrol (Thomas)] 4 mg tablets,dose pack See Rx Instructions .ROUTE .COMPLEX Qty: 21 0RF Rx Instructions: for 6 days tizanidine 2 mg capsule 2 mg PO Q8H PRN (Reason: muscle spasticity) Qty: 20 0RF ipratropium-albuterol 0.5 mg-3 mg(2.5 mg base)/3 mL solution for nebulization 3 ml inhalation Q4H 30 Days Qty: 180 2RF rosuvastatin 40 mg tablet 40 mg PO DAILY Januvia 100 mg tablet 100 mg PO DAILY diclofenac sodium 50 mg tablet,delayed release (DR/EC) 50 mg PO BID fluticasone propion-salmeterol [Advair Diskus] 250-50 mcg/dose blister with device 1 inh inhalation BID Qty: 60 0RF albuterol sulfate 90 mcg/actuation HFA aerosol inhaler 2 inh INHALATION Q4H PRN (Reason: shortness of breath or wheezing) Qty: 6.7 1RF Discharge Orders: Discharge ED (Routine); Ordered 08/04/25 Ordered By: Patricia Bush Referrals: Delgado Billy MD [Primary Care Provider, Family Practice] Discharge Diet: Usual diet Discharge Activity: Resume usual activity Patient Instructions: Abdominal Pain (ED), Hematoma (ED), Patient Portal & Ivan Instructions Activity Restrictions/Additional Instructions: Things [id number] that help on hematomas: 1. Trey Ensure: This is a drink. You drink this daily which helps with large hematomas. It is utilized routinely and wound care. 2. Arnica: This is a cream. You can obtain this at [employer]. This will be over by the scar cream. You rub this on generously 3?5 times a day. Expect this hematoma to be here in another 4-8 weeks without the above additions Follow-up with your doctor regarding your pneumonia. Antibiotics were sent to the pharmacy: Doxycycline. Make sure you utilize as directed. Doxycycline will cause abdominal discomfort and nausea if you do not eat when you take your medication. This is not an allergic reaction it is a side effect without eating. Make sure you use a daily probiotic to avoid infectious diarrhea Repeat labs in 1 week to ensure your potassium has improved. Thank you for choosing [facility] for your healthcare needs today. You have been screened and evaluated and felt safe for discharge. Health conditions do change or evolve sometimes and as such it is important that you follow up with your Primary Doctor to be re checked, 3-5 days is a general good time frame for follow up. You are always welcome to return to the ED for re assessment if your symptoms are worsening or you have new concerns Print Language: Wolof Coding Level of Care Code ED Journeyman Patternmaker for Fredis Canchola
[2025-08-04] MEDS: methylPREDNISolone sod succ 125 mg/2 mL INJ 80 MG IVP (17:21)
[2025-08-04] MEDS: diphenhydrAMINE 50 mg/mL SDV 1mL IVP (17:21)
[2025-08-04] MEDS: iohexol 350 mg/mL 500 mL Btl (per mL) IV (17:45)
[2025-08-04 17:58] VITALS: PULSE 79; RESP 18; O2SAT 92
[2025-08-04 18:00] VITALS: BP 173/94; PULSE 71; O2SAT 95
[2025-08-04 18:26] VITALS: BP 170/91; PULSE 84; O2SAT 96
== END 2025-08-04 18:27 | disposition home or self-care (01) ==
PROVIDERS: Family Medicine; Emergency Provider Physician Assistant; PCP Family Medicine
DX: S30.13XA Contusion of flank (latus) region, initial encounter (principal); J18.9 Pneumonia, unspecified organism; I25.10 Atherosclerotic heart disease of native coronary artery without angina pectoris; E78.2 Mixed hyperlipidemia; E11.9 Type 2 diabetes mellitus without complications; I10 Essential (primary) hypertension; X58.XXXA Exposure to other specified factors, initial encounter
CPT/HCPCS: 36415; 74177; 80053; 81003; 83690; 85025; 94640; 96361; 96374; 96375; 99285; J1200; J2919; J7040; J9999

== ENCOUNTER 2025-08-06 16:56 | Emergency (ER) | payer OTHER, SELFPAY ==
--- OUTSIDE RECORDS SUMMARY | 2025-08-06 17:02 | XMS_ITS | Clinical Summary ---
Author Organization [facility] Address 5 [facility] Attn: [place] [address] Care Team Providers Care Weekend Caregiver Name Role Phone Unavailable Primary Care Provider [...] Data STL ABSTRACTION Provider, Abstract 07/14/[address] [facility] Pain Management [address] [place] [phone] Isabell Garcia PA Question 07/11/2025 9:16 AM CDT - 07/11/2025 11:59 PM CDT Hospital Encounter [facility] Pain Management Procedures [place] [address] [place] [phone] Isabell Garcia PA Discharge Disposition: Home or Self Care 07/11/2025 8:57 AM CDT - 07/11/2025 11:59 PM CDT Hospital Encounter [facility] Pain Management Procedures [place] [address] [place] [phone] Omi Henderson MD Discharge Disposition: Home or Self Care 07/05/[address] [facility] [address] [place] [address] Vida Osborn MD General 06/30/2025 10:20 AM CDT Office Visit [facility] Spine Neurosurgery [address] [place] [phone] Kina Navarro PA Status post lumbar surgery (Primary Dx); Lumbar radiculopathy 06/22/2025 12:40 PM CDT Office Visit [facility] Pain Management [address] [place] [phone] Isabell Garcia PA Lumbar postlaminectomy syndrome (Primary Dx); Lumbar radicular pain; Degeneration of intervertebral disc of lumbar region with discogenic back pain; Chronic pain syndrome; Failed neck syndrome 06/21/2025 External Device Data STL ABSTRACTION Provider, Abstract 06/02/2025 7:38 AM CDT - 06/02/2025 11:59 PM CDT Hospital Encounter [facility] [address] [place] [address] Kina Navarro PA Discharge Disposition: Home or Self Care 05/18/2025 11:00 AM CDT Office Visit [facility] Spine Neurosurgery [address] [place] [phone] Kina Navarro PA Status post cervical spinal fusion (Primary Dx); Chronic bilateral low back pain with left-sided sciatica; Status post lumbar surgery; Lumbar radiculopathy 05/18/[address] [facility] Spine Neurosurgery [address] [place] [phone] Doug Lo MD Status post cervical spinal [...] on file Legal Sex Male 11:58 AM CREDIT UNDERWRITER Gender Identity Not on file Sexual Orientation [...] st Contact Info) Description 08/18/2025 10:20 AM CREDIT UNDERWRITER Office Visit [facility] Pain Management [address] [place] [address] Isabell Garcia PA [address] [place] [address] 09/06/2025 11:00 AM CREDIT UNDERWRITER Office Visit [facility] Orthopedics - Orthopedic [facility] [address] [place] [address] Vida Osborn MD [address] [place] [address] 11/25/2025 11:15 AM CREDIT UNDERWRITER Office Visit [facility]rology - [place] [address] [place] [address] Norma Dhaliwal MD [address] [place] [address] Health Maintenance Due Date Last [...] 50-74 years 1-dose series) 2006 [place] Preventative Visit/Annual Wellness Visit 10/06/2024 COVID-19 Vaccine (3 - 2024-2 6 season) 2025 02/06/2021, 01/09/2021 DIABETES HBA1C Q 6 MONTHS 10/07/20252024, 12/30/2024, 08/10/2024 COLORECTAL SCREENING 07/15/2034 07/15/2024 Colorectal Cancer Screening 07/15/2034 ZOSTER VACCINE Completed 06/16/2025, 04/06/2025 INFLUENZA VACCINE Completed 07/04/2025, , 07/25/2023, Additional history exists Medical Devices Implanted Type Area Spot Welder Device Identifier Shelf Expiration Date Model / Serial / Lot Putty Mastergraft 9.0ml [id number] - [id number] Implanted:Qty : 1 on 01/14/2025 by Abisai Hsieh MD at [facility] Biological N/A: Spine Cervical Posterior [employer]ANEK 09/04/2028 [id number] / / [id number] Hemostatic Surgiflo 8ml W/ Thrombin 2994 - [id number] Implanted:Qty : 1 on 01/14/2025 by Abisai Hsieh MD at [facility] Hemostatic N/A: Spine Cervical Posterior [employer] [id number] 04/04/2026 2994 / / [id number] Hemostatic Surgiflo 8ml W/ Thrombin 2994 - [id number] Implanted:Qty : 1 on 01/14/2025 by Abisai Hsieh MD at [facility] Hemostatic N/A: Spine Cervical Posterior [employer] [id number] 04/04/2026 2994 / / [id number] Anjel Infinity 3.5x60mm Pre-Cut [id number] - [id number] Implanted:Qty : 1 on 01/14/2025 by Abisai Hsieh MD at [facility] Anjel N/A: Spine Cervical Posterior [employer] 01/14/2030 [id number] / / [id number] Anjel Infinity 3.5x60mm Pre-Cut [id number] - [id number] Implanted:Qty : 1 on 01/14/2025 by Abisai Hsieh MD at [facility] Anjel N/A: Spine Cervical Posterior [employer] 01/14/2030 [id number] / / [id number] Screw Infinity 3.5x14mm Mas [id number] - [id number] Implanted:Qty : 1 on 01/14/2025 by Abisai Hsieh MD at [facility] Screw N/A: Spine Cervical Posterior [employer] 01/14/2030 [id number] / / [id number] Screw Infinity 3.5x14mm Mas [id number] - [id number] Implanted:Qty : 1 on 01/14/2025 by Abisai Hsieh MD at [facility] Screw N/A: Spine Cervical Posterior [employer] 01/14/2030 [id number] / / [id number] Screw Infinity 3.5x14mm Mas [id number] - [id number] Implanted:Qty : 1 on 01/14/2025 by Abisai Hsieh MD at [facility] Screw N/A: Spine Cervical Posterior [employer] 01/14/2030 [id number] / / [id number] Set Screw Infinity Oc M6 [id number] - [id number] Implanted:Qty : 1 on 01/14/2025 by Abisai Hsieh MD at [facility] Screw N/A: Spine Cervical Posterior [employer] 01/14/2030 [id number] / / [id number] Set Screw Infinity Oc M6 1215613 - [id number] Implanted:Qty : 1 on 01/14/2025 by Abisai Hsieh MD at [facility] Screw N/A: Spine Cervical Posterior [employer] 01/14/2030 [id number] / / [id number] Set Screw Infinity Oc M6 6054832 - [id number] Implanted:Qty : 1 on 01/14/2025 by Abisai Hsieh MD at [facility] Screw N/A: Spine Cervical Posterior [employer] 01/14/2030 [id number] / / [id number] Set Screw Infinity Oc M6 [id number] - [id number] Implanted:Qty : 1 on 01/14/2025 by Abisai Hsieh MD at [facility] Screw N/A: Spine Cervical Posterior [employer] 01/14/2030 [id number] / / [id number] Set Screw Infinity Oc M6 [id number] - [id number] Implanted:Qty : 1 on 01/14/2025 by Abisai Hsieh MD at [facility] Screw N/A: Spine Cervical Posterior [employer] 01/14/2030 [id number] / / [id number] Set Screw Infinity Oc M6 1608041 - [id number] Implanted:Qty : 1 on 01/14/2025 by Abisai Hsieh MD at [facility] Screw N/A: Spine Cervical Posterior [employer] 01/14/2030 [id number] / / [id number] Set Screw Infinity Oc M6 8411350 - [id number] Implanted:Qty : 1 on 01/14/2025 by Abisai Hsieh MD at [facility] Screw N/A: Spine Cervical Posterior [employer] 01/14/2030 [id number] / / [id number] Set Screw Infinity Oc M6 9351573 - [id number] Implanted:Qty : 1 on 01/14/2025 by Abisai Hsieh MD at [facility] Screw N/A: Spine Cervical Posterior [employer] 01/14/2030 [id number] / / [id number] Screw Infinity 3.5x14mm Mas 3976429 - [id number] Implanted:Qty : 1 on 01/14/2025 by Abisai Hsieh MD at [facility] Screw N/A: Spine Cervical Posterior [employer] 01/14/2030 [id number] / / [id number] Screw Infinity 3.5x14mm Mas [id number] - [id number] Implanted:Qty : 1 on 01/14/2025 by Abisai Hsieh MD at [facility] Screw N/A: Spine Cervical Posterior [employer] 01/14/2030 [id number] / / [id number] Screw Infinity 3.5x14mm Mas 1081367 - [id number] Implanted:Qty : 1 on 01/14/2025 by Abisai Hsieh MD at [facility] Screw N/A: Spine Cervical Posterior [employer] 01/14/2030 [id number] / / [id number] Screw Infinity 3.5x14mm Mas [id number] - [id number] Implanted:Qty : 1 on 01/14/2025 by Abisai Hsieh MD at [facility] Screw N/A: Spine Cervical Posterior [employer] 01/14/2030 [id number] / / [id number] Screw Infinity 3.5x14mm Mas 6817430 - [id number] Implanted:Qty : 1 on 01/14/2025 by Abisai Hsieh MD at [facility] Screw N/A: Spine Cervical Posterior [employer] 01/14/2030 [id number] / / [id number] Allograft Putty Influx Dbm 10ml Iflx-Pt-10 - [id number] Implanted:Qty : 1 on 01/14/2025 by Abisai Hsieh MD at [facility] Tissue N/A: Spine Cervical Posterior [employer] 10/26/2027 IFLX-PT- 10 / [id number] / Procedures Procedure Name Priority Date/Time [...] % 12/30/2024 9:13 AM CDT [facility] EST. AVG GLUCOSE, A1C 126 mg/dL 12/30/2024 9:13 AM CDT [facility] Blood Venipuncture / Unknown 12/30/2024 8:48 AM CDT 12/30/2024 8:54 AM CDT Narrative [facility] - 12/30/2024 9:13 AM CDT HGB A1C INTERPRETATION NORMAL: <5.7% PRE-DIABETES: 5.7 - 6.4% DIABETES: 6.5% OR GREATER us Roverto Enciso MD CHEMISTRY ORDERABLES Final Resu lt [facility] CLIA #[id number] [address] [place] [address] from Last 3 Months or Most Recently Relevant to Health Maintenance Insurance MEDICAID [place] [facility] Advance Directives For more information, please contact: [phone] * Full Code (Latest Code Status on File) Date Activated Date Inactivated Comments 01/14/2025 1:15 PM 01/18/2025 4:28 PM * Full Code Date Activated Date Inactivated Comments 01/14/2025 8:17 AM 01/14/2025 1:15 PM
--- OUTSIDE RECORDS SUMMARY | 2025-08-06 17:02 | XMS_ITS | Continuity of Care Document ---
Author Organization SAMUEL Carpio [facility] Joaquin, [place], [facility] ([facility]) Address [address] [place] [address] Care Team Providers Care Grinder Name Role Phone [email or web address] Primary Care Provider [phone] Assessment Encounter Date Assessment Date Assessment LastModified [...] Imaging [place], modified [facility] [address] [place], [address], 11:44:52 Medication Orders prednisone 20 mg tablet 2024 [facility] [address], [address], [place], [address], 10:32:11 doxycycline hyclate 100 mg capsule 2024 [facility], [address], [place], [address], 10:32:08 budesonide- formoterol HFA 160 mcg-4.5 mcg/actuati on aerosol inhaler 2024 025 [facility], [address], [place], [address], 10:32:52 Patient TargetsNo targets recorded. Patient Instructions Encounter Date Encounter Id Patient Instructions Last Modified By Organization Details Last Modified Time 08/02/2025 [id number] - Use the Symbicort inhaler as directed, [...] sleep study No observ ation record ed. [id number] [place] [id number] [facility], [address], [place], [address], 07/14/2025 17:14:48 Result Notes None recorded. Problems Name Problem SNOMED Code Status Onset Date Resolution Date Notes Provider Name and Address Organization Details Recorded Time Parkinson's disease 73063197 Active 2023 TOMMY beal [facility] 4 08:33:39 Type 2 diabetes mellitus 56356922 Active 2023 TOMMY beal [facility] 4 08:33:48 Hypercholes terolemia 41373202 Active 2023 TOMMY beal [facility] 4 09:52:27 Vitamin D deficiency 54559472 Active 2023 Efren Billy MD [address] [place] [address], [phone] 5, [facility] 5 12:22:56 Posterior rhinorrhea 46373932 Active 2023 Efren Billy MD [address] [place] [address], [phone] 5, [facility] 5 12:22:53 Left lateral elbow tendinopath y 1054617835605 00 Active 2024 Efren Billy MD [address] [place] [address], [address] 5, [facility] 5 12:22:42 Mild recurrent major depression 29396485 Active 2024 Efren Billy MD [address] [place] [address], [address] 5, [facility] 5 12:23:16 Fatigue 15567303 Active 2024 Harjinder beal [facility] 5 11:58:36 Trigger finger of left hand 5092831204636 9107 Active 2024 Efren Billy MD [address] [place] [address], [address] 5, [facility] 09:44:31 Orthopnea 60075585 Active 2024 Efren Billy MD [address] [place] [address], [address] 5, [facility] 09:28:33 Dyspnea on exertion 29178615 Active 2024 Efren Billy MD [address] [place] [address], [address] [place] [address] 5, [facility] 09:29:00 Daytime somnolence 447571701436 Active 2024 Efren Billy MD [address] [place] [address] 5, [facility] 09:31:04 Acute back pain with sciatica 994921081 Active 2024 Efren Billy MD [address] [place] [address], [address] 5, [facility] 09:31:41 Hearing loss of right ear 579225480 Active 2024 Efren Billy MD [address] [place] [address], [address] 5, [facility] 09:32:53 Diastolic dysfunction 6306076 Active 2024 [facility] 09:52:12 Inflammatio n of sacroiliac joint 55211244 Active 2024 Efren Billy MD [address] [place] [address] 5, [facility] 12:05:00 Bronchitis 19169850 Active 2024 Efren Billy MD [address] [place] [address], [address] 5, [facility] 09:21:17 Sleep apnea 07279243 Active 2024 [facility] 16:46:23 Acute exacerbatio n of chronic obstructive pulmonary disease 339470312 Active 2024 Efren Billy MD [address] [place] [address], [address] 5, [facility] 10:31:14 Oropharynge al dysphagia 89380389 Active 2024 Efren Billy MD [address] [place] [address], [address] 5, [facility] 10:33:19 Problem Notes None recorded. Procedures Surgical History Date Name Laterality Status Provider Name and Address Organization Details Recorded Time 07/15/20 24 Colonoscopy completed TOMMY GOINS [facility] 07/26/2024 10:25:49 10/06/19 24 decompression of ulnar nerve at elbow completed Harjinder Ruff [facility] 12/01/2024 14:59:35 Appendectomy completed [facility] 07/06/2024 09:35:33 [facility]ole[facility] 07/06/2024 09:35:40 Imaging Results None recorded. Procedure Notes None recorded. Medical Equipment None Reported. Allergies Allergen ID Allergen Name Allergen Category Reaction Reaction Severity Criticality Documentation Date Start Date Code Code System Note Provider Name and Address Organization Details Recorded Time 48735 iodine medicatio n Not available Not available Not available 07/06/2024 5933 RxNorm iodin ated contr ast dye Harjinder Ruff emigdio, [facility] 5 15:00:29 50428 primidone medicatio n dizziness mild low 05/11/2025 8691 RxNorm Saumya Clark emigdio, [facility] 5 12:35:34 Medications Name [...] Not Available No t Available One Touch [employer] System kit check sugar 3 times a [...] Last Updated DateTime 180.34 cm 32.2 kg/m2 948413. 84 g 97.3 [degF] 95 % 95 % 69 /min 136/82 mm[Hg] Lorena Johnson [facility] LDineshLKhadijah 10:09:01 Social History Question Answer Notes LastModified by Organizat ion Details LastModified Time Tobacco Smoking Status Never Smoker FLORES beal [facility] LDineshLKhadijah 03/16/2025 12:23:31 What Is Your Level Of Caffeine Consumption? Moderate Information not available 07/06/2024 What Type Of Diet Are You Following? REGULAR Information not available 07/06/2024 What Is The Highest Grade Or Level Of School You Have Completed Or The Highest Degree You Have Received? [id number] Information not available 07/06/2024 What Was The Date Of Your Most Recent Tobacco Screening? 08/02/2025 Information not available 08/02/2025 What Is Your [...] Organization Details LastModified Time Father Myocardial infarction [email or web address] Not available 12/01 15:07:18 Mother Cerebrovascu lar accident [email or web address] Not available 15:07:33 Brother Hypertensive disorder Not available 2024 15:07:41 Brother Heart disease [email or web address] Not available 2024 15:07:51 Medical History No medical history recorded. Immunizations Vaccine Type Date Status Note Provider Nam e and Address Organization Details Recorded Time Influenza, adjuvanted, trivalent, PF [address] [facility] 07/04/2025 11:30:56 influenza, split (incl. purified surface antigen) 0 completed Not Available [facility] 08/02/2025 10:05:03 Influenza, split virus, trivalent, preservative 1 completed Not Available [facility] 08/02/2025 10:05:03 COVID-19, mRNA, LNP-S, PF, 100 mcg/0.5mL dose or 50 mcg/0.25mL dose 1 completed Not Available [facility] 08/02/2025 10:05:03 COVID-19, mRNA, LNP-S, PF, 100 mcg/0.5mL dose or 50 mcg/0.25mL dose 1 completed Not Available [facility] 08/02/2025 10:05:03 Influenza, split virus, quadrivalent, PF 2 completed Not Available [facility] 08/02/2025 10:05:03 Influenza, high-dose, quadrivalent, PF 3 completed Not Available [facility] 08/02/2025 10:05:03 zoster recombinant 5 completed Not Available [facility] 08/02/2025 10:05:03 zoster recombinant 5 completed Not Available [facility] 08/02/2025 10:05:03 Influenza, adjuvanted, trivalent, PF 4 completed Efren Billy MD [address] [place] [address], [address], [facility] 08/13/2024 12:33:44 Past Encounters Encounter ID Performer Location Encounter Start Date Encounter Closed Date Diagnosis/Indication Diagnosis SNOMED-CT Code Diagnosis ICD10 Code Diagnosis IMO Codes Diagnosis Note [id number] Efren Billy MD [facility] ([facility]) [address] [place] [address] 07/04/2025 09:32:07 07/04/2025 10:03:59 Trigger finger of left hand [id number] M65.342 - Referral to hand specialist for further evaluation and possible surgical options. Administra tion of influenza vaccine 80209659 Z23 - Administer influenza vaccinatio n today. Triggering of digit 2399 64529 M65.278 [id number] Efren Billy MD [facility] ([facility]) [address] [place] [address] 08/02/2025 10:01:26 08/02/2025 11:05:58 Acute exacerbation of chronic obstructive pulmonary disease 785011117 J44.1 176744 - Symbicort inhaler prescribed , 2 puffs twice daily. - Nebulizer therapy to continue as needed. - Extend prednisone therapy beyond initial three-day course. Oropharyng eal dysphagia 72538819 R13.12 8208 - Schedule modified barium swallow study.- Speech therapy referred as necessary post-evalu ation. Health Concerns Section Related Observation LastModified by Organization Detai ls LastModified Time None Recorded Concern Status LastModified by Organization Details LastModified Time None Recorded Payers Encounter Date Sequence Insurance Name Policy Number Policy Arana Covered Member ID Arana Member ID Guarantor Name 08/02/2025 2 [place] Jose Hairston [id number] Joseelda Hairston 08/02/2025 1 [employer] (MEDICARE REPLACEMENT/ ADVANTAGE - PPO) [id number] Jose Hairston [id number] Jose Hairston Notes Date Note Type Note [...] normal pulmonary function tests. Efren Billy MD [address] [place] [address], [phone], [facility], [place] 08/02/2025 11:14:23
--- OUTSIDE RECORDS SUMMARY | 2025-08-06 17:02 | XMS_ITS | Data Portability ---
Author Organization SAMUEL Carpio [facility] Liliam Nuñez [facility] Address [address] [place] [address] Care Team Providers Care Java Programmer Name Role Phone EFREN BILLY Primary Care [...] n/creatinin e, mass ratio, urine 2024 025 [facility], [address] [place], [address], 10:51:02 hemoglobin A1C/hemoglo bin total, QN, blood 2024 025 [facility], [address], [address], [place], [address], 5 10:13:51 CMP, serum or plasma 2024 025 [facility], [address], [address], [place], [address], 5 10:59:07 Referral hand surgeon referral 2024 025 [facility], [address] [place], [address], 15:06:11 physical therapist referral 2024 025 [facility], [address], [place], [address], 12:34:23 coloring room man referral 2024 025 [facility] Alfonso Motley MD, [address] , [place], [address], 09:15:38 Procedures None recorded. Surgeries None recorded. Imaging [place], modified barium swallow study 2024 025 [facility], [address] [place], [address], 5 11:44:52 polysomnogr am - Titration ([id number]) 2024 025 [facility] (Scheduling Orders), [address] [place], [address], 5 13:53:06 PFT, complete 2024 025 [facility] (Scheduling Orders), [address] [facility], [address], 09:33:39 home sleep study 2024 [facility], [address] [place], [address], 14:47:32 US, echocardiog haley 2024 [facility] Orders, [address] [place], [address], 08:58:05 Medication Orders prednisone 20 mg tablet 2024 [facility], [address], [place], [address], 10:32:11 doxycycline hyclate 100 mg capsule 2024 [facility], [address], [place], [address], 10:32:08 budesonide- formoterol HFA 160 mcg-4.5 mcg/actuati on aerosol inhaler 2024 [facility] 15, [address], [place], [address], 10:32:52 Patient TargetsNo targets recorded. Patient Instructions Encounter Date Encounter Id Patient Instructions Last Modified By Organization Details Last Modified Time 07/04/2025 [id number] - You will recei ve an influenza [...] received. 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 5 Not Available [facility] [address] [facility] [address], [place], [address], 04/04/2025 10:13:51 04/04/20 25 04/04/2025 CMP (MALE ) glucose 246.0 mg/dL 60.0-9 9.0 high Not Available [facility] [address] [facility] [address] [facility] [address], [place], [address], 04/04/2025 10:59:06 04/04/20 25 04/04/2025 CMP (MALE ) BUN (blood urea nitrogen) 30.0 mg/dL 10.0-2 6.0 high Not Available [facility] [address] [facility] [address] [facility] 1, [place], [address], 04/04/2025 10:59:06 04/04/20 25 04/04/2025 CMP (MALE ) creatinine (serum) 0.8 mg/dL 0.4-1. 5 Not Available [facility] [address] [facility] 1, [place], [address], 04/04/2025 10:59:06 04/04/20 25 04/04/2025 CMP (MALE ) BUN/creatini ne ratio 37.50 ratio Not Available [facility] [address] [facility] [address] [facility] 1, [place], [address], 04/04/2025 10:59:06 04/04/20 25 04/04/2025 CMP (MALE ) eGFR calculated 102.2 Not Available [facility] [address] [facility] [address] [facility] 1, [place], [address], 04/04/2025 10:59:06 04/04/20 25 04/04/2025 CMP (MALE ) total protein 7.6 g/dL 6.0-8. 5 Not Available [facility] [address] [facility] 1, [place], [address], 04/04/2025 10:59:06 04/04/20 25 04/04/2025 CMP (MALE ) total bilirubin 0.7 mg/dL 0.2-1. 3 Not Available [facility] [address] [facility] [address], [place], [address], 04/04/2025 10:59:06 04/04/20 25 04/04/2025 CMP (MALE ) albumin 4.6 g/dL 3.5-5. 5 Not Available [facility] [address] [facility] [address], [place], [address], 04/04/2025 10:59:06 04/04/20 25 04/04/2025 CMP (MALE ) globulin 3.0 calc Not Available [facility] [address] [address], [place], [address], 04/04/2025 10:59:06 04/04/20 25 04/04/2025 CMP (MALE ) AST (SGOT) 25.0 U/L 0.0-46 .0 Not Available [facility] [address] [address], [place], [address], 04/04/2025 10:59:06 04/04/20 25 04/04/2025 CMP (MALE ) altv (SGPT) 12.0 U/L 13.0-6 9.0 abnormal Not Available [facility] [address] [facility] [address], [place], [address], 04/04/2025 10:59:06 04/04/20 25 04/04/2025 CMP (MALE ) A/G ratio 1.5 ratio Not Available [facility] [address] [facility] 1, [place], [address], 04/04/2025 10:59:06 04/04/20 25 04/04/2025 CMP (MALE ) ALP phos 79.0 U/L 30.0-1 40.0 normal Not Available [facility] [address] [facility] [address], [place], [address], 04/04/2025 10:59:06 04/04/20 25 04/04/2025 CMP (MALE ) calcium 9.7 mg/dL 8.4-10 .5 Not Available [facility] [address] [facility] [address], [place], [address], 04/04/2025 10:59:06 04/04/20 25 04/04/2025 CMP (MALE ) sodium 138.0 mmol/ L 136.0- 145.0 Not Available [facility] [address] [facility] [address], [place], [address], 04/04/2025 10:59:06 04/04/20 25 04/04/2025 CMP (MALE ) potassium 4.6 mmol/ L 3.5-5. 1 Not Available [facility] [address] [facility] [address], [place], [address], 04/04/2025 10:59:06 04/04/20 25 04/04/2025 CMP (MALE ) chloride 102.0 mmol/ L 98.0-1 10.0 normal Not Available [facility] [address] [facility] [address], [place], [address], 04/04/2025 10:59:06 04/04/20 25 04/04/2025 CMP (MALE ) C02 28.0 mmol/ L 22.0-3 1.0 Not Available [facility] [address] [facility] [address], [place], [address], 04/04/2025 10:59:06 04/04/20 25 04/04/2025 CMP (MALE ) anion gap 8.0 calc Not Available [facility] [address] [facility] [address], [place], [address], 04/04/2025 10:59:06 04/04/20 25 04/04/2025 CMP (MALE ) osmolality 298.3 calc Not Available [facility] [address] [facility] [address], [place], [address], 04/04/2025 10:59:06 04/04/20 25 04/05/2025 ALBUM IN, RANDO M URINE W/CRE ATINI NE creatinine, random urine 65 mg/dL 20-320 normal Not Available [facility] [address] [place], [address], 04/05/2025 10:51:02 04/04/20 25 04/05/2025 ALBUM IN, RANDO M URINE W/CRE ATINI NE albumin, urine 2.6 mg/dL see note: normal Refer ence Range : Refer ence Range Not estab lishe d Not Available [address] [address] [place], [address], 04/05/2025 10:51:02 04/04/20 25 04/05/2025 ALBUM IN, [...] a diagn ostic categ ory. Not Available [facility] [address] [place], [address], 04/05/2025 10:51:02 05/01/20 home sleep study No observ ation record ed. [email or web address] [facility] [address] [place], [address], 05/09/2025 09:48:31 05/05/20 25 05/04/2025 , echo ardio gram No observ ation record ed. [email or web address] [facility] [address] [place], [address], 05/09/2025 09:48:32 07/13/20 25 06/27/2025 home sleep study No observ ation record ed. [email or web address] [facility] [address] [facility], [facility] [address], [place], [address], 07/14/2025 17:14:48 Result Notes None recorded. Problems Name Problem SNOMED Code Status Onset Date Resolution Date Notes Provider Name and Address Organization Details Recorded Time Parkinson's disease 29215628 Active 2023 TOMMY beal [facility] 4 08:33:39 Type 2 diabetes mellitus 12101082 Active 2023 TOMMY beal [facility] 4 08:33:48 Hypercholes terolemia 34246479 Active 2023 TOMMY beal [facility] 4 09:52:27 Vitamin D deficiency 46515429 Active 2023 Efren Billy MD [address] [place] [address], [address], [place] [facility] 5 12:22:56 Posterior rhinorrhea 71075611 Active 2023 Efren Billy MD [address] [place] [address], 35[address] 5, [facility] 5 12:22:53 Left lateral elbow tendinopath y 2587758446045 00 Active 2024 Efren Billy MD [address] [place] [address], 99[address]820 5, [facility] 5 12:22:42 Mild recurrent major depression 90879776 Active 2024 Efren Billy MD [address] [place] [address], 57353-897 5, [facility] 5 12:23:16 Fatigue 87825084 Active 2024 Harjinder Ruff null, [facility] 5 11:58:36 Trigger finger of left hand 6456029542369 9107 Active 2024 Efren Billy MD [address] [place] [address], 018[address]-318 5, [facility] 5 09:44:31 Orthopnea 12839759 Active 2024 Efren Billy MD [address] [place] [address], 76881-419 5, [facility] 09:28:33 Dyspnea on exertion 85638985 Active 2024 Efren Billy MD [address] [place] [address], 86045-489 5, [facility] 5 09:29:00 Daytime somnolence 720100311166 Active 2024 Efren Billy MD [address] [place] [address], 69610-418 5, [facility] 09:31:04 Acute back pain with sciatica 535221499 Active 2024 Efren Billy MD [address] [place] [address], 36714-169 5, [facility] 09:31:41 Hearing loss of right ear 500646718 Active 2024 Efren Billy MD [address] [place] [address], 540[address]-886 5, [facility] 09:32:53 Diastolic dysfunction 8280825 Active 2024 Mary Tomi beal [facility] LDineshLDineshCDinesh 09:52:12 Inflammatio n of sacroiliac joint 16475211 Active 2024 Efren Billy MD [address] [place] [address], [address] 5, [facility], FroylanCDinesh 12:05:00 Bronchitis 28148591 Active 2024 Efren Billy MD [address] [place] [address], 34897-046 5, [facility] 09:21:17 Sleep apnea 43325255 Active 2024 Lorena Alex beal [facility] 16:46:23 Acute exacerbatio n of chronic obstructive pulmonary disease 724302391 Active 2024 Efren Billy MD [address] [place] [address], 18789[address]913 5, [facility] 10:31:14 Oropharynge al dysphagia 01495373 Active 2024 Efren Billy MD [address] [place] [address], 00987-236 5, [facility] 10:33:19 Problem Notes None recorded. Procedures Surgical History Date Name Laterality Status Provider Name and Address Organization Details Recorded Time 07/15/20 24 Colonoscopy completed TOMMY GOINS [facility] 07/26/2024 10:25:49 10/06/19 24 decompression of ulnar nerve at elbow completed Harjinder Ruff [facility] 12/01/2024 14:59:35 Appendectomy completed SHANEKA GOElda BAKER [facility] 07/06/2024 09:35:33 [facility] 07/06/2024 09:35:40 Imaging Results None recorded. Procedure Notes None recorded. Medical Equipment None Reported. Allergies Allergen ID Allergen Name Allergen Category Reaction Reaction Severity Criticality Documentation Date Start Date Code Code System Note Provider Name and Address Organization Details Recorded Time 50595 iodine medicatio n Not available Not available Not available 07/06/2024 5933 RxNorm iodin ated contr ast dye Harjinder Ruff emigdio [facility] 15:00:29 92858 primidone medicatio n dizziness mild low 05/11/2025 8691 RxNorm Saumya Amber beal [facility] 12:35:34 Medications Name Sig Start Date [...] Updated DateTime 5 180.34 cm 30.7 kg/m2 39160.3 2 g 98.7 [degF] 60 /min 98 % 98 % 158/88 mm[Hg] Lorena Johnson [facility] 5 09:10:59 Date Recorded Body height Body mass index (BMI) Body weight Oxygen saturation Oxygen saturation in Arterial blood by Pulse oximetry Heart rate Systolic And Diastolic Provider Name and Address Organization Details Last Updated DateTime 5 180.34 cm 31.9 kg/m2 840295. 65 g 97 % 97 % 71 /min 141/81 mm[Hg] [facility] 5 12:34:32 Date Recorded Body height Body mass index (BMI) Body weight Oxygen saturation Oxygen saturation in Arterial blood by Pulse oximetry Heart rate Respiratory rate Body temperature Systolic And Diastolic Provider Name and Address Organization Details Last Updated DateTime 5 180.34 cm 31.8 kg/m2 385948. 06 g 96 % 96 % 83 /min 20 /min 97.3 [degF] 134/80 mm[Hg] Mary Krishna [facility] 5 11:16:44 Date Recorded Body height Body mass index (BMI) Body weight Oxygen saturation Oxygen saturation in Arterial blood by Pulse oximetry Heart rate Systolic And Diastolic Provider Name and Address Organization Details Last Updated DateTime 5 180.34 cm 32.5 kg/m2 947966. 02 g 95 % 95 % 66 /min 120/68 mm[Hg] [facility] 5 09:38:21 Date Recorded Body height Body mass index (BMI) Body weight Body temperature Oxygen saturation Oxygen saturation in Arterial blood by Pulse oximetry Heart rate Systolic And Diastolic Provider Name and Address Organization Details Last Updated DateTime 5 180.34 cm 32.2 kg/m2 901631. 84 g 97.3 [degF] 95 % 95 % 69 /min 136/82 mm[Hg] Lorena Johnson [facility] 10:09:01 Social History Question Answer Notes LastModified by Organizat ion Details LastModified Time Tobacco Smoking Status Never [facility]oker [facility] 03/16/2025 12:23:31 What Is Your Level Of Caffeine Consumption? Moderate Information not available 07/06/2024 What Type Of Diet Are You Following? REGULAR Information not available 07/06/2024 What Is The Highest Grade Or Level Of School You Have Completed Or The Highest Degree You Have Received? [id number] Information not available 07/06/2024 What Was The Date Of Your Most Recent Tobacco Screening? 08/02/2025 [email or web address] Information not available 08/02/2025 What Is Your [...] Organization Details LastModified Time Father Myocardial infarction [email or web address] Not available 12/01 15:07:18 Mother Cerebrovascu lar accident [email or web address] Not available 15:07:33 Brother Hypertensive disorder [email or web address] Not available 2024 15:07:41 Brother Heart disease [email or web address] Not available 2024 15:07:51 Medical History No medical history recorded. Immunizations Vaccine Type Date Status Note Provider Nam e and Address Organization Details Recorded Time Influenza, adjuvanted, trivalent, PF 5 completed Lorena beal [facility] 07/04/2025 11:30:56 influenza, split (incl. purified surface antigen) 0 completed Not Available [facility] 08/02/2025 10:05:03 Influenza, split virus, trivalent, preservative 1 completed Not Available [facility] 08/02/2025 10:05:03 COVID-19, mRNA, LNP-S, PF, 100 mcg/0.5mL dose or 50 mcg/0.25mL dose 1 completed Not Available [facility] 08/02/2025 10:05:03 COVID-19, mRNA, LNP-S, PF, 100 mcg/0.5mL dose or 50 mcg/0.25mL dose 1 completed Not Available [facility] 08/02/2025 10:05:03 Influenza, split virus, quadrivalent, PF 2 completed Not Available [facility] 08/02/2025 10:05:03 Influenza, high-dose, quadrivalent, PF 3 completed Not Available [facility] 08/02/2025 10:05:03 zoster recombinant 5 completed Not Available [facility] 08/02/2025 10:05:03 zoster recombinant 5 completed Not Available [facility] 08/02/2025 10:05:03 Influenza, adjuvanted, trivalent, PF 4 completed Efren Billy MD [address] [place] [address], [address], [facility] 08/13/2024 12:33:44 Past Encounters Encounter ID Performer Location Encounter Start Date Encounter Closed Date Diagnosis/Indication Diagnosis SNOMED-CT Code Diagnosis ICD10 Code Diagnosis IMO Codes Diagnosis Note [id number] Efren Billy MD [facility] [address] [place] [address] [phone] 5 07/06/2024 09:21:37 07/06/2024 10:43:20 Parkinson's disease 11114807 G20.A1 Continue to follow with neurology in [facility] Type 2 maria alejandra betes mellitus 17496723 E11.9 Patient is not due for A1c today. Patient is due for all lab work and yearly physical next month. Continue current medication s. History of mitral valve replacement 9240265237 109 Z95.2 Continue to follow with cardiology . Hypercholesterolemia 136 92157 E78.00 Tolerating statin without any issue Vitamin D deficiency 347 11605 E55.9 [id number] Efren Billy MD [facility] [address] [place] [address] [id number] 5 08/10/2024 09:12:16 08/12/2024 10:35:39 Hypercholesterolemia 59875140 E78.00 Tolerating statin without any issue Parkinson's disease 4904 9000 G20.A1 Continue to follow with neurology in [facility] Type 2 maria alejandra betes mellitus 89545927 E11.9 Check A1c and urine microalbum in today. Continue current medication at this time. [id number] Efren Billy MD [facility] [address] [place] [address] [id number] 5 08/11/2024 14:36:41 08/11/2024 16:10:17 Posterior rhinorrhea 31139928 R09.82 Ear drainage is likely causing the sore throat. Exam is more consistent with allergies than infection. Will start as the duloxetine and cetirizine . Active or passive immunization 133631813 Z23 Type 2 maria alejandra betes mellitus 12514862 E11.9 A1c was 5.7. Discussed medication s and we will stop the glipizide. A1c in 3 months. [id number] Efren Billy MD [facility] [address] [place] [address] [id number] 5 08/31/2024 15:39:46 08/31/2024 16:14:18 Bronchitis 99526931 J40 Will treat the patient with antibiotic s and steroids similar to his . Will provide Tessalon Perles to help with cough. Continue over-the-c ounter medication to help with symptoms. Follow-up if symptoms do not improve after 7 to 10 days. [id number] Efren Billy MD [facility] [address] [place] [address] [id number] 5 12/01/2024 14:51:16 12/01/2024 16:19:11 Left lateral elbow tendinopathy 9808668717 35662 M77.12 Exam is consistent with lateral epicondyli tis. Discussed tennis elbow strap. The patient is going to physical therapy for his back so prescripti on was provided for them to work with his tennis elbow as well. [id number] Efren Billy MD [facility] [address] [place] [address] [id number] 5 12/22/2024 10:37:40 12/22/2024 11:25:27 Fatigue 26619463 R53.83 Will check labs today to evaluate fatigue. Trigger fi nger of left hand 2688053973 4127048 M65.342 M65.332 The patient has trigger fingers [...] procedure was performed on left middle finger. [id number] CECY GONZALES [facility] [address] [place] [address] [id number] 5 02/09/2025 10:27:50 02/15/2025 08:14:46 Dyspnea 916762752 R06.02 63783 VSS. No signs of PE or post op complicati on. Breath sounds clear; not diminished . Will send order for a incentive spirometer . Discussed how to use this every 4 hours while awake. If you develop fever, worsening sob, cough productive of sputum then return for re-evaluat ion. [id number] CECY GEORGE [facility] [address] [place] [address] [id number] 5 03/16/2025 12:13:45 03/16/2025 14:24:07 Acute right otitis media 993909216 H66.91 [id number] Patient to take antibiotic as prescribed . Did not see any perforatio n of ear drum but encouraged patient to call with any drainage or increased pain. Return to clinic with any new or worsening symptoms. [id number] CECY GONZALES [facility] [address] [place] [address] [id number] 5 03/22/2025 10:45:50 03/22/2025 11:05:38 Acute right otitis media 091307104 H66.91 [id number] stop amox. will start the cefdinir. f/u in 1 week for re-evaluat ion. [id number] Efren Billy MD [facility] [address] [place] [address] [id number] 5 04/04/2025 09:03:12 04/04/2025 09:35:57 Orthopnea 31414497 R06.01 36897 Dyspnea on exertion 6084 5006 R06.09 701264 The patient is having orthopnea and dyspnea on exertion. Concerned about the patient's heart. Will order an echo. Daytime somnolence 24232 46833 00 G47.19 131978 Patient does have significan t risk factors suggestive of sleep apnea. Recommend home sleep study. Acute back pain with sciatica 418974718 M54.42 [id number] Patient is having persistent low back issues and has gone to the ER several times for this. Continue medication therapy but also start physical therapy for treatment. Type 2 maria alejandra betes mellitus 10702846 E11.9 Check labs today. Continue current interventi ons. Hearing lo ss of right ear 146011722 H91.91 [id number] Will send referral to audiologis t for hearing testing. [id number] Efren Billy MD [facility] [address] [place] [address] [id number] 5 05/11/2025 12:17:07 05/11/2025 13:12:15 Daytime somnolence 5799293292 00 G47.19 813538 The patient needs to be tested appropriat tye for sleep apnea. The patient has tried multiple home sleep studies but they come back nondiagnos tic and likely secondary to his tremor. Recommend monitored in the lab sleep study for evaluation for his possible sleep apnea Dyspnea on exertion 6084 5006 R06.09 158452 The patient continues to have dyspnea on exertion. Reviewed echo results with the patient. We will proceed with pulmonary function testing at this time. [facility] Inflammati on of sacroiliac joint 68390932 M46.1 23765 Patient's back pain is related to cigarette that is and not his kidney. Patient was reassured. Patient will continue with home stretches and exercises. [id number] Efren Billy MD [facility] [address] [place] [address] [id number] 5 05/24/2025 11:08:58 05/24/2025 12:59:44 Bronchitis 43760832 J40 91739 Patient is doing better and is recovering from his recent illness. Type 2 maria alejandra betes mellitus 21501585 E11.9 Patient is doing well on current medication s. A1c 7.2%. [id number] Efren Billy MD [facility] [address] [place] [address] [id number] 5 07/04/2025 09:32:07 07/04/2025 10:03:59 Trigger finger of left hand [id number] M65.342 - Referral to hand specialist for further evaluation and possible surgical options. Administra tion of influenza vaccine [id number] Z23 - Administer influenza vaccinatio n today. Triggering of digit 0619 97974 M65.786 [id number] Efren Billy MD [facility] ([facility]) [address] [place] [phone] 08/02/2025 10:01:26 08/02/2025 11:05:58 Acute exacerbation of chronic obstructive pulmonary disease [id number] J44.1 [id number] - Symbicort inhaler prescribed , 2 puffs twice daily. - Nebulizer therapy to continue as needed. - Extend prednisone therapy beyond initial three-day course. Oropharyng eal dysphagia [id number] R13.12 8208 - Schedule modified barium swallow [...] Name 08/01/2025 2 [place] Jose Hairston [id number] Jose Hairtson 09/26/2024 1 AETNA - DUAL COMPLETE (MEDICARE REPLACEMENT/ ADVANTAGE - HMO) [id number] Jose Hairston [id number] Jose Hairston 08/01/2025 [place] [facility] [place]) Jose Hairston [id number] Jose Hairston 08/01/2025 1 AETNA (MEDICARE REPLACEMENT/ ADVANTAGE - PPO) [id number] Jose Hairston [id number] Jose Hairston Notes Date Note Type Note [...] like it evaluated further Efren Billy MD [address] [place] [address], [phone], [facility] 04/05/2025 11:06:59 5 text/html ROS as noted in the HPI Patient is here today c/o of SOB going on since JanuaryPt feels SOB, coughs, wheezes and has episodes of sleep apnea at nightHe also c/o of Back Pain on the right side he thinks maybe kidney related Efren Billy MD [address] [place] [address], [phone], [facility] 05/14/2025 12:06:41 5 text/html patient here to f/u on an ER visit for difficulty breathing. they gave him an albuterol inhaler and he has PTF's set up for 06/01 he is feeling better nowhis [facility] show 7.2 A1C. Patient has no other concerns today. Efren Billy MD [address] [place] [address], [phone], [facility] 05/29/2025 09:21:51 5 text/html ROS as [...] pending from the hospital. Efren Billy MD [address] [place] [address], [phone], [facility] 07/04/2025 10:02:16 5 text/html Upper Respiratory [...] normal pulmonary function tests. Efren Billy MD [address] [place] [address], [phone], [facility] 08/02/2025 11:14:23
--- OUTSIDE RECORDS SUMMARY | 2025-08-06 17:02 | XMS_ITS | Encounter Summary ---
Author Organization [facility] Address 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 Gender Identity Not on file Sexual Orientation Not on file documented as of this encounter Plan of Treatment Upcoming Encounters Date Type Department Care Team (Late st Contact Info) Description 08/18/2025 10:20 AM EQUIPMENT ASSOCIATE Office Visit [facility] [address] [place] [address] Isabell Garcia PA [address] [place] [address] 09/06/2025 11:00 AM EQUIPMENT ASSOCIATE Office Visit [facility] Orthopedics - Orthopedic [facility] [address] [place] [address] Vida Osborn MD [address] [place] [address] 11/25/2025 11:15 AM EQUIPMENT ASSOCIATE Office Visit [facility] Neurology - [place] [address] [place] [address] Norma Dhaliwal MD [address] [place] [address] documented as of this encounter Visit Diagnoses Not on filedocumented in this encounter
[2025-08-06 17:14] VITALS: BP 152/83; PULSE 68; RESP 22; TEMP 36.3; O2SAT 90; BMI 32.1
--- NOTE | 2025-08-06 17:50 | CTR_ITS ---
PROCEDURE INFORMATION: Exam: CTA Chest With Contrast CTA Abdomen and Pelvis With Contrast Exam date and time: 08/06/2025 6:19 PM Age: 69 years old Clinical indication: Other: N/a; Other: Abd wall contusion; Abdominal pain; Localized; Right lower quadrant (rlq); Prior surgery; Surgery date: 6+ months; Surgery type: Avr. Gb. Appy. Recently diagnosed with pneumonia and has been coughing so hard its causing abd pain. Noticed a bruise a few days ago on abdomen that has grown and encompasses rlq and RT flank. No bm x 4 days. ; Additional info: Worsening hematoma, R/O arterial hematoma in need of coiling TECHNIQUE: Imaging protocol: Computed tomographic angiography of the chest with contrast. Exam focused on the arteries. Computed tomographic angiography of the abdomen and pelvis with contrast. Exam focused on the arteries. 3D rendering (Not supervised by radiologist): MIP and/or 3D reconstructed images were created by the technologist. Radiation optimization: All CT scans at this facility use at least one of these dose optimization techniques: automated exposure control; mA and/or kV adjustment per patient size (includes targeted exams where dose is matched to clinical indication); or iterative reconstruction. Contrast material: OMNI 350; Contrast volume: 100 ml; Contrast route: INTRAVENOUS (IV); COMPARISON: CT abdomen pelvis w con* [id number] 08/04/2025 5:38 PM RADIATION DOSE METRICS: Total DLP (mGy-cm): 1885.57 FINDINGS: VASCULATURE: Pulmonary arteries: Normal. No pulmonary emboli. Aorta: Aortic atherosclerosis. Aortic and coronary atherosclerosis. Celiac and mesenteric arteries: No occlusion or significant stenosis. Renal arteries: No occlusion or significant stenosis. Right iliac arteries: No occlusion or significant stenosis. Left iliac arteries: No occlusion or significant stenosis. CHEST: Lungs: Infiltrates in the right stjxo-qrlghwc-nwso-left lung base, nonspecific although concerning for pneumonia. Pleural spaces: Unremarkable. No pneumothorax. No pleural effusion. Heart: Post cardiac surgery residuals. ABDOMEN AND PELVIS: Liver: No mass. Gallbladder and biliary ducts: Cholecystectomy clips. Pancreas: Unremarkable. No mass. No ductal dilation. Spleen: Unremarkable. No splenomegaly. Adrenal glands: Unremarkable. No mass. Kidneys and ureters: Nonobstructing left renal calculi. Stomach and bowel: Duodenal diverticulum. Appendix: No evidence of appendicitis. Intraperitoneal space: Unremarkable. No free air. No significant fluid collection. Urinary bladder: Unremarkable. No mass. Reproductive: Unremarkable as visualized. Lymph nodes: Unremarkable. No enlarged lymph nodes. Bones/joints: Moderate to severe degenerative changes of the thoracic vertebral bodies. Moderate volume stool in colon mild degenerative changes of lumbar vertebral bodies. Soft tissues: Subcutaneous stranding overlying the right lower abdomen, compatible with known recent diffuse hematoma, without definite arterial extravasation. CT/CT [facility] [id number] IMPRESSION: 1. Subcutaneous stranding overlying the right lower abdomen, compatible with known recent diffuse hematoma, without definite arterial extravasation. 2. Infiltrates in the npvrs-scjknuw-eawr-left lung base, nonspecific although concerning for pneumonia. 3. Nonobstructing left renal calculi.
--- NOTE | 2025-08-06 17:51 | W.ED.ABDPA2 ---
HPI - Abdominal Pain General: Chief Complaint: Abdominal Pain Stated Complaint: No Bm X4 Time Seen by Provider: 08/06/25 17:28 History of Present Illness: Patient is a 69-year-old gentleman with longstanding Parkinson's disease, and recent diagnosis of pneumonia. Content: Patient has had ongoing coughing due to his pneumonia, no injury, no falls, and had spontaneous hematoma to his right flank. He was first seen here 2 days ago, and CT of the abdomen and pelvis with contrast did not indicate any hematoma in need of coiling by intervention radiology. He returns back to the emergency room with a worsening hematoma. He has not utilized the Arnica, or Trey. He states his cough is improving however. He has less congestion and is taking his aerosol therapy more often. Associated Symptoms: Denies chills, fever(s), nausea and vomiting Related Data Home Medications ?Medication ?Instructions ?Recorded ?Confirmed albuterol sulfate 2.5 mg/3 mL 2.5 mg inhalation Q6H PRN Wheezing 04/10/20 09/21/24 (0.083 %) solution for nebulization medical marijuana 1 gummy PO PRN PRN Pain 01/09/21 09/21/24 ascorbic acid (vitamin C) 1,000 mg 1 g PO DAILY 10/08/21 09/21/24 tablet carbidopa 25 mg-levodopa 250 mg 1.5 tab PO QID 12/21/21 09/21/24 tablet thiamine HCl (vitamin B1) 100 mg 200 mg PO BID 04/23/23 09/21/24 tablet rosuvastatin 40 mg tablet 40 mg PO DAILY 04/13/24 09/21/24 sitagliptin phosphate 100 mg 100 mg PO DAILY 04/13/24 09/21/24 tablet (Januvia) diclofenac sodium 50 mg 50 mg PO BID 07/13/24 09/21/24 tablet,delayed release glipizide 5 mg tablet 5 mg PO DAILY 03/17/25 Previous Rx's ?Medication ?Instructions ?Recorded lancets 33 gauge (BD Ultra Fine #300 ea 03/21/22 Lancets) blood-glucose meter (Accu-Chek #1 kit 08/20/22 Guide Glucose Meter) lancets (Accu-Chek Softclix ##300 04/04/23 Lancets) sildenafil 100 mg tablet 100 mg PO DAILY PRN sexual 07/25/23 activity #20 tabs blood sugar diagnostic (Accu-Chek #300 strips 05/25/24 Guide test strips) propranolol 40 mg tablet 40 mg PO BID #180 tabs 12/20/24 losartan 25 mg tablet 25 mg PO DAILY 30 days #30 tabs 03/17/25 methylprednisolone 4 mg tablets in See Rx Instructions PO .COMPLEX 03/31/25 a dose pack (Medrol (Thomas)) #21 ea tizanidine 2 mg capsule 2 mg PO Q8H PRN muscle spasticity 03/31/25 #20 caps albuterol sulfate 90 mcg/actuation 2 inh inhalation Q4H PRN shortness 05/15/25 aerosol inhaler of breath or wheezing #6.7 grams fluticasone 250 mcg-salmeterol 50 1 inh inhalation BID #60 ea 05/15/25 mcg/dose blistr powdr for inhalation (Advair Diskus) ipratropium 0.5 mg-albuterol 3 mg 3 ml inhalation Q4H shortness of 07/29/25 (2.5 mg base)/3 mL nebulization breath 1 month #180 mL soln doxycycline hyclate 100 mg capsule 100 mg PO BID 10 days #20 caps 08/04/25 lactulose 10 gram/15 mL oral 30 g (45 mL) PO Q2H 48 hours 08/06/25 solution #1,080 mL Allergies Allergy/AdvReac Type Severity Reaction Status Date / Time Iodinated Contrast Media Allergy hives Verified 08/06/25 17:22 primidone Allergy unknown Verified 08/06/25 17:22 Review of Systems Const: Denies: fever(s) or chills Eyes: Denies: change in vision or blurry vision Card: Denies: chest pain or palpitations Resp: Denies: dyspnea or non-productive cough GI: Reports: abdominal pain; Denies: nausea or vomiting Musc: Denies: neck pain, back pain, extremity pain, joint pain or joint swelling Skin/Breast: Denies: rash or pruritus Neuro: Denies: headache(s) or numbness in extremities Psych: Denies: anxiety or depression PFS ED PFSH: Medical History (Updated 08/06/25 @ 19:25 by TRACIE Copeland) Parkinson disease Aortic stenosis Accelerated essential hypertension CAD (coronary artery disease) Enrolled in chronic care management Hyperlipidemia, mixed Type 2 diabetes mellitus Low back pain Encounter for long-term use of opiate analgesic Surgical History History of cholecystectomy History of back surgery H/O aortic valve replacement H/O aortic valve replacement History of arthroplasty of knee Status post total left knee replacement Family History Mother , at age 80 Diabetes Hypertension Stroke Father , at age 65 CAD (coronary artery disease) Rheumatic fever Congestive heart failure (CHF) Brother Hypertension CAD (coronary artery disease) CABG x 4 Diabetes Sister Hypertension CAD (coronary artery disease) stents Brother CAD (coronary artery disease) stents Diabetes Denies family history of Clotting disorder Dementia Chronic kidney disease (CKD) Suicide Anesthesia complication Bleeding disorder Lung disease Cancer Social History Smoking and tobacco/nicotine status: never used tobacco/nicotine Second hand smoke exposure: Yes Alcohol intake: never Substance/Drug Use: current Substance/Drug use frequency: few times a week Marital status: Current occupational status: disabled Physical Exam Const: COMMON NORMALS: no acute distress, average body habitus and patient oriented x3 GENERAL APPEARANCE: cooperative HENMT: COMMON NORMALS: normocephalic and atraumatic HEAD & SCALP: normocephalic and atraumatic Neck/C-Spine: COMMON NORMALS: full ROM, no lymphadenopathy and supple Lymph: LYMPHATIC: no lymphadenopathy noted Chest: COMMONS NORMALS: normal inspection of the chest and normal palpation of entire chest wall Resp: COMMON NORMALS: normal respiratory effort and No retractions AUSCULTATION: rales on the right in the lower lung hernandez Cardio: COMMON NORMALS: regular rate and regular rhythm RATE: regular rate RHYTHM: regular rhythm GI: COMMON NORMALS: Normal to inspection, nondistended, normoactive bowel sounds present, Soft to palpation, non-tender and No hepatosplenomegaly present PALPATION: Yes Soft to palpation and Yes No hepatosplenomegaly present : COMMON NORMALS: Yes no CVA tenderness BLADDER/KIDNEY EXAM: Yes no CVA tenderness Back/Pelvis: COMMON NORMALS: no CVA tenderness Neuro: COMMON NORMALS: patient oriented x3 Psych: COMMON NORMALS: mental status grossly normal, Normal thought process present and cooperative THOUGHT PROCESS: Normal thought process present Skin: NARRATIVE SKIN EXAM: Large hematoma just above waistband from umbilicus to mid back. This is dark blue with some sheen's of purple. SKIN IMAGES (MALE):  1. hematoma 2. hematoma Course Vital Signs: Vital signs: Vital Signs Temperature 97.4 F L 08/06/25 17:14 Pulse Rate 71 08/06/25 19:36 Respiratory Rate 16 08/06/25 18:34 Blood Pressure 164/86 08/06/25 19:36 Pulse Oximetry 91 08/06/25 19:36 Oxygen Delivery Me thod Room Air 08/06/25 17:14 MDM - Abdominal Pain Medical Decision Making Patient is a 69-year-old male that presented to the emergency room due to worsening hematoma to the abdomen. Patient did not take his Power Ensure, or rub on Arnica. There has been no trauma. This is worsening in nature. No additional concerns were noted on CT, and there is no extravasation with concern of intervention radiology. Patient be sent home with instructions, to return if needed. He is continuing his antibiotics he is currently on for pneumonia. Medical Records I reviewed the patient's medical records. Lab Data Labs/Radiology: Radiology Impressions Chest/Abdomen/Pelvis CTA 08/06/25 17:50 IMPRESSION: 1. Subcutaneous stranding overlying the right lower abdomen, compatible with known recent diffuse hematoma, without definite arterial extravasation. 2. Infiltrates in the jebok-ddhgpye-ytvn-left lung base, nonspecific although concerning for pneumonia. 3. Nonobstructing left renal calculi. All radiology interpretation(s) finalized by discharge Discharge Plan Discharge Patient Disposition: Home Clinical Impression: Abdominal hematoma Pneumonia Qualifiers: Pneumonia type: due to unspecified organism Laterality: right Lung location: lower lobe of lung Qualified Code(s): J18.9 - Pneumonia, unspecified organism Condition: Stable Prescriptions: New lactulose 10 gram/15 mL solution 30 g PO Q2H 2 Days Qty: 1080 0RF Rx Instructions: until desired laxative effect No Action albuterol sulfate 2.5 mg /3 mL (0.083 %) solution for nebulization 2.5 mg INHALATION Q6H PRN (Reason: Wheezing) carbidopa-levodopa 25-250 mg tablet 1.5 tab PO QID medical marijuana 1 gummy PO PRN PRN (Reason: Pain) ascorbic acid (vitamin C) 1,000 mg tablet 1 g PO DAILY sildenafil 100 mg tablet 100 mg PO DAILY PRN (Reason: sexual activity) Qty: 20 6RF Rx Instructions: Take 1 hour before intercourse, on empty stomach, max dose 100 mg, NO NITROGLYCERIN glipizide 5 mg tablet 5 mg PO DAILY losartan 25 mg tablet 25 mg PO DAILY 30 Days Qty: 30 5RF thiamine HCl (vitamin B1) 100 mg tablet 200 mg PO BID (DME) lancets [BD Ultra Fine Lancets] 33 gauge misc See Rx Instructions .Route Qty: 300 3RF Rx Instructions: As directed to test blood sugar TID (DME) blood-glucose meter [Accu-Chek Guide Glucose Meter] Misc See Rx Instructions .ROUTE .COMPLEX Qty: 1 0RF Dose Instruction: USE DIRECTED 3 TIMES A DAY Rx Instructions: USE DIRECTED 3 TIMES A DAY (DME) lancets [Accu-Chek Softclix Lancets] Misc See Rx Instructions .ROUTE .COMPLEX Qty: 300 3RF Dose Instruction: TEST 3 TIMES A DAY Rx Instructions: TEST 3 TIMES A DAY (DME) Accu-Chek Guide test strips Strip See Rx Instructions .ROUTE .COMPLEX Qty: 300 2RF Dose Instruction: USE DIRECTED TO TEST 3 TIMES A DAY Rx Instructions: USE DIRECTED TO TEST 3 TIMES A DAY propranolol 40 mg tablet 40 mg PO BID Qty: 180 3RF methylprednisolone [Medrol (Thomas)] 4 mg tablets,dose pack See Rx Instructions .ROUTE .COMPLEX Qty: 21 0RF Rx Instructions: for 6 days tizanidine 2 mg capsule 2 mg PO Q8H PRN (Reason: muscle spasticity) Qty: 20 0RF ipratropium-albuterol 0.5 mg-3 mg(2.5 mg base)/3 mL solution for nebulization 3 ml inhalation Q4H 30 Days Qty: 180 2RF rosuvastatin 40 mg tablet 40 mg PO DAILY Januvia 100 mg tablet 100 mg PO DAILY diclofenac sodium 50 mg tablet,delayed release (DR/EC) 50 mg PO BID fluticasone propion-salmeterol [Advair Diskus] 250-50 mcg/dose blister with device 1 inh inhalation BID Qty: 60 0RF albuterol sulfate 90 mcg/actuation HFA aerosol inhaler 2 inh INHALATION Q4H PRN (Reason: shortness of breath or wheezing) Qty: 6.7 1RF doxycycline hyclate 100 mg capsule 100 mg PO BID 10 Days Qty: 20 0RF Discharge Orders: Discharge ED (Routine); Ordered 08/06/25 Ordered By: Patricia Bush Referrals: Delgado Billy MD [Primary Care Provider, Family Practice] Discharge Diet: Clear Liquid Discharge Activity: Resume usual activity Patient Instructions: Hematoma (ED), Patient Portal & Ivan Instructions Activity Restrictions/Additional Instructions: - Clear liquid diet until your abdominal pain/constipation resolves - Arnica: This is a cream at the pharmacy you rub onto your bruise - Trey ensure: This is a drink you drink daily to help with your bruise - Return to ED if you have worsening pain. -Lactulose was sent to your pharmacy as well as home with you. -Make sure you drink your 64 ounces of noncaffeinated beverages daily. -Make sure you take a probiotic with your antibiotic that you are on for pneumonia. -You will need a follow-up chest x-ray with your doctor next week. Make an appointment on Friday. Thank you for choosing [facility] for your healthcare needs today. You have been screened and evaluated and felt safe for discharge. Health conditions do change or evolve sometimes and as such it is important that you follow up with your Primary Doctor to be re checked, 3-5 days is a general good time frame for follow up. You are always welcome to return to the ED for re assessment if your symptoms are worsening or you have new concerns Print Language: Sami Coding Level of Care Code ED Patrol Deputy Sheriff for Fredis Canchola
[2025-08-06] MEDS: lactulose oral liq 20 gm/30 mL UDC 30 GM PO (18:07)
[2025-08-06] MEDS: diphenhydrAMINE 50 mg/mL SDV 1mL IVP (18:07)
[2025-08-06] MEDS: methylPREDNISolone sod succ 125 mg/2 mL INJ 80 MG IVP (18:07)
[2025-08-06] MEDS: iohexol 350 mg/mL 500 mL Btl (per mL) IV (18:23)
[2025-08-06 18:34] VITALS: BP 173/96; PULSE 72; RESP 16; O2SAT 92
[2025-08-06 19:36] VITALS: BP 164/86; PULSE 71; O2SAT 91
== END 2025-08-06 19:35 | disposition home or self-care (01) ==
PROVIDERS: Emergency Provider Physician Assistant; PCP Family Medicine
DX: J18.9 Pneumonia, unspecified organism (principal); S30.11XA Contusion of abdominal wall, initial encounter; I25.10 Atherosclerotic heart disease of native coronary artery without angina pectoris; E11.9 Type 2 diabetes mellitus without complications; I10 Essential (primary) hypertension; E78.2 Mixed hyperlipidemia; X58.XXXA Exposure to other specified factors, initial encounter
CPT/HCPCS: 71275; 74174; 96374; 96375; 99285; J1200; J2919; J9999

== ENCOUNTER → 2025-08-16 10:57 | Outpatient (BNVA) | payer OTHER, SELFPAY | PROVIDERS: PCP Family Medicine; Visit Provider Nurse Practitioner Family | DX: L57.8 Other skin changes due to chronic exposure to nonionizing radiation (principal); L81.4 Other melanin hyperpigmentation; L82.1 Other seborrheic keratosis; D22.62 Melanocytic nevi of left upper limb, including shoulder; L57.0 Actinic keratosis | CPT/HCPCS: 17000; 99213 ==

== ENCOUNTER 2025-08-18 10:51 | Outpatient (CLI) | payer OTHER, SELFPAY ==
--- NOTE | 2025-08-18 10:57 | FL_ITS ---
WS: [id number] Exam: FL barium swallow modifd [id number] Date/Time of Exam: 08/18/2025 11:09 AM Reason For Exam: Oropharyngeal dysphagia Fluoroscopy time: 1min [id number] minutes # of spot films: Modified barium swallow test was performed in conjunction with the speech therapy service. Oral pharyngeal phase of swallowing was essentially normal. A single episode of very slight penetration was identified with thin liquid barium. No aspiration. The patient tolerated pudding consistency and solid barium mixture foodstuffs without difficulty. The patient swallowed a barium tablet without difficulty. FL/FL barium swallow modifd [id number] IMPRESSION: 1. Single episode of minimal penetration into the laryngeal inlet when the mario ent swallowed thin liquid barium. The exam was otherwise unremarkable. A separate report and detailed recommendations will follow from the speech ther apy service.
== END 2025-08-18 10:52 | disposition home or self-care (01) ==
LOC: RAD 10:51
PROVIDERS: PCP Family Medicine; Visit Provider Family Medicine
DX: R13.12 Dysphagia, oropharyngeal phase (principal)
CPT/HCPCS: 74230; 92611

== ENCOUNTER 2025-09-05 05:00 | Outpatient (RCR) | payer MEDICARE, MEDICAID, SELFPAY | END 2025-10-05 23:59 | disposition home or self-care (01) | LOC: SST 05:00 | PROVIDERS: Visit Provider Internal Medicine | DX: J69.0 Pneumonitis due to inhalation of food and vomit (principal) | CPT/HCPCS: 92526; 92610 ==

== ENCOUNTER → 2025-09-15 13:46 | Outpatient (BNVA) | payer MEDICARE, MEDICAID, SELFPAY | PROVIDERS: PCP Family Medicine; Referring Provider Family Medicine; Visit Provider Internal Medicine | DX: J69.0 Pneumonitis due to inhalation of food and vomit (principal); R13.10 Dysphagia, unspecified; J98.4 Other disorders of lung; G47.30 Sleep apnea, unspecified; G20.A1 Parkinson's disease without dyskinesia, without mention of fluctuations; I35.0 Nonrheumatic aortic (valve) stenosis; Z95.2 Presence of prosthetic heart valve; J44.9 Chronic obstructive pulmonary disease, unspecified | CPT/HCPCS: 99204; Q3014 ==

== ENCOUNTER → 2025-09-19 10:48 | Outpatient (BNVA) | payer MEDICARE, MEDICAID, SELFPAY | PROVIDERS: PCP Family Medicine; Visit Provider Nurse Practitioner Family | DX: I25.10 Atherosclerotic heart disease of native coronary artery without angina pectoris (principal); Z95.2 Presence of prosthetic heart valve; I10 Essential (primary) hypertension; E78.2 Mixed hyperlipidemia; R25.1 Tremor, unspecified; R06.00 Dyspnea, unspecified; R06.01 Orthopnea | CPT/HCPCS: 99214 ==

== ENCOUNTER → 2025-09-26 08:23 | Outpatient (BNVA) | payer MEDICARE, MEDICAID, SELFPAY | PROVIDERS: PCP Family Medicine; Visit Provider Podiatrist Foot & Ankle Surgery | DX: E11.69 Type 2 diabetes mellitus with other specified complication (principal); B35.1 Tinea unguium; E11.621 Type 2 diabetes mellitus with foot ulcer; L97.512 Non-pressure chronic ulcer of other part of right foot with fat layer exposed; M20.41 Other hammer toe(s) (acquired), right foot; M20.42 Other hammer toe(s) (acquired), left foot; L03.115 Cellulitis of right lower limb | CPT/HCPCS: 11042; 11721; 28010; 28011; 73630; 99204 ==

== ENCOUNTER 2025-09-27 07:33 | Outpatient (CLI) | payer MEDICARE, MEDICAID, SELFPAY ==
--- NOTE | 2025-09-27 07:30 | CTR_ITS ---
PROCEDURE INFORMATION: Exam: CT Neck Without Contrast Exam date and time: 09/27/2025 7:45 AM Age: 70 years old Clinical indication: Dysphagia / difficulty swallowing; Prior surgery; Surgery date: 6+ months; Surgery type: Cervical fusion in January 2025, aortic valve replacement, gb; SOB worse when laying flat or on left side since March, difficulty swallowing with food or pills. PT had cervical fusion end of January. PT dx with pneumonia x 3 weeks ago. ; Additional info: Swallowing difficulty TECHNIQUE: Imaging protocol: Computed tomography of the neck without contrast. Radiation optimization: All CT scans at this facility use at least one of these dose optimization techniques: automated exposure control; mA and/or kV adjustment per patient size (includes targeted exams where dose is matched to clinical indication); or iterative reconstruction. COMPARISON: RF FL barium swallow modifd [id number] 08/18/2025 12:06 PM RADIATION DOSE METRICS: Total DLP (mGy-cm): 212.92 FINDINGS: Paranasal sinuses: Mild inferior bilateral maxillary sinus mucosal thickening. Salivary glands: Normal. Glands are normal in size. Pharynx: Unremarkable. No significant tonsillar enlargement. Larynx: Unremarkable. Epiglottis is normal. Thyroid: Normal. No enlarged or calcified nodules. Trachea: Visualized trachea is unremarkable. Lungs: Unremarkable as visualized. Lymph nodes: Unremarkable. No lymphadenopathy. Vasculature: Bilateral carotid atherosclerotic calcifications. Bones/joints: Large bridging anterior vertebral body marginal osteophytes at mid-upper cervical spine levels. Mild-moderate C3-C4 and C4-C5 spondylosis. Previous C4 laminectomy. Partial C3 spinous process resection. Bilateral lower cervical spinal posterior fixation hardware. Anterior cervical discectomy and fusion has been performed at the C5-C6 and C6-C7 levels. The intervertebral body grafts are fused. The metallic hardware appears intact and in good position. The patient is status post median sternotomy with sternal cerclage wires. Edentulous maxilla and mandible. Soft tissues: No significant soft tissue swelling. CT/CT neck wo con [id number] IMPRESSION: No specific cause for dysphagia identified. Bulky anterior cervical spine vertebral body marginal osteophytes are present, however which can cause similar symptoms. Clinical correlation is recommended.
--- NOTE | 2025-09-27 07:38 | CTR_ITS ---
PROCEDURE INFORMATION: Exam: CT Chest Without Contrast; Diagnostic Exam date and time: 09/27/2025 7:48 AM Age: 70 years old Clinical indication: Condition or disease; Lung condition and disease; Shortness of breath; Prior surgery; Surgery date: 6+ months; Surgery type: Cervical fusion in January 2025, aortic valve replacement, gb; SOB worse when laying flat or on left side since March, difficulty swallowing with food or pills. PT had cervical fusion end of January. PT dx with pneumonia x 3 weeks ago. ; Additional info: Pneumonia/copd TECHNIQUE: Imaging protocol: Diagnostic computed tomography of the chest without contrast. Radiation optimization: All CT scans at this facility use at least one of these dose optimization techniques: automated exposure control; mA and/or kV adjustment per patient size (includes targeted exams where dose is matched to clinical indication); or iterative reconstruction. COMPARISON: CR XR chest 1V portable [id number] 07/28/2025 10:32 PM RADIATION DOSE METRICS: Total DLP (mGy-cm): 534.87 FINDINGS: Lungs: Mild opacity at the right lung base, atelectasis versus infiltrate. Pleural spaces: Unremarkable. No pneumothorax. No pleural effusion. Heart: Unremarkable. No cardiomegaly. No pericardial effusion. Coronary arteries: Coronary artery calcifications. Lymph nodes: Unremarkable. No enlarged lymph nodes. Vasculature: Unremarkable. No aortic aneurysm. Gallbladder and biliary ducts: Cholecystectomy. Spleen: 13 cm mild splenomegaly. Bones/joints: Unremarkable. No acute fracture. Soft tissues: Unremarkable. CT/CT chest [facility] [id number] IMPRESSION: Right lower lobe atelectasis or infiltrate.
== END 2025-09-27 07:34 | disposition home or self-care (01) ==
PROVIDERS: PCP Family Medicine; Visit Provider Internal Medicine
DX: J69.0 Pneumonitis due to inhalation of food and vomit (principal); J98.11 Atelectasis; R13.19 Other dysphagia; M47.812 Spondylosis without myelopathy or radiculopathy, cervical region; M48.12 Ankylosing hyperostosis [Forestier], cervical region; M25.78 Osteophyte, vertebrae; J32.0 Chronic maxillary sinusitis; I70.8 Atherosclerosis of other arteries; Z98.1 Arthrodesis status
CPT/HCPCS: 70490; 71250